=== PATIENT | female | born 1985 | race Hispanic/Latino ===

== ENCOUNTER 2017-06-04 23:17 | Emergency (ER) | payer OTHER ==
[~2017-06-04] VITALS: Ht 180.3 cm; Wt 90.9 kg
[2017-06-04 23:18] VITALS: BP 131/69
[2017-06-04] MEDS ORDERED: ZOLP10TA2 PO (23:30)
== END 2017-06-05 03:08 | disposition left against medical advice (07) ==
LOC: M ED 23:17
DX: R10.9 Unspecified abdominal pain (principal); Z53.21 Procedure and treatment not carried out due to patient leaving prior to being seen by health care provider

== ENCOUNTER → 2017-07-06 | Day surgery (SDC) | payer OTHER ==
[~2017-07-06] MED LIST: LIDOCAINE 1% MDV 20ML VIAL SQ; MIDAZOLAM INJ 2 MG/2 ML VIAL (J2250) As Ordered; fentaNYL 100 MCG/2 ML INJECTION (J3010) As Ordered
[2017-07-06] MEDS: LR 1,000 ML IV (10:00)
[2017-07-06] MEDS: METHYLENE BLUE 0.5% (5MG/ML) 10 ML AMP (PROVAYBLUE)(Q9968 PER 1MG) As Ordered (10:19)
[2017-07-06] MEDS: BUPIVACAINE HCL 0.25% 30 ML VIAL As Ordered (10:19)
== END ==
LOC: M SDC 09:49
DX: N97.9 Female infertility, unspecified (principal); Z53.8 Procedure and treatment not carried out for other reasons

== ENCOUNTER 2017-10-05 06:11 | Emergency (ER) | payer OTHER ==
[2017-10-05 06:58] LABS: BASO # 0.1 10^3/uL (0.0-0.2); BASO % 0.6 % (0.0-1.0); EOS # 0.2 10^3/uL (0.0-0.50); HEMOGLOBIN 13.3 g/dl (12.0-16.0); IMMATURE GRANULOCYTE % 0.6 % (0-3.0); LYMPH # 2.9 10^3/uL (1.5-4.5); LYMPH % 20.2 % (24.0-44.0); MEAN CORPUSCULAR HEMOGLOBIN 25.3 pg (27.0-33.0); MEAN CORPUSCULAR HGB CONC 31.7 g/dl (32.0-36.5); MONO # 0.6 10^3/uL (0.0-0.8); MONO % 4.3 % (0.0-5.0); NEUTROPHILS # 10.6 10^3/uL (1.8-7.7); NEUTROPHILS % 73.3 % (36.0-66.0); PLATELET COUNT, AUTOMATED 196 10^3/uL (150-450); RED BLOOD COUNT 5.25 10^6/uL (4.00-5.40); WHITE BLOOD COUNT 14.4 10^3/uL (4.0-10.0)
[2017-10-05 07:05] LABS: KETONE, URINE AUTO RFX TRACE mg/dL (NEGATIVE); LEUKOCYTE ESTERASE UR AUTO RFX NEGATIVE (NEGATIVE); MUCUS, URINE RFX SMALL (NEGATIVE); NITRITE, URINE AUTO RFX NEGATIVE (NEGATIVE); RBC, URINE AUTO RFX 19 /HPF (0-3); SPECIFIC GRAVITY UR AUTO RFX 1.016 (1.002-1.035); SQUAM EPITHELIAL CELL UR AURFX 1 /HPF (0-6); WBC, URINE AUTO RFX 2 /HPF (0-3)
[2017-10-05 07:11] LABS: ANION GAP 9 MEQ/L (8-16); BLOOD UREA NITROGEN 9 MG/DL (7-18); CALCIUM LEVEL 9.3 MG/DL (8.5-10.1); CARBON DIOXIDE LEVEL 24 MEQ/L (21-32); CHLORIDE LEVEL 104 MEQ/L (98-107); CREATININE FOR GFR 0.84 MG/DL (0.55-1.30); GLOMERULAR FILTRATION RATE > 60.0 (>60); GLUCOSE, FASTING 106 MG/DL (70-100); POTASSIUM SERUM 3.7 MEQ/L (3.5-5.1); SODIUM LEVEL 137 MEQ/L (136-145)
[2017-10-05 07:27] LABS: HCG, SERUM QUANTITATIVE 32760 MIU/ML
== END 2017-10-05 08:36 | disposition home or self-care (01) ==
LOC: M ED 06:11
DX: O20.8 Other hemorrhage in early pregnancy (principal); Z3A.01 Less than 8 weeks gestation of pregnancy; O99.611 Diseases of the digestive system complicating pregnancy, first trimester; K21.9 Gastro-esophageal reflux disease without esophagitis; Z98.890 Other specified postprocedural states; Z88.5 Allergy status to narcotic agent; O34.219 Maternal care for unspecified type scar from previous cesarean delivery
CPT/HCPCS: 76801

== ENCOUNTER → 2017-10-10 | Outpatient (CLI) | payer OTHER | LOC: M RAD 09:31 | DX: O46.8X1 Other antepartum hemorrhage, first trimester (principal); Z3A.01 Less than 8 weeks gestation of pregnancy | CPT/HCPCS: 76801 ==

== ENCOUNTER 2017-11-01 09:31 | Emergency (ER) | payer OTHER ==
[2017-11-01] MEDS: NS 1,000 ML IV (10:06)
[2017-11-01 10:26] LABS: BASO % 0.3 % (0.0-1.0); EOS # 0.1 10^3/uL (0.0-0.50); EOS % 1.5 % (0.0-3.0); HEMOGLOBIN 13.2 g/dl (12.0-15.5); LYMPH # 1.2 10^3/uL (1.5-4.5); LYMPH % 13.1 % (24.0-44.0); MEAN CORPUSCULAR HEMOGLOBIN 26.5 pg (27.0-33.0); MEAN CORPUSCULAR HGB CONC 32.2 g/dl (32.0-36.5); MEAN CORPUSCULAR VOLUME 82.2 fl (80.0-96.0); MONO # 0.3 10^3/uL (0.0-0.8); MONO % 3.3 % (0.0-5.0); NEUTROPHILS # 7.4 10^3/uL (1.8-7.7); NEUTROPHILS % 80.8 % (36.0-66.0); PLATELET COUNT, AUTOMATED 150 10^3/uL (150-450); RED BLOOD COUNT 4.99 10^6/uL (4.00-5.40); RED CELL DISTRIBUTION WIDTH 16.1 % (11.5-14.5); WHITE BLOOD COUNT 9.1 10^3/uL (4.0-10.0)
[2017-11-01 10:30] LABS: KETONE, URINE AUTO RFX TRACE mg/dL (NEGATIVE); LEUKOCYTE ESTERASE UR AUTO RFX NEGATIVE (NEGATIVE); MUCUS, URINE RFX LARGE (NEGATIVE); NITRITE, URINE AUTO RFX NEGATIVE (NEGATIVE); RBC, URINE AUTO RFX 1 /HPF (0-3); SPECIFIC GRAVITY UR AUTO RFX 1.024 (1.002-1.035); SQUAM EPITHELIAL CELL UR AURFX 2 /HPF (0-6); WBC, URINE AUTO RFX 1 /HPF (0-3)
[2017-11-01 11:26] LABS: HCG, SERUM QUANTITATIVE 71928 MIU/ML
== END 2017-11-01 11:59 | disposition home or self-care (01) ==
LOC: M ED 09:31
DX: O20.8 Other hemorrhage in early pregnancy (principal); Z3A.11 11 weeks gestation of pregnancy; K21.9 Gastro-esophageal reflux disease without esophagitis; O99.611 Diseases of the digestive system complicating pregnancy, first trimester; Z88.5 Allergy status to narcotic agent
CPT/HCPCS: 76801

== ENCOUNTER 2018-02-13 17:52 | Inpatient (IN) | payer OTHER ==
[2018-02-13 19:11] LABS: BASO % 0.4 % (0.0-1.0); EOS # 0.1 10^3/uL (0.0-0.50); EOS % 0.6 % (0.0-3.0); HEMATOCRIT 40.2 % (36.0-47.0); HEMOGLOBIN 13.4 g/dl (12.0-15.5); IMMATURE GRANULOCYTE % 1.3 % (0-3.0); LYMPH % 18.8 % (24.0-44.0); MEAN CORPUSCULAR HEMOGLOBIN 27.2 pg (27.0-33.0); MEAN CORPUSCULAR HGB CONC 33.3 g/dl (32.0-36.5); MEAN CORPUSCULAR VOLUME 81.5 fl (80.0-96.0); MONO # 0.5 10^3/uL (0.0-0.8); MONO % 4.8 % (0.0-5.0); NEUTROPHILS # 7.8 10^3/uL (1.8-7.7); NEUTROPHILS % 74.1 % (36.0-66.0); PLATELET COUNT, AUTOMATED 128 10^3/uL (150-450); RED BLOOD COUNT 4.93 10^6/uL (4.00-5.40); RED CELL DISTRIBUTION WIDTH 14.2 % (11.5-14.5); WHITE BLOOD COUNT 10.5 10^3/uL (4.0-10.0)
[2018-02-13 19:19] LABS: APPEARANCE, URINE CLEAR (CLEAR); BACTERIA, URINE AUTO NEGATIVE (NEGATIVE); BILIRUBIN, URINE AUTO NEGATIVE (NEGATIVE); BLOOD, URINE BLOOD NEGATIVE (NEGATIVE); COLOR, URINE STRAW (YELLOW); GLUCOSE, URINE (UA) AUTO 3+ mg/dL (NEGATIVE); KETONE, URINE AUTO 1+ mg/dL (NEGATIVE); LEUKOCYTE ESTERASE, URINE AUTO NEGATIVE (NEGATIVE); NITRITE, URINE AUTO NEGATIVE (NEGATIVE); PROTEIN, URINE AUTO NEGATIVE (NEGATIVE); RBC, URINE AUTO 0 /HPF (0-3); SPECIFIC GRAVITY URINE AUTO 1.033 (1.002-1.035); SQUAMOUS EPITHELIAL CELL UR AU 0 /HPF (0-6); UROBILINOGEN, URINE AUTO 0.2 mg/dL (0.0-2.0); WBC, URINE AUTO 0 /HPF (0-3)
[2018-02-13 19:46] LABS: ALBUMIN 2.8 GM/DL (3.2-5.2); ALBUMIN/GLOBULIN RATIO 0.68 (1.00-1.93); ALKALINE PHOSPHATASE 63 U/L (45-117); ALT/SGPT 29 U/L (12-78); ANION GAP 10 MEQ/L (8-16); AST/SGOT 16 U/L (7-37); BILIRUBIN,TOTAL 0.4 MG/DL (0.2-1.0); BLOOD UREA NITROGEN 10 MG/DL (7-18); CALCIUM LEVEL 9.3 MG/DL (8.5-10.1); CARBON DIOXIDE LEVEL 23 MEQ/L (21-32); CHLORIDE LEVEL 100 MEQ/L (98-107); CREATININE FOR GFR 1.13 MG/DL (0.55-1.30); GLOMERULAR FILTRATION RATE 59.4 (>60); GLUCOSE, FASTING 318 MG/DL (70-100); POTASSIUM SERUM 4.4 MEQ/L (3.5-5.1); SODIUM LEVEL 133 MEQ/L (136-145); TOTAL PROTEIN 6.9 GM/DL (6.4-8.2)
[2018-02-13 20:51] LABS: VITAMIN B12 LEVEL 512 PG/ML (247-911)
[2018-02-13 20:54] LABS: ESTIMATED AVERAGE GLUCOSE 192 MG/DL (60-110); HEMOGLOBIN A1c 8.3 %
[2018-02-13 21:49] LABS: AMPHETAMINES URINE REFLEX NEGATIVE (NEGATIVE); BARBITURATES URINE REFLEX NEGATIVE (NEGATIVE); BENZODIAZEPINES URINE REFLEX NEGATIVE (NEGATIVE); CANNABINOIDS URINE REFLEX NEGATIVE (NEGATIVE); COCAINE METABOLITE URINE REFLE NEGATIVE (NEGATIVE); METHADONE URINE REFLEX NEGATIVE (NEGATIVE); OPIATES URINE REFLEX NEGATIVE (NEGATIVE); PHENCYCLIDINE URINE REFLEX NEGATIVE (NEGATIVE)
[2018-02-13] MEDS ORDERED: GLUCAGON FOR INJ 1 MG VIAL (J1610) SC (22:00)
[2018-02-13] MEDS ORDERED: GLUCOSE 4 GM CHEW TABLET PO (22:00)
[2018-02-13] MEDS ORDERED: DEXTROSE 50% 50 ML SYRINGE IV (22:00)
[2018-02-13] MEDS: HumaLOG INSULIN (NovoLOG) PER UNIT SC (22:55)
[2018-02-13] MEDS: NS 1,000 ML IV (22:56)
[2018-02-13 23:08] LABS: BEDSIDE GLUCOSE 248 MG/DL (70-105)
[2018-02-13] MEDS: LEVEMIR (INSULIN DETEMIR) 1 UNITS/0.01ML SC (23:50)
[2018-02-14 01:30] LABS: ALBUMIN 2.4 GM/DL (3.2-5.2); ALBUMIN/GLOBULIN RATIO 0.63 (1.00-1.93); ALKALINE PHOSPHATASE 55 U/L (45-117); ALT/SGPT 25 U/L (12-78); ANION GAP 10 MEQ/L (8-16); AST/SGOT 18 U/L (7-37); BILIRUBIN,TOTAL 0.3 MG/DL (0.2-1.0); BLOOD UREA NITROGEN 10 MG/DL (7-18); CALCIUM LEVEL 8.5 MG/DL (8.5-10.1); CARBON DIOXIDE LEVEL 24 MEQ/L (21-32); CHLORIDE LEVEL 102 MEQ/L (98-107); CREATININE FOR GFR 0.72 MG/DL (0.55-1.30); GLOMERULAR FILTRATION RATE > 60.0 (>60); GLUCOSE, FASTING 220 MG/DL (70-100); POTASSIUM SERUM 3.7 MEQ/L (3.5-5.1); SODIUM LEVEL 136 MEQ/L (136-145); TOTAL PROTEIN 6.2 GM/DL (6.4-8.2)
[2018-02-14 02:22] LABS: BEDSIDE GLUCOSE 219 MG/DL (70-105)
[2018-02-14] MEDS: NS 1,000 ML IV ×3 (06:00→13:58)
[2018-02-14 07:39] LABS: BEDSIDE GLUCOSE 179 MG/DL (70-105)
[2018-02-14] MEDS: HumaLOG INSULIN (NovoLOG) PER UNIT SC ×5 (07:42→20:46)
[2018-02-14 09:36] LABS: BEDSIDE GLUCOSE 290 MG/DL (70-105)
[2018-02-14 11:28] LABS: CREATININE, URINE 25.1 MG/DL; MALB URINE SIEMENS < 5.0 MG/L; MAU/CREAT RATIO 19.9 MCG/MG (0.0-30.0)
[2018-02-14 11:36] LABS: BEDSIDE GLUCOSE 296 MG/DL (70-105)
[2018-02-14 11:52] LABS: HEMATOCRIT 39.4 % (36.0-47.0); HEMOGLOBIN 12.8 g/dl (12.0-15.5); MEAN CORPUSCULAR HEMOGLOBIN 26.8 pg (27.0-33.0); MEAN CORPUSCULAR HGB CONC 32.5 g/dl (32.0-36.5); MEAN CORPUSCULAR VOLUME 82.6 fl (80.0-96.0); PLATELET COUNT, AUTOMATED 127 10^3/uL (150-450); RED BLOOD COUNT 4.77 10^6/uL (4.00-5.40); RED CELL DISTRIBUTION WIDTH 14.4 % (11.5-14.5); WHITE BLOOD COUNT 9.6 10^3/uL (4.0-10.0)
[2018-02-14 17:22] LABS: BEDSIDE GLUCOSE 221 MG/DL (70-105)
[2018-02-14 19:31] LABS: ANION GAP 9 MEQ/L (8-16); BLOOD UREA NITROGEN 8 MG/DL (7-18); CALCIUM LEVEL 8.7 MG/DL (8.5-10.1); CARBON DIOXIDE LEVEL 23 MEQ/L (21-32); CHLORIDE LEVEL 103 MEQ/L (98-107); CREATININE FOR GFR 0.83 MG/DL (0.55-1.30); GLOMERULAR FILTRATION RATE > 60.0 (>60); GLUCOSE, FASTING 269 MG/DL (70-100); MAGNESIUM LEVEL 1.8 MG/DL (1.8-2.4); POTASSIUM SERUM 4.3 MEQ/L (3.5-5.1); SODIUM LEVEL 135 MEQ/L (136-145)
[2018-02-14 20:31] LABS: BEDSIDE GLUCOSE 284 MG/DL (70-105)
[2018-02-14] MEDS: LEVEMIR (INSULIN DETEMIR) 1 UNITS/0.01ML SC (20:46)
[2018-02-14] MEDS: MAGNESIUM OXIDE 400 MG TAB (MAG-OX) PO (20:52)
[2018-02-15 05:18] LABS: HEMATOCRIT 39.1 % (36.0-47.0); HEMOGLOBIN 12.5 g/dl (12.0-15.5); MEAN CORPUSCULAR HEMOGLOBIN 26.4 pg (27.0-33.0); MEAN CORPUSCULAR VOLUME 82.5 fl (80.0-96.0); PLATELET COUNT, AUTOMATED 113 10^3/uL (150-450); RED BLOOD COUNT 4.74 10^6/uL (4.00-5.40); RED CELL DISTRIBUTION WIDTH 14.1 % (11.5-14.5); WHITE BLOOD COUNT 9.4 10^3/uL (4.0-10.0)
[2018-02-15 05:52] LABS: ANION GAP 8 MEQ/L (8-16); BLOOD UREA NITROGEN 9 MG/DL (7-18); CALCIUM LEVEL 8.4 MG/DL (8.5-10.1); CARBON DIOXIDE LEVEL 23 MEQ/L (21-32); CHLORIDE LEVEL 107 MEQ/L (98-107); CREATININE FOR GFR 0.64 MG/DL (0.55-1.30); FREE THYROXINE INDEX 3.3 % (1.3-4.8); GLOMERULAR FILTRATION RATE > 60.0 (>60); GLUCOSE, FASTING 185 MG/DL (70-100); POTASSIUM SERUM 3.9 MEQ/L (3.5-5.1); SODIUM LEVEL 138 MEQ/L (136-145); T UPTAKE 25 % (30-39); THYROXINE (T4) 13.1 UG/DL (4.5-12.0)
[2018-02-15] MEDS: HumaLOG INSULIN (NovoLOG) PER UNIT SC ×3 (08:05→17:39)
[2018-02-15] MEDS: LEVEMIR (INSULIN DETEMIR) 1 UNITS/0.01ML SC ×3 (08:05→20:26)
[2018-02-15] MEDS ORDERED: HumaLOG INSULIN (NovoLOG) PER UNIT SC ×2 (12:00→17:30)
[2018-02-15 12:07] LABS: BEDSIDE GLUCOSE 246 MG/DL (70-105)
[2018-02-15] MEDS: PRENATAL VITAMINS CHEWABLE TABLET PO ×2 (12:15→15:19)
[2018-02-15 13:08] LABS: BEDSIDE GLUCOSE 241 MG/DL (70-105)
[2018-02-15 14:35] LABS: BEDSIDE GLUCOSE 211 MG/DL (70-105)
[2018-02-15 17:18] LABS: BEDSIDE GLUCOSE 165 MG/DL (70-105)
[2018-02-15 20:03] LABS: BEDSIDE GLUCOSE 199 MG/DL (70-105)
[2018-02-15 21:50] LABS: BEDSIDE GLUCOSE 215 MG/DL (70-105)
[2018-02-16 07:42] LABS: ANION GAP 9 MEQ/L (8-16); BLOOD UREA NITROGEN 8 MG/DL (7-18); CALCIUM LEVEL 8.4 MG/DL (8.5-10.1); CARBON DIOXIDE LEVEL 24 MEQ/L (21-32); CHLORIDE LEVEL 106 MEQ/L (98-107); CREATININE FOR GFR 0.71 MG/DL (0.55-1.30); GLOMERULAR FILTRATION RATE > 60.0 (>60); GLUCOSE, FASTING 160 MG/DL (70-100); POTASSIUM SERUM 3.9 MEQ/L (3.5-5.1); SODIUM LEVEL 139 MEQ/L (136-145)
[2018-02-16 07:47] LABS: BEDSIDE GLUCOSE 153 MG/DL (70-105)
[2018-02-16] MEDS ORDERED: ACETAMINOPHEN TAB 650MG DOSE (2X325MG) PO (08:00)
[2018-02-16] MEDS: HumaLOG INSULIN (NovoLOG) PER UNIT SC ×4 (08:01→17:07)
[2018-02-16] MEDS: LEVEMIR (INSULIN DETEMIR) 1 UNITS/0.01ML SC ×2 (08:01→21:22)
[2018-02-16] MEDS: PRENATAL VITAMINS CHEWABLE TABLET PO (08:01)
[2018-02-16] MEDS: ACETAMINOPHEN 500 MG TAB PO (08:02)
[2018-02-16 10:14] LABS: BEDSIDE GLUCOSE 207 MG/DL (70-105)
[2018-02-16 12:01] LABS: BEDSIDE GLUCOSE 161 MG/DL (70-105)
[2018-02-16 12:43] LABS: ALBUMIN 2.5 GM/DL (3.2-5.2); ALBUMIN/GLOBULIN RATIO 0.66 (1.00-1.93); ALKALINE PHOSPHATASE 56 U/L (45-117); ALT/SGPT 29 U/L (12-78); ANION GAP 11 MEQ/L (8-16); AST/SGOT 21 U/L (7-37); BILIRUBIN,TOTAL 0.4 MG/DL (0.2-1.0); BLOOD UREA NITROGEN 8 MG/DL (7-18); CALCIUM LEVEL 8.9 MG/DL (8.5-10.1); CARBON DIOXIDE LEVEL 22 MEQ/L (21-32); CHLORIDE LEVEL 103 MEQ/L (98-107); CREATININE FOR GFR 0.67 MG/DL (0.55-1.30); GLOMERULAR FILTRATION RATE > 60.0 (>60); GLUCOSE, FASTING 181 MG/DL (70-100); POTASSIUM SERUM 3.7 MEQ/L (3.5-5.1); SODIUM LEVEL 136 MEQ/L (136-145); TOTAL PROTEIN 6.3 GM/DL (6.4-8.2)
[2018-02-16 14:05] LABS: BEDSIDE GLUCOSE 136 MG/DL (70-105)
[2018-02-16 17:10] LABS: BEDSIDE GLUCOSE 108 MG/DL (70-105)
[2018-02-16 19:54] LABS: BEDSIDE GLUCOSE 85 MG/DL (70-105)
[2018-02-16 21:11] LABS: BEDSIDE GLUCOSE 117 MG/DL (70-105)
[2018-02-17 07:24] LABS: ANION GAP 8 MEQ/L (8-16); BLOOD UREA NITROGEN 7 MG/DL (7-18); CALCIUM LEVEL 8.6 MG/DL (8.5-10.1); CARBON DIOXIDE LEVEL 24 MEQ/L (21-32); CHLORIDE LEVEL 107 MEQ/L (98-107); CREATININE FOR GFR 0.59 MG/DL (0.55-1.30); GLOMERULAR FILTRATION RATE > 60.0 (>60); GLUCOSE, FASTING 134 MG/DL (70-100); POTASSIUM SERUM 3.9 MEQ/L (3.5-5.1); SODIUM LEVEL 139 MEQ/L (136-145)
[2018-02-17 07:41] LABS: BEDSIDE GLUCOSE 149 MG/DL (70-105)
[2018-02-17] MEDS: HumaLOG INSULIN (NovoLOG) PER UNIT SC ×3 (07:59→18:02)
[2018-02-17] MEDS: ACETAMINOPHEN 500 MG TAB PO (08:01)
[2018-02-17] MEDS: PRENATAL VITAMINS CHEWABLE TABLET PO (09:09)
[2018-02-17] MEDS: LEVEMIR (INSULIN DETEMIR) 1 UNITS/0.01ML SC ×2 (09:10→20:26)
[2018-02-17 10:26] LABS: BEDSIDE GLUCOSE 128 MG/DL (70-105)
[2018-02-17 12:11] LABS: BEDSIDE GLUCOSE 116 MG/DL (70-105)
[2018-02-17 14:51] LABS: BEDSIDE GLUCOSE 81 MG/DL (70-105)
[2018-02-17 17:55] LABS: BEDSIDE GLUCOSE 105 MG/DL (70-105)
[2018-02-17 20:25] LABS: BEDSIDE GLUCOSE 104 MG/DL (70-105)
[2018-02-18 03:21] LABS: BEDSIDE GLUCOSE 137 MG/DL (70-105)
[2018-02-18 06:45] LABS: BEDSIDE GLUCOSE 122 MG/DL (70-105)
[2018-02-18] MEDS: HumaLOG INSULIN (NovoLOG) PER UNIT SC (07:28)
[2018-02-18] MEDS: PRENATAL VITAMINS CHEWABLE TABLET PO (08:56)
[2018-02-18] MEDS: LEVEMIR (INSULIN DETEMIR) 1 UNITS/0.01ML SC (08:57)
[2018-02-18 09:48] LABS: BEDSIDE GLUCOSE 135 MG/DL (70-105)
== END 2018-02-18 09:45 | disposition home or self-care (01) | DRG 781 ==
LOC: M LDO 17:52 → M ICU 02-14 12:54 → M OBS 02-15 13:58
DX: O24.414 Gestational diabetes mellitus in pregnancy, insulin controlled (principal); N17.9 Acute kidney failure, unspecified; Z3A.25 25 weeks gestation of pregnancy; Z90.49 Acquired absence of other specified parts of digestive tract; Z88.5 Allergy status to narcotic agent

== ENCOUNTER → 2018-04-05 | Outpatient (CLI) | payer OTHER | LOC: M RAD 14:33 | DX: O76 Abnormality in fetal heart rate and rhythm complicating labor and delivery (principal); O24.113 Pre-existing type 2 diabetes mellitus, in pregnancy, third trimester; Z3A.32 32 weeks gestation of pregnancy ==

== ENCOUNTER 2018-04-20 04:27 | Outpatient (CLI) | payer OTHER ==
[2018-04-20] MEDS ORDERED: NS 1,000 ML IV (06:00)
== END 2018-04-20 07:30 | disposition home or self-care (01) ==
LOC: M LDO 04:27
DX: O62.2 Other uterine inertia (principal); O24.414 Gestational diabetes mellitus in pregnancy, insulin controlled; Z3A.34 34 weeks gestation of pregnancy
CPT/HCPCS: 76815

== ENCOUNTER 2018-05-08 01:57 | Inpatient (IN) | payer OTHER ==
[2018-05-08] MEDS: BUPIVACAINE HCL 0.25% 10 ML VIAL XX (02:45)
[2018-05-08] MEDS: ACETAMINOPHEN 650 MG SUPP PR (02:45)
[2018-05-08] MEDS ORDERED: LR 1,000 ML IV (02:45)
[2018-05-08 02:47] LABS: BEDSIDE GLUCOSE 87 MG/DL (70-105)
[2018-05-08 02:55] LABS: HEMATOCRIT 39.8 % (36.0-47.0); HEMOGLOBIN 12.8 g/dl (12.0-15.5); MEAN CORPUSCULAR HEMOGLOBIN 26.8 pg (27.0-33.0); MEAN CORPUSCULAR HGB CONC 32.2 g/dl (32.0-36.5); MEAN CORPUSCULAR VOLUME 83.3 fl (80.0-96.0); RED BLOOD COUNT 4.78 10^6/uL (4.00-5.40); RED CELL DISTRIBUTION WIDTH 14.7 % (11.5-14.5); WHITE BLOOD COUNT 8.8 10^3/uL (4.0-10.0)
[2018-05-08] MEDS: LR 1,000 ML IV ×3 (02:56→15:50)
[2018-05-08] MEDS: BICITRA 30ML SOLN UDC PO (02:56)
[2018-05-08] MEDS: AZITHROMYCIN INJ 500 MG, VIAL MATE ADAPTER 1 EACH in D5W 250 ML IV (02:56)
[2018-05-08] MEDS ORDERED: OXYTOCIN INJ 10 UNITS/ML VIAL (J2590) As Ordered ×4 (03:04→03:06)
[2018-05-08] MEDS ORDERED: ONDANSETRON 4MG/2ML VIAL (J2405) As Ordered (03:06)
[2018-05-08] MEDS ORDERED: dexameTHASONE 4 MG/ML 1ML VIAL (J1100) As Ordered (03:07)
[2018-05-08] MEDS ORDERED: MORPHINE PRES-FREE INJ 10 MG/10 ML VIAL (J2274) As Ordered (03:09)
[2018-05-08 03:12] LABS: PLATELET COUNT, AUTOMATED 95 10^3/uL (150-450)
[2018-05-08] MEDS ORDERED: PROPOFOL 200 MG/20 ML VIAL As Ordered (03:16)
[2018-05-08] MEDS ORDERED: LIDOCAINE 2% INJ 100 MG/5 ML SDV (FOR ANES.) As Ordered (03:16)
[2018-05-08] MEDS ORDERED: fentaNYL 100 MCG/2 ML INJECTION (J3010) As Ordered (03:18)
[2018-05-08] MEDS ORDERED: NALBUPHINE HCL 10 MG/ML AMP (J2300) IV (03:27)
[2018-05-08] MEDS ORDERED: NALOXONE INJ 0.4 MG/1 ML VIAL (J2310) IV ×2 (03:27)
[2018-05-08] MEDS ORDERED: METOCLOPRAMIDE INJ 10MG/2ML VIAL (J2765) IV ×2 (03:27→05:15)
[2018-05-08] MEDS ORDERED: ONDANSETRON 4MG/2ML VIAL (J2405) IV ×2 (03:27→05:15)
[2018-05-08 03:57] LABS: CORD GAS ABE A -2.6; CORD GAS HCO3 A 25.9 MEQ/L; CORD GAS O2 SAT A 17.4 %; CORD GAS PCO2 A 60.7 mmHg; CORD GAS PH A 7.248 UNITS; CORD GAS PO2 A 11.8 mmHg; CORD GAS SBC A 20.4 MEQ/L; CORD GAS TCO2 A 27.8 MEQ/L
[2018-05-08 03:58] LABS: CORD GAS ABE V -2.9; CORD GAS HCO3 V 23.1 MEQ/L; CORD GAS O2 SAT V 58.4 %; CORD GAS PCO2 V 44.9 mmHg; CORD GAS PO2 V 25.2 mmHg; CORD GAS SBC V 21.1 MEQ/L; CORD GAS TCO2 V 24.5 MEQ/L
[2018-05-08] MEDS ORDERED: PHENYLephrine HCL 500 MCG/5 ML (100MCG/ML) SYRINGE (J2370) As Ordered (04:28)
[2018-05-08] MEDS ORDERED: OXYTOCIN INJ 10 UNITS/ML VIAL (J2590) IV (05:00)
[2018-05-08] MEDS ORDERED: MOM 30ML SUSPENSION UDC PO (05:00)
[2018-05-08] MEDS: METHYLERGONOVINE MALEATE 0.2 MG/ML VIAL (J2210) IM (05:00)
[2018-05-08] MEDS ORDERED: ANUSOL HC CREAM 30GM TOP (05:00)
[2018-05-08] MEDS: OXYTOCIN DRIP 30 UNITS in APPROPRIATE DILUENT 1 EA IV ×2 (05:15→08:44)
[2018-05-08] MEDS ORDERED: METHYLERGONOVINE MALEATE 0.2 MG TAB PO (05:15)
[2018-05-08] MEDS ORDERED: fentaNYL 100 MCG/2 ML INJECTION (J3010) IV (05:15)
[2018-05-08] MEDS ORDERED: OXYTOCIN 30 UNITS IN 0.9% NaCl 500ML IV BAG (J2590) As Ordered (05:15)
[2018-05-08] MEDS: D5W/0.45% SODIUM CHLORIDE 1,000 ML IV (05:15)
[2018-05-08] MEDS ORDERED: MEPERIDINE INJ 25 MG/ML VIAL (J2175) IV (05:15)
[2018-05-08] MEDS ORDERED: KETOROLAC 30 MG/ML VIAL (J1885) As Ordered (05:39)
[2018-05-08] MEDS: KETOROLAC 30 MG/ML VIAL (J1885) IV ×3 (05:41→17:53)
[2018-05-08 06:47] LABS: HEMATOCRIT 39.2 % (36.0-47.0); HEMOGLOBIN 12.5 g/dl (12.0-15.5); MEAN CORPUSCULAR HEMOGLOBIN 26.7 pg (27.0-33.0); MEAN CORPUSCULAR HGB CONC 31.9 g/dl (32.0-36.5); MEAN CORPUSCULAR VOLUME 83.6 fl (80.0-96.0); RED BLOOD COUNT 4.69 10^6/uL (4.00-5.40); RED CELL DISTRIBUTION WIDTH 14.8 % (11.5-14.5); WHITE BLOOD COUNT 7.6 10^3/uL (4.0-10.0)
[2018-05-08 06:52] LABS: PLATELET COUNT, AUTOMATED 94 10^3/uL (150-450)
[2018-05-08 07:14] LABS: GLUCOSE, FASTING 121 MG/DL (70-100)
[2018-05-08] MEDS: PERCOCET 5MG/325MG TAB PO ×3 (07:42→21:04)
[2018-05-08] MEDS: RHOGAM 300 MCG (1500 IU) INJ (J2790) IM (08:49)
[2018-05-08] MEDS: MEASLES,MUMPS,RUBELLA VACCINE INJ (MMR-II) (90707) SC (08:49)
[2018-05-08] MEDS: PRENATAL VITAMINS CHEWABLE TABLET PO (09:39)
[2018-05-08 10:36] LABS: BEDSIDE GLUCOSE 137 MG/DL (70-105)
[2018-05-08 15:58] LABS: BEDSIDE GLUCOSE 94 MG/DL (70-105)
[2018-05-08] MEDS ORDERED: SLF 3 ML SYR IV (18:30)
[2018-05-08 19:05] LABS: BEDSIDE GLUCOSE 126 MG/DL (70-105)
[2018-05-08] MEDS: SLF 3 ML SYR IV (22:00)
[2018-05-09] MEDS: LR 1,000 ML IV (00:04)
[2018-05-09] MEDS: IBUPROFEN 800 MG TAB PO ×3 (01:43→18:17)
[2018-05-09] MEDS: PERCOCET 5MG/325MG TAB PO ×6 (01:43→22:03)
[2018-05-09] MEDS: SLF 3 ML SYR IV ×3 (05:30→22:03)
[2018-05-09] MEDS: DOCUSATE SODIUM 100 MG CAP PO ×2 (05:58→22:03)
[2018-05-09 07:22] LABS: HEMATOCRIT 31.9 % (36.0-47.0); MEAN CORPUSCULAR HEMOGLOBIN 26.9 pg (27.0-33.0); MEAN CORPUSCULAR HGB CONC 32.3 g/dl (32.0-36.5); MEAN CORPUSCULAR VOLUME 83.3 fl (80.0-96.0); RED BLOOD COUNT 3.83 10^6/uL (4.00-5.40); RED CELL DISTRIBUTION WIDTH 14.8 % (11.5-14.5); WHITE BLOOD COUNT 12.1 10^3/uL (4.0-10.0)
[2018-05-09 07:24] LABS: HEMOGLOBIN 10.3 g/dl (12.0-15.5); PLATELET COUNT, AUTOMATED 81 10^3/uL (150-450)
[2018-05-09 07:25] LABS: IMMATURE PLATELET FRACTION % 14.1 % (0.0-9.6)
[2018-05-09] MEDS: PRENATAL VITAMINS CHEWABLE TABLET PO (08:16)
[2018-05-09 10:49] LABS: BEDSIDE GLUCOSE 86 MG/DL (70-105)
[2018-05-09 15:23] LABS: BEDSIDE GLUCOSE 99 MG/DL (70-105)
[2018-05-09 20:06] LABS: BEDSIDE GLUCOSE 114 MG/DL (70-105)
[2018-05-10] MEDS: IBUPROFEN 800 MG TAB PO (02:20)
[2018-05-10] MEDS: PERCOCET 5MG/325MG TAB PO ×2 (02:20→08:27)
[2018-05-10] MEDS: SLF 3 ML SYR IV (05:24)
[2018-05-10 08:26] LABS: HEMATOCRIT 34.5 % (36.0-47.0); HEMOGLOBIN 10.8 g/dl (12.0-15.5); MEAN CORPUSCULAR HEMOGLOBIN 26.6 pg (27.0-33.0); MEAN CORPUSCULAR HGB CONC 31.3 g/dl (32.0-36.5); PLATELET COUNT, AUTOMATED 104 10^3/uL (150-450); RED BLOOD COUNT 4.06 10^6/uL (4.00-5.40); RED CELL DISTRIBUTION WIDTH 14.9 % (11.5-14.5); WHITE BLOOD COUNT 9.6 10^3/uL (4.0-10.0)
== END 2018-05-10 10:16 | disposition home or self-care (01) | DRG 771 ==
LOC: M LDO 01:57 → M LDI 02:28 → M OBS 06:07
PROVIDERS: Obstetrics & Gynecology
PROC: 10D00Z1 Extraction of Products of Conception, Low, Open Approach (ICD-10-PCS; principal; 2018-05-08 03:17)
PROC: 0DNW0ZZ Release Peritoneum, Open Approach (ICD-10-PCS; 2018-05-08 03:17)
DX: O45.93 Premature separation of placenta, unspecified, third trimester (principal); O24.12 Pre-existing type 2 diabetes mellitus, in childbirth; O75.82 Onset (spontaneous) of labor after 37 completed weeks of gestation but before 39 completed weeks gestation, with delivery by (planned) cesarean section; O34.211 Maternal care for low transverse scar from previous cesarean delivery; Z37.0 Single live birth; Z79.4 Long term (current) use of insulin; O69.2XX0 Labor and delivery complicated by other cord entanglement, with compression, not applicable or unspecified; N73.6 Female pelvic peritoneal adhesions (postinfective); Z3A.37 37 weeks gestation of pregnancy

== ENCOUNTER → 2019-01-12 | Outpatient (REF) | payer OTHER ==
[~2019-01-12] MED LIST changes: +ANUS2.5C2 TOP; +COLA100C5 PO; +IBUP-1114 PO; +INSUDET SC; +INSUHUMDS SC; +IRON65TA PO; -LIDOCAINE 1% MDV 20ML VIAL SQ; +MAPA500T2 PO; -MIDAZOLAM INJ 2 MG/2 ML VIAL (J2250) As Ordered; +OXYC1TAB23 PO; +PRENTAB29 PO; +PRENTAB40 PO; +TYLE325T5 PO; +VITA500T PO; +ZOLP10TA2 PO; -fentaNYL 100 MCG/2 ML INJECTION (J3010) As Ordered
[2019-01-12 19:25] LABS: CHLAMYDIA DNA AMPLIFICATION NEGATIVE (NEGATIVE); GC DNA AMPLIFICATION NEGATIVE (NEGATIVE)
== END ==
LOC: M SFHCLERA 10:14
PROVIDERS: ATTEND Nurse Practitioner Family
DX: R10.9 Unspecified abdominal pain (principal)

== ENCOUNTER 2019-08-13 10:22 | Outpatient (CLI) | payer OTHER ==
[~2019-08-13] VITALS: Ht 152.4 cm; Wt 109.9 kg
[2019-08-13] MEDS ORDERED: NOVOINJ14 SC (10:46)
[2019-08-13] MEDS ORDERED: LR 1,000 ML IV SCH (11:17)
[2019-08-13] MEDS ORDERED: LACTATED RINGER'S 1000 ML IV STA (11:17)
[2019-08-13] MEDS ORDERED: ONDANSETRON 4MG/2ML VIAL (J2405) IV ONE (11:30)
[2019-08-13] MEDS ORDERED: ACETAMINOPHEN 500 MG TAB PO ONE (11:30)
--- NOTE | 2019-08-13 13:26 | IPNPDOC ---
Text Note Date of Service The patient was seen on 08/13/19. NOTE Triage Note Ze is a 34yo with SIUP at 25wk presents with n/v/d since eating pizza last night. Her children have similar symptoms. No fevers/chills. Was not able to keep food or liquids down since last night at dinner. Feels good movement, no ctx/LOF/vaginal bleeding. She has not taken insulin since yesterday. Has a bit of a headache. Vitals wnl, afebrile General: WDWN, resting comfortably in bed Abdomen: soft, gravid, NTTP, no rebound/guarding Extremities: no edema of BLE Cat I FHRT with +accels, -decels, mod yenifer Peak: no ctx random glucose: 120 Assessment: Ze is a 34yo with SIUP at 25wk presents with n/v/d since eating pizza last night ([employer]). She received 1L LR IVF in triage as well as 8mg IV zofran, and after that was PO tolerant (drank water, ate soup and sandwich). Likely viral gastroenteritis and self-limiting. 1000mg PO Tylenol resolved headache. Vitals wnl, afebrile, benign exam. Reassuring status. Plan: -Safe for discharge home -Encouraged soft diet, still diabetic compliant. Soup, good hydration -Keep next routine OB appt -As normal diet reinitiated, begin taking insulin again -Return precautions discussed MD Conner Parker Katrina D MD Aug 13, 2019 13:26
== END 2019-08-13 14:28 | disposition home or self-care (01) ==
LOC: M LDO 10:22
PROVIDERS: ATTEND Obstetrics & Gynecology
DX: O21.2 Late vomiting of pregnancy (principal); Z3A.25 25 weeks gestation of pregnancy; O99.612 Diseases of the digestive system complicating pregnancy, second trimester; O24.112 Pre-existing type 2 diabetes mellitus, in pregnancy, second trimester; E11.9 Type 2 diabetes mellitus without complications; Z79.4 Long term (current) use of insulin; Z79.899 Other long term (current) drug therapy; Z88.8 Allergy status to other drugs, medicaments and biological substances
CPT/HCPCS: 96361; 96374; G0378; G0463; J2405

== ENCOUNTER 2019-10-11 06:14 | Outpatient (CLI) | payer OTHER ==
[~2019-10-11] VITALS: Ht 180.3 cm; Wt 112.1 kg
[~2019-10-11 06:14] MED LIST changes: +NOVOINJ14 SC
[2019-10-11 06:35] VITALS: BP 110/67
[2019-10-11] MEDS ORDERED: ACETAMINOPHEN 500 MG TAB PO ONE (07:15)
[2019-10-11] MEDS ORDERED: APAP500T10 PO (07:23)
[2019-10-11] MEDS ORDERED: METOCLOPRAMIDE 10 MG TAB PO ONE (08:00)
--- NOTE | 2019-10-11 08:14 | IPNPDOC ---
Text Note Date of Service The patient was seen on 10/11/19. NOTE patient is a 34 yo @ 33+5wks gestation present with concern for severe HUMPHREY since last night, ear ache and sore throat x 2 weeks, SOB x 2 days. She took tylenol yesterday evening which helped and she was able to sleep. she woke up with a HUMPHREY around 0300 and took some more liquid tylenol. She thinks she is drinking adequate fluids at home with clear urine. reports she has intermittent lower abdominal pain through out her and is not new or worsened. denies LOF/VB.+FM. vital: normal NAD, sitting in bed skin warm to touch. HEENT: NC,AT, eyes without exudates, no rednes ears: left drum clear without redness, right ear drum cloudy appearing without bulge, no exudates, tenderness on back of ears nose: no drainage throat: normal appearing, no exudates, no erythema neck: tender to palpation under mandible, with enlarged lymph nodes. chest: no w/r/r, decreased lung sounds on right lower lobe. s1s2 s m/g/c abd: gravid, soft, nt, cephalic by chen LE: no edema/erythema/tenderness fht: 140/mod yenifer/pos accel/no decel toco: no ctx a/p patient is at 33+5wks with s/s of middle ear infection and SOB witch is concerning for a lower respiratory infection. Treat HUMPHREY with tylenol and reglan. get viral panel with covid. strep screen. chest xray. If all negative treat for humphrey and middle ear infection. would recommend isolation until covid comes back negative. patient checked out to on coming team Dr. Prieto and MAJ Mitchell. DO Aydee VS,Fishbone, I+O VS, Fishbone, I+O Vital Signs Date Time Temp Pulse Resp B/P (MAP) Pulse Ox O2 Delivery O2 Flow Rate FiO2 10/11/19 06:35 96.9 91 18 110/67 (81) Room Air CANDELARIO PERES DO Oct 11, 2019 07:44
[2019-10-11 08:19] LABS: APPEARANCE, URINE CLEAR (CLEAR); BACTERIA, URINE AUTO NEGATIVE (NEGATIVE); BILIRUBIN, URINE AUTO NEGATIVE (NEGATIVE); BLOOD, URINE BLOOD NEGATIVE (NEGATIVE); COLOR, URINE STRAW (YELLOW); GLUCOSE, URINE (UA) AUTO NEGATIVE (NEGATIVE); KETONE, URINE AUTO NEGATIVE (NEGATIVE); LEUKOCYTE ESTERASE, URINE AUTO NEGATIVE (NEGATIVE); NITRITE, URINE AUTO NEGATIVE (NEGATIVE); PROTEIN, URINE AUTO NEGATIVE (NEGATIVE); RBC, URINE AUTO 0 /HPF (0-3); SPECIFIC GRAVITY URINE AUTO 1.003 (1.002-1.035); SQUAMOUS EPITHELIAL CELL UR AU 1 /HPF (0-6); UROBILINOGEN, URINE AUTO 0.2 mg/dL (0.0-2.0); WBC, URINE AUTO 0 /HPF (0-3)
[2019-10-11 08:27] LABS: BASO % 0.3 % (0.0-1.0); EOS # 0.2 10^3/uL (0.0-0.5); HEMATOCRIT 32.2 % (36.0-47.0); LYMPH # 1.6 10^3/uL (1.5-5.0); LYMPH % 21.4 % (24.0-44.0); MEAN CORPUSCULAR HEMOGLOBIN 25.1 pg (27.0-33.0); MEAN CORPUSCULAR HGB CONC 31.1 g/dl (32.0-36.5); MEAN CORPUSCULAR VOLUME 80.9 fl (80.0-96.0); MONO # 0.4 10^3/uL (0.0-0.8); MONO % 5.8 % (0.0-5.0); NEUTROPHILS # 5.2 10^3/uL (1.5-8.5); NEUTROPHILS % 69.8 % (36.0-66.0); PLATELET COUNT, AUTOMATED 112 10^3/uL (150-450); RED BLOOD COUNT 3.98 10^6/uL (4.00-5.40); WHITE BLOOD COUNT 7.4 10^3/uL (4.0-10.0)
[2019-10-11 08:54] LABS: ALBUMIN 2.3 GM/DL (3.2-5.2); ALT/SGPT 12 U/L (12-78); BILIRUBIN,TOTAL 0.4 MG/DL (0.2-1.0); BLOOD UREA NITROGEN 4 MG/DL (7-18); CALCIUM LEVEL 8.3 MG/DL (8.5-10.1); CARBON DIOXIDE LEVEL 24 MEQ/L (21-32); CHLORIDE LEVEL 108 MEQ/L (98-107); CREATININE FOR GFR 0.61 MG/DL (0.55-1.30); GLOMERULAR FILTRATION RATE > 60.0 (>60); GLUCOSE, FASTING 123 MG/DL (70-100); POTASSIUM SERUM 3.9 MEQ/L (3.5-5.1); SODIUM LEVEL 139 MEQ/L (136-145); TOTAL PROTEIN 5.9 GM/DL (6.4-8.2)
[2019-10-11] MEDS ORDERED: HumuLIN N INSULIN (NovoLIN N) PER UNIT SC ONE (09:15)
[2019-10-11 09:38] VITALS: BP 118/71
--- NOTE | 2019-10-11 10:03 | REP ---
Portable chest x-ray: Single view. History: 34-year-old patient at 34 weeks with new onset shortness of breath. Person under investigation for parsons virus. No comparison chest x-ray. Findings: The lungs are well inflated and clear. No infiltrate is seen. Pulmonary vasculature is not increased. Heart is not enlarged. Pleural angles are sharp. No bony abnormality is seen. Impression: Negative portable chest x-ray. No infiltrate seen. Electronically Signed by Anjel Yeung MD 10/11/2019 10:01 A
[2019-10-11 10:48] VITALS: BP 115/58
--- NOTE | 2019-10-11 12:42 | IPNPDOC ---
Text Note Date of Service The patient was seen on 10/11/19. NOTE S: Ze is a 34yo at 33+5wks who presented this AM to LND triage with severe HUMPHREY, ear ache, sore throat, SOB and lower abdominal pain. She was isolated in triage, masked, and CEFM placed. She denies any cough or GI symptoms; she denies contact with any persons that humphrey ve been symptomatic or positive for COVID19 She received 1G tylenol and reglan, HUMPHREY now only "slight" and pt overall feels better. She denies any worsening symptoms. She reports +FM, denies LOF/VB/CTX. She states her abdominal pain is left and right lower and she states it feels more like pulling, c/w round ligament pain and normal 3rd trimester discomforts. She also received 10u NPH and ate breakfast. Her PP fingerstick O: VSS, O2 sats 100% on Room Air FHR: 140s, moderate variability, + accels, no decels CTX: few noted, but pt denies feeling anything VE: not indicated CXR: WNL Labs: Respiratory panel negative, Strep negative, CBC (anemia and platelets 112,000) COVID19 test PENDING A: 34yo at 33+5wks, middle ear infection and SOB (better now since arrival to triage). Category I FHT with good reactivity, reassuring status. Good results with tylenol and reglan for HUMPHREY. CXR, respiratory viral panel and strep negative. COVID Pending P: Discharge home with strict isolation precautions for 14 days Return to ER with worsening symptoms Scheduled BPP [id number] - needs to call Tuesday or Tuesday for test results prior to coming in on Tuesday. IF positive, pt will receive notification CHRISSY. /danger precautions reviewed eligibility supervisor Augmentin at [facility] for ear infection (500mg TID x7 days) f/u PRN VS,Fishbone, I+O VS, Fishbone, I+O Vital Signs Date Time Temp Pulse Resp B/P (MAP) Pulse Ox O2 Delivery O2 Flow Rate FiO2 10/11/19 10:48 81 20 115/58 (77) 10/11/19 09:39 85 100 Room Air 10/11/19 09:38 82 118/71 (87) 10/11/19 09:37 97.3 20 Room Air 10/11/19 06:35 96.9 91 18 110/67 (81) Room Air Laboratory Tests 10/11/19 07:39: Urine Color STRAW, Urine Appearance CLEAR, Urine pH 6.0, Urine Specific [place] 1.003, Urine Protein NEGATIVE, Urine Glucose (Auto)(UA) NEGATIVE, Urine Ketones (Auto) NEGATIVE, Urine Blood NEGATIVE, Urine Nitrite NEGATIVE, Urine Bilirubin NEGATIVE, Urine Urobilinogen 0.2, Urine Leukocyte Esterase (Auto) NEGATIVE, Urine WBC (Auto) 0, Urine RBC (Auto) 0, Urine Hyaline Casts (Auto) 0, Urine Bacteria (Auto) NEGATIVE, Urine Squamous Epithelial Cells 1, Urine Sperm (Auto) 10/11/19 08:12: Sodium Level 139, Potassium Level 3.9, Chloride Level 108H, Carbon Dioxide Level 24, Anion Gap 7L, Blood Urea Nitrogen 4L, Creatinine 0.61, Glomerular Filtration Rate > 60.0, Fasting Glucose 123H, Calcium Level 8.3L, Total Bilirubin 0.4, Aspartate Amino Transf (AST/SGOT) 16, Alanine Aminotransferase (ALT/SGPT) 12, Alkaline Phosphatase 93, Total Protein 5.9L, Albumin 2.3L, Albumin/Globulin Ratio 0.64L 10/11/19 08:13: White Blood Count 7.4, Red Blood Count 3.98L, Hemoglobin 10.0L, Hematocrit 32.2L, Mean Corpuscular Volume 80.9, Mean Corpuscular Hemoglobin 25.1L, Mean Corpuscular Hemoglobin Concent 31.1L, Red Cell Distribution Width 15.2H, Platelet Count 112L, Immature Granulocyte % (Auto) 0.7, Neutrophils (%) (Auto) 69.8H, Lymphocytes (%) (Auto) 21.4L, Monocytes (%) (Auto) 5.8H, Eosinophils (%) (Auto) 2.0, Basophils (%) (Auto) 0.3, Neutrophils # (Auto) 5.2, Lymphocytes # (Auto) 1.6, Monocytes # (Auto) 0.4, Eosinophils # (Auto) 0.2, Basophils # (Auto) 0.0, Nucleated Red Blood Cells % (auto) 0.0 10/11/19 11:54: Bedside Glucose (Misc Panel) 137H Microbiology 10/11/19 Respiratory Panel (PCR) - Final, Complete Laboratory Tests 10/11/19 08:12 10/11/19 08:13 THAD GUERIN Oct 11, 2019 12:42
[2019-10-11 12:44] VITALS: BP 123/69
[2019-10-11] MEDS ORDERED: INSUNSD SC (18:42)
== END 2019-10-11 12:50 | disposition home or self-care (01) ==
LOC: M LDO 06:14
PROVIDERS: ATTEND Obstetrics & Gynecology
DX: O99.89 Other specified diseases and conditions complicating pregnancy, childbirth and the puerperium (principal); R51 Headache; O26.893 Other specified pregnancy related conditions, third trimester; H66.90 Otitis media, unspecified, unspecified ear; R06.02 Shortness of breath; O24.113 Pre-existing type 2 diabetes mellitus, in pregnancy, third trimester; Z3A.33 33 weeks gestation of pregnancy
CPT/HCPCS: 36415; 59025; 71045; 80053; 81001; 85025; 87081; 87086; 87430; 87486; 87581; 87633; 87798; 96372; G0378; G0463; U0002

== ENCOUNTER → 2019-10-19 | Outpatient (CLI) | payer OTHER ==
[~2019-10-19] MED LIST changes: +APAP500T10 PO; +INSUNSD SC
--- NOTE | 2019-10-19 15:30 | REP ---
REASON: Gestational diabetes. There are no pertinent priors. Multiple ultrasonographic image of the gravid uterus show a single living intrauterine gestation in the cephalic presentation. Doppler interrogation of the heart shows a heart rate of 147 beats per minute. The placenta is posterior and not low-lying. The subjective amniotic fluid volume is within normal limits. The umbilical cord was seen draped across the neck. A complete nuchal cord cannot be rule out by this exam. Evaluation of the maternal adnexal spaces showed no abnormalities. BPD 9.0 cm = 36 weeks 3 days HC 33.4 cm = 38 weeks 1 day AC 35.1 cm = 39 weeks 0 days FL 7.2 cm = 37 weeks 0 days The estimated weight is 3412 grams, which is at the 97th percentile for a 25-mfxy-8-day gestational age. The calculated amniotic fluid index is 10.9 with expected range 7.9 to 24.9. biophysical profile was ordered and performed showing 2 for breathing, 2 for movement, 2 for tone and 2 for amniotic fluid volume giving a sum total of 8/8. Doppler interrogation of the umbilical artery shows an A/B ratio of 2.17. This is within the normal range. The fetus was too large for an anatomical screen. IMPRESSION: Single living intrauterine gestation as described above with an estimated gestational age of 37 weeks 1 day via composite criteria and estimated date of delivery of 11/08/2019 by today's exam. Electronically Signed by Nestor Hernandez DO 10/19/2019 04:15 P
== END ==
LOC: M RAD 12:54
PROVIDERS: ATTEND Obstetrics & Gynecology
DX: O24.414 Gestational diabetes mellitus in pregnancy, insulin controlled (principal); Z3A.34 34 weeks gestation of pregnancy

== ENCOUNTER 2019-11-05 03:12 | Outpatient (CLI) | payer OTHER ==
[~2019-11-05] VITALS: Ht 180.3 cm; Wt 119.3 kg
[~2019-11-05 03:12] MED LIST changes: +VITA-243 PO; -VITA500T PO
[2019-11-05] MEDS ORDERED: NS 1,000 ML IV STA (03:38)
[2019-11-05] MEDS ORDERED: NOVOINJ13 SC (03:57)
[2019-11-05 04:10] LABS: HEMOGLOBIN 11.3 g/dl (12.0-15.5); MEAN CORPUSCULAR HEMOGLOBIN 24.9 pg (27.0-33.0); MEAN CORPUSCULAR HGB CONC 31.4 g/dl (32.0-36.5); MEAN CORPUSCULAR VOLUME 79.5 fl (80.0-96.0); PLATELET COUNT, AUTOMATED 108 10^3/uL (150-450); RED BLOOD COUNT 4.53 10^6/uL (4.00-5.40)
[2019-11-05 04:25] LABS: GLUCOSE,RANDOM 97 MG/DL (LESS THAN 200)
[2019-11-05 04:36] LABS: HEMOGLOBIN A1c 6.7 %
--- NOTE | 2019-11-05 14:12 | HPE ---
DATE: 11/05/2019 This lady is a 34-year-old, 4, para 3, last menstrual period (LMP) 02/25/2019, estimated date of confinement (EDC) 11/24/2019, at 37 and 2 weeks of gestation. She comes in with history of contractions every 15-10 minutes, moderate intensity and lower pelvic or abdominal pain which she has had for a prolonged period of time because of her significant peau d'orange on the skin in the lower area and the pubic bone. She denies any loss of fluid or vaginal bleeding. She is presently in an AGDM2 on insulin NPH twice daily. Her risk factors is she is AMA. She is an ADGM2, IVF, hypothyroid which she discontinued the medication herself and she has had three sections. PAST HISTORY: In 07/30/2003 had a section for nonreassuring heart tones at 39 weeks of gestation. November of 2004, at 38 weeks, had a repeat section with spontaneous rupture of membranes. April 2018 had spontaneous rupture of membranes, antepartum bleed, repeat section labor. She was AGDM2 on insulin, had an abruption, hemorrhage risk was 5, and a true knot in the cord and massive adhesions at that time. She has had an LSO for ectopic . Labs are A+, HIV negative, hep negative, RPR negative, rubella immune. Varicella immune. Pap normal. Urine negative. Gonorrhea and chlamydia negative. Initial 1-hour glucose was 214. Her 3-hour GTT her fasting was 120, 1 hour was 233, 2 hour was 108, and 3 hour was 154. She is GBS status unknown. Blood pressure on admission was 115/58, respirations 18, pulse 81, temperature 97.8. Hemoglobin 11.3, hematocrit 36, platelets 108. Glucose random was 97, A1c was 6.7 and her mean plasma glucose was 146. She appear distressed but only intermittently. On examination, she has a category 1 strip. The baby did react after hydration with normal saline. Symphysis fundus height is 40 with significant peau d'orange in the lower pelvic and abdominal area. On digital examination, the presenting part is quite high actually out of the pelvis. The cervix was posterior and closed and thick. No vaginal bleeding or discharge was noted. We did observational status for approximately an hour. She was still having similar type episodic contractions. Our plan was to either maintain her for another hour or she could go home and come back if needed. Her was in the car and the four children were at home. She does have a biophysical profile scheduled for 11/06/2019, and she does this on a weekly basis and then phones in her blood glucose levels. The patient appeared to express interest in going home, possibly coming back if contractions become more intense or closer together or she has vaginal bleeding or discharge. We impressed about the kick chart, premature rupture of membranes and bleeding and labor contractions 5-7 minutes apart moderate intensity. The patient expressed understanding of same and was happy to go home undelivered with the option of coming back if needed. We spent 40 minutes in discussion and evaluation with the patient, answered all her questions.
== END 2019-11-05 04:45 | disposition home or self-care (01) ==
LOC: M LDO 03:12
PROVIDERS: ATTEND Obstetrics & Gynecology
DX: O26.893 Other specified pregnancy related conditions, third trimester (principal); R10.30 Lower abdominal pain, unspecified; Z3A.37 37 weeks gestation of pregnancy
CPT/HCPCS: 59025; 82947; 83036; 85027; 86780; 86850; 86900; 86901; 96360; G0378; G0463

== ENCOUNTER 2019-11-08 05:13 | Inpatient (IN) | payer OTHER ==
--- NOTE | 2019-10-30 14:56 | HPE ---
DATE OF ADMISSION: 11/08/2019 HISTORY: This lady is a 34-year-old, 4, para 3, last menstrual period (LMP) 02/25/2019, estimated date of confinement (EDC) 11/24/2019 by early dating ultrasound. 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 She has had three previous repeat sections, in vitro fertilization (IVF) , previous hypothyroid on medications, which has been discontinued, and she is an against medical advice (AMA). PAST HISTORY: In July 2003, at 39 weeks, section for nonreassuring heart tones. January of 2005, at 38 weeks, repeat section. April of 2018, at 37 weeks, had antepartum bleeding and spontaneous rupture of membranes, repeat section. Has had a previous left salpingo-oophorectomy as well. Presently, she is on insulin NPH 10 units every morning and 10 units after supper as well as taking vitamins. She says that she has issues of migraines on tramadol and nausea with hydrocodone. On physical examination, she is in no acute distress. Symphysis fundus height is 40, vertex presenting. Peau d'orange was noted on the lower abdomen and the previous section scar. She is 5 feet 11 and 260 pounds with a body mass index (BMI) of 32.2. Blood pressure is 132/74, respirations are 18, pulse is 78 and regular. The rest of the examination is unremarkable. She is normocephalic, atraumatic. Neck full range of motion. Pupils equal and reactive to light. Distal pulses are symmetric. No evidence of deep venous thrombosis (DVT), pulmonary embolism (PE) or superficial phlebitis. Chest is clear bilaterally to bases. No wheezes or rhonchi. No costovertebral angle (CVA) tenderness. Abdomen is soft. She does have peau d'orange as was noted. Vertex presenting. Four quadrant bowel sounds are noted. She has no rashes, lesions or pruritus. She does have multiple tattoos. She has no arthralgia, myalgia or complaint joint pain. She has no complaint of cough, wheeze, shortness of breath, or dyspnea on exertion. No bleeding. No bruising. Neuro complete. No incontinency, urgency or frequency. No nausea, vomiting, diarrhea or constipation. Diabetic issues well controlled on NPH and monitoring her blood sugars on a daily basis. She has no heat or cold insensitivity, and she discontinued her thyroid medication. She has no history of sexually transmitted diseases (STDs). No abnormal Pap smears. Past medical history is thyroid. PAST SURGICAL HISTORY: Three sections, one left salpingo-oophorectomy for ectopic , and a breast augmentation and a cholecystectomy. Family history is noncontributory. She does not smoke, drink, abuse drugs. 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 No domestic violence. Presently on vitamins and NPH. We discussed the risks and benefits of surgery including hemorrhage, infection, perforation, , reoperation, remote possibility of blood transfusion, remote possibility of , hysterectomy for life-threatening bleeding issues. Also, the likelihood of possibility of the baby in the intensive care unit (NICU) because of low blood sugars and poor chemistry. She expressed understanding of all the same and signed the consent form. All questions were answered. 40-minute discussion.
[~2019-11-08] VITALS: Ht 180.3 cm; Wt 108.9 kg
[2019-11-08] VITALS (8 sets, daily range): BP systolic 126–142; BP diastolic 76–95
[~2019-11-08 05:13] MED LIST changes: +NOVOINJ13 SC
[2019-11-08 05:55] LABS: HEMATOCRIT 35.2 % (36.0-47.0); HEMOGLOBIN 11.1 g/dl (12.0-15.5); MEAN CORPUSCULAR HEMOGLOBIN 24.6 pg (27.0-33.0); MEAN CORPUSCULAR HGB CONC 31.5 g/dl (32.0-36.5); PLATELET COUNT, AUTOMATED 113 10^3/uL (150-450); RED BLOOD COUNT 4.51 10^6/uL (4.00-5.40); WHITE BLOOD COUNT 6.6 10^3/uL (4.0-10.0)
[2019-11-08] MEDS ORDERED: ceFAZolin SOD 2 GM in IV 1 EA IV ONE (06:00)
[2019-11-08] MEDS ORDERED: LR 1,000 ML IV ONE (06:00)
[2019-11-08] MEDS ORDERED: BUPIVACAINE HCL 0.25% 10ML VIAL INFIL ONE (06:00)
[2019-11-08] MEDS ORDERED: AZITHROMYCIN INJ 500 MG, VIAL MATE ADAPTER 1 EACH in D5W 250 ML IV ONE (06:00)
[2019-11-08] MEDS ORDERED: ACETAMINOPHEN 650 MG SUPP PR ONE (06:00)
[2019-11-08] MEDS ORDERED: BICITRA 30ML SOLN UDC PO ONE (06:00)
[2019-11-08 06:14] LABS: HEMOGLOBIN A1c 5.7 %
[2019-11-08 06:23] LABS: ALBUMIN 2.6 GM/DL (3.2-5.2); ALT/SGPT 17 U/L (12-78); BILIRUBIN,TOTAL 0.5 MG/DL (0.2-1.0); BLOOD UREA NITROGEN 9 MG/DL (7-18); CALCIUM LEVEL 9.3 MG/DL (8.5-10.1); CARBON DIOXIDE LEVEL 19 MEQ/L (21-32); CHLORIDE LEVEL 110 MEQ/L (98-107); CREATININE FOR GFR 0.65 MG/DL (0.55-1.30); GLOMERULAR FILTRATION RATE > 60.0 (>60); GLUCOSE, FASTING 85 MG/DL (70-100); GLUCOSE,RANDOM 85 MG/DL (LESS THAN 200); POTASSIUM SERUM 3.9 MEQ/L (3.5-5.1); SODIUM LEVEL 139 MEQ/L (136-145); TOTAL PROTEIN 6.1 GM/DL (6.4-8.2)
[2019-11-08] MEDS ORDERED: LR 1,000 ML IV SCH ×3 (07:00→10:30)
[2019-11-08] MEDS ORDERED: OXYTOCIN INJ 10 UNITS/ML VIAL (J2590) As Ordered ONE ×2 (07:20→08:42)
[2019-11-08] MEDS ORDERED: KETOROLAC 60 MG/2 ML VIAL As Ordered ONE (07:20)
[2019-11-08] MEDS ORDERED: ONDANSETRON 4MG/2ML VIAL As Ordered ONE (07:20)
[2019-11-08] MEDS ORDERED: fentaNYL 100 MCG/2 ML INJECTION (J3010) As Ordered ONE ×2 (07:21→10:42)
[2019-11-08] MEDS ORDERED: MORPHINE PRES-FREE INJ 10 MG/10 ML VIAL (J2274) As Ordered ONE (07:21)
[2019-11-08] MEDS ORDERED: diphenhydrAMINE 50MG/ML VIAL (J1200) IV PRN ×2 (07:47)
[2019-11-08] MEDS ORDERED: ONDANSETRON 4MG/2ML VIAL IV PRN ×4 (07:47→10:30)
[2019-11-08] MEDS ORDERED: NALBUPHINE HCL 10 MG/ML AMP (J2300) IV PRN ×2 (07:47)
[2019-11-08] MEDS ORDERED: METOCLOPRAMIDE INJ 10MG/2ML VIAL (J2765 PER 1) IV PRN ×4 (07:47→10:30)
[2019-11-08] MEDS ORDERED: NALOXONE INJ 0.4MG/1ML VIAL (J2310 PER 1MG) IV PRN ×4 (07:47)
[2019-11-08] MEDS ORDERED: ePHEDrine SULFATE 25 MG/5 ML(5MG/ML) SYRINGE As Ordered ONE (08:05)
[2019-11-08 08:49] LABS: CORD GAS HCO3 A 24.9 MEQ/L; CORD GAS O2 SAT A 25.1 %; CORD GAS PCO2 A 83.6 mmHg; CORD GAS PH A 7.091 UNITS; CORD GAS PO2 A 17.2 mmHg; CORD GAS SBC A 17.3 MEQ/L; CORD GAS TCO2 A 27.4 MEQ/L
[2019-11-08 08:53] LABS: CORD GAS ABE V -4.4; CORD GAS HCO3 V 23.1 MEQ/L; CORD GAS O2 SAT V 70.3 %; CORD GAS PCO2 V 51.6 mmHg; CORD GAS PH V 7.268 UNITS; CORD GAS PO2 V 29.6 mmHg; CORD GAS SBC V 20.2 MEQ/L; CORD GAS TCO2 V 24.6 MEQ/L
[2019-11-08] MEDS: PRENATAL VITAMINS CHEWABLE TABLET PO SCH (09:00)
[2019-11-08] MEDS ORDERED: fentaNYL 100 MCG/2 ML INJECTION (J3010) IV PRN (09:45)
[2019-11-08] MEDS ORDERED: PERCOCET 5MG/325MG TAB PO PRN ×2 (09:45→10:30)
[2019-11-08] MEDS ORDERED: ACETAMINOPHEN TAB 650MG DOSE (2X325MG) PO PRN (10:15)
[2019-11-08] MEDS ORDERED: RHOGAM 300 MCG (1500 IU) INJ (J2790) IM SCH (10:15)
[2019-11-08] MEDS ORDERED: DOCUSATE SODIUM 100 MG CAP PO PRN (10:15)
[2019-11-08] MEDS ORDERED: OXYTOCIN DRIP 30 UNITS in IV 1 EA IV ONE (10:15)
[2019-11-08] MEDS ORDERED: KETOROLAC 30 MG/ML 1ML VIAL IV SCH (10:15)
[2019-11-08] MEDS ORDERED: OXYTOCIN INJ 10 UNITS/ML VIAL (J2590) IV ONE (10:15)
[2019-11-08] MEDS ORDERED: IBUPROFEN 800 MG TAB PO PRN (10:15)
[2019-11-08] MEDS ORDERED: MOM 30ML SUSPENSION UDC PO PRN (10:15)
[2019-11-08] MEDS ORDERED: ACETAMINOPH W/CODEINE #3 TAB UD PO PRN ×2 (10:15)
[2019-11-08] MEDS ORDERED: MEASLES,MUMPS,RUBELLA VACCINE INJ (MMR-II) (90707) SC SCH (10:15)
[2019-11-08] MEDS ORDERED: ANUSOL HC CREAM 30GM TOP PRN (10:15)
[2019-11-08] MEDS ORDERED: PERCOCET 5MG/325MG TAB As Ordered ONE (10:20)
[2019-11-08] MEDS ORDERED: OXYTOCIN 30 UNITS IN 0.9% NaCl 500ML IV BAG (J2590) As Ordered ONE (10:28)
[2019-11-08] MEDS: fentaNYL 100 MCG/2 ML INJECTION (J3010) IV PRN ×3 (10:46→11:15)
[2019-11-08] MEDS: KETOROLAC 30 MG/ML 1ML VIAL IV SCH ×2 (14:24→19:23)
[2019-11-08] MEDS: NS 1,000 ML IV SCH ×2 (14:24→23:55)
[2019-11-09] MEDS: KETOROLAC 30 MG/ML 1ML VIAL IV SCH (01:07)
[2019-11-09 01:21] VITALS: BP 125/71
[2019-11-09] MEDS: NS 1,000 ML IV SCH (02:30)
[2019-11-09 06:00] VITALS: BP 110/73
[2019-11-09 07:08] LABS: MEAN CORPUSCULAR HEMOGLOBIN 25.1 pg (27.0-33.0); MEAN CORPUSCULAR HGB CONC 31.5 g/dl (32.0-36.5); MEAN CORPUSCULAR VOLUME 79.6 fl (80.0-96.0); RED BLOOD COUNT 3.39 10^6/uL (4.00-5.40); WHITE BLOOD COUNT 8.3 10^3/uL (4.0-10.0)
[2019-11-09 07:12] LABS: HEMOGLOBIN 8.5 g/dl (12.0-15.5); PLATELET COUNT, AUTOMATED 94 10^3/uL (150-450)
[2019-11-09] MEDS: ACETAMINOPHEN 500 MG TAB PO PRN ×2 (08:58→19:53)
[2019-11-09] MEDS: PRENATAL VITAMINS CHEWABLE TABLET PO SCH (08:58)
[2019-11-09] MEDS: IBUPROFEN 800 MG TAB PO SCH ×2 (09:49→17:46)
[2019-11-09 10:11] VITALS: BP 126/75
[2019-11-09 14:16] VITALS: BP 132/76
--- NOTE | 2019-11-09 15:27 | IPN ---
DATE: 11/09/2019 This lady is a 34-year-old, 4, now para 4, was admitted for repeat section and tubal ligation. She delivered a live male infant, 9 pounds 0 ounces (4090 grams), of 9 and 9 at one and five respectively. Arterial pH 7.08, base excess -7.0, venous pH 7.26, base excess -4.4. She is an AGDM2, had IVF and had prior hypothyroidism and she discontinued medications against medical advice. She had some difficulty issues regarding her incision that was moderate to severe adhesions intra-abdominally. We had difficulty in closing the skin similar to the time we did her previous section. A piece of Telfa was in place and pressure dressing this morning it was removed. It was clean, dry. No evidence of bleeding at all. She does still have her peau d'orange on the lower end of the abdomen but is starting to resolve. She was unable to void. A Shabazz catheter was placed in the bladder draining 500 mL of concentrated urine and the Shabazz catheter was left in and she presently has a diuresis of 1600 mL. Her admitting hemoglobin was 11.1, hematocrit 35.2, and platelets were 113. Her day hemoglobin is 8.5, hematocrit 27.0, and platelets are 94, and she is asymptomatic. She was on NPH 10 every morning and 10 at bedtime. Her fasting sugar was 85. Our plan of management today is to remove the Shabazz catheter, maintain and see if she voids, mobilize, have a shower, review the incisional site. Our plan of management is to circumcise the baby after Dr. Will gives clearance. They are monitoring the baby's blood sugars at the present time and they are fairly stable. This patient's A1c was 5.7, slightly above normal. Patient is using minimal pain management and is actually progressing well.
[2019-11-09 18:28] VITALS: BP_SYST 119; BP_SYST 139; BP_DIAS 65; BP_DIAS 74
[2019-11-10] MEDS: IBUPROFEN 800 MG TAB PO SCH ×2 (02:31→09:15)
[2019-11-10 03:00] VITALS: BP 145/73
[2019-11-10 06:00] VITALS: BP 135/80
[2019-11-10] MEDS: ACETAMINOPHEN 500 MG TAB PO PRN (06:08)
[2019-11-10] MEDS: PRENATAL VITAMINS CHEWABLE TABLET PO SCH (09:15)
[2019-11-10] MEDS ORDERED: ACET1TAB16 PO (10:19)
[2019-11-10] MEDS ORDERED: DOCU100C16 PO (10:19)
[2019-11-10] MEDS ORDERED: IBUP80TA PO (10:19)
--- NOTE | 2019-11-10 10:24 | IPNPDOC ---
Progress Note Date of Service: November 10, 2019 Day#: 2 Progress Note PPD/POD 2 SUBJECT: Ze is a 34yo s/p uncomplicated RLTCS with right tubal ligation (left was removed prior), doing well /post-op day # 2. She has been ambulating, voiding spontaneously without issue and tolerating regular diet. Pain well controlled with medication. Breast feeding without issue. Reports lochia is like a normal period. No f/c/n/v/CP/SOB. OBJECTIVE: VITAL SIGNS: Within normal limits, afebrile. Alert and oriented times three. Abdomen: Fundus firm at U-2. Soft, appropriately tender to palpation with no rebound/guarding. Pfannensteil incision is intact with no erythema/drainage Extremities: no pain with palpation of calves Labs: pre-op H/H 11.1/35.2 post-op H/H 8.5/27 ASSESSMENT: Ze is a 34yo s/p uncomplicated RLTCS with right tubal ligation (left was removed prior), doing well /post-op day # 2. Vitals within normal limits, afebrile, hemodynamically stable with no evidence of infection. PLAN: 1. Discharge to home today. 2. Tylenol w/codeine and Motrin for pain. 3. Encourage breast feeding and ambulation. 4. Regular diet 5. Incision check in [address] Canseco in clinic 6. Discussed return precautions at length. 7. No heavy lifting, vaginal rest 6 weeks 8. Keep incision clean and dry Dr. Brittany Prieto MD VS, I&O, 24H, Fishbone Vital Signs/I&O Vital Signs Date Time Temp Pulse Resp B/P (MAP) Pulse Ox O2 Delivery O2 Flow Rate FiO2 11/10/19 06:00 98.4 87 18 135/80 (98) 100 Room Air I&O- Last 24 Hours up to 6 AM 11/10/19 06:00 Output Total 450 ml Balance -450 ml Brittany Prieto MD November 10, 2019 10:24
--- NOTE | 2019-11-10 10:27 | DS.PDOC ---
Discharge Summary General Date of Admission Nov 08, 2019 at 05:13 Date of Discharge November 10, 2019 Discharge Summary PROCEDURES PERFORMED DURING STAY: repeat low transverse section with right tubal ligation ADMITTING DIAGNOSES: 1. history of 3 prior sections 2. undesired fertility 3. obesity 4. A2GDM on insulin DISCHARGE DIAGNOSES: 1. history of 3 prior sections 2. undesired fertility 3. obesity 4. A2GDM on insulin COMPLICATIONS/CHIEF COMPLAINT: Previous Section. HISTORY OF PRESENT ILLNESS/HOSPITAL COURSE: Ze is a 34yo s/p uncomplicated RLTCS with right tubal ligation (left was removed prior), doing well /post-op day # 2. She has had a benign post-op course. At time of discharge, vitals were within normal limits, afebrile, hemodynamically stable with no evidence of infection. DISCHARGE MEDICATIONS: Please see below. ALLERGIES: Please see below. PHYSICAL EXAMINATION ON DISCHARGE: VITAL SIGNS: Within normal limits, afebrile. Alert and oriented times three. Abdomen: Fundus firm at U-2. Soft, appropriately tender to palpation with no rebound/guarding. Pfannensteil incision is intact with no erythema/drainage Extremities: no pain with palpation of calves LABORATORY DATA: Please see below. pre-op H/H 11.1/35.2 post-op H/H 8.5/ ACTIVITY: As tolerated, vaginal rest/no heavy lifting 6 weeks DIET: regular DISPOSITION: home DISCHARGE PLAN/INSTRUCTIONS: 1. Discharge to home today. 2. Tylenol w/codeine and Motrin for pain. 3. Encourage breast feeding and ambulation. 4. Regular diet 5. Incision check in [address] Canseco in clinic 6. Discussed return precautions at length. 7. No heavy lifting, vaginal rest 6 weeks 8. Keep incision clean and dry DISCHARGE CONDITION: Stable TIME SPENT ON DISCHARGE: Greater than [address] Brittany Prieto MD Vital Signs/I&Os Vital Signs Date Time Temp Pulse Resp B/P (MAP) Pulse Ox O2 Delivery O2 Flow Rate FiO2 11/10/19 06:00 98.4 87 18 135/80 (98) 100 Room Air I&O- Last 24 Hours up to 6 AM 11/10/19 06:00 Output Total 450 ml Balance -450 ml Discharge Medications Scheduled Ibuprofen (Ibuprofen) 800 Mg Tablet, 800 MG PO Q8H Vit No.130/Iron/Folic ( Tablet) 1 Tab Tab, 1 TAB PO DAILY, (Reported) Scheduled PRN Acetaminophen with Codeine (Acetaminophen-Cod #3 Tablet) 1 Each Tablet, 1 EA PO Q6H PRN for MILD/MODERATE PAIN (PS 1-7) Acetaminophen with Codeine (Acetaminophen-Cod #3 Tablet) 1 Each Tablet, 2 EA PO Q6H PRN for SEVERE PAIN (PS 8-10) Docusate Sodium (Docusate Sodium) 100 Mg Capsule, 100 MG PO QHSP PRN for CONSTIPATION Allergies Coded Allergies: hydrocodone (Verified Adverse Reaction, Mild, VOMITING, 10/26/19) tramadol (Verified Adverse Reaction, Mild, MIGRAINES, 10/26/19) Brittany Prieto MD November 10, 2019 10:27
--- NOTE | 2019-11-14 07:22 | IPN ---
DATE: 11/10/2019 This patient requested circumcision of her male . After discussing risks and benefits of circumcision, the medical and nonmedical indications, the penile block, and aftercare, expressed understanding of penile block, aftercare, and bleeding. Signed the consent form. All questions were answered. 20-minute discussion. We await clearance by the entry level receptionist.
--- NOTE | 2019-11-15 08:08 | RO ---
DATE OF PROCEDURE: 11/08/2019 PREOPERATIVE DIAGNOSIS: Repeat section times four, AGDM 2, polyhydramnios, macrosomic , massive abdominal adhesions. POSTOPERATIVE DIAGNOSIS: Repeat section times four, AGDM 2, polyhydramnios, macrosomic infant, massive abdominal adhesions. OPERATION PROPOSED: Repeat section, voluntary fertility control tubal ligation, right tubal ligation. OPERATION PERFORMED: Repeat section, right tubal ligation. SURGEON: Dr. Dylan Canseco DIRECTOR [facility]: Dr. Brittany Prieto (For extraction, retraction, visualization. The procedure would not be able to be completed without assistance). ANESTHESIA: Spinal plus local anesthetic for intraperitoneal procedures. ESTIMATED BLOOD LOSS: 800 mL DESCRIPTION OF SURGERY: After adequate time-out, prepped and draped in the supine position, Shabazz catheter in the bladder draining clear urine. Appropriate antibiotics preoperatively. Sequentials in place. A low transverse incision was made through the previous incision passing through the skin and the fat layers. We were unable to identify a defined plane between the anterior abdominal wall and the fascia because of her previous several sections and massive abdominal adhesions noted at her previous section. Eventually we were able to find a window of opportunity and we were able to find our way to the lower segment and the only way we defined the lower segment was by palpating the head. We were unable to actually visualize the bladder, any bladder flap or any demarcations. Going well above that, we did a transverse incision into the uterus. We had approximately 800 mL of clear fluid, indicating probably polyhydramnios. We were able to deliver a live male weighing 4090 grams, 9 pounds 0 ounces, Apgars of 9 and 9 at one and five minutes respectively. Arterial and venous pH are pending. The placenta was manually removed. Three vessels. The cord, membranes and tissues intact. The uterus was kurtis well down under Pitocin. The lower segment or what we established was the lower segment was oversewn in two layers. There was no evidence of peritoneum to be able to repair. We then through our little window of opportunity on the right side visualized the right tube to the fimbriated end and with difficulty we were able to put two Filshie clips in the mid section and the proximal and a stay suture above both in order to secure occlusion of the right tube. The patient had a previous excision of the left tube and ovary. With that done and with instrument and pad count correct, we then put in Irish and Surgicel into the area to help reduce the incidence of adhesions. Once that was done, we were able to establish some fascia and we did interrupted closure of the fascia as best we could. Digitally examining the fascia, it appeared to be completely closed from one side to the other. With that done, we did a bit of a subcuticular stitch into the fat area, again putting Irish in that area because of rawness and bleeding that persisted with no defined bleeding points. Once that was done, we did a subcuticular closure with a #3-0 Vicryl on a Ahmet needle. We then applied spray and Telfa and a pressure dressing in that area. We then did a fundal massage and extricated a couple of clots out of the uterus. Overall, the uterus was contracted well down under the Pitocin. The patient was then sent to recovery in good condition.
== END 2019-11-10 12:10 | disposition home or self-care (01) | DRG 785 ==
LOC: M LDI 05:13 → M OBS 11:29 → EDSTATUS 11-09 15:35
PROVIDERS: ADMIT Obstetrics & Gynecology; ATTEND Obstetrics & Gynecology
PROC: 0UL Female Reproductive System, Occlusion (ICD-10-PCS; 2019-11-08)
PROC: 10D00Z1 Extraction of Products of Conception, Low, Open Approach (ICD-10-PCS; principal; 2019-11-08 07:30)
DX: O34.211 Maternal care for low transverse scar from previous cesarean delivery (principal); Z37.0 Single live birth; Z3A.39 39 weeks gestation of pregnancy; E66.9 Obesity, unspecified; Z68.32 Body mass index [BMI] 32.0-32.9, adult; Z79.4 Long term (current) use of insulin; Z88.8 Allergy status to other drugs, medicaments and biological substances; O24.424 Gestational diabetes mellitus in childbirth, insulin controlled; Z30.2 Encounter for sterilization; O99.214 Obesity complicating childbirth

== ENCOUNTER → 2020-04-01 | Outpatient (CLI) | payer OTHER ==
[~2020-04-01] MED LIST changes: +ACET1TAB16 PO; +DOCU100C16 PO; +IBUP80TA PO
== END ==
LOC: M LABSMTC 12:47
PROVIDERS: ATTEND Family Medicine
DX: Z20.828 Contact with and (suspected) exposure to other viral communicable diseases (principal)

== ENCOUNTER → 2020-05-09 | Outpatient (CLI) | payer OTHER ==
[~2020-05-09] MED LIST changes: +ISOVUE-370 76% 100ML VIAL As Ordered ONE
--- NOTE | 2020-05-09 17:11 | REP ---
INDICATION: UMBILICAL HERNIA WITHOUT OBSTRUCTION OR GANGRENE. COMPARISON: None. TECHNIQUE: 100 cc Isovue 370 FINDINGS: The lung bases are clear. The liver, spleen, pancreas, adrenal glands, and kidneys are within normal limits. Surgical clips are seen in the gallbladder fossa from previous cholecystectomy. The abdominal aorta and para aortic regions are within normal limits. There is no evidence of a mass or adenopathy. The bowel loops and the mesenteries are within normal limits. There is no free air. There is a trace amount of free pelvic fluid likely physiologic. The abdominal wall is intact. There is mild thickening of the low anterior abdominal wall likely secondary to cicatrix formation from multiple C-sections. Bone window technique throughout the examination shows the osseous structures to be within normal limits. IMPRESSION: No evidence of acute disease. <Electronically signed by Nestor Hernandez > 05/09/20 [id number]
== END ==
LOC: M RAD 15:27
PROVIDERS: ATTEND Plastic Surgery Surgery of the Hand
DX: K42.9 Umbilical hernia without obstruction or gangrene (principal)
CPT/HCPCS: 74177; Q9967

== ENCOUNTER → 2020-06-23 | Outpatient (CLI) | payer SELFPAY ==
[~2020-06-23] MED LIST changes: -ISOVUE-370 76% 100ML VIAL As Ordered ONE
== END ==
LOC: M LABSMTC 12:43
PROVIDERS: ATTEND Pediatrics
DX: Z20.828 Contact with and (suspected) exposure to other viral communicable diseases (principal)

== ENCOUNTER 2020-08-26 07:26 | Observation (INO) | payer OTHER ==
[~2020-08-26] VITALS: Ht 175.3 cm; Wt 98.5 kg
[2020-08-26] VITALS (7 sets, daily range): BP systolic 141–144; BP diastolic 82–90
[~2020-08-26 07:26] MED LIST changes: +EQL400CA9 PO; +FERR325T81 PO; +FOLI800C PO; +HEPARIN SOD (PORCINE) 5000UNITS/ML 1ML VIAL/SYRINGE SQ ONE; +HM V5000 PO; +LR 1,000 ML IV ONE; +VITA-158 PO; +VITA80003 PO; +VITMTA PO; +ceFAZolin SOD 2 GM in IV 1 EA IV ONE
--- OUTSIDE RECORDS SUMMARY | 2020-08-26 08:21 | CCD | Continuity of Care Document ---
Author Author Ze CAMERON DO Organization Unknown Address [address] [place] [id number] Phone [phone] Care Team Providers Care [employer] Name Role Phone Dylan Canseco M.D. AUTM [phone] Diane Hopson M.D. AUTM Unavailable Don Painting MD AUTM Unavailable AUTM Unavailable Problems Description No Information Available Social History Type Date Description Comments Sex Female ETOH Use Rarely Tobacco Use Start: Unknown Denies Smoking Smoking Status Reviewed: 05/05/20 Denies Smoking Allergies, Adverse Reactions, Alerts Description No Known Drug Allergies Medications Active Medications SIG Qnty Indications Ordering Provide r Date Synthroid 25mcg Unknown Immunizations Description No Information Available Vital Signs Date Vital Result Comment 07/16/2020 10:02am Body Temperature 98.1 F Height 71 inches 5'11" Weight 228.00 lb BMI (Body Mass Index) 31.8 kg/m2 [place] Body Weight 155 lb Weight 103.421 kg BSA (Body Surface Area) 2.23 m2 05/21/2020 9:01am Body Temperature 98.2 F Results Description No Information Available Procedures Description No Information Available Medical Devices Description No Information Available Encounters Type Date Location Provider Dx Diagnosis Office Visit 05/05/2020 9:15a [facility] Belen Cameron DO K42.9 Umbilical hernia without obstruction or gangrene M79.3 Panniculitis, unspecified M62.08 Separation of muscle (nontra umatic), other site Assessments Date Code Description Provider 05/21/2020 M79.3 Panniculitis, unspecified Belen Cameron DO 05/21/2020 M62.08 Separation of muscle (nontraumat ic), other site Belen Cameron DO 05/05/2020 K42.9 Umbilical hernia without obstruc tion or gangrene Belen Cameron, 05/05/2020 M79.3 Panniculitis, unspecified Belen Cameron DO 05/05/2020 M62.08 Separation of muscle (nontraumat ic), other site Belen Cameron DO Plan of Treatment Future Appointment(s):* 07/28/2020 9:30 am - Bennett Logan MD at [facility] 05/21/2020 - Belen Cameron, * M79.3 Panniculitis, unspecified* Comments:* CT abdomen discussed with patient and . Fascia intact, no hernia identifi ed on film. Umbilicus with fatty tissue, no loops of bowel. Rectus diathesis moderate present. Patient is a good candidate for extended panniculectomy with rectus muscle plication. Patient is aware that most of the lower abdominal tattoo will be removed and overall picture will be distorted. She is agreeable with that. She is stable with her weight, keeping healthy lifestyle. She has realistic expectations regarding the procedure.She is looking for help mainly to reduce the weight of the skin excess. Given her body habitus and area of non retracted skin it is reasonable to think reduction of the pannus will greatly improve her lower back pain and reduce the rate of skin infections. Risks, benefits and alternatives of the surgery discussed with patient. Risks include but not limited to bleeding, infection, delayed healing, damage of surrounding structures, DVT, PE, seroma, and asymmetry. Patient has family support for the post op period.Medical clearance will be needed for the procedure.Schedule for surgery. RTO for pre op visit. * M62.08 Separation of muscle (nontraumatic), other site Functional Status Description No Information Available Mental Status Description No Information Available Referrals Refer to Reason for Referral Status Appt Date Bennett Logan M.D. CHRONIC MAXILLARY SINUSITIS OFFICE CONSULT NEW OR ESTAB PT (1)05/20/2020-11/16/2020 OFFICE / OUTPATIENT VISIT ESTAB (3) 05/20/2020- 05/20/2021 Created 06/16/2021 [facility] [address] [address] [phone] Theresa, Belen, D.O. Panniculectomy CONSULT 1 04/09/2020 - 10/06/2020 OFFICE VISITS 3 04/09/3030 - 04/09/2021 Scheduled 05/05/2020 [facility] [address] [facility] [place] [address] [phone]
--- OUTSIDE RECORDS SUMMARY | 2020-08-26 08:22 | CCD ---
Author Author [facility] Organization [facility] Address Unknown Phone Unavailable Care Team Providers Care Polisher And Buffer Name Role Phone NISHA, E CALEB DO Unavailable Unavailable NISHA, E CALEB DO Unavailable Unavailable NISHA, E CALEB DO Unavailable Unavailable NISHA, E CALEB DO Unavailable Unavailable NISHA, E CALEB DO Unavailable Unavailable NISHA, E CALEB DO Unavailable Unavailable NISHA, E CALEB DO Unavailable Unavailable NISHA, E CALEB DO Unavailable Unavailable NISHA, E CALEB DO Unavailable Unavailable NISHA, E CALEB DO Unavailable Unavailable NISHA, E CALEB DO Unavailable Unavailable NISHA, E CALEB DO Unavailable Unavailable NISHA, E CALEB DO Unavailable Unavailable NISHA, E CALEB DO Unavailable Unavailable NISHA, E CALEB DO Unavailable Unavailable NISHA, E CALEB DO Unavailable Unavailable NISHA, E CALEB DO Unavailable Unavailable NISHA, E CALEB DO Unavailable Unavailable NISHA, E CALEB DO Unavailable Unavailable NISHA, E CALEB DO Unavailable Unavailable NISHA, E CALEB DO Unavailable Unavailable UNKNOWN, [facility] Unavailable Unavailable Willam Parada PA-C Unavailable Unavailable Willam Parada PA-C Unavailable Unavailable Willam Parada PA-C Unavailable Unavailable Willam Parada PA-C Unavailable Unavailable Karma, J Gustavo PA-C Unavailable Unavailable Karma, Willam Leonard PA-C Unavailable Unavailable Karma, Willam Leonard PA-C Unavailable Unavailable Karma, Willam Leonard PA-C Unavailable Unavailable Karma, Willam Leonard PA-C Unavailable Unavailable Karma, Willam Leonard PA-C Unavailable Unavailable Karma, J Gustavo PA-C Unavailable Unavailable TURRIN, HANNAH Unavailable Unavailable TURRIN, HANNAH Unavailable Unavailable TURRIN, HANNAH Unavailable Unavailable TURRIN, HANNAH Unavailable Unavailable LON, L LOLI MD Unavailable Unavailable LON, L LOLI MD Unavailable Unavailable LON, L LOLI MD Unavailable Unavailable LON, L LOLI MD Unavailable Unavailable LON, L LOLI MD Unavailable Unavailable LON, L LOLI MD Unavailable Unavailable LON, L LOLI MD Unavailable Unavailable LON, L LOLI MD Unavailable Unavailable LON, L LOLI MD Unavailable Unavailable LON, L LOLI MD Unavailable Unavailable LON, L LOLI MD Unavailable Unavailable LON, L LOLI MD Unavailable Unavailable LON, L LOLI MD Unavailable Unavailable LON, L LOLI MD Unavailable Unavailable LON, L LOLI MD Unavailable Unavailable LON, L LOLI MD Unavailable Unavailable LON, L LOLI MD Unavailable Unavailable LON, L LOLI MD Unavailable Unavailable LON, L LOLI MD Unavailable Unavailable LON, L LOLI MD Unavailable Unavailable LON, L LOLI MD Unavailable Unavailable LON, L LOLI MD Unavailable Unavailable LON, L LOLI MD Unavailable Unavailable NO, PCP Unavailable Unavailable Re-disclosure Warning The records that you are about to access may contain information from federally-assisted alcohol or drug abuse programs. If such information is present, then the following federally mandated warning applies: This information has been disclosed to you from records protected by federal confidentiality rules (42 CFR part 2). The federal rules prohibit you from making any further disclosure of this information unless further disclosure is expressly permitted by the written consent of the person to whom it pertains or as otherwise permitted by 42 CFR part 2. A general authorization for the release of medical or other information is NOT sufficient for this purpose. The Federal rules restrict any use of the information to criminally investigate or prosecute any alcohol or drug abuse patient.The records that you are about to access may contain highly sensitive health information, the redisclosure of which is protected by Article 27-F of the [facility] Public Health law. If you continue you may have access to information: Regarding HIV / AIDS; Provided by facilities licensed or operated by the [facility] Office of Mental Health; or Provided by the [facility] Office for People With Developmental Disabilities. If such information is present, then the following [facility] mandated warning applies: This information has been disclosed to you from confidential records which are protected by state law. State law prohibits you from making any further disclosure of this information without the specific written consent of the person to whom it pertains, or as otherwise permitted by law. Any unauthorized further disclosure in violation of state law may result in a fine or correction sentence or both. A general authorization for the release of medical or other information is NOT sufficient authorization for further disc losure. Allergies and Adverse Reactions Type Description Substance Reaction Status Data Source(s ) No Known Drug Allergies No Known Drug Allergies [facility] Family History Family Member Name Family Member Gender Family Member Status Date o f Status Description Data Source(s) Unknown Male Problem [facility] ([facility] Unknown Male Problem [facility] ([facility]) Encounters Encounter Providers Location Date Indications Data Source(s ) Emergency Attender: LOLI FORREST MDConsultant: HAKAN MAY NOWAllan 08/21/2020 10:33:00 PM EST - 08/22/2020 12:29:00 AM [facility] Patient discharged. Emergency Attender: HANNAH DAVILAConsultant: HAKAN MAY NOWAllan 08/11/2020 09:29:00 PM EST - 08/11/2020 10:40:00 PM [facility] Patient discharged. Emergency Attender: HANNAH DAVILA 2019 09:51:00 AM EST - 05/26/2020 12:00:00 PM [facility] Patient discharged. Emergency Attender: Gustavo Parada PA-C 04/2020 04:06:00 PM EST - 05/20/2020 07:31:00 PM [facility] Patient discharged. Outpatient Attender: CALEB Doherty/Agnes/Theron/Royer gonzalez 05/05/2020 09:15:00 AM EDT [facility] ([facility]) Emergency Attender: Gustavo Gonzalezultant: PCP NO 02/12/2020 10:08:00 AM EDT - 02/12/2020 12:20:00 PM EDT [facility] Patient discharged. Emergency Attender: HANNAH DAVILA 2019 12:09:00 AM EDT - 02/09/2020 02:06:00 AM EDT [facility] Patient discharged. Outpatient 10/29/2019 05:30:00 AM EDT [facility] Outpatient 08/07/2019 01:55:00 PM EST [facility] 08/07/2019 01:53:00 PM EST [facility] Medications Medication Brand Name Start Date Product Form Dose Route Admi nistrative Instructions Pharmacy Instructions Status Indications Reaction Description Data Source(s) 8 HR Acetaminophen 650 MG Extended Release Oral Tablet [Tyle nol] Tylenol 8 Hour 02/27/2020 12:00:00 AM EDT active [facility] ([facility]) Insurance Providers Payer name Policy type / Coverage type Policy ID Covered libertarian ID Covered libertarian's relationship to martinez Policy Martinez Plan Information [facility] [id number] HU2 [id number] EAST HUMANA - O/P [id number] 01 [id number] SELF PAY ONLY [id number] SP [id number] [facility] HUMANA [id number] HU2 [id number] HUMANA [place]AST REG O [id number] S [id number] SELF PAY O [id number] S [id number] U [id number] Self [id number] ANSI-Not a Secondary Insurance [id number] [facility] HUMANA [id number] HU2 [id number] [facility] Commercial [id number] Family Dependent [id number] U [id number] Self [id number] FOR LIFE U [id number] Self [id number] PGBA [facility] [id number] HU2 [id number] HUMANA [place]AST REG O [id number] P [id number] N REGIONAL CLAIMS MITZI -O/P [id number] 19 [id number] PGBA [facility] [id number] [facility] [id number] [facility] [place] [id number] 18 [id number] [facility] Commercial [id number] Self [id number] Problems, Conditions, and Diagnoses Code Display Name Description Problem Type Effective Dates Data Source(s) 14728242 Carpal tunnel syndrome Carpal tunnel syndrome Problem 02/27/2020 12:00:00 AM EDT [facility] [id number] Hand pain Hand pain Problem 02/27/2020 12:00:00 AM ED T [facility] ([facility]) [id number] Numbness of hand Numbness of hand Problem 02/27/2020 12 :00:00 AM EDT [facility] R519 Headache, unspecified Headache, unspecified Diagnosis 08/21/2020 10:33:00 PM [facility] [id number] Pain in left shoulder Pain in left shoulder Diagnosis 08/11/2020 09:29:00 PM [facility] M7989 Other specified soft tissue disorders Ot her specified soft tissue disorders Diagnosis 08/11/2020 09:29:00 PM [facility] [id number] Unspecified ovarian cyst, left side Unspecified ovarian cyst, left side Diagnosis 05/26/2020 09:51:00 AM [facility] N800 Endometriosis of uterus Endometriosis of uterus Diagno sis 05/26/2020 09:51:00 AM [facility] R102 Pelvic and perineal pain Pelvic and perineal pain Diag nosis 05/26/2020 09:51:00 AM [facility] R1032 Left lower quadrant pain Left lower quadrant pain Diag nosis 05/20/2020 04:06:00 PM [facility] G5602 Carpal tunnel syndrome, left upper limb Carpal tunnel syndrome, left upper limb Diagnosis 02/12/2020 10:08:00 AM [facility] S48757 Pain in left upper arm Pain in left upper arm Diagnosi s 02/12/2020 10:08:00 AM [facility] G56481 Pain in left lower leg Pain in left lower leg Diagnosi s 02/09/2020 12:09:00 AM [facility] Surgeries/Procedures Procedure Description Date Indications Data Source(s) Needle electromyography, each extremity, with related paraspinal areas, when performed, done with nerve conduction, amplitude and latency/velocity study; complete, five or more muscles studied, innervated by three or more nerves or four or more spinal levels (list separately in addition to the code for primary procedure). 02/28/2020 12:00:00 AM EDT [facility] ([facility]) Needle electromyography, each extremity, with related paraspinal areas, when performed, done with nerve conduction, amplitude and latency/velocity study; complete, five or more muscles studied, innervated by three or more nerves or four or more spinal levels (list separately in addition to the code for primary procedure). 02/28/2020 12:00:00 AM EDT [facility] ([facility]) Needle Electromyography Non Extremity Done With Nerve Conduc tion 02/28/2020 12:00:00 AM EDT [facility] ([facility]) 10220 Nerve conduction studies 13 or more studies NEW 201202/28/2020 12:00:00 AM EDT [facility] ([facility]) Results ID Date Data Source [id number] 08/21/2020 10:33:00 PM EST [facility] 1 OrderSheet [facility] Emergency Department [address] [place] [address] Phone #: ext- [phone] 08/21/2020 22:26 Patient: ZE NORMAN Sex: F : 1985 Age: 35yWEIGHT:98.8 kg (S) HEIGHT:71 inches (S) BMI:30.4ALLERGIES: No Known Drug AllergyCHIEF COMPLAINT: headacheDIAGNOSIS: HeadacheLAB ORDERSOrder Description Priority Entered Acknowledged InitialedDIAGNOSTIC STUDY ORDERSOrder Description Priority Entered Acknowledged InitialedMEDICATION/IV/DRIP/FLUID ORDERSOrder Description Priority Entered Acknowledged InitialedReglan 10 mg IVP 23:28 08/21/2020 Ack'd: 23:36 23:38 StevenX1 dose: 10 mg Loli Forrest MD; Bailey Rendon RN(NOW x1)Benadryl IVP 25 mg 23:28 08/21/2020 Ack'd: 23:36 23:39 Loli Atkins MD; Bailey Rendon RNToradol IVP 30 mg 23:28 08/21/2020 Ack'd: 23:36 23:39 Sean(NOW x1) Loli Forrest MD; Bailey Rendon RNGENERAL ORDERSOrder Description Priority Entered Acknowledged Initialed[Electronically signed by Bailey Rendon (00:29 08/22/2020)][Electronically signed by Loli Forrest MD (01:08 08/22/2020)][Electronically locked by Bailey Rendon (00:29 08/22/2020)] Name Value Range Interpretation Code Description Data Ni rce(s) Supporting Document(s) ID Date Data Source [id number] 08/21/2020 10:33:00 PM [facility] 1 Medication Reconciliation Report [facility] Emergency Department [address] [place] [address] Phone #: ext- [phone] 08/21/2020 22:26 Patient: ZE NORMAN Sex: F : 1985 Age: 35yWeight: 98.8 kgHeight/Length: 71 in.BMI: 30.4ALLERGIES: No Known Drug AllergyThe patient's Home Medications are listed below:NONE.The source(s) of the original Home Medication information:Not obtained.The following Medications were given to the patient in the Emergency Department:Reglan [IVP] IVP 10 mg, administered: 23:38 08/21/2020enadryl [IVP] IVP 25 mg, administered: 23:39 08/21/2020Toradol [IVP] IVP 30 mg, administered: 23:39 08/21/2020The following Medications were prescribed to the patient:None. Name Value Range Interpretation Code Description Data Ni rce(s) Supporting Document(s) ID Date Data Source [id number] 08/21/2020 10:33:00 PM [facility] 1 Medication Administration Record [facility] Emergency Department [address] [place] [address] Phone #: ext- [phone] 08/21/2020 22:26 Patient: ZE NORMAN Sex: F : 1985 Age: 35yWeight: 98.8 kgHeight/Length: 71 inBMI: 30.4ALLERGIES: No Known Drug Allergy Date/Time Medication Administered Medication OrderedGiven REGLAN [IVP] (METOCLOPRAMIDE Reglan 10 mg IVP X1 dose: 10 mg23:38 08/21/2020 HCL) (NOW x1)Sean Bunch RN Dose: 10 mg IVP Site: #1 right ACGiven BENADRYL [IVP] (DIPHENHYDRAMINE Benadryl IVP 25 mg23:39 08/21/2020 HCL)Sean Bunch RN Dose: 25 mg IVP Site: #1 right ACGiven TORADOL [IVP] (KETOROLAC Toradol IVP 30 mg (NOW x1)23:39 08/21/2020 TROMETHAMINE)Sean Bunch RN Dose: 30 mg IVP Site: #1 right AC Name Value Range Interpretation Code Description Data Ni rce(s) Supporting Document(s) ID Date Data Source [id number] 08/21/2020 10:33:00 PM [facility] 1 General Instructions [facility] Emergency Department [address] [place] [address] Phone #: ext- [phone] 08/21/2020 22:26 Patient: ZE NORMAN Sex: F : 1985 Age: 35yHeadache.INSTRUCTIONSNo strenuous activity. Do not work for four days.(Please follow up with your primary care physician. Take tylenol and motrin for pain. return if worse orany new symptoms.).Warnings: Further evaluation is necessary.GENERAL WARNINGS: Return or contact your physician immediately if your condition worsens orchanges unexpectedly, if not improving as expected, or if other problems arise.Your Current Medications: .No home medication.Follow-up:Follow up with your doctor Tuesday even if well. Call for an appointment. Reason for referral: evaluation.Summary of care provided to patient via paper.Understanding of the discharge instructions verbalized by patient. ADDITIONAL INFORMATIONMigraine HeadacheA migraine headache is an often severe type of headache. It's different from other types ofheadaches in that symptoms other than pain occur with the it. For instance, a classic migraineheadache means visual symptoms (or aura) such as flashes of light, blind spots or other visionchanges, warns you a headache is coming on. Nausea and vomiting, lightheadedness, sensitivity tolight or sound, and other visual disturbances are common migraine symptoms. The pain may lastfrom a few hours to several days. It's not clear why migraines occur, but certain factors called triggerscan raise the risk of having a migraine attack. A migraine may be triggered by emotional stress ordepression, or by hormone changes during the menstrual cycle. Other triggers include certain birthcontrol pills, overuse of migraine medicines, alcohol or caffeine, foods with tyramine such as agedcheese and wine, eyestrain, weather changes, missed meals, or too little or too much sleep. 2 General Instructions [facility] Emergency Department [address] [place] [address] Phone #: ext- [phone] 08/21/2020 22:26 Patient: ZE NORMAN Sex: F : 1985 Age: 35yHome careFollow these tips when taking care of yourself at home: Don't drive yourself home if you were given pain medicine for your headache or are having visual symptoms. Instead, have someone else drive you home. Try to sleep when you get home. You should feel much better when you wake up. Cold can help ease migraine symptoms. Put an ice pack wrapped in a thin towel on your forehead or at the base of your skull. Put heat on the back of your neck to help ease any neck spasm. Drink only clear liquids or eat a light diet until your symptoms get better. This will help you prevent nausea and vomiting.How to prevent migrainesPay attention to what seems to trigger your headache. Try to stay away from the triggers when youcan. If you have headaches often, consider keeping a headache diary. In it, write down what youwere doing, feeling, or eating in the hours before each headache. Show this to your healthcareprovider to help find the cause of your headaches.If stress seems to be a trigger for your headaches, figure out what is causing stress in your life. Learnnew ways to handle your stress. Ideas include regular exercise, biofeedback, self-hypnosis, yoga,and meditation. Talk with your healthcare provider to find out more information about managingstress. Many books and digital media are also available on this subject.Tyramine is a substance found in many foods. It can trigger a migraine in some people. These foodscontain tyramine: Chocolate Yogurt All cheeses, but especially aged cheeses Smoked or pickled fish and meat, including mendez, caviar, bologna, pepperoni, and salami Liver Avocados Bananas Figs Raisins 3 General Instructions [facility] Emergency Department [address] [place] [address] Phone #: ext- [phone] 08/21/2020 22:26 [id number] Sex: [facility] : 1985 Age: 35y Red wineTry staying away from these foods for 1 to 2 months to see if you have f ewer headaches.How to treat future headaches Take time out at the first sign of a headache, if possible. Find a quiet, dark, comfortable place to sit or lie down. Let yourself relax or sleep. Put an ice pack wrapped in a thin towel on your forehead or on the area of greatest pain. A heating pad and massage may help if you are having a muscle spasm and tightness in your neck. If you have been prescribed a medicine to stop a migraine headache, use this at the first warning sign of the headache for best results. First signs may be an aura or pain. If you have been prescribed a medicine to prevent the headaches, it's important to take the medicine as directed. Many of these medicines may take a few weeks to start preventing headaches, so it's important to not give up on them right away. If you continue to have just as many headaches after taking these medicines for a while, talk with your doctor to see if the dose needs to be changed or if a different medicine is advised. If you need to take medicine often for your migraine, talk with your healthcare provider about other ways to prevent your headaches.Follow-up careFollow up with your healthcare provider, or as advised. Talk with your provider if you have frequentheadaches. He or she can figure out a treatment plan. Ask if you can have medicine to take at homethe next time you get a bad headache. This may keep you from having to visit the emergencydepartment in the future. You may need to see a headache specialist (neurologist) if you continue tohave headaches.When to seek medical adviceCall your healthcare provider right away if any of these occur: Your head pain gets worse, or doesn't get better within 24 hours You can't keep liquids down (repeated vomiting) Pain in your sinuses, ears, or throat Fever of 100.4 F (38 C) or higher, or as directed by your healthcare provider Stiff neck 4 General Instructions [facility] Emergency Department [address] [place] [address] Phone #: ext- [phone] 08/21/2020 22:26 Patient: ZE NORMAN Sex: F : 1985 Age: 35y Extreme drowsiness, confusion, or fainting Dizziness, or dizziness with spinning sensation (vertigo) Weakness or trouble feeling in an arm or leg, or on one side of your face Trouble talking or seeing [id number] [employer] [place] [address]. All rights reserved. This information is not intended as asubstitute for professional medical care. Always follow your healthcare professional's instructions. You have been given the following additional information: Headache, Migraine, Classic No strenuous activity. Do not work for four days.(Electronically signed by Loli Forrest MD 08/22/2020 01:08) Name Value Range Interpretation Code Description Data Ni rce(s) Supporting Document(s) ID Date Data Source [id number] 08/21/2020 10:33:00 PM EST [facility] 1 Clinical Report - Nurses [facility] Emergency Department [address] [place] [address] Phone #: ext- [phone] 08/21/2020 22:26 Patient: ZE NORMAN Sex: F : 1985 Age: 35yTRIAGEArrived by private vehicle. Historian: patient. Accompanied by family.Acuity: LEVEL 3.Chief Complaint: NUMBNESS.Alert. No acute distress.Onset. (2 weeks ago). ( PT said 2 weeks ago she began having numbness and tingling to her left arm.She was seen here last week and checked for blood clots and had none found on ultrasound. The pastweek the numbness has spread to her face and pain behind her eye. She also has twitching to both eyes.).She has had a headache.Treatment COVER MACHINE OPERATOR:None. Seen within the last 30 days at this facility in the ED; seen for similar symptoms; sonogram done.SEPSIS SCREEN: SIRS SCREEN NEGATIVE. SEPSIS SCREEN NEGATIVE. No suspected or confirmedsigns of infection present.DONOVAN COMA SCORE: 15- eyes open- spontaneous (4); best verbal response- oriented (5); bestmotor response- obeys commands (6). --22:35 08/21/20 Nancy Cano R.N.22:27 08/21/20. BP: 122/83. MAP: 96. HR: 78. RR: 18. O2 saturation: 100%. Temp: 99 F. Pain level now:02/17. --22:35 08/21/20 Nancy Cano R.N.Weight: 98.8 kg stated. Height/Length: 71 inches Per Patient. BMI: 30.4. --22:34 08/21/20 Nancy Cano R.N.MedicationsNone. --22:33 08/21/20 Nancy Cano R.N.AllergiesNo Known Drug Allergy. --22:33 08/21/20 Nancy Cano R.N.HistoryPAST MEDICAL HX: Last normal menstrual period now. Denies current .SOCIAL HX: Never smoker. No alcohol use or drug use. She was offered HIV testing but declined andhepatitis C testing but declined. She has not traveled outside the [place]Infectious disease exposure: The patient was not exposed to C-diff, MRSA, VRE, CRE or Coronavirus.SELF HARM ASSESSMENT: Self harm assessment was performed. The patient answered "no" to the 2 Clinical Report - Nurses [facility] Emergency Department [address] [place] [address] Phone #: [phone] 08/21/2020 22:26 Patient: ZE NORMAN [facility]#: [id number] Sex: F : 1985 Age: 35y question(s) "Have you recently felt down, depressed, or hopeless?", "Do you have thoughts of harming or killing yourself?", "Do you have a plan for harming or killing yourself?", "Have you recently had thoughts about harming or killing others?", "Do you have any dangerous items in your possession?", "Have you noticed less interest or pleasure in doing things?", "Are you here because you tried to hurt yourself?" and "Have you ever tried to hurt yourself before today?". ABUSE ASSESSMENT: No report of abuse. NUTRITIONAL RISK ASSESSMENT: The nutritional risk assessment revealed no deficiencies. FUNCTIONAL ASSESSMENT: Functional assessment: no impairments noted. LEARNING NEEDS ASSESSMENT: The learning needs assessment revealed no barriers. FALL RISK ASSESSMENT: Fall risk assessment completed. No risk factors identified. SKIN INTEGRITY ASSESSMENT: Skin integrity risk assessment completed. No skin integrity risk identified. --22:35 08/21/20 Nancy Cano R.N. Interventions Identification band on patient. To treatment room. --22:35 08/21/20 Nancy Cano R.N.PHYSICAL ASSESSMENTAmbulatory to room.GENERAL / NEURO / PSYCH: Awake. Oriented X 4. Alert. Appears in no acute distress. Speechnormal. Mood/affect normal. Moves all extremities equally. No motor deficit. No sensory deficit.HEENT: No facial asymmetry noted. Pupils equal, round and reactive to light. EOM intact. Pharynxwithin normal limits. ( twitches in both eyes, primarily left.).RESPIRATORY: Breath sounds within normal limits. Respirations not labored.CVS: Normal sinus rhythm noted. Capillary refill less than 2 seconds .SKIN: Skin is intact, warm and dry. --22:54 08/21/20 Bailey Rendon GENERAL / NEURO / PSYCH: NIH Stroke Scale: score 0. Level of Consciousness: alert (0). LOC Questions: both (0). LOC Commands: both (0). Best gaze: normal (0). Visual field loss: none (0). Facial palsy: normal (0). Motor arm: no drift right arm (0) and no drift left arm (0). Motor leg: no drift right leg (0) and no drift left leg (0). Limb ataxia: none (0). Sensory loss: none (0). Aphasia: none (0). Dysarthria: normal (0). Extinction and inattention: none (0). --22:54 08/21/20 Bailey Rendon.NURSING PROGRESS NOTESlate entry - 22:35 08/21/20. Patient gowned. Reassurance given. Two patient identifiers checked. Calllight placed in reach. Side rails up x 2. Bed placed in lowest position. Brakes of bed on. Patient readyfor evaluation. --22:52 08/21/20 Bailey Rendon 22:35 08/21/2020 Site #1 started via IV in the right antecubital space with an 20g angiocath, with aseptic 3 Clinical Report - Nurses [facility] Emergency Department [address] [place] [address] Phone #: ext- [phone] 08/21/2020 22:26 Patient: ZE NORMAN Sex: F : 1985 Age: 35y technique and good blood return; one attempt. Blood drawn: rainbow set. Saline lock flushed with saline. --22:53 08/21/20 Bailey Rendon Rounding: Pain: assessed pain level. Position: states comfortable. Personal care / toileting: denies toileting needs. Proximity of possessions / care items: call light within easy reach. Plug ins: assured IV pump plugged in; checked status of equipment in use; located all cords, tubes, and lines to prevent fall hazard. --23:22 08/21/20 Bailey Rendon 23:38 08/21/2020 Reglan (Metoclopramide HCl) IVP 10 mg given over 2 minute(s) via site #1. Allergies verified and confirmed 5 rights. IV patency established. IV site checked: no pain, redness, or swelling. IV flushed thoroughly pre- and post-medication administration. IVP given by RN. Information reviewed with patient including reason for taking this medication, signs of allergic reaction and precautions. Verbalizes understanding. --23:38 08/21/20 Sean Bunch RN 23:39 08/21/2020 Benadryl (diphenhydrAMINE HCl) IVP 25 mg given over 30 second(s) via site #1. Allergies verified and confirmed 5 rights. IV patency established. IV site checked: no pain, redness, or swelling. IV flushed thoroughly pre- and post-medication administration. IVP given by RN. Information reviewed with patient including reason for taking this medication, signs of allergic reaction, precautions and sedative warning. Verbalizes understanding. --23:39 08/21/20 Sean Bunch RN 23:39 08/21/2020 Toradol (Ketorolac Tromethamine) IVP 30 mg given over 1 minute(s) via site #1. Allergies verified and confirmed 5 rights. IV patency established. IV site checked: no pain, redness, or swelling. IV flushed thoroughly pre- and post-medication administration. IVP given by RN. Information reviewed with patient including reason for taking this medication, signs of allergic reaction and precautions. Verbalizes understanding. --23:39 08/21/20 Sean Bunch RN 23:00 08/21/20. BP: 126/83. MAP: 97. HR: 73. RR: 16. O2 saturation: 100%. Pain level now: 11/17. --00:28 08/22/20 Bailey Rendon 00:00 08/22/20. BP: 121/70. MAP: 87. HR: 82. RR: 14. O2 saturation: 98%. Pain level now: 09/17. --00:28 08/22/20 Bailey Rendon 00:24 08/22/2020 Site #1 removed upon discharge. Catheter intact. Bandaid applied. --00:29 08/22/20 Bailey Rendon.DISPOSITION / DISCHARGE Condition at departure: improved. No learning barriers present. Discharge instructions provided and reviewed with the patient. Reviewed warnings. Reviewed medication(s). Treatments reviewed. Reviewed referrals. Patient verbalized understanding. Written instructions provided in Japanese. The patient was discharged by the physician. She was discharged home and unaccompanied at time of discharge. She left ambulatory and via private vehicle. Spouse driving. --00:27 08/22/20 Bailey Rendon 00:26 08/22/20. BP: 132/62. HR: 80. RR: 15. O2 saturation: 98%. Temp: 98.1 F. Pain level now 08/20. --00:27 08/22/20 Bailey Rendon 4 Clinical Report - Nurses [facility] Emergency Department [address] [place] [address] Phone #: ext- [phone] 08/21/2020 22:26 [id number] 1985 Age: 35y Departure time: 00:27 08/22/2020. --00:27 08/22/20 Bailey Rendon.Locked/Released at 08/22/2020 00:29 by Bailey Rendon Name Value Range Interpretation Code Description Data Ni rce(s) Supporting Document(s) ID Date Data Source [id number] 08/21/2020 10:33:00 PM EST [facility] 1 Clinical Report - Physicians/Mid Levels [facility] Emergency Department [address] [place] [address] Phone #: ext- [phone] 08/21/2020 22:26 Patient: ZE NORMAN Sex: F : 1985 Age: 35y Arrived- By private vehicle. Historian- patient. Disposition decision: 00:19 08/22/2020.HISTORY OF PRESENT ILLNESS Chief Complaint: HEADACHE. Is still present. It is described as pressure. Located in the region of the left eye, left maxillary region and facial region. No neck pain. No preceding symptoms, blurred vision, photophobia, associated nausea or numbness. No weakness. (As per triage: 2 weeks ago). ( PT said 2 weeks ago she began alvarado ving numbness and tingling to her left arm. She was seen here last week and checked for blood clots and had none found on ultrasound. The past week the numbness has spread to her face and pain behind her eye. She also has twitching to both eyes.). She has had a headache. During my interview: pt states she has a headache on the left side of her face and her entire left side hurts. she denied any weakness or numbness to the left side.). Similar symptoms previously. Recent medical care: Not recently seen/assessed.REVIEW OF SYSTEMSNo fever, muscle aches, sinus pressure or ear pain or pain. No sore throat or throat, chest pain, difficultybreathing or cough. No abdominal pain or pain, diarrhea, pain with urination or chills. No fever, doublevision, nasal congestion, epistaxis or cough. No difficulty breathing, constipation, diarrhea, nausea orvomiting. No back pain, joint pain, neck pain, skin rash or seizure. No easy bruising or difficulty withurination. The patient has had a headache.PAST HISTORYSee nurses notes. Problems: Depression. Carpal Tunnel Syndrome. Abdominal Pain. Anxiety Reaction. Additional Surgeries: Breast Augmentation. Cholecystectomy. . L tube removed. Laparoscopy. 2 Clinical Report - Physicians/Mid Levels [facility] Emergency Department [address] [place] [address] Phone #: ext- [phone] 08/21/2020 22:26 Patient: ZE NORMAN Sex: F : 1985 Age: 35y Salpingectomy. Medications: None. Allergies: No Known Drug Allerg y.SOCIAL HISTORYNo drug use.ADDITIONAL NOTESThe nursing notes have been reviewed.PHYSICAL EXAMVital Signs: 08/21/2020 22:27 BP: 122/83. MAP: 96. HR: 78. RR: 18. O2 saturation: 100%. Temp: 99 F.Pain level now: 02/17. Have been reviewed and appear to be correct. Blood pressure normal. Meanarterial pressure- normal. Heart rate normal. Respiratory rate normal. Temperature normal. Oxygensaturation normal.Appearance: Alert. No acute distress.Eyes: Pupils equal, round and reactive to light. Eyes normal inspection.ENT: Nose normal. Pharynx normal.Neck: Normal inspection. Neck supple.CVS: Normal heart rate and rhythm. Heart sounds normal. Pulses normal.Respiratory: No respiratory distress. Painless inspiration. Breath sounds normal.Abdomen: Soft and nontender.Back: Normal inspection. No CVA tenderness.Skin: Skin warm and dry. Normal skin color. No rash. Normal skin turgor.Extremities: Extremities exhibit normal ROM. No lower extremity edema.Neuro: Oriented X 3. Alert. Mood/affect normal. Speech normal. Cranial nerves normal (as tested).No cerebellar findings. No motor deficit. No sensory deficit.PROGRESS AND PROCEDURESCourse of Care: pt presents to the ED with a headache and pain that radiates to her entire left side of [facility]. initially, pt is closing her left eye. she appears uncomfortable. she complained of a headacheprimarily. I treated her with iv reglan, benadryl and toradol. she felt markedly better. her photophobiaresolved. she wanted to go home. I feel very confident that this was a migraine. I encouraged pt to f/uwith her pcp. pt appreciative of care. Patient/family counseled. Disposition: Discharged. Condition: good and stable.CLINICAL IMPRESSION Headache. 3 Clinical Report - Physicians/Mid Levels [facility] Emergency Department [address] [place] [address] Phone #: ext- [phone] 08/21/2020 22:26 Patient: ZE NORMAN Sex: F : 1985 Age: 35yINSTRUCTIONS No strenuous activity. Do not work for four days. (Please follow up with your primary care physician. Take tylenol and motrin for pain. return if worse or any new symptoms.). Warnings: Further evaluation is necessary. GENERAL WARNINGS: Return or contact your physician immediately if your condition worsens or changes unexpectedly, if not improving as expected, or if other problems arise. Your Current Medications: . No home medication. Follow-up: Follow up with your doctor Tuesday even if well. Call for an appointment. Reason for referral: evaluation. Summary of care provided to patient via paper. Understanding of the discharge instructions verbalized by patient.(Electronically signed by Loli Forrest MD 08/22/2020 01:08) Name Value Range Interpretation Code Description Data Ni rce(s) Supporting Document(s) ID Date Data Source [id number] 08/12/2020 09:42:00 [place] [address] PHONE: [phone] FAX: [phone] Name .................. : МАРИЯ Gonzalez Acct Number.................. : [id number] ROOM. ................. : TR-03 MR Number ................... : [id number] Stay type ............. : E/R Discharge Date......... ... : Admit Date ......... : 08/11/20 Admit Phys .................... : LOLA KURTZ Date of ....... : 1985 Family Phys ................... : UNKNOWN AMANDEEP Phone .................. : [phone] Age ................................ : 35 Film# .................. .:[id number] Sex ................................. : F Unsigned transcriptions are preliminary reports and do not represent a medical or legal document [place] [id number] COMPLETE:08/11/20 22:21 ADB 3449 Reason(s): DVT LEFT UPPER EXTREMITY VENOUS DOPPLER ULTRASOUND: FINDINGS: Duplex color sonography of the major deep venous system of the left upper extremity does not demonstrate a DVT. Flow and compressibility were possible, demonstrating the left internal jugular, subclavian, axillary and brachial veins. No SVT is demonstrated on the visualized portion of the cephalic or basilic vein. IMPRESSION: No evidence of a DVT demonstrated on the current study. Electronically Reviewed and Signed By Aaron Figueroa MD , 08/12/20 09:42, AML Transcribe Initials: LOVE , Transcribe Date: 08/11/20 22:34, Dictation Date: Copy for: ILEANA PAUL via fax Copy for: EMERGENCY DEPT via mode Copy for: 710 MED REC DISCHARGED Page 1 of 1 Name Value Range Interpretation Code Description Data Ni rce(s) Supporting Document(s) ID Date Data Source [id number] 08/11/2020 09:29:00 PM EST [facility] 1 OrderSheet [facility] Emergency Department [address] [place] [address] Phone #: ext- [phone] 08/11/2020 21:29 Patient: ZE NORMAN Sex: F : 1985 Age: 35yWEIGHT:113.3 kg (S) HEIGHT:71 inches (S) BMI:34.9ALLERGIES: No Known Drug AllergyCHIEF COMPLAINT: pain, swelling, altered sensation, Rt, shoulders, in:, Rt, upr arms, pain, swelling, alteredsensationDIAGNOSIS: Pain in limbLAB ORDERSOrder Description Priority Entered Acknowledged InitialedDIAGNOSTIC STUDY ORDERSOrder Description Priority Entered Acknowledged InitialedUS Upper Ext STAT 21:31 08/11/2020 21:59 Mota,Venous Left Roland Levi(Oxygen?(No)) ANA; Reason for Study: DVT, Pain, Limb, Swelling, LimbMEDICATION/IV/DRIP/FLUID ORDERSOrder Description Priority Entered Acknowledged InitialedIbuprofen 800 mg 21:31 08/11/2020 21:41 Mota,PO X1 dose: 800 Roland Lewis (NOW x1) ANA;Toradol IM 60 mg 22:31 08/11/2020 22:33 Roland Rendon PA;GENERAL ORDERSOrder Description Priority Entered Acknowledged Initialed[Electronically signed by Roland Bae (22:33 08/11/2020)][Electronically signed by Bailey Rendon (22:40 08/11/2020)][Electronically locked by Bailey Rendon (22:40 08/11/2020)] Name Value Range Interpretation Code Description Data Ni rce(s) Supporting Document(s) ID Date Data Source [id number] 08/11/2020 09:29:00 PM EST [facility] 1 Medication Reconciliation Report [facility] Emergency Department [address] [place] [address] Phone #: ext- [phone] 08/11/2020 21:29 Patient: ZE NORMAN Sex: F : 1985 Age: 35yWeight: 113.3 kgHeight/Length: 71 in.BMI: 34.9ALLERGIES: No Known Drug AllergyThe patient's Home Medications are listed below:NONE.The source(s) of the original Home Medication information:patientThe following Medications were given to the patient in the Emergency Department:Motrin [PO] PO 800 mg, administered: 21:36 08/11/2020Toradol [IM] IM 60 mg, administered: 22:33 08/11/2020The following Medications were prescribed to the patient:IBU 800 mg tablet Take 1 tablet three times a day for 15 days -- Dispense 45 tablet. Refills: 0.Substitution permitted.Pharmacy - [address] ; [place] [address]. FaxNumber: . -- ANA Horowitz Name Value Range Interpretation Code Description Data Ni rce(s) Supporting Document(s) ID Date Data Source [id number] 08/11/2020 09:29:00 PM [facility] 1 Medication Administration Record [facility] Emergency Department [address] [place] [address] Phone #: [phone] ext- [phone] 08/11/2020 21:29 Patient: ZE NORMAN Sex: F : 1985 Age: 35yWeight: 113.3 kgHeight/Length: 71 inBMI: 34.9ALLERGIES: No Known Drug Allergy Date/Time Medication Administered Medication OrderedGiven MOTRIN [PO] (IBUPROFEN) Ibuprofen 800 mg PO X1 dose: 35806:36 08/11/2020 Dose: 800 mg Tablets PO mg (NOW x1)Amita Mota,Given TORADOL [IM] (KETOROLAC Toradol IM 60 mg22:33 08/11/2020 TROMETHAMINE)Bailey Rendon, Dose: 60 mg IM Name Value Range Interpretation Code Description Data Ni rce(s) Supporting Document(s) ID Date Data Source [id number] 08/11/2020 09:29:00 PM EST [facility] 1 General Instructions [facility] Emergency Department [address] [place] [address] Phone #: ext- [phone] 08/11/2020 21:29 Patient: ZE NORMAN Sex: F : 1985 Age: 35yAcute upper extremity pain involving the left shoulder and left upper arm.INSTRUCTIONSWarnings: Further evaluation is necessary. It is very important to follow up with a healthcare provider.GENERAL WARNINGS: Return or contact your physician immediately if your condition worsens orchanges unexpectedly, if not improving as expected, or if other problems arise. Specifically return if painworsens.Your Current Medications: .No home medication.Prescription Medications:IBU 800 mg tablet Take 1 tablet three times a day for 15 days -- Dispense 45 tablet. Refills: 0.Substitution permitted.Pharmacy - [facility] - [address] ; [place] [address]. .Follow-up:Follow up with your doctor tomorrow. Call for the next available appointment. Reason for referral:evaluation and treatment. Summary of care provided to pat ient.Understanding of the discharge instructions verbalized by patient. ADDITIONAL INFORMATIONShoulder Pain with Uncertain CauseShoulder pain can have many causes. Pain often comes from the structures that surround theshoulder joint. These are the joint capsule, ligaments, tendons, muscles, and bursa. Pain can alsocome from cartilage in the joint. Cartilage can become worn out or injured. It's important to knowwhat's causing your pain so the healthcare provider can use the correct treatment. But sometimes it'sdifficult to find the exact cause of shoulder pain. You may need to see a specialist (orthopedist). Youmay also need special tests such as a CT scan or MRI. The provider may need to use special tools tolook inside the joint (arthroscopy).Shoulder pain can be treated with a sling or a device that keeps your shoulder from moving. You can 2 General Instructions [facility] Emergency Department [address] [place] [address] Phone #: ext- [phone] 08/11/2020 21:29 [id number] Sex[facility] F : 1985 Age: 35yta ke an anti-inflammatory medicine such as ibuprofen to ease pain. You may need to do specialshoulder exercises. Follow up with a specialist if the pain is severe or doesn't go away after a fewweeks.Home careFollow these tips when caring for yourself at home: If a sling was given to you, leave it in place for the time advised by your healthcare provider. If you aren't sure how long to wear it, ask for advice. If the sling becomes loose, adjust it so that your forearm is level with the ground. Your shoulder should feel well supported. Put an ice pack on the injured area for 20 minutes every 1 to 2 hours the first day. You can make your own ice pack by putting ice cubes in a plastic bag. Wrap the bag in a thin towel. Continue with ice packs 3 to 4 times a day for the next 2 days. Then use the pack as needed to ease pain and swelling. You may use acetaminophen or ibuprofen to control pain, unless another pain medicine was prescribed. If you have chronic liver or kidney disease, talk with your healthcare provider before using these medicines. Also talk with your provider if you've ever had a stomach ulcer or digestive bleeding. Shoulder pain may seem worse at night, when there is less to distract you from the pain. If you sleep on your side, try to keep weight off your painful shoulder. Propping pillows behind you may stop you from rolling over onto that shoulder during sleep. Shoulder and elbow joints can become stiff if left in a sling for too long. You should start range of motion exercises about 7 to 10 days after the injury. Talk with your provider to find out what type of exercises to do and how soon to start. You can take the sling off to shower or bathe.Follow-up careFollow up with your healthcare provider if you don't start to get better in the next 5 days.When to seek medical adviceCall your healthcare provider right away if any of these occur: Pain or swelling gets worse or continues for more than a few days Your hand or fingers become cold, blue, numb, or tingly Large amount of bruising on your shoulder or upper arm 3 General Instructions [facility] Emergency Department [address] [place] [address] Phone #: ext- [phone] 08/11/2020 21:29 Patient: ZE NORMAN Sex: F : 1985 Age: 35y Trouble moving your hand or fingers We akness in your hand or fingers Your shoulder becomes stiff It feels like your shoulder is popping out You are less able to do your daily activities [id number] [employer]. [address] [place] [address], [place] [address]. All rights reserved. This information is not intended as asubstitute for professional medical care. Always follow your healthcare professional's instructions. You have been given the following additional information: Shoulder Pain, Uncertain Cause(Electronically signed by ANA Horowitz 08/11/2020 22:33) Name Value Range Interpretation Code Description Data Ni rce(s) Supporting Document(s) ID Date Data Source [id number] 08/11/2020 09:29:00 PM EST [facility] 1 Clinical Report - Nurses [facility] Emergency Department [address] [place] [address] Phone #: ext- [phone] 08/11/2020 21:29 Patient: ZE NORMAN Sex: F : 1985 Age: 35yTRIAGEArrived by private vehicle. Historian: patient.Triage time: 21:30 08/11/2020. Acuity: LEVEL 4.Chief Complaint: LEFT UPPER EXTREMITY PAIN and NUMBNESS.No injury occurred. Onset was gradual. Symptoms are constant and still present (off and on about 1week). 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 SEPSIS SCREEN NEGATIVE. No suspected or confirmedsigns of infection present. --21:36 08/11/20 Sean Bunch RN21:30 08/11/20. BP: 157/106 (regular adult cuff) taken on the right arm, via an automated monitor, whilesitting. MAP: 123. HR: 76 (regular, normal rate and strong). RR: 18 (regular, unlabored and normal). [id number]: 100% on room air. Temp: 98.6 F (oral). Pain level now: 02/17. --21:36 08/11/20 Sean Bunch RN.Weight: 113.3 kg stated. Height/Length: 71 inches Per Patient. BMI: 34.9. --21:29 08/11/20 Sean Bunch RN.MedicationsNone. --21:33 08/11/20 Sean Bunch RN.AllergiesNo Known Drug Allergy. --21:32 08/11/20 Sean Bunch RN.PROBLEMS:Depression.Endometriosis.Carpal Tunnel Syndrome.Anxiety Reaction.Upper Extremity Pain.Ovarian Cyst.Infertility.Insomnia. --21:33 08/11/20 Sean Bunch RN.Medication/allergy information source: the patient. --21:36 08/11/20 Sean Bunch RN. 2 Clinical Report - Nurses [facility] Emergency Department [address] [place] [address] Phone #: ext- [phone] 08/11/2020 21:29 [id number] Sex[facility] F : 1985 Age: 35y History PAST MEDICAL HX: Tetanus status: up-to-date. Immunizations: up-to-date. Last normal menstrual period- Jul 26 2020. SOCIAL HX: Never smoker. No alcohol use or drug use. She was offered HIV testing but declined and hepatitis C testing but declined. She has not traveled outside the [place] Infectious disease exposure: No infectious disease exposure. SELF HARM ASSESSMENT: Self harm assessment was performed. The patient answered "no" to the question(s) "Have you recently felt down, depressed, or hopeless?", "Do you have thoughts of harming or killing yourself?", "Do you have a plan for harming or killing yourself?", "Have you recently had thoughts about harming or killing others?", "Do you have any dangerous items in your possession?", "Have you noticed less interest or pleasure in doing things?", "Are you here because you tried to hurt yourself?" and "Have you ever tried to hurt yourself before today?". ABUSE ASSESSMENT: No report of abuse. FALL RISK ASSESSMENT: Fall risk assessment completed. No risk factors identified. --21:36 08/11/20 Sean Bunch RN. Assessment The patient states feels the same. --21:36 08/11/20 Sean Bunch RN.PHYSICAL [id number]:40 08/11/20.GENERAL / NEURO / PSYCH: Oriented X 4. Alert. Appears in no acute distress. She has localizednumbness of the right hand.EXTREMITIES: No upper extremity edema. Left arm: tenderness. Left hand. L eft palm: tenderness ofthe central aspect of the palm (tingling).SKIN: Skin intact. Skin is warm and dry. --21:45 08/11/20 Amita Mota.NURSING PROGRESS NOTES21:36 08/11/2020 Motrin (Ibuprofen) PO Tablets 800 mg given. Allergies verified and confirmed 5 rights.Information reviewed with patient including reason for taking this medication, signs of allergic reaction andprecautions. Verbalizes understanding. --21:41 08/11/20 Amita Mota Patient transported by wheelchair with mask and interventional radiology rn. (Ultra sound). --21:47 08/11/20 Amita Mota late entry - 21:40 08/11/20. Patient gowned. Reassurance given. Two patient identifiers checked. Call light placed in reach. Side rails up x 2. Bed placed in lowest position. Brakes of bed on. --22:40 08/11/20 Bailey Rendon 22:33 08/11/2020 Toradol (Ketorolac Tromethamine) IM 60 mg given. Given in the right deltoid. Allergies 3 Clinical Report - Nurses [facility] Emergency Department [address] [place] [address] Phone #: ext- [phone] 08/11/2020 21:29 Patient: ZE NORMAN Sex: F : 1985 Age: 35y verified and confirmed 5 rights. Information reviewed with patient including reason for taking this medication, signs of allergic reaction and precautions. Verbalizes understanding. --22:33 08/11/20 Bailey Rendon.DISPOSITION / DISCHARGE Condition at departure: improved. No learning barriers present. Discharge instructions provided and reviewed with the patient. Reviewed warnings. Reviewed medication(s). Treatments reviewed. Reviewed referrals. Patient verbalized understanding. Written instructions provided in Japanese. 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 She was discharged home and unaccompanied at time of discharge. She left ambulatory and via private vehicle. Spouse driving. --22:39 08/11/20 Bailey Rendon 22:39 08/11/20. BP: 118/69. HR: 64. RR: 18. O2 saturation: 100%. Temp: 97.9 F. Pain level now 10/18. --22:39 08/11/20 Bailey Rendon Departure time: late entry - 22:39 08/11/2020. --:39 08/11/20 Bailey Rendon.Locked/Released at 08/11/2020 22:40 by Bailey Rendon Name Value Range Interpretation Code Description Data Ni rce(s) Supporting Document(s) ID Date Data Source [id number] 08/11/2020 09:29:00 PM [facility] 1 Clinical Report - Physicians/Mid Levels [facility] Emergency Department [address] [place] [address] Phone #: ext- [phone] 08/11/2020 21:29 [id number] Sex[facility] : 1985 Age: 35y Time Seen: 21:30 08/11/2020. Arrived- By private vehicle. Historian- patient.HISTORY OF PRESENT ILLNESS Chief Complaint: UPPER EXTREMITY PAIN, SWELLING and ALTERED SENSATION and ; PAIN, SWELLING and ALTERED SENSATION IN THE RIGHT SHOULDER and RIGHT UPPER ARM. This started 5 - 7 days ago and is still present. It was gradual in onset and has been constant. Severity is described as being moderate in degree. It has become recently worse. The quality is noted to be aching and "pain". It is described as radiating to the left upper arm, left elbow, left forearm, left wrist and left hand. Symptoms located in the area of the left shoulder and left arm. No chest pain, difficulty breathing, sensory loss or motor loss. She has had swelling, but not had redness. Patient denies an injury. Similar symptoms previously. None. Recent medical care: Not recently seen/assessed.REVIEW OF SYSTEMSLast normal menstrual period- Jul 26. No fever, chills, eye discomfort, headache or depression. No sorethroat, cough, skin rash, enlarged lymph nodes or neck pain. No abdominal pain, nausea, diarrhea, blackstools or difficulty with urination. No urinary frequency, hematuria, vaginal discharge, irregular periods orbloody stools.PAST HISTORYProblems:Depression.Endometriosis.Carpal Tunnel Syndrome.Anxiety Reaction.Upper Extremity Pain.Ovarian Cyst.Infertility.Insomnia. Medications: None. Allergies: No Known Drug Allergy.SOCIAL HISTORYNever smoker. No alcohol us e or drug use. 2 Clinical Report - Physicians/Mid Levels [facility] Emergency Department [address] [place] [address] Phone #: ext- [phone] 08/11/2020 21:29 Patient: ZE NORMAN Sex: F : 1985 Age: 35yPHYSICAL EXAMVital Signs: 08/11/2020 21:30 BP: sitting 157/106. MAP: 123. HR: 76. RR: 18. O2 saturation: 100% onroom air. Temp: 98.6 F. Pain level now: 8/10. Have been reviewed as abnormal. Hypertensive. Oxygensaturation normal.Appearan ce: Alert. Oriented X3. No acute distress.Eyes: Pupils equal, round and reactive to light. Eyes normal inspection.ENT: Ears normal. Nose normal. Pharynx normal.Neck: Normal inspection.CVS: Normal heart rate and rhythm. Heart sounds normal.Respiratory: No respiratory distress. Painless inspiration.Abdomen: Soft and nontender.Back: Normal inspection.Skin: Skin intact. Skin warm and dry. Normal skin color. Normal skin turgor.Extremities: No signs of infection present in the upper extremities. No upper extremity pulse deficitpresent. Upper extremity capillary refill not prolonged. No upper extremity edema. Left shoulder: mildtenderness. Neurovascular intact distally. (TTP in axilla). No joint effusion or limitation in ROM. Left arm:mild tenderness located in the medial aspect of upper arm. Extremities otherwise negative.Neuro: Oriented X 3. No motor deficit. No sensory deficit. Reflexes normal.LABS, X-RAYS, AND EKGUpper Extremity Sonography: Negative exam on the left side. Neg DVT. The exam was pe rformed bya tax examining technician. The study was interpreted by the radiologist and contemporaneously by me. Interpretationtime: 22:08/11/2020.PROGRESS AND PROCEDURESCourse of Care: :Aug 11 2020. Evaluation after observation. (Discussed exam and x-ray findingsand pt is agreeable with dx and t xplan.). Patient counseled in person regarding the patient's stable condition, test results, diagnosis and need for follow-up. Patient agrees with plan of care. 22:Aug 11 2020. Disposition: Discharged home in good and improved condition (:Aug 11 2020).CLINICAL IMPRESSION Acute upper extremity pain involving the left shoulder and left upper arm.INSTRUCTIONS Warnings: Further evaluation is necessary. It is very important to follow up with a healthcare provider. GENERAL WARNINGS: Return or contact your physician immediately if your condition worsens or 3 Clinical Report - Physicians/Mid Levels [facility] Emergency Department [address] [place] [address] Phone #: ext- [phone] 08/11/2020 21:29 [id number] Sex: F : 1985 Age: 35y changes unexpectedly, if not improving as expected, or if other problems arise. Specifically return if pain worsens. Your Current Medications: . No home medication. Prescription Medications: IBU 800 mg tablet Take 1 tablet three times a day for 15 days -- Dispense 45 tablet. Refills: 0. Substitution permitted. Pharmacy - [facility] [place] - [address] ; [place] [address]. . Follow-up: Follow up with your doctor tomorrow. Call for the next available appointment. Reason for referral: evaluation and treatment. Summary of care provided to patient. Understanding of the discharge instructions verbalized by patient.(Electronically signed by ANA Horowitz 08/11/2020 22:33) Name Value Range Interpretation Code Description Data Ni rce(s) Supporting Document(s) ID Date Data Source [id number] 06/23/2020 12:00:00 AM EST [facility] Name Value Range Interpretation Code Description Data Ni rce(s) Supporting Document(s) SARS-CoV-2 (COVID-19) RNA [Presence] in Respiratory specimen by JOEL with probe detection [facility] This lab was ordered by [facility] and reported by [employer] ID Date Data Source [id number] 05/27/2020 03:35:00 PM [facility] [address] [place] [address] PHONE: [phone] FAX: [phone] Name .................. : МАРИЯ GARVEY Renée Acct Number.................. : [id number] ROOM. ................. : TR-02 MR Number ................... : [id number] Stay type ............. : E/R Discharge Date......... ... : 05/26/20 Admit Date ......... : 05/26/20 Admit Phys .................... : LOLA KURTZ Date of ....... : 1985 Family Phys ................... : UNKNOWN Phone .................. : [phone] Age ................................ : 35 Film# .................. .:[id number] Sex ................................. : F Unsigned transcriptions are preliminary reports and do not represent a medical or legal document PELVIC [id number] COMPLETE:05/26/20 11:18 KNB 64423 Reason(s): Pelvic Pain US TRANSVAGINAL(NON OB) 16242 COMPLETE:05/26/20 11:18 KNB 70550 (REASON FOR OBS: pelvic pain TRANSABDOMINAL AND TRANSVAGINAL PELVIC ULTRASOUND: INDICATION: Pelvic pain. FINDINGS: The uterus measures 11.9 x 6.1 x 7.8 cm. The endometrium is slightly thickened, measuring 1.5 cm. The right ovary measures 3.4 x 2.5 x 1.8 cm. The left ovary measures 5.4 x 3.9 x 3.8 cm. A dominant follicle is identified in the left ovary measuring 1.7 cm. IMPRESSION: The endometrium is slightly thickened, measuring 1.5 cm. Dominant follicle in the left ovary measuring 1.7 cm. No free fluid or torsion. Examination dictated by ANA Reese. Examination was reviewed with Jeremy Iglesias MD, radiologist at the time of this dictation. Electronically Reviewed and Signed By Crispin Iglesias MD , 05/27/20 15:35, TDS Transcribe Initials: LOVE , Transcribe Date: 05/26/20 13:03, Dictation Date: Copy for: ILEANA PAUL via fax Copy for: EMERGENCY DEPT via modem Copy for: 710 MED REC DISCHARGED Page 1 of 1 Name Value Range Interpretation Code Description Data Ni rce(s) Supporting Document(s) ID Date Data Source [id number] 05/27/2020 03:35:00 PM EST [facility] [address] [place] [address] PHONE: [phone] FAX: [phone] Name .................. : МАРИЯ Gonzalez Acct Number.................. : [id number] ROOM. ................. : TR-02 MR Number ................... : [id number] Stay type ............. : E/R Discharge Date......... ... : 05/26/20 Admit Date ......... : 05/26/20 Admit Phys .................... : LOLA KURTZ Date of ....... : 1985 Family Phys ................... : UNKNOWN Phone .................. : [phone] Age ................................ : 35 Film# .................. .:[id number] Sex ................................. : F Unsigned transcriptions are preliminary reports and do not represent a medical or legal document PELVIC 50507 COMPLETE:05/26/20 11:18 KNB 44814 Reason(s): Pelvic Pain US TRANSVAGINAL(NON OB) 86437 COMPLETE:05/26/20 11:18 KNB 13928 (REASON FOR OBS: pelvic pain TRANSABDOMINAL AND TRANSVAGINAL PELVIC ULTRASOUND: INDICATION: Pelvic pain. FINDINGS: The uterus measures 11.9 x 6.1 x 7.8 cm. The endometrium is slightly thickened, measuring 1.5 cm. The right ovary measures 3.4 x 2.5 x 1.8 cm. The left ovary measures 5.4 x 3.9 x 3.8 cm. A dominant follicle is identified in the left ovary measuring 1.7 cm. IMPRESSION: The endometrium is slightly thickened, measuring 1.5 cm. Dominant follicle in the left ovary measuring 1.7 cm. No free fluid or torsion. Examination dictated by ANA Reese. Examination was reviewed with Jeremy Iglesias MD, radiologist at the time of this dictation. Electronically Reviewed and Signed By Crispin Iglesias MD , 05/27/20 15:35, TDS Transcribe Initials: DZ , Transcribe Date: 05/26/20 13:03, Dictation Date: Copy for: ILEANA PAUL via fax Copy for: EMERGENCY DEPT via modem Copy for: 710 MED REC DISCHARGED Page 1 of 1 Name Value Range Interpretation Code Description Data Ni rce(s) Supporting Document(s) ID Date Data Source [id number] 05/26/2020 09:51:00 AM EST [facility] 1 OrderSheet [facility] Emergency Department [address] [place] [address] Phone #: [phone]- [phone] 05/26/2020 09:48 Patient: ZE NORMAN Sex: F : 1985 Age: 35yWEIGHT:95.2 kg (S) HEIGHT:71 inches (S) BMI:29.3ALLERGIES: No Known Drug AllergyCHIEF COMPLAINT: abdominal painDIAGNOSIS: Cyst of ovary, Endometriosis (clinical)LAB ORDERSOrder Description Priority Entered Acknowledged InitialedCBC w Diff STAT 10:08 05/26/2020 10:08 [facility] Tech, Bruno BURNETTE PA; [id number] STAT 10:08 05/26/2020 10:08 [facility] Tech, Bruno ER PA; [id number] STAT 10:08 05/26/2020 10:08 [facility] Tech, Bruno ER PA; [id number] inalysis (Clean STAT 10:08 05/26/2020 10:08 Critical access hospital[facility] Tech, Bruno ER PA; [id number], Quant STAT 10:08 05/26/2020 10:08 [facility], Bruno BURNETTE PA; [id number] STUDY ORDERSOrder Description Priority Entered Acknowledged InitialedUS Pelvis STAT 10:08 05/26/2020 10:19 Denice Montoya(Oxygen?(No)) Roland Bae RN PA; Reason for Study: Pelvic PainMEDICATION/IV/DRIP/FLUID ORDERSOrder Description Priority Entered Acknowledged InitialedNS IV : Bolus 1000 10:08 05/26/2020 10:32 Dejah Montoya, then 150 mL/hr Roland PEREZ;Toradol IVP 30 mg 10:08 05/26/2020 10:32 Denice Montoya RN PA; 2 OrderSheet [facility] Emergency Department [address] [place] [address] Phone #: ext- [phone] 05/26/2020 09:48 Patient: ZE NORMAN Sex: F : 1985 Age: 35yZofran ODT PO 8 10:08 05/26/2020 10:32 Jarocho Montoya RN PA;Morphine IVP 2 mg 11:21 05/26/2020 11:21 Denice Montoya(NOW, HIGH ALERT Denice Montoya RN; RNMEDICATION) Verbal order per; Roland Bae PAGENERAL ORDERSOrder Description Priority Entered Acknowledged InitialedNPO 10:08 05/26/2020 10:09 Daja Bae academic affairs coordinatorBruno Sparks; [id number] Lock 10:08 05/26/2020 10:29 Denice Montoya RN PA;[Electronically signed by Denice Montoya RN (12:02 05/26/2020)][Electronically signed by Roland Bae (21:18 05/26/2020)][Electronically locked by Denice Montoya RN (12:02 05/26/2020)] Name Value Range Interpretation Code Description Data Ni rce(s) Supporting Document(s) ID Date Data Source [id number] 05/26/2020 09:51:00 AM EST [facility] 1 Medication Reconciliation Report [facility] Emergency Department [address] [place] [address] Phone #: ext- [phone] 05/26/2020 09:48 Patient: ZE NORMAN Sex: F : 1985 Age: 35yWeight: 95.2 kgHeight/Length: 71 in.BMI: 29.3ALLERGIES: No Known Drug AllergyThe patient's Home Medications are listed below:CONTINUE TAKING THE FOLLOWING MEDICATIONS: Gabapentin Oral Zofran OralThe source(s) of the original Home Medication information:patientThe following Medications were given to the patient in the Emergency Department:NS [IV] IV Fluids bolus 1000 mL over 40 minute(s), then 150 mL/hr, administered: 05/26/2020 10:32:00 AMToradol [IVP] IVP 30 mg, administered: 05/26/2020 10:32:00 AMZofran ODT [PO] PO 8 mg, administered: 05/26/2020 10:27:00 AMMorphine [IVP] IVP 2 mg, administered: 05/26/2020 11:21:00 AMThe following Medications were prescribed to the patient:IBU 800 mg tablet Take 1 tablet three times a day for 15 days -- Dispense 45 tablet. Refills: 0.Substitution permitted.Pharmacy - [facility] - [id number] [place] [address] ; [place] [address]. .ondansetron 8 mg disintegrating tablet Take 1 tablet three times a day for 5 days -- Dispense 15 tablet.Refills: 0. Substitution permitted.Pharmacy - [facility] - [id number] [place] [address] ; [place] [address]. . 2 Medication Reconciliation Report [facility] Emergency Department [address] [place] [address] Phone #: ext- [phone] 05/26/2020 09:48 Patient: ZE NORMAN Sex: F : 1985 Age: 35ydicyclomine 10 mg capsule Take 1 capsule four times a day for 10 days -- Dispense 40 capsule.Refills: 0. Substitution permitted.[facility] [address] ; [place] [address]. . -- ANA Horowitz Name Value Range Interpretation Code Description Data Ni rce(s) Supporting Document(s) ID Date Data Source [id number] 05/26/2020 09:51:00 AM [facility] 1 Medication Administration Record [facility] Emergency Department [address] [place] [address] Phone #: [phone]- [phone] 05/26/2020 09:48 [id number] Sex: F : 1985 Age: 35yWeight: 95.2 kgHeight/Length: 71 inBMI: 29.3ALLERGIES: No Known Drug Allergy Date/Time Medication Administered Medication OrderedStart NS [IV] NS IV : Bolus 1000 mL, then 77560:32 05/26/2020 Dose: IV Fluids mL/hrDenice Montoya RN Rate: 150 mL/hr over 3 hour(s)---- Bolus: 1000 mL over 40 minute(s)Stop Dispensed: 1000 mL bag11:56 05/26/2020 Site: #1 right ACDenice Montoya RNGiven TORADOL [IVP] (KETOROLAC Toradol IVP 30 mg10:32 05/26/2020 TROMETHAMINE)Denice Montoya RN Dose: 30 mg IVP Site: #1 right ACGiven ZOFRAN ODT [PO] (ONDANSETRON Zofran ODT PO 8 mg10:27 05/26/2020 HCL)Denice Montoya RN Dose: 8 mg POGiven MORPHINE [IVP] Morphine IVP 2 mg (NOW, HIGH11:21 05/26/2020 Dose: 2 mg IVP ALERT MEDICA TION)Denice Montoya RN Site: #1 right AC Name Value Range Interpretation Code Description Data Ni rce(s) Supporting Document(s) ID Date Data Source [id number] 05/26/2020 09:51:00 AM EST [facility] 1 General Instructions [facility] Emergency Department [address] [place] [address] Phone #: ext- [phone] 05/26/2020 09:48 Patient: ZE NORMAN Sex: Gustavo : 1985 Age: 35yEndometriosis involving the uterus.Single follicular left ovarian cyst.INSTRUCTIONSWarnings: Further evaluation is necessary.Your Current Medications: Your current home medications have been reviewed.CONTINUE TAKING THE FOLLOWING MEDICATIONS:Gabapentin Oral.Zofran Oral.Prescription Medications:IBU 800 mg tablet Take 1 tablet three times a day for 15 days -- Dispense 45 tablet. Refills: 0.Substitution permitted.Pharmacy - [facility] [id number] [place] [address] ; [place] [address]. .ondansetron 8 mg disintegrating tablet Take 1 tablet three times a day for 5 days -- Dispense 15 tablet.Refills: 0. Substitution permitted.[facility] - [facility] ; [place] [address]. .dicyclomine 10 mg capsule Take 1 capsule four times a day for 10 days -- Dispense 40 capsule.Refills: 0. Substitution permitted.[facility] ; [place] [address]. .Follow-up:Follow up with your doctor. 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 Summary of care provided to patient.Understanding of the discharge instructions verbalized by patient. ADDITIONAL INFORMATIONOvarian Cysts 2 General Instructions [facility] Emergency Department [address] [place] [address] Phone #: ext- [phone] 05/26/2020 09:48 Patient: ZE NORMAN Sex: F : 1985 Age: 35yThe ovaries are two small organs located on each side of a woman's uterus (womb). They are part ofthe female reproductive system. Ovarian cysts are sacs filled with fluid or tissue that form on or insidethe ovaries.Ovarian cysts are common in women, especially during childbearing years. There are different typesof cysts. Most are harmless (benign) and go away on their own. They often cause no symptoms. Ifsymptoms do occur, they can include mild pain or pressure in the lower belly (abdomen).Cysts that are large or break (rupture) may cause more severe pain and symptoms. In these cases,you may need hospital care or treatment such as surgery. You may need more extensive treatment ifa cyst causes an ovary to twist (called torsion) or if your doctor suspects your cyst is cancerous. Keepin mind that most cysts are not cancerous, however.General care To help relieve pain, your healthcare provider may recommend using lndb-ftr-xrknjtf pain medicine. If needed, your provide may prescribe stronger pain medicine. Depending on the type of cyst you have, your healthcare provider may advise taking control pills. These help shrink cysts in certain cases. They may also help prevent new cysts from forming. Be sure to take these medicines as directed if they are prescribed. Your healthcare provider may advise you to watch your symptoms over time to see if they go away or worsen. Regular ultrasound tests may also be advised. These can help check if a cyst goes away or grows in size.Follow-up care 3 General Instructions [facility] Emergency Department [address] [place] [address] Phone #: ext- [phone] 05/26/2020 09:48 Patient: ZE NORMAN Sex: F : 1985 Age: 35yFollow up with your healthcare provider, or as advised.When to seek medical adviceCall your healthcare provider right away if any of these occur: Pain worsens or fails to get better with home treatment Fever of 100.4F (38C) or higher (or other fever amount directed by your healthcare provider) Nausea and vomiting Weakness, dizziness, or fainting Abnormal vaginal bleeding [id number] [employer]. [address] [place] [address], [place] [address]. All rights reserved. This information is not intended as asubstitute for professional medical care. Always follow your healthcare professional's instructions.EndometriosisEndometriosis is a condition that occurs when the tissue that lines the uterus starts to grow where itshould not. The tissue may grow on the outside surface of the uterus, the ovaries, or fallopian tubes.It may also grow on the bowel, rectum, bladder, or other areas. The tissue responds to the samehormones that control your menstrual cycle. So it may swell and bleed just like the lining of theuterus, which is shed every month during your period. The swelling and blood irritate nearby tissues.This causes pelvic or lower abdominal (belly) pain and cramping. The pain is often worse around thetime of your period. Pain during sex is also common. Some women have pain during bowel 4 General Instructions [facility] Emergency Department [address] [place] [address] Phone #: ext- [phone] 05/26/2020 09:48 Patient: ZE NORMAN Sex: F : 1985 Age: 35ymovements or urination. Over time, scar tissue may form. This scar tissue can bind organstogether. It can also cause problems getting (infertility).The exact cause of endometriosis is unknown. The best way to confirm a diagnosis is with aprocedure called laparoscopy. This allows the provider to look inside the abdomen with a small tubeand light.Treatment depends on your symptoms. If pain is mild, no treatment may be needed. If pain is moresevere, medicines may be advised. Surgery may also be an option. Your provider can tell you moreas needed.Home careMedicinesTo help manage endometriosis, any of the following medicines may be used: Pain relievers, such as non-steroidal anti-inflammatory drugs (NSAIDS) Hormonal medicines o control pills o Progestin-only pills o Gonadotropin-releasing hormone (GnRH) agonists o DanazolIf you're prescribed medicines, be sure to take them as directed. Also, report any side effects youhave to your provider.General care Rest as needed when you have symptoms. To help ease pain or cramping, apply a heating pad to where the pain is. You may also use a hot water bottle.Follow-up careFollow up with your healthcare provider, or as directed.When to seek medical adviceCall your healthcare provider right away if any of these occur: Fever of 100.4F (38C) or higher, or as directed by your provider 5 General Instructions [facility] Emergency Department [address] [place] [address] Phone #: ext- [phone] 05/26/2020 09:48 Patient: ZE NORMAN Sex: F : 1985 Age: 35y Abdominal or pelvic pain or cramping worsens, or doesn't improve with medicines Pain during sex, urination, or bowel movements continues Heavy bleeding (soaking 1 pad or tampon every hour for 3 hours) Missed periods (if they are usually regular) Sudden, severe pain in the abdomen Abdominal swelling with nausea or vomiting Blood in the urine or problems urinating Blood in the stool Dizziness, weakness, fainting Note: If you have been unable to get after trying for 1 year, see your provider. He or she can talk with you about infertility testing. [phone] [employer]. [address] [place] [address], [place] [address]. All rights reserved. This information is not intended as asubstitute for professional medical care. Always follow your healthcare professional's instructions. You have been given the following additional information: Ovarian Cyst Endometriosis(Electronically signed by ANA Horowitz 05/26/2020 21:18) Name Value Range Interpretation Code Description Data Ni rce(s) Supporting Document(s) ID Date Data Source [id number] 05/26/2020 09:51:00 AM EST [facility] 1 Clinical Report - Nurses [facility] Emergency Department [address] [place] [address] Phone #: ext- [phone] 05/26/2020 09:48 Patient: ZE NORMAN Sex: F : 1985 Age: 35yTRIAGEArrived by private vehicle. Historian: patient. Accompanied by family. ( presents with c/o continued Lflank pain but now she is having lower abd. pain, was recently seen here for same c/o on 05/20).Triage time: 09:57 05/26/2020. Acuity: LEVEL 3.Chief Complaint: (L flank pain and lower abd. pain).Alert. No acute distress.Onset. (1 weeks). She has had abdominal pain. The pain is described as located in the lower abdomenand associated with nausea. 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 (gabapentin/zofran).SEPSIS SCREEN: SIRS Screen negative. Sepsis Screen negative. No suspected or confirmed signs ofinfection present. --10:03 05/26/20 Denice Montoya, RN09:59 05/26/20. BP: 142/84. MAP: 103. HR: 80. RR: 18. O2 saturation: 100%. Temp: 98.3 F. Pain levelnow: 02/17. --10:03 05/26/20 Denice Montoya, ELIO.Weight: 95.2 kg stated. Height/Length: 71 inches Per Patient. BMI: 29.3. --09:56 05/26/20 Denice Montoya RN.MedicationsGabapentin Oral. --10:00 05/26/20 Denice Montoya, RN Zofran Oral. --10:05/26/20 Denice Montoya, RN.AllergiesNo Known Drug Allergy. --10:05/26/20 Denice Montoya RN.PROBLEMS:Carpal Tunnel Syndrome.Depression.Anxiety Reaction.Infertility.Insomnia. --10:05/26/20 Denice Montoya RN.Medication/allergy information source: the patient and patient's previous visit record. --10:05/26/20Denice Montoya RN. 2 Clinical Report - Nurses [facility] Emergency Department [address] [place] [address] Phone #: ext- [phone] 05/26/2020 09:48 Patient: ZE NORMAN Sex: F : 1985 Age: 35y ADDITIONAL SURGERIES: Breast Augmentation. . L tube removed. Laparoscopy. --10:05/26/20 Denice Montoya RN. History PAST MEDICAL HX: Last normal menstrual period was 4 weeks ago. SOCIAL HX: Never smoker. No alcohol use or drug use. She was offered HIV testing but declined and hepatitis C testing but declined. She has not traveled outside the [place] Infectious disease exposure: No infectious disease exposure. SELF HARM ASSESSMENT: Self harm assessment was performed. The patient answered "no" to the question(s) "Have you recently felt down, depressed, or hopeless?". ABUSE ASSESSMENT: No report of abuse. NUTRITIONAL RISK ASSESSMENT: The nutritional risk assessment revealed no deficiencies. FUNCTIONAL ASSESSMENT: Functional assessment: no impairments noted. LEARNING NEEDS ASSESSMENT: The learning needs assessment revealed no barriers. FALL RISK ASSESSMENT: Fall risk assessment completed. No risk factors identified. SKIN INTEGRITY ASSESSMENT: Skin integrity risk assessment completed. No skin integrity risk identified. --10:05/26/20 Denice Montoya RN.PHYSICAL ASSESSMENTAmbulatory to room.GENERAL / NEURO / PSYCH: Alert. Oriented X 4. Appears in no acute distress.HEENT: Mucous membranes are pink.RESPIRATORY: Respirations not labored. Breath sounds within normal limits.CVS: Capillary refill less than 2 seconds.GI / : Abdomen soft. Abdominal tenderness in the lower abdomen. Bowel sounds within normallimits. CVA tenderness on the left. No vaginal bleeding or discharge.SKIN: Skin is warm and dry. --10:06 05/26/20 Denice Montoya, ELIO.NURSING PROGRESS NOTESPatient gowned. Reassurance given. Two patient identifiers checked. Call light placed in reach. Bedplaced in lowest position. Brakes of bed on. Patient ready for evaluation. --10:03 05/26/20 Denice Montoya,ELIO 10:27 05/26/2020 Zofran ODT (Ondansetron HCl) PO 8 mg given. Allergies verified and confirmed 5 rights. 3 Clinical Report - Nurses [facility] Emergency Department [address] [place] [address] Phone #: ext- [phone] 05/26/2020 09:48 Patient: ZE NORMAN Sex: F : 1985 Age: 35y Information reviewed with patient including reason for taking this medication. Verbalizes understanding. --10:32 05/26/20 Denice Montoya RN 10:31 05/26/2020 Site #1 started via IV in the right antecubital space with an 20g angiocath; one attempt. Saline lock flushed with 5 mL saline. --10:31 05/26/20 Denice Montoya RN 10:32 05/26/2020 Started bag #1 1000 mL IV Fluids NS; bolus of 1000 mL over 40 minute(s) then at 150 mL/hr over 3 hour(s) via site #1 via IV pump. Allergies verified and confirmed 5 rights. IV patency established. IV site checked: no pain, redness, or swelling. IV flushed thoroughly pre- and post-medication administration. Information reviewed with patient including reason for taking this medication. Verbalizes understanding. --10:32 05/26/20 Denice Montoya RN 10:32 05/26/2020 Toradol (Ketorolac Tromethamine) IVP 30 mg given via site #1. Allergies verified and confirmed 5 rights. IV patency established. IV site checked: no pain, redness, or swelling. IV flushed thoroughly pre- and post- medication administration. IVP given by RN. Information reviewed with patient i ncluding reason for taking this medication. Verbalizes understanding. --10:32 05/26/20 Denice Montoya RN 10:51 05/26/20. Patient transported to sonogram by wheelchair with interventional radiology rn. --10:56 05/26/20 Denice Montoya RN Patient returned from sonogram by wheelchair with interventional radiology rn. --11:13 05/26/20 Denice Montoya RN 11:13 05/26/20. BP: 125/83. MAP: 97. HR: 76. RR: 15. O2 saturation: 100%. Pain level now: 03/20. --11:14 05/26/20 Denice Montoya RN ( no relief with toradol would like something else for pain). --11:14 05/26/20 Denice Montoya RN 11:07 05/26/2020 Toradol IVP Response: no adverse reaction symptoms are the same. --11:22 05/26/20 Denice Montoya RN 11:21 05/26/2020 Morphine IVP 2 mg given via site #1. Allergies verified and confirmed 5 rights. IV patency established. IV site checked: no pain, redness, or swelling. IV flushed thoroughly pre- and post-medication administration. IVP given by RN. Information reviewed with patient including reason for taking this medication and sedative warning. Verbalizes understanding. --11:21 05/26/20 Denice Montoya RN 11:46 05/26/2020 Morphine IVP Response: no adverse reaction pain is improving. Symptoms have improved. --12:05/26/20 Denice Montoya RN 11:56 05/26/2020 IV Fluids NS via IV site #1 Discontinued: completed. Total amount infused: 1000 mL. --12:05/26/20 Denice Montoya RN.DISPOSITION / DISCHARGE 11:55 05/26/20. BP: 119/68. HR: 73. RR: 17. O2 saturation: 100%. Temp: 98.3 F. Pain level now 10. --11:56 05/26/20 [facility] Bruno Sparks ER Tech1 4 Clinical Report - Nurses [facility] Emergency Department [address] [place] [address] Phone #: ext- [phone] 05/26/2020 09:48 Patient: ZE NORMAN Sex: F : 1985 Age: 35y Condition at departure: stable. No learning barriers present. Discharge instructions provided and reviewed with the patient. Reviewed medication(s) side effects, precautions, dosing and course information. Prescription(s) sent electronically to pharmacy. Reviewed referral to a campus manager. Patient verbalized understanding. Written instructions provided in Japanese. 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 She was discharged home and accompanied by spouse. She left ambulatory and via private vehicle. Spouse driving. --12:00 05/26/20 Denice Montoya, ELIO 11:55 05/26/2020 Site #1 removed upon discharge. Pressure dressing applied. --12:00 05/26/20 Denice Montoya RN.Locked/Released at 05/26/2020 12:02 by Denice Montoya, ELIO Name Value Range Interpretation Code Description Data Ni rce(s) Supporting Document(s) ID Date Data Source [id number] 05/26/2020 09:51:00 AM EST [facility] 1 Clinical Report - Physicians/Mid Levels [facility] Emergency Department [address] [place] [address] Phone #: ext- [phone] 05/26/2020 09:48 [id number] Sex[facility] F : 1985 Age: 35y Time Seen: 10:05 05/26/2020. Arrived- By private vehicle. Historian- patient.HISTORY OF PRESENT ILLNESS Chief Complaint: ABDOMINAL PAIN. It is described as "pain" and it is described as located in the pelvic area and in the left lower quadrant and left pelvis and the left flank. This started 05/20; presents with c/o continued L flank pain but now she is having lower abd. pain, was recently seen here for same c/o on 05/20 and is still present. At its maximum, severity described as moderate. When seen in the E.D., severity described as moderate. The patient has had nausea. Similar symptoms previously. Patient has had similar symptoms several times. Recent medical care: The patient was seen recently at this facility in the emergency department.REVIEW OF SYSTEMSLast normal menstrual period- 4 months weeks ago, salpingectomy. No constipation, black stools,hematemesis, difficulty with urination or pain with urination. No urinary frequency, bloody stools, fever,headache or sore throat. No blurred vision, chest pain, difficulty breathing, cough or joint pain. No skinrash, chills or back pain. The patient has not had weight loss.SOCIAL HISTORYNever smoker. No alcohol use or drug use.PHYSICAL EXAMVital Signs: 05/26/2020 09:59 BP: 142/84. MAP: 103. HR: 80. RR: 18. O2 saturation: 100%. Temp: 98.3F. Pain level now: 02/17. Have been reviewed as abnormal. Hypertensive. Oxygen saturation normal.Appearance: Alert. Oriented X3. No acute distress .Eyes: Pupils equal, round and reactive to light. Eyes normal inspection.ENT: Ears normal. Nose normal. Pharynx normal.Neck: Normal inspection. Neck supple.CVS: Normal heart rate. Heart sounds normal.Respiratory: No respiratory distress. Breath sounds normal.Abdomen: Soft. Mild tenderness in the left lower quadrant and lower abdomen. Bowel sounds normal.No organomegaly. No mass.Back: Mild CVA tenderness on the left.Skin: Skin warm and dry. Normal skin color. No rash. Normal skin turgor.Extremities: Extremities exhibit normal ROM. No lower extremity edema.Neuro: Oriented X 3.LABS, X-RAYS, AND EKGPelvic Sonogram: endometrium slightly thickened 1.5 cm, dominant follicle left ovary 1.7 cm, no torsion of 2 Clinical Report - Physicians/Mid Levels [facility] Emergency Department [address] [place] [address] Phone #: ext- [phone] 05/26/2020 09:48 -- Patient: ZE NORMAN Sex: F : 1985 Age: 35yff, nad. Study type: abdominal evaluation. The study was interpreted by the radiologist andcontemporaneously by me. Interpretation time: 11:33 05/26/2020.Laboratory Tests: Laboratory tests have been ordered, with results reviewed and considered in themedical decision making process.US TRANSVAGINAL (NON OB): (CORBIN: 05/26/2020 10:58) ( MsgRcvd 05/26/2020 11:18) In ProgressUS TRANSVAGINAL (Non OB)REASON FOR OBS: pelvic painTRANSPORTATION: W IV? N O2? NPREGNANCY STATUS: SIGNED WAIVER ISOLATION NCBC w Diff: (CORBIN: 05/26/2020 10:17) ( MsgRcvd 05/26/2020 10:47) Final results Test Result Flag Units (Reference) CBC W/AUTOMATED DIFF COMPLETE BLOOD COUNT WBC 4.4 10/uL (4.2 - 11.0) RBC 4.72 10/uL (4.20 - 5.40) HEMOGLOBIN 10.7 L g/dL (12.0 - 16.0) HEMATOCRIT 34.7 L % (37.0 - 47.0) MCV 73.5 L fL (81.0 - 101) MCH 22.7 L pg (27.0 - 34.0) MCHC 30.8 L g/dL (31.0 - 36.0) RDW 17.0 H % (11.5 - 14.5) PLATELETS 187 10/uL (150 - 450) MPV 0.0 L fL (7.4 - 10.4) NEUT 59.3 % (37.0 - 80.0) LYMPH 30.3 % (25.0 - 40.0) MONO 5.2 % (3.0 - 8.0) EOS 3.4 % (0.0 - 7.0) BASO 1.1 % (0.0 - 2.5) %IG 0.7 H % (0.0 - 0.0) %NRBC 0.0 % (0.0 - 0.0) #NEUT 2.60 10/uL (2.00 - 6.90) #LYMPH 1.33 10/uL (0.60 - 3.40) #MONO 0.23 10/uL (0.00 - 0.90) #EOS 0.15 10/uL (0.00 - 0.70) #BASO 0.05 10/uL (0.00 - 0.20) #IG 0.03 10/uL (0.00 - 0.10) #NRBC 0.00 10/uL (0.00 - 0.00) MANUAL DIFF NOT INDICATED RBC MORPH SEE BELOW { SICKLE CELL (NORMAL: NONE SEEN ) PLT EST NORMAL (NORMAL: LOLI COMMENT: _FEW_LARGE_PLATELETS 05/26/20.1046.CLD.. . CMP: (CORBIN: 05/26/2020 10:17) ( MsgRcvd 05/26/2020 11:04) Final results Test Result Flag Units (Reference) COMPREHENSIVE METABOLIC PANEL COMPREHENSIVE METABOLIC PANEL SODIUM 139 mEq/L (134 - 153) POTASSIUM 3.8 mEq/L (3.6 - 5.0) 3 Clinical Report - Physicians/Mid Levels [facility] Emergency Department [address] [place] [address] Phone #: ext- [phone] 05/26/2020 09:48 Patient: ZE NORMAN Sex: F : 1985 Age: 35y CHLORIDE 105 mEq/L (98 - 107) CO2 26 MEQ/L (22 - 30) GLUCOSE 120 H MG/DL (65 - 110) BUN 11 MG/DL (7 - 21) CREATININE 0.7 MG/DL (0.7 - 1.5) BUN/CREAT 16 (8 - 27) TOTAL PROTEIN 6.4 G/DL (6.3 - 8.2) ALBUMIN 3.8 L G/DL (3.9 - 5.0) GLOBULIN 2.6 GM/DL (2.4 - 3.2) A/G RATIO 1.5 (0.8 - 2.0) CALCIUM 9.0 MG/DL (8.4 - 10.2) TOTAL BILI <0.7 MG/DL (0.2 - 1.3) ALKALINE PHOS 88 U/L (38 - 126) SGOT/AST 15 U/L (5 - 40) SGPT/ALT 15 U/L (7 - 56) ANION GAP 8.0 mmol/L (8.0 - 16.0) AGE 35 yrs NON-AA GFR >60 mL/min AFR AMER GFR >60 mL/min Male GFR Interprentation 20-49 yrs >60 mL/min Uchzqc51-28 yrs >56 mL/min Normal 60-69 yrs >49 mL/min Normal 70-79yrs>42 mL/min Normal 80 and above >35 mL/min Normal Female GFRInterpretation 20-39 yrs >60 mL/min Normal 40-49 yrs >58 mL/minNormal 50-59 yrs >51 mL/min Normal 60-69 yrs >45 mL/min Umncon70- 79 yrs >39 mL/min Normal 80 and above >32 mL/min NormalLipase: (CORBIN: 05/26/2020 10:17) ( [facility] 05/26/2020 11:04) Final results Test Result Flag Units (Reference) LIPASE 68 H U/L (13 - 60)Urinalysis: (CORBIN: 05/26/2020 10:00) ( [facility] 05/26/2020 10:39) Final results Test Result Flag Units (Reference) URINALYSIS URINALYSIS SOURCE R COLOR yellow (NORMAL: Yello CLARITY clear (NORMAL: Clear SPEC GRAVITY 1.020 (1.001 - 1.030 pH 6 (5 - 9) GLUCOSE NORM (NORMAL: Negat BILIRUBIN NEG (NORMAL: Negat KETONE NEG (NORMAL: Negat PROTEIN NEG (NORMAL: Negat NITRITE NEG (NORMAL: Negat BLOOD NEG (NORMAL: Negat LEUK EST NEG (NORMAL: Negat UROBILINOGEN NOR (less than 1.0 MICROSCOPIC Not IndicateBeta-HCG, Quant Serum: (CORBIN: 05/26/2020 10:17) ( [facility] 05/26/2020 11:04) Final results Test Result Flag Units (Reference) HCG QUANT <0.5 mIU/mL Interpretation: Less than 5 mU/mL: Negative6-10 mU/mL: Borderline (suggest repeat in 48 hours) >10: PositiveApprox HCG range (mU/mL) Weeks post LMP 5.4-708 mU/mL 3-4 Tzfzl184-13390 mU/mL 5-6 Weeks 4059-872350 mU/mL 7-8 Cmvet86287- 965326 mU/mL 9-10 Weeks 41706-26249 mU/mL 12-14 Weeks 4 Clinical Report - Physicians/Mid Levels [facility] Emergency Department [address] [place] [address] Phone #: ext- [phone] 05/26/2020 09:48 -- Patient: ZE NORMAN Sex: F : 1985 Age: 35y [address]-79[address] mU/mL 15-16 Weeks 8240-83681 mU/mL 17-18 Weeks US Pelvis: (CORBIN: 05/26/2020 10:08) ( MsgRcvd 05/26/2020 11:18) In Progress US PELVIC Reason(s): Pelvic Pain TRANSPORTATION: IV? O2? Oxygen?(No) Room: ED.PROGRESS AND PROCEDURESCourse of Care: 11:May 26 2020. Evaluation after observation. (Discussed US results and pt needs tofollow up with TRUCK BODY BUILDER APPRENTICE. She is agreeable with dx and tx plan.). Patient counseled in person regarding the patient's stable condition, test results, diagnosis and need for follow-up. Patient agrees with plan of care. 11:47 May 26 2020. Disposition: Discharged home in good and improved condition (:47 May 26 2020).CLINICAL IMPRESSION End ometriosis involving the uterus. Single follicular left ovarian cyst.INSTRUCTIONS Warnings: Further evaluation is necessary. Your Current Medications: Your current home medications have been reviewed. CONTINUE TAKING THE FOLLOWING MEDICATIONS: Gabapentin Oral. Zofran Oral. Prescription Medications: IBU 800 mg tablet Take 1 tablet three times a day for 15 days -- Dispense 45 tablet. Refills: 0. Substitution permitted. Pharmacy - [facility] [address] ; [place] [address]. . ondansetron 8 mg disintegrating tablet Take 1 tablet three times a day for 5 days -- Dispense 15 tablet. Refills: 0. Substitution permitted. Pharmacy - [facility] - [id number] ; [place] [address]. . 5 Clinical Report - Physicians/Mid Levels [facility] Emergency Department [address] [place] [address] Phone #: ext- [phone] 05/26/2020 09:48 Patient: ZE NORMAN Sex: F : 1985 Age: 35y dicyclomine 10 mg capsule Take 1 capsule four times a day for 10 days -- Dispense 40 capsule. Refills: 0. Substitution permitted. Pharmacy - [facility] - [id number] ; [place] [address]. . Follow-up: Follow up with your doctor. Reason for referral: evaluation, treatment and refer tpo TRUCK BODY BUILDER APPRENTICE for further evaluation. Summary of care provided to patient. Understanding of the discharge instructions verbalized by patient.(Electronically signed by ANA Horowitz 05/26/2020 21:18) Name Value Range Interpretation Code Description Data Ni rce(s) Supporting Document(s) ID Date Data Source [id number] 05/26/2020 11:03:00 AM EST [facility] Name Value Range Interpretation Code Description Data Ni rce(s) Supporting Document(s) Choriogonadotropin.intact [Units/volume] in Serum or Plasma <0.5 mIU/ mL [facility] Interpr etation: Less than 5 mU/mL: Negative 6-10 mU/mL: Borderline (suggest repeat in 48 hours) >10: Positive Approx HCG range (mU/mL) Weeks post LMP 5.4-708 mU/mL 3-4 Weeks 217-02169 mU/mL 5-6 Weeks 4059-527314 mU/mL 7-8 Weeks 71420-360888 mU/mL 9-10 Weeks 32809-27208 mU/mL 12-14 Weeks 25315-15150 mU/mL 15-16 Weeks 1572- 47550 mU/mL 17-18 Weeks ID Date Data Source [id number] 05/26/2020 11:03:00 AM [facility] Name Value Range Interpretation Code Description Data Ni rce(s) Supporting Document(s) Lipase [Enzymatic activity/volume] in Serum or Plasma 68 U/L 13 - 60 H [facility] ID Date Data Source [id number] 05/26/2020 11:03:00 AM EST [facility] Name Value Range Interpretation Code Description Data Ni rce(s) Supporting Document(s) COMPREHENSIVE METABOLIC PANEL [facility] COMPREHENSIVE METABOLIC PANEL Sodium [Moles/volume] in Serum or Plasma 139 mEq/L 134 - 153 [facility] Potassium [Moles/volume] in Serum or Plasma 3.8 mEq/L 3.6 - 5.0 [facility] Chloride [Moles/volume] in Serum or Plasma 105 mEq/L 98 - 107 [facility] Carbon dioxide, total [Moles/volume] in Serum or Plasma 26 MEQ/L 22 - 30 [facility] Glucose [Mass/volume] in Serum or Plasma 120 MG/DL 65 - 110 H [facility] BUN 11 MG/DL 7 - 21 [facility] al Creatinine [Mass/volume] in Serum or Plasma 0.7 MG/DL 0.7 - 1.5 [facility] BUN/CREAT 16 8 - 27 [facility] al Protein [Mass/volume] in Serum or Plasma 6.4 G/DL 6.3 - 8.2 [facility] Albumin [Mass/volume] in Serum or Plasma 3.8 G/DL 3.9 - 5.0 L [facility] Globulin [Mass/volume] in Serum by calculation 2.6 GM/DL 2.4 - 3.2 [facility] A/G RATIO 1.5 0.8 - 2.0 [facility] Calcium [Mass/volume] in Serum or Plasma 9.0 MG/DL 8.4 - 10.2 [facility] Bilirubin.total [Mass/volume] in Serum or Plasma <0.7 MG/DL 0.2 - 1.3 [facility] Alkaline phosphatase [Enzymatic activity/volume] in Serum or Plasma 88 U/L 38 - 126 [facility] Aspartate aminotransferase [Enzymatic activity/volume] in Serum or Plasma 15 U/L 5 - 40 [facility] Alanine aminotransferase [Enzymatic activity/volume] in Seru m or Plasma 15 U/L 7 - 56 [facility] Anion gap 3 in Serum or Plasma 8.0 mmol/L 8.0 - 16.0 [facility] AGE 35 yrs [facility] NON-AA GFR >60 mL/min [facility] ital AFR AMER GFR >60 mL/min [facility] Male GFR In terprentation 20-49 yrs >60 mL/min Normal 50-59 yrs >56 mL/min Normal 60-69 yrs >49 mL/min Normal 70-79yrs >42 mL/min Normal 80 and above >35 mL/min Normal Female GFR Interpretation 20-39 yrs >60 mL/min Normal 40-49 yrs >58 mL/min Normal 50-59 yrs >51 mL/min Normal 60-69 yrs >45 mL/min Normal 70-79 yrs >39 mL/min Normal 80 and above >32 mL/min Normal ID Date Data Source [id number] 05/26/2020 10:46:00 AM EST [facility] Name Value Range Interpretation Code Description Data Ni rce(s) Supporting Document(s) CBC W/AUTOMATED DIFF [facility] COMPLETE BLOOD COUNT Leukocytes [#/volume] in Blood by Automated count 4.4 10^3/uL 4.2 - 1 1.0 [facility] Erythrocytes [#/volume] in Blood by Automated count 4.72 10^6/uL 4. 20 - 5.40 [facility] Hemoglobin [Mass/volume] in Blood 10.7 g/dL 12.0 - 16.0 L [facility] Hematocrit [Volume Fraction] of Blood by Automated count 34.7 % 3 7.0 - 47.0 L [facility] Erythrocyte mean corpuscular volume [Entitic volume] by Auto mated count 73.5 fL 81.0 - 101 L [facility] Erythrocyte mean corpuscular hemoglobin [Entitic mass] by Automated count 22.7 pg 27.0 - 34.0 L [facility] Erythrocyte mean corpuscular hemoglobin concentration [Mass/volume] by Automated count 30.8 g/dL 31.0 - 36.0 L [facility] Erythrocyte distribution width [Ratio] by Automated count 17.0 % 11.5 - 14.5 H [facility] Platelets [#/volume] in Blood by Automated count 187 10^3/uL 150 - 45 0 [facility] Platelet mean volume [Entitic volume] in Blood by Automated count 0.0 fL 7.4 - 10.4 L [facility] Neutrophils/100 leukocytes in Blood by Automated count 59.3 % 37. 0 - 80.0 [facility] Lymphocytes/100 leukocytes in Blood by Manual count 30.3 % 25.0 - 40.0 [facility] Monocytes/100 leukocytes in Blood by Automated count 5.2 % 3.0 - 8.0 [facility] Eosinophils/100 leukocytes in Blood by Automated count 3.4 % 0.0 - 7.0 [facility] Basophils/100 leukocytes in Blood by Automated count 1.1 % 0.0 - 2.5 [facility] %IG 0.7 % 0.0 - 0.0 H [facility] %NRBC 0.0 % 0.0 - 0.0 [facility] Neutrophils [#/volume] in Blood by Automated count 2.60 10^3/uL 2.00 - 6.90 [facility] Lymphocytes [#/volume] in Blood by Automated count 1.33 10^3/uL 0.60 - 3.40 [facility] Monocytes [#/volume] in Blood by Automated count 0.23 10^3/uL 0.00 - 0.90 [facility] Eosinophils [#/volume] in Blood by Automated count 0.15 10^3/uL 0.00 - 0.70 [facility] Basophils [#/volume] in Blood by Automated count 0.05 10^3/uL 0.00 - 0.20 [facility] #IG 0.03 10^3/uL 0.00 - 0.10 [facility] #NRBC 0.00 10^3/uL 0.00 - 0.00 [facility] ospital MANUAL DIFF NOT INDICATED [facility] RBC MORPH SEE BELOW [facility] { SICKLE CELL (NORMAL: NONE SEEN ) Platelet adequacy [Presence] in Blood by Light microscopy NORMAL NORMAL: NORMAL [facility] COMMENT: _FEW_LARGE_PLATELETS 05/26/20.1046.CLD. . . ___ ID Date Data Source [id number] 05/26/2020 10:38:00 AM EST [facility] Name Value Range Interpretation Code Description Data Ni rce(s) Supporting Document(s) [facility]IS [facility] mono UR[facility]ALYSIS SOURCE R [facility] COLOR yellow NORMAL: Yellow [facility] CLARITY clear NORMAL: Clear [facility] Specific gravity of Urine by Test strip 1.020 1.001 - 1.030 [facility] pH 6 5 - 9 [facility] al Glucose [Mass/volume] in Urine by Test strip NORM [facility]AL: [facility] Bilirubin.total [Presence] in Urine by Test strip NEG NORMAL: Negative [facility] Ketones [Presence] in Urine by Test strip NEG NORMAL: Negative [facility] Protein [Mass/volume] in Urine by Test strip NEG NORMAL: Negat [facility] Nitrite [Presence] in Urine by Test strip NEG NORMAL: Negative [facility] BLOOD NEG NORMAL: Negative [facility] Leukocyte esterase [Presence] in Urine by Test strip NEG LOLI L: Negative [facility] Urobilinogen [Mass/volume] in Urine by Test strip NOR less emi n 1.0 mg/dL [facility] MICROSCOPIC Not Indicate [facility] ID Date Data Source [id number] 05/23/2020 10:42:00 AM EST [facility] [address] [place] [address] PHONE: [phone] FAX: [phone] Name .................. : МАРИЯ Gonzalez Acct Number.................. : [id number] ROOM. ................. : TR-03 Number ................... : [id number] Stay type ............. : E/R Discharge Date......... ... : 05/20/20 Admit Date ......... : 05/20/20 Admit Phys .................... : KARMA RAMSES Date of ....... : 1985 Family Phys ................... : UNKNOWN Phone .................. : [phone] Age ................................ : 35 Film# .................. .:[id number] Sex ................................. : F Unsigned transcriptions are preliminary reports and do not represent a medical or legal document CT ABD & PELV W/[place] OR[place] W/[place] [id number] COMPLETE:05/20/20 19:24 GRECIA [id number] Reason(s): NO CONTRAST: L flank pain. ? renal stone CT OF THE ABDOMEN AND PELVIS WITHOUT CONTRAST: INDICATION: Left flank pain. Evaluate for kidney stone. FINDINGS: The chest base is clear. There is normal noncontrast CT appearance of the liver, spleen, pancreas, adrenal glands and kidneys. The patient is status post cholecystectomy. There is no evidence of biliary duct dilatation. The visualized bowel is normal in caliber. The appendix is normal. No bowel wall thickening. The bladder is normal. The patient appears to be status post right tubal ligation. I do not see tubal ligation clips on the left fallopian tube. There is no acute osseous abnormality. No lymphadenopathy. IMPRESSION: 1. No evidence of left-sided renal stones or hydronephrosis. 2. No acute intra-abdominal process. 3. Right- sided tubal ligation clips noted. There are no left-sided tubal ligation clips visualized. While performing the above CT examination, radiation dose reduction was accomplished utilizing automated exposure control, adjusting of the mA and kV based on the patient's body size and/or the use of imperative reconstructive techniques. CT dose: 1140.7 mGycm Page 1 of 2 [facility] [address] [place] [address] PHONE: [phone] FAX: [phone] Name .................. : МАРИЯ Gonzalez Acct Number.................. : [id number] ROOM. ................. : TR-03 MR Number ................... : [id number] Stay type ............. : E/R Discharge Date......... ... : 05/20/20 Admit Date ......... : 05/20/20 Admit Phys .................... : KARMA RAMSES Date of ....... : 1985 Family Phys ................... : UNKNOWN Phone .................. : [phone] Age ................................ : 35 Film# .................. .:[id number] Sex ................................. : F Unsigned transcriptions are preliminary reports and do not represent a medical or legal document CT ABD & PELV W/O ORAL W/[place] [id number] COMPLETE:05/20/20 19:24 GRECIA [id number] Reason(s): NO CONTRAST: L flank pain. ? renal stone Electronically Reviewed and Signed By Titus Rocha M.D. , 05/23/20 10:42, [facility] Transcribe Initials: DZ , Transcribe Date: 05/20/20 22:45, Dictation Date: Copy for: ELIZABETH REARDON via fax Copy for: KARMA Quarles via fax Copy for: EMERGENCY DEPT via alexanderm Copy for: 710 MED REC DISCHARGED Page 2 of 2 Name Value Range Interpretation Code Description Data Ni rce(s) Supporting Document(s) ID Date Data Source [id number] 05/20/2020 04:06:00 PM EST [facility] 1 OrderSheet [facility] Emergency Department [address] [place] [address] Phone #: ext- [phone] 05/20/2020 15:54 Patient: ZE NORMAN Sex: F : 1985 Age: 35yWEIGHT:99.7 kg (S) HEIGHT:71 inches (S) BMI:30.7ALLERGIES: No Known Drug AllergyCHIEF COMPLAINT: flank painDIAGNOSIS: Abdominal painLAB ORDERSOrder Description Priority Entered Acknowledged InitialedCBC w Diff STAT 16:36 05/20/2020 16:51 Rajat Cano R.N. P.A.- C;CMP STAT 16:36 05/20/2020 16:51 Rajat CanoN. P.A.-C;Lipase STAT 16:36 05/20/2020 16:51 Rajat Cano.N. P.A.-C;Urinalysis (Clean STAT 16:36 05/20/2020 16:51 Jerome,Catch) Rajat Cruz R.N. P.A.-C;Beta-HCG, Qual STAT 16:36 05/20/2020 16:51 Jerome,Serum Rajat Cruz R.N. P.A.-C;Culture, Urine STAT 16:36 05/20/2020 16:51 Jerome,(Urine, Clean Rajat Cruz R.N.Catch) P.A.-C;HCG Serum Quant STAT 17:44 05/20/2020 17:48 Rajat CanoN. P.A.-C;HCG Urine Qual STAT 17:52 05/20/2020 18:03 Rajat CanoN. P.A.-C;DIAGNOSTIC STUDY ORDERSOrder Description Priority Entered Acknowledged InitialedCT ABD PEL W/O STAT 16:36 05/20/2020 Initialed: 17:22 Nancy Cano R.N.Oral W/O IV Rajat Johnson Cancelled: Other 17:45 Leonela P.A.-C; Elizabeth P.A.-C(Oxygen?(No)) 2 OrderSheet [facility] Emergency Department [address] [place] [address] Phone #: ext- [phone] 05/20/2020 15:54 Patient: ZE NORMAN Sex: F : 1985 Age: 35y(IV?(Yes)) Reason for Study: NO CONTRAST. L flank pain; ? renal stoneUS OB 1ST TRI UP STAT 17:46 05/20/2020 Initialed: 17:48 Nancy Cano R.N.TO 14 WEEKS Rajat Johnson Cancelled: Other 18:11 Rajat(Oxygen?(No)) P.A.-C; Elizabeth P.A.-C(IV?(Yes)) Reason for Study: L flank/abd painUS Renal STAT 17:46 05/20/2020 Initialed: 17:48 Nancy Cano R.N.(Oxygen?(No)) Rajat Johnson Cancelled: Other 18:11 Rajat P.A.-C; Elizabeth P.A.-C Reason for Study: L flank painCT ABD PEL W/O STAT 18:11 05/20/2020 18:12 Jerome,Oral W/O IV Rajat Cruz R.N.Contrast (Oxygen? P.A.-C;(Yes)) (IV?(Yes)) Reason for Study: NO CONTRAST: L flank pain. ? renal stoneMEDICATION/IV/DRIP/FLUID ORDERSOrder Description Priority Entered Acknowledged InitialedNS IV : Bolus 500 16:36 05/20/2020 17:19 Bonnie,mL, then 75 mL/hr Rajat FayeN. P.A.-C;Zofran IVP 4 mg 16:36 05/20/2020 17:19 Bonnie, Rajat FaeyN. P.A.-C;Morphine IVP 4 mg 16:36 05/20/2020 17:18 Bonnie,(HIGH ALERT Rajat Mary R.N.MEDICATION) P.A.-C;Tylenol 1 g PO X1 16:36 05/20/2020 17:20 Cano,dose: 1000 mg Rajat Cruz R.N.(NOW x1) P.A.-C;GENERAL ORDERSOrder Description Priority Entered Acknowledged InitialedNPO 16:36 05/20/2020 16:51 Rajat Cano R.N., P.A.-C;Saline Lock 16:36 05/20/2020 16:51 Rajat Cano R.N., P.A.-C;[Electronically signed by Rowena uJng R.N. (19:31 05/20/2020)][Electronically signed by Rajat Johnson P.A.-C (21:49 05/20/2020)] 3 OrderSheet [facility] Emergency Department [address] [place] [address] Phone #: ext- [phone] 05/20/2020 15:54 Patient: ZE NORMAN Sex: F : 1985 Age: 35y[Electronically locked by Rowena Jung R.N. (19:31 05/20/2020)] Name Value Range Interpretation Code Description Data Ni rce(s) Supporting Document(s) ID Date Data Source [id number] 05/20/2020 04:06:00 PM [facility] 1 Medication Reconciliation Report [facility] Emergency Department [address] [place] [address] Phone #: ext- [phone] 05/20/2020 15:54 Patient: ZE NORMAN Sex: F : 1985 Age: 35yWeight: 99.7 kgHeight/Length: 71 in.BMI: 30.7ALLERGIES: No Known Drug AllergyThe patient's Home Medications are listed below:NONE.The source(s) of the original Home Medication information:patientThe following Medications were given to the patient in the Emergency Department:Morphine [IVP] IVP 4 mg, administered: 05/20/2020 5:18:00 PMNS [IV] IV Fluids bolus 500 mL over 30 minute(s), administered: 05/20/2020 5:19:00 PMZofran [IVP] IVP 4 mg, administered: 05/20/2020 5:19:00 PMAcetaminophen [PO] PO 1000 mg, administered: 05/20/2020 5:20:00 PMThe following Medications were prescribed to the patient:Zofran 4 mg tablet Take 1 tablet three times a day for 4 days -- Dispense 12 tablet. Refills: 0.Substitution permitted.Pharmacy - [facility] [id number] ; [place] [address]. .gabapentin 100 mg capsule Take 1 capsule three times a day for 4 days -- Dispense 12 capsule.Refills: 0. Substitution permitted.Pharmacy - [facility] [id number] ; [place] [address]. . -- Rajat Johnson P.A.-C Name Value Range Interpretation Code Description Data Ni rce(s) Supporting Document(s) ID Date Data Source [id number] 05/20/2020 04:06:00 PM EST [facility] 1 Medication Administration Record [facility] Emergency Department [address] [place] [address] Phone #: ext- [phone] 05/20/2020 15:54 Patient: ZE NORMAN Sex: F : 1985 Age: 35yWeight: 99.7 kgHeight/Length: 71 inBMI: 30.7ALLERGIES: No Known Drug Allergy Date/Time Medication Administered Medication OrderedStart NS [IV] NS IV : Bolus 500 mL, then 7517:19 05/20/2020 Dose: IV Fluids mL/hrTyra Nicole R.N. Bolus: 500 mL over 30 minute(s)---- Dispensed: 500 mL bagStop Site: #1 right AC19:30 05/20/2020Rowena Jung R.N.Given ZOFRAN [IVP] (ONDANSETRON HCL) Zofran IVP 4 mg17:19 05/20/2020 Dose: 4 mg IVPTyra Nicole R.N. Site: #1 right ACGiven MORPHINE [IVP] Morphine IVP 4 mg (HIGH ALERT17:18 05/20/2020 Dose: 4 mg IVP MEDICATION)Tyra Nicole R.N. Site: #1 right ACGiven ACETAMINOPHEN [PO] Tylenol 1 g PO X1 dose: 1000 mg17:20 05/20/2020 Dose: 1000 mg Tablets PO (NOW x1)Nancy Cano R.N. Name Value Range Interpretation Code Description Data Ni rce(s) Supporting Document(s) ID Date Data Source [id number] 05/20/2020 04:06:00 PM EST [facility] 1 General Instructions [facility] Emergency Department [address] [place] [address] Phone #: [phone] twz- [phone] 05/20/2020 15:54 Patient: ZE NORMAN Sex: F : 1985 Age: 35yAcute left lower quadrant abdominal pain of unknown cause.INSTRUCTIONSTake Tylenol (Acetaminophen) or Motrin (Ibuprofen) as needed for fever control. Take medicationaccording to label instructions. Do not work for two days.Drink plenty of fluids.(Recommend to utilize OTC Motrin and Tylenol to control inflammation and pain management.Recommend to follow the instructions on the bottle and not to exceed.).Warnings: SEDATIVE MEDICATION: You were given sedative medication during your visit. Do not driveor operate dangerous machinery.GENERAL WARNINGS: Return or contact your physician immediately if your condition worsens orchanges unexpectedly, if not improving as expected, or if other problems arise.Prescription Medications:Zofran 4 mg tablet Take 1 tablet three times a day for 4 days -- Dispense 12 tablet. Refills: 0.Substitution permitted.Pharmacy - [facility] [id number] ; [place] [address]. FaxNumber: .gabapentin 100 mg capsule Take 1 capsule three times a day for 4 days -- Dispense 12 capsule.Refills: 0. Substitution permitted.Pharmacy - [facility] [id number] ; [place] [address]. .Follow-up:Return to the emergency department as needed. Follow up with your healthcare provider in about twodays if not better. Call for an appointment.Understanding of the discharge instructions verbalized by patient. ADDITIONAL INFORMATIONUnknown Causes of Abdominal Pain (Female) 2 General Instructions [facility] Emergency Department [address] [place] [address] Phone #: ext- [phone] 05/20/2020 15:54 Patient: ZE NORMAN Sex: F : 1985 Age: 35yThe exact cause of your belly (abdominal) pain is not clear. This does not mean that this is somethingto worry about. Everyone likes to know the exact cause of the problem. But sometimes with bellypain, there is no clear-cut cause, and this could be a good thing. The good news is that yoursymptoms can be treated, and you will feel better.Your condition does not seem serious now. But sometimes the signs of a serious problem may takemore time to appear. For this reason, it is important for you to watch for any new symptoms,problems, or worsening of your condition.Over the next few days, the abdominal pain may come and go. Or it may be constant. Other commonsymptoms can include nausea and vomiting. Sometimes it can be difficult to tell if you feel nauseous.You may just feel bad and not connect that feeling to nausea. Constipation, diarrhea, and a fever maygo along with the pain.The pain may continue even if treated correctly over the following days. Depending on how things go,sometimes the cause can become clear and may need more or different treatment. Additionalevaluations, medicines, or tests may also be needed.Home careYour healthcare provider may prescribe medicine for pain, symptoms, or an infection. Follow thehealthcare provider's instructions for taking these medicines. 3 General Instructions [facility] Emergency Department [address] [place] [address] Phone #: ext- [phone] 05/20/2020 15:54 Patient: ZE NORMAN Sex: F : 1985 Age: 35yGeneral care Rest as much as you can until your next exam. No strenuous activities. Try to find positions that ease discomfort. A small pillow placed on the abdomen may help relieve pain. Something warm on your abdomen (such as a heating pad) may help, but be careful not to burn yourself.Diet Don't force yourself to eat, especially if having cramps, vomiting, or diarrhea. Water is important so you don't get dehydrated. Soup may also be good. Sports drinks may also help, especially if they are not too acidic. Don't drink sugary drinks as this can make things worse. Take liquids in small amounts. Don't guzzle them. Caffeine sometimes makes the pain and cramping worse. Don't take dairy products if you have vomiting or diarrhea. Don't eat large amounts at a time. Wait a few minutes between bites. Eat a diet low in fiber (called a low-residue diet). Foods allowed include refined breads, white rice, fruit and vegetable juices without pulp, tender meats. These foods will pass more easily through the intestine. Don't have whole-grain foods, whole fruits and vegetables, meats, seeds and nuts, fried or fatty foods, dairy, alcohol and spicy foods until your symptoms go away.Follow-up careFollow up with your healthcare provider, or as advised, if your pain does not begin to improve in thenext 24 hours.Call [phone] if any of these occur: Trouble breathing Confusion Fainting or loss of consciousness Rapid heart rate 4 General Instructions [facility] Emergency Department [address] [place] [address] Phone #: ext- [phone] 05/20/2020 15:54 Patient: ZE NORMAN Sex: F : 1985 Age: 35y SeizureWhen to seek medical adviceCall your healthcare provider right away if any of these occur: Pain gets worse or moves to the right lower abdomen New or worsening vomiting or diarrhea Swelling of the abdomen Unable to pass stool for more than 3 days Fever of 100.4F (38C) or higher, or as directed by your healthcare provider. Blood in vomit or bowel movements (dark red or black color) Yellow color of eyes and skin (jaundice) Weakness, dizziness Chest, arm, back, neck, or jaw pain Unexpected vaginal bleeding or missed period Can't keep down liquids or water and you are getting dehydrated [id number] [employer]. [address] [place] [address], [place] [address]. All rights reserved. This information is not intended as asubstitute for professional medical care. Always follow your healthcare professional's instructions. You have been given the following additional information: Abdominal Pain, Unknown Cause, (Female) Do not work for two days.(Electronically signed by Rajat Johnson P.A.-C 05/20/2020 21:49) Name Value Range Interpretation Code Description Data Ni cecilioe(s) Supporting Document(s) ID Date Data Source [id number] 05/20/2020 04:06:00 PM EST [facility] 1 Clinical Report - Nurses [facility] Emergency Department [address] [place] [address] Phone #: ext- [phone] 05/20/2020 15:54 Patient: ZE NORMAN Sex: F : 1985 Age: 35yTRIAGEArrived by private vehicle. Historian: patient. ( presents with c/o L side pain that radiates around, suddenonset this am, comes and goes, took motrin but didn't help).Triage time: 15:57 05/20/2020. Acuity: LEVEL 3.Chief Complaint: ABDOMINAL PAIN and NAUSEA.Alert. No acute distress.This started today. Onset. (10am). The patient has had sharp abdominal pain. The pain is described aslocated in the left side of the abdomen and associated with nausea. 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 (2 hrs ago).SEPSIS SCREEN: SIRS Screen negative. Sepsis Screen negative. No suspected or confirmed signs ofinfection present. --16:03 05/20/20 Denice Montoya RN15:57 05/20/20. BP: 131/85. MAP: 100. HR: 74. RR: 16. O2 saturation: 100%. Temp: 98.9 F. Pain levelnow: 02/17. --16:03 05/20/20 Denice Montoya RN.Weight: 99.7 kg stated. Height/Length: 71 inches Per Patient. BMI: 30.7. --15:58 05/20/20 Denice Montoya,ELIO.MedicationsNone. --17:21 05/20/20 Nancy Cano R.N.AllergiesNo Known Drug Allergy. --17:21 05/20/20 Nancy Cano R.N.PROBLEMS:Depression.Upper Extremity Pain. --18:07 05/20/20 Denice Montoya RN.Medication/allergy information source: the patient and patient's previous visit record. --16:03 05/20/20Denice Montoya RN.ADDITIONAL SURGERIES:Breast Augmentation.Cholecystectomy.. 2 Clinical Report - Nurses [facility] Emergency Department [address] [place] [address] Phone #: ext- [phone] 05/20/2020 15:54 Patient: ZE NORMAN Sex: F : 1985 Age: 35y L tube removed. --18:07 05/20/20 Denice Montoya RN Laparoscopy. Salpingectomy. --18:08 05/20/20 Denice Montoya RN. History PAST MEDICAL HX: Last normal menstrual period was 3 weeks ago. Has had a tubal ligation. SOCIAL HX: Never smoker. No alcohol use or drug use. No recent travel. No known contact with a sick individual. The patient was offered HIV testing but declined and hepatitis C testing but declined. The patient has not traveled outside the [place] Infectious disease exposure: No infectious disease exposure. SELF HARM ASSESSMENT: Self harm assessment was performed. The patient answered "no" to the question(s) "Have you recently felt down, depressed, or hopeless?". ABUSE ASSESSMENT: No report of abuse. NUTRITIONAL RISK ASSESSMENT: The nutritional risk assessment revealed no deficiencies. FUNCTIONAL ASSESSMENT: Functional assessment: no impairments noted. LEARNING NEEDS ASSESSMENT: The learning needs assessment revealed no barriers. FALL RISK ASSESSMENT: Fall risk assessment completed. No risk factors identified. SKIN INTEGRITY ASSESSMENT: Skin integrity risk assessment completed. No skin integrity risk identified. --16:03 05/20/20 Denice Montoya RN.PHYSICAL ASSESSMENTAmbulatory to room.GENERAL / NEURO / PSYCH: Alert. Oriented X 4. Appears in no acute distress.HEENT: Mucous membranes are pink.RESPIRATORY: Respirations not labored. Breath sounds within normal limits.CVS: Capillary refill less than 2 seconds.GI / : The patient has had nausea. Abdominal tenderness in the left lower quadrant (L flank). Bowelsounds within normal limits. Normal genitalia. Stool color normal.SKIN: Skin is warm and dry. --16:26 05/20/20 Nancy Cano R.N.NURSING PROGRESS NOTESPatient gowned. Head of bed elevated. Reassurance given. Call light placed in reach. Side rails up.Bed placed in lowest position. Patient ready for evaluation- PA notified. --16:27 05/20/20 Nancy Cano R.N. 17:00 05/20/20. BP: 122/80. MAP: 94. HR: 66. RR: 16. O2 saturation: 100%. --17:05/20/20 [place] academic affairs coordinator, [facility] Tech1 3 Clinical Report - Nurses [facility] Emergency Department [address] [place] [address] Phone #: ext- [phone] 05/20/2020 15:54 Patient: ZE NORMAN Sex: F : 1985 Age: 35y 16:48 05/20/2020 Site #1 started via IV in the right antecubital space with an 20g angiocath, with good blood return; one attempt. Blood drawn: rainbow set. Saline lock flushed with 10 mL saline. --17:18 05/20/20 Tyra Nicole R.N. 17:18 05/20/2020 Morphine IVP 4 mg given over 2 minute(s) via site #1. Allergies verified and confirmed 5 rights. IV patency established. IV site checked: no pain, redness, or swelling. IV flushed thoroughly pre- and post-medication administration. IVP given by RN. Information reviewed with patient. Verbalizes understanding. --17:18 05/20/20 Tyra Nicole R.N. 17:19 05/20/2020 Started bag #1 500 mL IV Fluids NS; bolus of 500 mL over 30 minute(s) via site #1 via IV pump. Allergies verified and confirmed 5 rights. IV patency established. IV site checked: no pain, redness, or swelling. IV flushed thoroughly pre- and post-medication administration. Information reviewed with patient. Verbalizes understanding. --17:19 05/20/20 Tyra Nicole R.N. 17:19 05/20/2020 Zofran (Ondansetron HCl) IVP 4 mg given over 2 minute(s) via site #1. Allergies verified and confirmed 5 rights. IV patency established. IV site checked: no pain, redness, or swelling. IV flushed thoroughly pre- and post-medication administration. IVP given by RN. Information reviewed with patient. Verbalizes understanding. --17:19 05/20/20 Tyra Nicole R.N. 17:20 05/20/2020 Acetaminophen PO Tablets 1000 mg given. Allergies verified and confirmed 5 rights. Information reviewed with patient including reason for taking this medication. Verbalizes understanding. --17:20 05/20/20 Nancy Cano R.N. 18:08 05/20/20. BP: 138/83. MAP: 101. HR: 75. RR: 16. O2 saturation: 100%. --18:08 05/20/[address] [facility] Tech, Tamra, Tech1 late entry - 18:17 05/20/20. Patient transported to [place] by wheelchair with tech. --18:32 05/20/20 Nancy Cano R.N. 18:27 05/20/20. Patient returned from [place] by wheelchair with mask and tech. --18:32 05/20/20 Nancy Cano R.N. 19:30 05/20/2020 IV Fluids NS via IV site #1 Discontinued: bag #1 discontinued upon discharge. Total amount infused: 800 mL. IV patency established. IV site checked: no pain, redness, or swelling. IV flushed thoroughly. --19:30 05/20/20 Rowena Jung R.N.DISPOSITION / DISCHARGE 19:30 05/20/2020 Site #1 removed upon discharge. Bandaid applied. --19:30 05/20/20 Rowena Jung R.N. No learning barriers present. Discharge instructions provided and reviewed with the patient. Reviewed warnings. Reviewed medication(s). Treatments reviewed. Reviewed referrals. Work note given. Patient verbalized understanding. Written instructions provided in Japanese. The patient was discharged 4 Clinical Report - Nurses [facility] Emergency Department [address] [place] [address] Phone #: ext- [phone] 05/20/2020 15:54 Patient: ZE NORMAN Sex: F : 1985 Age: 35y home. She left ambulatory and via private vehicle. Patient driving. --19:31 05/20/20 Rowena Jung R.N. 19:30 05/20/20. BP: 126/80. MAP: 95. HR: 67. RR: 17. O2 saturation: 100% on room air. Temp: 98.1 F. Pain level now: 0/10. --19:31 05/20/20 Rowena Jung R.N.Locked/Released at 05/20/2020 19:31 by Rowena Jung R.N. Name Value Range Interpretation Code Description Data Ni e(s) Supporting Document(s) ID Date Data Source [id number] 05/20/2020 04:06:00 PM EST [facility] 1 Clinical Report - Physicians/Mid Levels [facility] Emergency Department [address] [place] [address] Phone #: ext- [phone] 05/20/2020 15:54 Patient: ZE NORMAN Sex: F : 1985 Age: 35y Time Seen: 16:35 05/20/2020; initial patient contact, initial documentation. Arrived- By private vehicle. Disposition decision: 19:20 05/20/2020.HISTORY OF PRESENT ILLNESS Chief Complaint: FLANK PAIN. This started today and is still present. It is described as "pain", sharp and stabbing and it is described as located in the left abdomen and the left flank. No nausea, loss of appetite, vomiting or diarrhea. Similar symptoms previously. None. Recent medical care: Not recently seen/assessed.REVIEW OF SYSTEMSLast normal menstrual period was 3 weeks ago- falopian tubes removed b/l. No constipation, black stools,hematemesis, difficulty with urination or pain with urination. No urinary frequency, bloody stools, fever,headache or sore throat. No blurred vision, chest pain, difficulty breathing, cough or joint pain. No skinrash or chills. Denies current . The patient has not had weight loss. All other systemsreviewed and are negative.PAST HISTORYSee nurses notes. Problems: Carpal Tunnel Syndrome. Abdominal Pain. Pedal Edema. Depression. Anxiety Reaction. Upper Extremity Pain. Infertility. Insomnia. Additional Surgeries: Breast Augmentation. Cholecystectomy. . L tube removed. Laparoscopy. Salpingectomy. Medications: 2 Clinical Report - Physicians/Mid Levels [facility] Emergency Department [address] [place] [address] Phone #: ext- [phone] 05/20/2020 15:54 Patient: ZE NORMAN Sex: F : 1985 Age: 35y None. Allergies: No Known Drug Allergy.SOCIAL HISTORYNever smoker. No alcohol use or drug use.ADDITIONAL NOTESThe nursing notes have been reviewed.PHYSICAL EXAMVital Signs: 05/20/2020 15:57 BP: 131/85. MAP: 100. HR: 74. RR: 16. O2 saturation: 100%. Temp: 98.9F. Pain level now: 02/17. Have been reviewed.Appearance: Alert. Oriented X3. No acute distress. She appears uncomfortable.ENT: Voice normal.Neck: Normal inspection. Neck supple.CVS: Normal heart rate and rhythm. No JVD present. Pulses normal. Capillary refill normal. Strongperipheral pulses. Heart sounds normal. Pulses: right radial 2+; left radial 2+; right dorsalis pedis 2+; leftdorsalis pedis 2+; right posterior tibial 2+.Respiratory: Chest normal on inspection. No respiratory distress. Unlabored respirations. Lungs clear.Good chest movement. Breath sounds normal and equal. Chest nontender.Abdomen: Soft. Mild tenderness in the left side of the abdomen and left lower quadrant. Bowel soundsnormal. No distention.Back: Moderate CVA tenderness on the left.Skin: Skin warm and dry.Extremities: Extremities exhibit normal ROM. No lower extremity edema. No calf tenderness. No lowerextremity edema.Neuro: Awake. Alert. Mood/affect normal. Speech normal. No motor deficit. No sensory deficit.Psych: Cognition normal. Thought process and content normal. Insight and judgement normal.LABS, X-RAYS, AND EKGCT Abdomen - Pelvis: Aj whaley Neal - 05/20/2020 6:55:41 PMno stones or hydro. NAD. The study was interpreted by the radiologist. Laboratory Tests: Beta-HCG, Qual Urine: (CORBIN: 05/20/2020 16:40) ( MsgRcvd 05/20/2020 18:03) Final results Test Result Flag Units (Reference) HCG URINE QUAL NEGATIVE (NORMAL: NEGAT HCG URINE QL REENTER NEGATIVE (NORMAL: NEGAT { KIT LOT # [id number] ){ KIT EXP DATE 04.15.21 ){ PROCEDURAL CONTROL VALID ) US OB 1ST TRI UP TO 14 WEEKS: (CORBIN: 05/20/2020 17:46) ( MsgRcvd 05/20/2020 18:11) Canceled 3 Clinical Report - Physicians/Mid Levels [facility] Emergency Department [address] [place] [address] Phone #: ext- [phone] 05/20/2020 15:54 Patient: ZE NORMAN Sex: F : 1985 Age: 35yReason(s): L flank/abd painReason(s): L flank/abd painTRANSPORTATION: WC IV? IV?(Yes) O2? Oxygen?(No) Jony Renal: (CORBIN: 05/20/2020 17:46) ( MsgRcvd 05/20/2020 18:11) CanceledReason(s): L flank painReason(s): L flank painTRANSPORTATION: WC IV? O2? Oxygen?(No) Room: [facility]-HCG, Quant Serum: (CORBIN: 05/20/2020 16:40) ( NvgRcvd 05/20/2020 18:01) Final results Test Result Flag Units (Reference) HCG QUANT <0.5 mIU/mL Interpretation: Less than 5 mU/mL: Negative6-10 mU/mL: Borderline (suggest repeat in 48 hours) >10: PositiveApprox HCG range (mU/mL) Weeks post LMP 5.4-708 mU/mL 3-4 Onoca281-16785 mU/mL 5-6 Weeks 4059-690157 mU/mL 7-8 Tvdmw55483-686143 mU/mL 9-10 Weeks 72360-29147 mU/mL 12-14 Zjyfw72233-00419 mU/mL 15-16 Weeks 8240-87681 mU/mL 17-18 WeeksCBC w Diff: (CORBIN: 05/20/2020 16:40) ( MsgRcvd 05/20/2020 18:08) Final results Test Result Flag Units (Reference) CBC W/AUTOMATED DIFF COMPLETE BLOOD COUNT WBC 5.9 10/uL (4.2 - 11.0) RBC 4.52 10/uL (4.20 - 5.40) HEMOGLOBIN 10.4 L g/dL (12.0 - 16.0) HEMATOCRIT 33.5 L % (37.0 - 47.0) MCV 74.1 L fL (81.0 - 101) MCH 23.0 L pg (27.0 - 34.0) MCHC 31.0 g/dL (31.0 - 36.0) RDW 16.9 H % (11.5 - 14.5) PLATELETS 205 10/uL (150 - 450) NEUT 49.3 % (37.0 - 80.0) LYMPH 38.9 % (25.0 - 40.0) MONO 7.0 % (3.0 - 8.0) EOS 3.4 % (0.0 - 7.0) BASO 1.2 % (0.0 - 2.5) %IG 0.2 H % (0.0 - 0.0) %NRBC 0.0 % (0.0 - 0.0) #NEUT 2.91 10/uL (2.00 - 6.90) #LYMPH 2.29 10/uL (0.60 - 3.40) #MONO 0.41 10/uL (0.00 - 0.90) #EOS 0.20 10/uL (0.00 - 0.70) #BASO 0.07 10/uL (0.00 - 0.20) #IG 0.01 10/uL (0.00 - 0.10) #NRBC 0.00 10/uL (0.00 - 0.00) MANUAL DIFF NOT INDICATED RBC MORPH SEE BELOW { SICKLE CELL (NORMAL: NONE SEEN ) PLT EST NORMAL (NORMAL: LOLI COMMENT: _RARE_LARGE_PLATELET 05/20/20.1807.DW . 4 Clinical Report - Physicians/Mid Levels [facility] Emergency Department [address] [place] [address] Phone #: ext- [phone] 05/20/2020 15:54 Patient: ZE NORMAN Sex: F : 1985 Age: 35yCMP: (CORBIN: 05/20/2020 16:40) ( MsgRcvd 05/20/2020 17:36) Final results Test Result Flag Units (Reference) COMPREHENSIVE METABOLIC PANEL COMPREHENSIVE METABOLIC PANEL SODIUM 138 mEq/L (134 - 153) POTASSIUM 3.8 mEq/L (3.6 - 5.0) CHLORIDE 105 mEq/L (98 - 107) CO2 27 MEQ/L (22 - 30) GLUCOSE 83 MG/DL (65 - 110) BUN 16 MG/DL (7 - 21) CREATININE 0.8 MG/DL (0.7 - 1.5) BUN/CREAT 20 (8 - 27) TOTAL PROTEIN 6.6 G/DL (6.3 - 8.2) ALBUMIN 3.9 G/DL (3.9 - 5.0) GLOBULIN 2.7 GM/DL (2.4 - 3.2) A/G RATIO 1.4 (0.8 - 2.0) CALCIUM 9.1 MG/DL (8.4 - 10.2) TOTAL BILI <0.7 MG/DL (0.2 - 1.3) ALKALINE PHOS 96 U/L (38 - 126) SGOT/AST 19 U/L (5 - 40) SGPT/ALT 16 U/L (7 - 56) ANION GAP 6.0 L mmol/L (8.0 - 16.0) AGE 35 yrs NON-AA GFR >60 mL/min AFR AMER GFR >60 mL/min Male GFR Interprentation 20-49 yrs >60 mL/min Dqxbki30-10 yrs >56 mL/min Normal 60-69 yrs >49 mL/min Normal 70-79yrs>42 mL/min Normal 80 and above >35 mL/min Normal Female GFRInterpretation 20-39 yrs >60 mL/min Normal 40-49 yrs >58 mL/minNormal 50-59 yrs >51 mL/min Normal 60-69 yrs >45 mL/min Dqeeys97-51 yrs >39 mL/min Normal 80 and above >32 mL/min NormalLipase: (CORBIN: 05/20/2020 16:40) ( [facility] 05/20/[facility] 17:36) Final results Test Result Flag Units (Reference) LIPASE 42 U/L (13 - 60)Urinalysis: (CORBIN: 05/20/2020 16:40) ( NvgRcvd 05/20/2020 17:21) Final results Test Result Flag Units (Reference) URINALYSIS URINALYSIS SOURCE Clean Catch COLOR yellow (NORMAL: Yello CLARITY clear (NORMAL: Clear SPEC GRAVITY 1.010 (1.001 - 1.030 pH 6.5 (5 - 9) GLUCOSE NORM (NORMAL: Negat BILIRUBIN NEG (NORMAL: Negat KETONE NEG (NORMAL: Negat PROTEIN NEG (NORMAL: Negat NITRITE NEG (NORMAL: Negat BLO OD NEG (NORMAL: Negat LEUK EST NEG (NORMAL: Negat UROBILINOGEN NOR (less than 1.0 MICROSCOPIC Not Indicate 5 Clinical Report - Physicians/Mid Levels [facility] Emergency Department [address] [place] [address] Phone #: ext- [phone] 05/20/2020 15:54 Patient: ZE NORMAN Sex: F : 1985 Age: 35y Beta-HCG, Qual Serum: (CORBIN: 05/20/2020 16:40) ( MsgRcvd 05/20/2020 17:39) Final results Test Result Flag Units (Reference) HCG SERUM QUAL POSITIVE (NORMAL: NEGAT HCG SERUM QL REENTER POSITIVE (NORMAL: NEGAT { KIT LOT # [id number] ){ KIT EXP DATE 04.15.21 ){ PROCEDURAL CONTROL VALID ) CT ABD PEL W/O Oral W/O IV Contrast: (CORBIN: 05/20/2020 16:36) ( MsgRcvd 05/20/2020 17:46) Canceled Reason(s): NO CONTRAST. L flank pain; ? renal stone Reason(s): NO CONTRAST. L flank pain; ? renal stone TRANSPORTATION: WC IV? IV?(Yes) O2? Oxygen?(No) Ro.PROGRESS AND PROCEDURESCourse of Care: VSS, NAD, AOx3, interacting well and appropriately, no use of accessory muscle, able tospeak full sentences, stable, non-toxic looking. Enter room and pt lying peacefully in bed in NAD. Patient stable. Denies any new issues, concerns, or complaints. Pt c/o L flank pain that started earlier today. Pt sts she was tx'ed for a UTI last week. PE dmeos NV itnact b/l UE and LE. Noted L flank pain wiht CVA tenderness. ? renal stone. WIll obtian labs adn imaigng for furhter eval. Pending result.s Reviewed resutls and noted (+) . Enter room and infomr pt. she sts this can not be true as she had both falopian tubes removed. Still has uterus and overies. Will order labs for further eval. Canarm[place] led CT and requested US for furhter eval. Pending results. Reviewd labs and noted neg HCG. contacted OBGYN to consult and indicates due to neg HCG quant, pt is neg. Will continue with CT. Enter room and patient lying peacefully in bed in NAD. Patient stable. Denies any new issues, concerns, or complaints. Pt agrees. pending resutls. Reviewed EXTERMINATOR. No open rx. This report was requested by: Rajat Johnson Reference #: [id number] Others' Prescriptions Patient Name: Ze NormanBirth Date: 1985 6 Clinical Report - Physicians/Mid Levels [facility] Emergency Department [address] [place] [address] Phone #: ext- [phone] 05/20/2020 15:54 Patient: ZE NORMAN Sex: F : 1985 Age: 35y Address: [address] [place], [place] [address]Sex: Female Rx Written Rx Dispensed Drug Quantity Days Supply Prescriber Name Payment Method Dispenser 02/19/2020 03/05/2020 alprazolam 0.5 mg tablet 60 30 Kunwar, [facility] [id number] #[id number] 01/24/2020 01/24/2020 alprazolam 0.5 mg tablet 60 30 Kunwar, [facility] [id number] #[id number] 12/27/2019 12/27/2019 alprazolam 0.5 mg tablet 60 30 Kunwar, [facility] [id number] #[id number] Reviewed results. Enter room and patient lying peacefully in bed in [facility]. Patient stable. Denies any new issues, concerns, or complaints. Discussed results with pt. Discussed tx plan with pt. Discussed and counseled on stable condition. Discussed importance of a f/u with PCP. Discussed return to ER criteria. Answered their questions. Indicates and verbalizes that they understand, agree, and will comply with above. Denies any new questions or concerns. Patient has capacity to understand. Discharge decision based on the following: patient's condition is stable; patient's exam is stable; social support is adequate; transportation is available; follow-up is available. Discussed of OTC Motrin and Tylenol to control inflammation and pain management. Informed to follow directions on bottle that are appropriate for age and/or weight. Disposition: Discharged home in good and improved condition. Condition: good and stable.CLINICAL IMPRESSION Acute left lower quadrant abdominal pain of unknown cause.INSTRUCTIONS Take Tylenol (Acetaminophen) or Motrin (Ibuprofen) as needed for fever control. Take medication according to label instructions. Do not work for two days. Drink plenty of fluids. (Recommend to utilize OTC Motrin and Tylenol to control inflammation and pain management. Recommend to follow the instructions on the bottle and not to exceed.). Warnings: SEDATIVE MEDICATION: You were given sedative medication during your visit. Do not drive or operate dangerous machinery. GENERAL WARNINGS: Return or contact your physician immediately if your condition worsens or 7 Clinical Report - Physicians/Mid Levels [facility] Emergency Department [address] [place] [address] Phone #: ext- [phone] 05/20/2020 15:54 --- Patient: ZE NORMAN Sex: F : 1985 Age: 35y changes unexpectedly, if not improving as expected, or if other problems arise. Prescription Medications: Zofran 4 mg tablet Take 1 tablet three times a day for 4 days -- Dispense 12 tablet. Refills: 0. Substitution permitted. Pharmacy - [facility] [phone] ; [place] [address]. . gabapentin 100 mg capsule Take 1 capsule three times a day for 4 days -- Dispense 12 capsule. Refills: 0. Substitution permitted. [facility] [address] ; [place] [address]. . Follow-up: Return to the emergency department as needed. Follow up with your healthcare provider in about two days if not better. Call for an appointment. Understanding of the discharge instructions verbalized by patient.(Electronically signed by Rajat Johnson P.A.-C 05/20/2020 21:49) Name Value Range Interpretation Code Description Data Ni rce(s) Supporting Document(s) ID Date Data Source [id number] 05/23/2020 01:03:00 PM [facility] Name Value Range Interpretation Code Description Data Ni rce(s) Supporting Document(s) CULTURE URINE [facility] _CULTURE URINE_$$[id number]$$[id number]$$259726$$244320$$132270$$921511$$385020$$968877$$655476$$ 534107$$555832$$229703$$957568$$423644$$525458$$500023$$808399$$838588$$748309$$ 572927$$665579$$487524$$727202$$927204$$463960$$443824$$642441 -- Continued on next page --Patient: МАРИЯ Gonzalez Order: [id number] Page 2Culture: CULTURE URINE Status: Final ====$$[id number]$$[id number] DATE/TIME: 05/23/2020 06:06Culture: CULTURE URINE Status: FinalUrine Culture,Comprehensive: V5Lidro urogenital flora25,000-50,000 colony forming units per mLP1 Test performed by: [facility] #: [id number] [address] [place] [id number] [facility] [place] [address]Evsrumt Director : Benoit Cash MD NPI #:Stock Plan Administrator : 05/23/20.1303.XMT.SENT REF ID Date Data Source [id number] 05/20/2020 06:07:00 PM [facility] Name Value Range Interpretation Code Description Data Ni rce(s) Supporting Document(s) CBC W/AUTOMATED DIFF [facility] COMPLETE BLOOD COUNT Leukocytes [#/volume] in Blood by Automated count 5.9 10^3/uL 4.2 - 1 1.0 [facility] Erythrocytes [#/volume] in Blood by Automated count 4.52 10^6/uL 4. 20 - 5.40 [facility] Hemoglobin [Mass/volume] in Blood 10.4 g/dL 12.0 - 16.0 L [facility] Hematocrit [Volume Fraction] of Blood by Automated count 33.5 % 3 7.0 - 47.0 L [facility] Erythrocyte mean corpuscular volume [Entitic volume] by Auto mated count 74.1 fL 81.0 - 101 L [facility] Erythrocyte mean corpuscular hemoglobin [Entitic mass] by Automated count 23.0 pg 27.0 - 34.0 L [facility] Erythrocyte mean corpuscular hemoglobin concentration [Mass/volume] by Automated count 31.0 g/dL 31.0 - 36.0 [facility] Erythrocyte distribution width [Ratio] by Automated count 16.9 % 11.5 - 14.5 H [facility] Platelets [#/volume] in Blood by Automated count 205 10^3/uL 150 - 45 0 [facility] Neutrophils/100 leukocytes in Blood by Automated count 49.3 % 37. 0 - 80.0 [facility] Lymphocytes/100 leukocytes in Blood by Manual count 38.9 % 25.0 - 40.0 [facility] Monocytes/100 leukocytes in Blood by Automated count 7.0 % 3.0 - 8.0 [facility] Eosinophils/100 leukocytes in Blood by Automated count 3.4 % 0.0 - 7.0 [facility] Basophils/100 leukocytes in Blood by Automated count 1.2 % 0.0 - 2.5 [facility] %IG 0.2 % 0.0 - 0.0 [facility] %NRBC 0.0 % 0.0 - 0.0 [facility] al Neutrophils [#/volume] in Blood by Automated count 2.91 10^3/uL 2.00 - 6.90 [facility] Lymphocytes [#/volume] in Blood by Automated count 2.29 10^3/uL 0.60 - 3.40 [facility] Monocytes [#/volume] in Blood by Automated count 0.41 10^3/uL 0.00 - 0.90 [facility] Eosinophils [#/volume] in Blood by Automated count 0.20 10^3/uL 0.00 - 0.70 [facility] Basophils [#/volume] in Blood by Automated count 0.07 10^3/uL 0.00 - 0.20 [facility] #IG 0.01 10^3/uL 0.00 - 0.10 [facility] #NRBC 0.00 10^3/uL 0.00 - 0.00 [facility] MANUAL DIFF NOT INDICATED [facility] RBC MORPH SEE BELOW [facility] { SICKLE CELL (NORMAL: NONE SEEN ) Platelet adequacy [Presence] in Blood by Light microscopy NORMAL NORMAL: NORMAL [facility] COMMENT: _RARE_LARGE_PLATELET 05/20/20.180.DW . ID Date Data Source [id number] 05/20/2020 06:02:00 PM EST [facility] Name Value Range Interpretation Code Description Data Ni rce(s) Supporting Document(s) HCG URINE QUAL NEGATIVE NORMAL: NEGATIVE [facility] HCG URINE QL REENTER NEGATIVE NORMAL: NEGATIVE [facility] { KIT LOT # [id number] ){ KIT EXP DATE 04.15.21 ){ PROCEDURAL CONTROL VALID ) ID Date Data Source [id number] 05/20/2020 06:00:00 PM [facility] Name Value Range Interpretation Code Description Data Ni rce(s) Supporting Document(s) Choriogonadotropin.intact [Units/volume] in Serum or Plasma <0.5 mIU/ mL [facility] Interpr etation: Less than 5 mU/mL: Negative 6-10 mU/mL: Borderline (suggest repeat in 48 hours) >10: Positive Approx HCG range (mU/mL) Weeks post LMP 5.4-708 mU/mL 3-4 Weeks 217-78556 mU/mL 5-6 Weeks 4059-565209 mU/mL 7-8 Weeks 99313-668215 mU/mL 9-10 Weeks 39408-99927 mU/mL 12-14 Weeks 58536-18850 mU/mL 15-16 Weeks 8240- 41069 mU/mL 17-18 Weeks ID Date Data Source [id number] 05/20/2020 05:38:00 PM [facility] Name Value Range Interpretation Code Description Data Ni rce(s) Supporting Document(s) HCG SERUM QUAL POSITIVE NORMAL: NEGATIVE [facility] HCG SERUM QL REENTER POSITIVE NORMAL: NEGATIVE [facility] { KIT LOT # [id number] ){ KIT EXP DATE 04.15.21 ){ PROCEDURAL CONTROL VALID ) ID Date Data Source [id number] 05/20/2020 05:36:00 PM [facility] Name Value Range Interpretation Code Description Data Ni rce(s) Supporting Document(s) Lipase [Enzymatic activity/volume] in Serum or Plasma 42 U/L 13 - 60 [facility] ID Date Data Source [id number] 05/20/2020 05:36:00 PM [facility] Name Value Range Interpretation Code Description Data Ni rce(s) Supporting Document(s) COMPREHENSIVE METABOLIC PANEL [facility] COMPREHENSIVE METABOLIC PANEL Sodium [Moles/volume] in Serum or Plasma 138 mEq/L 134 - 153 [facility] Potassium [Moles/volume] in Serum or Plasma 3.8 mEq/L 3.6 - 5.0 [facility] Chloride [Moles/volume] in Serum or Plasma 105 mEq/L 98 - 107 [facility] Carbon dioxide, total [Moles/volume] in Serum or Plasma 27 MEQ/L 22 - 30 [facility] Glucose [Mass/volume] in Serum or Plasma 83 MG/DL 65 - 110 [facility] BUN 16 MG/DL 7 - 21 [facility] Creatinine [Mass/volume] in Serum or Plasma 0.8 MG/DL 0.7 - 1.5 [facility] BUN/CREAT 20 8 - 27 [facility] Protein [Mass/volume] in Serum or Plasma 6.6 G/DL 6.3 - 8.2 [facility] Albumin [Mass/volume] in Serum or Plasma 3.9 G/DL 3.9 - 5.0 [facility] Globulin [Mass/volume] in Serum by calculation 2.7 GM/DL 2.4 - 3.2 [facility] A/G RATIO 1.4 0.8 - 2.0 [facility] Calcium [Mass/volume] in Serum or Plasma 9.1 MG/DL 8.4 - 10.2 [facility] Bilirubin.total [Mass/volume] in Serum or Plasma <0.7 MG/DL 0.2 - 1.3 [facility] Alkaline phosphatase [Enzymatic activity/volume] in Serum or Plasma 96 U/L 38 - 126 [facility] Aspartate aminotransferase [Enzymatic activity/volume] in Serum or Plasma 19 U/L 5 - 40 [facility] Alanine aminotransferase [Enzymatic activity/volume] in Seru m or Plasma 16 U/L 7 - 56 [facility] Anion gap 3 in Serum or Plasma 6.0 mmol/L 8.0 - 16.0 L [facility] AGE 35 yrs [facility] NON-AA GFR >60 mL/min [facility] ital AFR AMER GFR >60 mL/min [facility] Male GFR In terprentation 20-49 yrs >60 mL/min Normal 50-59 yrs >56 mL/min Normal 60-69 yrs >49 mL/min Normal 70-79yrs >42 mL/min Normal 80 and above >35 mL/min Normal Female GFR Interpretation 20-39 yrs >60 mL/min Normal 40-49 yrs >58 mL/min Normal 50-59 yrs >51 mL/min Normal 60-69 yrs >45 mL/min Normal 70-79 yrs >39 mL/min Normal 80 and above >32 mL/min Normal ID Date Data Source [id number] 05/20/2020 05:21:00 PM EST [facility] Name Value Range Interpretation Code Description Data Ni rce(s) Supporting Document(s) URINALYSIS [facility] mono URINALYSIS SOURCE Clean Catch [facility] COLOR yellow NORMAL: Yellow [facility] CLARITY clear NORMAL: Clear [facility] Specific gravity of Urine by Test strip 1.010 1.001 - 1.030 [facility] pH 6.5 5 - 9 [facility] Glucose [Mass/volume] in Urine by Test strip NORM NORMAL: Negat [facility] Bilirubin.total [Presence] in Urine by Test strip NEG NORMAL: Negative [facility] Ketones [Presence] in Urine by Test strip NEG NORMAL: Negative [facility] Protein [Mass/volume] in Urine by Test strip NEG NORMAL: Negat [facility] Nitrite [Presence] in Urine by Test strip NEG NORMAL: Negative [facility] BLOOD NEG NORMAL: Negative [facility] Leukocyte esterase [Presence] in Urine by Test strip NEG LOLI L: Negative [facility] Urobilinogen [Mass/volume] in Urine by Test strip NOR less emi n 1.0 mg/dL [facility] MICROSCOPIC Not Indicate [facility] ID Date Data Source [id number] 04/01/2020 12:00:00 PM EDT [facility] Name Value Range Interpretation Code Description Data [facility] Supporting Document(s) SARS coronavirus 2 RNA [facility] This lab was ordered by [facility] and reported by [facility]. ID Date Data Source [id number] 02/13/2020 10:17:00 AM EDT [facility] [address] [place] [address] PHONE: [phone] FAX: [phone] Name .................. : МАРИЯ Gonzalez Acct Number.................. : [id number] ROOM. ................. : TR-1A MR Number ................... : [id number] Stay type ............. : E/R Discharge Date......... ... : 02/12/20 Admit Date ......... : 02/12/20 Admit Phys .................... : KARMA RAMSES Date of ....... : 1985 Family Phys ................... : NO PCP Phone .................. : [phone] Age ................................ : 34 Film# .................. .:[id number] Sex ................................. : F Unsigned transcriptions are preliminary reports and do not represent a medical or legal document US EXT-NON VASCULAR LT COMPL [id number] COMPLETE:02/12/20 11:38 [facility] [id number] Reason(s): L wrsit pain; ? ganglion SONOGRAM OF THE SOFT TISSUES OF THE LEFT WRIST, 02/12/20: INDICATION: Left wrist pain, question ganglion. FINDINGS: Examination of the left wrist shows no distinct cystic or solid mass. No distinct abnormality is identified. Soft tissues appear unremarkable. IMPRESSION: No distinct abnormality. Examination dictated by ANA Reese. Examination was reviewed with Mitch berrios MD, radiologist at the time of this dictation. Electronically Reviewed and Signed By MITCH LAWRENCE MD , 02/13/20 10:17, [facility] Transcribe Initials: SSR, Transcribe Date: 02/12/20 14:35, Dictation Date: Copy for: ELIZABETH REARDON via fax Copy for: KARMA GUSTAVO Willam via fax Copy for: EMERGENCY DEPT via modem Copy for: 710 MED REC DISCHARGED Page 1 of 1 Name Value Range Interpretation Code Description Data Ni rce(s) Supporting Document(s) ID Date Data Source [id number] 02/13/2020 10:17:00 AM EDT [facility] [address] [place] [address] PHONE: [phone] FAX: [phone] Name .................. : МАРИЯ Gonzalez Acct Number.................. : [id number] ROOM. ................. : -1A MR Number ................... : [id number] Stay type ............. : E/R Discharge Date......... ... : 02/12/20 Admit Date ......... : 02/12/20 Admit Phys .................... : KARMA RAMSES Date of ....... : 1985 Family Phys ................... : NO PCP Phone .................. : [phone] Age ................................ : 34 Film# .................. .:[id number] Sex ................................. : F Unsigned transcriptions are preliminary reports and do not represent a medical or legal document SPINE CERV COMP-5 OR MORE JEIMY [id number] COMPLETE:02/12/20 11:43 KBO [id number] Reason(s): Upper Ext Pain/Numbness CERVICAL SPINE, 02/12/20: INDICATION: Upper extremity pain, numbness. FINDINGS: There is straightening of the normal cervical lordosis without evidence of instability through the range of motion. This could indicate underlying spasm. Diffuse facet joint hypertrophy is identified. Disc spaces are preserved. Pre-vertebral soft tissues appear unremarkable. The visualized portions of the upper lung chowdhury are grossly clear. The neural foramen are widely patent bilaterally. The atlantoaxial joint appears unremarkable. Odontoid process appears intact. IMPRESSION: Straightening of the normal lordosis suggests underlying spasm. Mild degenerative changes. No acute findings. Examination dictated by ANA Reese. Examination was reviewed with Mitch Lawrence MD, radiologist at the time of this dictation. Electronically Reviewed and Signed By MITCH LAWRENCE MD , 02/13/20 10:17, [facility] Transcribe Initials: [facility], Transcribe Date: 02/12/20 14:34, Dictation Date: Copy for: ELIZABETH REARDON via fax Copy for: KARMA Quarles via fax Copy for: EMERGENCY DEPT via [facility] [place] Copy for: 710 MED REC DISCHARGED Page 1 of 1 Name Value Range Interpretation Code Description Data Ni rce(s) Supporting Document(s) ID Date Data Source [id number] 02/12/2020 10:08:00 AM EDT [facility] 1 OrderSheet [facility] Emergency Department [address] [place] [address] Phone #: ext- [phone] 02/12/2020 09:58 Patient: ZE NORMAN Sex: F : 1985 Age: 34yWEIGHT:95.2 kg (S) HEIGHT:71 inches (S) BMI:29.3ALLERGIES: No Known Drug AllergyCHIEF COMPLAINT: painDIAGNOSIS: Pain in limb, Carpal tunnel syndromeLAB ORDERSOrder Description Priority Entered Acknowledged InitialedDIAGNOSTIC STUDY ORDERSOrder Description Priority Entered Acknowledged InitialedSpine Cervical STAT 11:02/12/2020 11:07 Ade Montoyalete Rajat Johnson RN(Oxygen?(No)) P.A.-C; Reason for Study: Upper Ext Pain/NumbnessUS Ext STAT 11:02/12/2020 11:07 Cecille Montoyavascular Left Rajat Johnson RN(Oxygen?(No)) P.A.-C; Reason for Study: L wrsit pain; ? ganglionMEDICATION/IV/DRIP/FLUID ORDERSOrder Description Priority Entered Acknowledged InitialedTylenol 1 g PO X1 11:05 02/12/2020 11:30 Brent Montoya: 1000 mg Rajat Johnson RN(NOW x1) P.A.-C;Ativan PO 1 mg 11:05 10/2019 11:30 Denice Montoya RN P.A.-C;GENERAL ORDERSOrder Description Priority Entered Acknowledged Initialed[Electronically signed by Denice Montoya RN (18:48 02/12/2020)][Electronically signed by Rajat Johnson P.A.-C (20:56 02/12/2020)][Electronically locked by Denice Montoya RN (18:48 02/12/2020)] Name Value Range Interpretation Code Description Data Ni rce(s) Supporting Document(s) ID Date Data Source [id number] 02/12/2020 10:08:00 AM EDT [facility] 1 Medication Reconciliation Report [facility] Emergency Department [address] [place] [address] Phone #: ext- [phone] 02/12/2020 09:58 Patient: ZE NORMAN Sex: F : 1985 Age: 34yWeight: 95.2 kgHeight/Length: 71 in.BMI: 29.3ALLERGIES: No Known Drug AllergyThe patient's Home Medications are listed below:NONE.The source(s) of the original Home Medication information:patientThe following Medications were given to the patient in the Emergency Department:Tylenol [PO] PO 1000 mg, administered: 02/12/2020 11:30:00 AMAtivan [PO] PO 1 mg, administered: 02/12/2020 11:30:00 AMThe following Medications were prescribed to the patient:cyclobenzaprine 10 mg tablet Take 1 tablet three times a day for 3 days -- Dispense 9 tablet. Refills: 0.Substitution permitted.Pharmacy - [address] ; [place] [address]. FaxNu mber: .gabapentin 100 mg capsule Take 1 capsule three times a day for 4 days -- Dispense 12 capsule.Refills: 0. Substitution permitted.Pharmacy - [facility] Time [facility] [employer] [facility] ; [place] [address]. .prednisone 50 mg tablet Take 1 tablet once a day with meals for 5 days -- Dispense 5 tablet. Refills: 0.Substitution permitted.Pharmacy - [facility] Time [facility] - [address] [facility] ; [place] [address]. . -- Rajat Johnson P.A.-C Name Value Range Interpretation Code Description Data Ni rce(s) Supporting Document(s) ID Date Data Source [id number] 02/12/2020 10:08:00 AM EDT [facility] 1 Medication Administration Record [facility] Emergency Department [address] [place] [address] Phone #: ext- [phone] 02/12/2020 09:58 Patient: ZE NORMAN Sex: F : 1985 Age: 34yWeight: 95.2 kgHeight/Length: 71 inBMI: 29.3ALLERGIES: No Known Drug Allergy Date/Time Medication Administered Medication OrderedGiven TYLENOL [PO] (APAP) Tylenol 1 g PO X1 dose: 1000 mg11:30 02/12/2020 Dose: 1000 mg PO (NOW x1)Denice Montoya RNGiven ATIVAN [PO] (LORAZEPAM) Ativan PO 1 mg11:30 02/12/2020 Dose: 1 mg PODenice Montoya RN Name Value Range Interpretation Code Description Data Ni rce(s) Supporting Document(s) ID Date Data Source [id number] 02/12/2020 10:08:00 AM EDT [facility] 1 General Instructions [facility] Emergency Department [address] [place] [address] Phone #: ext- [phone] 02/12/2020 09:58 Patient: ZE NORMAN Sex: F : 1985 Age: 34yAcute upper extremity pain involving the left wrist.Carpal tunnel syndrome left wrist.INSTRUCTIONSNo dietary restrictions.(Recommend to utilize OTC Motrin and Tylenol to control inflammation and pain management.Recommend to follow the instructions on the bottle and not to exceed.).Warnings: Further evaluation is necessary.SEDATIVE MEDICATION: You were given sedative medication during your visit. Do not drive or operatedangerous machinery.GENERAL WARNINGS: Return or contact your physician immediately if your condition worsens orchanges unexpectedly, if not improving as expected, or if other problems arise.Your Current Medications: .No home medication.No home medication.Prescription Medications:cyclobenzaprine 10 mg tablet Take 1 tablet three times a day for 3 days -- Dispense 9 tablet. Refills: 0.Substitution permitted.[facility] - [address] ; [place] [address]. .gabapentin 100 mg capsule Take 1 capsule three times a day for 4 days -- Dispense 12 capsule.Refills: 0. Substitution permitted.[facility] - [facility] [id number] [place] [address] ; [place] [address]. .prednisone 50 mg tablet Take 1 tablet once a day with meals for 5 days -- Dispense 5 tablet. Refills: 0.Substitution permitted.[facility] - [address] ; [place] [address]. .Follow-up:Return to the emergency department as needed. Follow up with your healthcare provider in about twodays if not better. Call for an appointment. 2 General Instructions [facility] Emergency Department [address] [place] [address] Phone #: ext- [phone] 02/12/2020 09:58 Patient: ZE NORMAN Sex: F : 1985 Age: 34yUnderstanding of the discharge instructions verbalized by patient. ADDITIONAL INFORMATIONCarpal Tunnel SyndromeCarpal tunnel syndrome is a painful condition of the wrist and arm. It is caused by pressure on themedian nerve. The median nerve is one of the nerves that give feeling and movement to the hand. Itpasses through a tunnel in the wrist called the carpal tunnel. This tunnel is made up of bones andligaments. Narrowing of this tunnel or swelling of the tissues inside the tunnel puts pressure on themedian nerve. This causes numbness, pins and needles, or electric shooting pains in your hand andforearm. Often the pain is worse at night and may wake you when you are asleep. 3 General Instructions [facility] Emergency Department [address] [place] [address] Phone #: ext- [phone] 02/12/2020 09: 58 Patient: ZE NORMAN Sex: F : 1985 Age: 34yCarpal tunnel syndrome may occur during and with use of control pills. It is morecommon in workers who must often bend their wrists. It is also common in people who work withpower tools that cause strong vibrations.Home care Rest the painful wrist. Avoid repeated bending of the wrist back and forth. This puts pressure on the median nerve. Avoid using power tools with strong vibrations. If you were given a splint, wear it at night while you sleep. You may also wear it during the day for comfort. Move your fingers and wrists often to prevent stiffness. Elevate your arms on pillows when you lie down. Try using the unaffected hand more. Try not to hold your wrists in a bent, downward position. Sometimes changes in the work place may ease symptoms. If you type most of the day, it may help to change the position of your keyboard or add a wrist support. Your wrist should be in a neutral position and not bent back when typing. You may use [id number] pain medicine to treat pain and inflammation, unless another medicine was prescribed. Anti-inflammatory pain medicines, such as ibuprofen or naproxen may be more effective than acetaminophen, which treats pain, but not inflammation. If you have chronic liver or kidney disease or ever had a stomach ulcer or gastrointestinal bleeding, talk with your healthcare provider before using these medicines. Opioid pain medicine will only give temporary relief and does not treat the problem. If pain continues, you may need a shot of a steroid drug into your wrist. If the above methods fail, you may need surgery. This will open the carpal tunnel and release the pressure on the trapped nerve.Follow-up careFollow up with your healthcare provider, or as advised. If X-rays were taken, you will be notified ofany new findings that may affect your care.When to seek medical adviceCall your healthcare provider right away if any of these occur: Pain not improving with the above treatment 4 General Instructions [facility] Emergency Department [address] [place] [address] Phone #: ext- [phone] 10/2019 09:58 Patient: ZE NORMAN Sex: F : 1985 Age: 34y Fingers or hand become cold, blue, numb, or tingly Your whole arm becomes swollen or weak [id number] [employer] [place] [address]. All rights reserved. This information is not intended as asubstitute for professional medical care. Always follow your healthcare professional's instructions. You have been given the following additional information: Carpal Tunnel Syndrome(Electronically signed by Rajat Johnson P.A.-C 02/12/2020 20:56) Name Value Range Interpretation Code Description Data Ni rce(s) Supporting Document(s) ID Date Data Source [id number] 02/12/2020 10:08:00 AM EDT [facility] 1 Clinical Report - Nurses [facility] Emergency Department [address] [place] [address] Phone #: ext- [phone] 02/12/2020 09:58 Patient: ZE NORMAN Sex: F : 1985 Age: 34yTRIAGEArrived by private vehicle. Historian: patient.Acuity: LEVEL 3.Chief Complaint: LEFT UPPER EXTREMITY PAIN, NUMBNESS and TINGLING.Alert. No acute distress.No injury occurred. It is described as radiating to the left upper extremity, shoulder and upper arm. ( ptseen here last week and diagnosed with (L) sided carpal tunnel. has not been able to get into orthopedics.pain is increasing daily.). The patient has had neck pain. Has had no swelling or redness. 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 --10:04 02/12/20 Tyra Nicole R.N.10:06 02/12/20. BP: 132/70. MAP: 90. HR: 78. RR: 16. O2 saturation: 100%. Temp: 98.2 F. Pain levelnow: 02/17. --10:07 02/12/20 Larry Nicole R.N.Weight: 95.2 kg stated. Height/Length: 71 inches Per Patient. BMI: 29.3. --10:02 02/12/20 Tyra Nicole R.N.MedicationsNone. None. --10:08 02/12/20 Tyra Nciole R.N.AllergiesNo Known Drug Allergy. --10:08 02/12/20 Tyra Nicole R.N.PROBLEMS:Carpal Tunnel Syndrome.Abdominal Pain.Insomnia.Infertility. --18:47 02/12/20 Denice Montoya RN.Medication/allergy information source: the patient. --10:04 02/12/20 Tyra Nicole R.N.Medication/allergy information source: the patient. --10:09 02/12/20 Tyra Nicole R.N.ADDITIONAL SURGERIES:Breast Augmentation.Cholecystectomy.. 2 Clinical Report - Nurses [facility] Emergency Department [address] [place] [address] Phone #: ext- [phone] 02/12/2020 09:58 [id number] Sex[facility] F : 1985 Age: 34y Laparoscopy. --18:47 02/12/20 Denice Montoya RN. History SOCIAL HX: Never smoker. No alcohol use or drug use. The patient was offered HIV testing but declined and hepatitis C testing but declined. The patient has not traveled outside the [place] Infectious disease exposure: No infectious disease exposure. The patient was not exposed to C-diff, MRSA, VRE or CRE. SELF HARM ASSESSMENT: Self harm assessment was performed. The patient answered "no" to the question(s) "Have you recently felt down, depressed, or hopeless?", "Do you have thoughts of harming or killing yourself?", "Do you have a plan for harming or killing yourself?", "Have you recently had thoughts about harming or killing others?", "Do you have any dangerous items in your possession?", "Have you noticed less interest or pleasure in doing things?", "Are you here because you tried to hurt yourself?" and "Have you ever tried to hurt yourself before today?". ABUSE ASSESSMENT: No report of abuse. NUTRITIONAL RISK ASSESSMENT: The nutritional risk assessment revealed no deficiencies. FUNCTIONAL ASSESSMENT: Functional assessment: no impairments noted. LEARNING NEEDS ASSESSMENT: The learning needs assessment revealed no barriers. FALL RISK ASSESSMENT: Fall risk assessment completed. No risk factors identified. SKIN INTEGRITY ASSESSMENT: Skin integrity risk assessment completed. No skin integrity risk identified. --10:04 02/12/20 Tyra Nicole R.N.PHYSICAL ASSESSMENTAmbulatory to room.GENERAL / NEURO / PSYCH: Oriented X 4. Alert. Appears in no acute distress.EXTREMITIES: Neuro-vascular status intact to the extremity. Left wrist: tenderness. Limited ROMsecondary to pain (is wearing brace).SKIN: Skin intact. Skin is warm and dry. --10:41 02/12/20 Denice Montoya RN.NURSING PROGRESS NOTESReassurance given. Call light placed in reach. Bed placed in lowest position. Brakes of bed on.Patient ready for evaluation. --10:09 02/12/20 Tyra Nicole R.N. 11:15 02/12/20. Patient transported to radiology by wheelchair with interventional radiology rn. --11:20 02/12/20 Denice Montoya RN 11:30 02/12/2020 Tylenol (APAP) PO 1000 mg given. Allergies verified and confirmed 5 rights. Information reviewed with patient including reason for taking this medication. Verbalizes understanding. --:30 3 Clinical Report - Nurses [facility] Emergency Department [address] [place] [address] Phone #: ext- [phone] 02/12/2020 09:58 Patient: ZE NORMAN Sex: F : 1985 Age: 34y 02/12/20 Denice Montoya RN 11:30 02/12/2020 Ativan (LORazepam) PO 1 mg given. Allergies verified and confirmed 5 rights. Information reviewed with patient including reason for taking this medication and sedative warning. Verbalizes understanding. --11:30 02/12/20 Denice Montoya, ELIO Patient walked back from sonogram with interventional radiology rn. --11:31 02/12/20 Denice Montoya, ELIO 12:00 02/12/2020 Ativan PO Response: no adverse reaction pain is improving. --18:48 02/12/20 Denice Montoya RN.DISPOSITION / DISCHARGE Departure time: 12:18 02/12/2020. --12:18 02/12/20 Denice Montoya RN Condition at departure: improved. No learning barriers present. Discharge instructions provided and reviewed with the patient. Reviewed medication(s) side effects, precautions, dosing and course information. Prescription(s) sent electronically to pharmacy. Reviewed referral to an orthopedic surgeon. Patient verbalized understanding. Written instructions provided in Japanese. 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 She was discharged home and accompanied by family. She left ambulatory and via private vehicle. Family member driving. --12:19 02/12/20 Denice Montoya RN 12:19 02/12/20. Pain level now: 12/18. --12:19 02/12/20 Denice Montoya RN.Locked/Released at 02/12/2020 18:48 by Denice Montoya RN Name Value Range Interpretation Code Description Data Ni rce(s) Supporting Document(s) ID Date Data Source [id number] 02/12/2020 10:08:00 AM EDT [facility] 1 Clinical Report - Physicians/Mid Levels [facility] Emergency Department [address] [place] [address] Phone #: ext- [phone] 02/12/2020 09:58 Patient: ZE NORMAN Sex: F : 1985 Age: 34y Time Seen: 10:30 02/12/2020. Arrived- By private vehicle. Historian- patient.HISTORY OF PRESENT ILLNESS Chief Complaint: UPPER EXTREMITY PAIN. This started 4 days ago. It was abrupt in onset. Severity is described as being moderate in degree. The quality is noted to be similar to prior episodes. It is described as radiating to the left neck. Modifying factors. Not worsened by anything. Symptoms located in the area of the left arm, left elbow, left forearm, left wrist and left hand. No chest pain, difficulty breathing, swelling, sensory loss or motor loss. No repetitive hand use at work. She has not had redness. (34 year old female here on 02/08 for L hand/arm tingling and numbness that started on 02/07. At that time, she was given Dilaudid IM, a brace and educated to use NSAIDs at home. Pt sts that the brace and NSAIDs provide no relief. She is currently awaiting her referral to orthopedics.). Patient denies an injury. Similar symptoms previously. Patient has had similar symptoms frequently. Recent medical care: The patient was seen recently at this facility.REVIEW OF SYSTEMSNo fever, chills, eye discomfort, headache or depression. No sore throat, cough, skin rash, enlargedlymph nodes or neck pain. No abdominal pain, nausea, vomiting, diarrhea or black stools. No difficultywith urination, urinary frequency or bloody stools. All other systems reviewed and are negative.PAST HISTORYSee nurses notes. Problems: Carpal Tunnel Syndrome. Anx iety Reaction. Pedal Edema. Depression. Abdominal Pain. Insomnia. Infertility. Additional Surgeries: Breast Augmentation. Cholecystectomy. . 2 Clinical Report - Physicians/Mid [facility] Emergency Department [address] [place] [address] Phone #: ext- [phone] 02/12/2020 09:58 Patient: ZE NORMAN Sex: F : 1985 Age: 34y L tube removed. Laparoscopy. Salpingectomy. Medications: None. None. Allergies: No Known Drug Allergy.SOCIAL HISTORYNever smoker. No alcohol use or drug use.ADDITIONAL NOTESThe nursing notes have been reviewed.PHYSICAL EXAMVital Signs: 02/12/2020 10:06 BP: 132/70. MAP: 90. HR: 78. RR: 16. O2 saturation: 100%. Temp: 98.2 F.Pain level now: 8/10. Have been reviewed as normal and appear to be correct. Oxygen saturationnormal.Appearance: Alert. Oriented X3. No acute distress.Rt Eye: Right eye exam normal.Lt Eye: Left eye exam normal.Neck: Neck supple. Soft tissue tenderness in the left mid neck area. (painful to palpation on the leftposterior side.).CVS: Normal heart rate and rhythm. No JVD present. P ulses normal. Capillary refill normal. Strongperipheral pulses. Heart sounds normal. Pulses: right radial 2+; left radial 2+; right dorsalis pedis 2+; leftdorsalis pedis 2+; right posterior tibial 2+; left posterior tibial 2+.Respiratory: Chest normal on inspection. No respiratory distress. Unlabored respirations. Lungs clear.Good chest movement. Breath sounds normal and equal. Chest nontender.Abdomen: Normal inspection. Soft and nontender. Bowel sounds normal. No distention.Back: Normal inspection. No tenderness. Painless ROM.Skin: Skin warm and dry.Extremities: Upper extremities normal to inspection. Upper extremities exhibit normal ROM. No signs ofinfection present in the upper extremities. No upper extremity pulse deficit present. Upper extremitycapillary refill not prolonged. No upper extremity edema. Left shoulder: tenderness. Neurovascular intactdistally. No erythema, swelling, laceration, abrasion or ecchymosis. No puncture wound, foreign body,deformity or open wound communicating with joint space. Left arm: mild tenderness. Neurovascular intactdistally. No erythema, swelling, laceration, ecchymosis or puncture wound. No foreign body or deformity.Left elbow: tenderness. Neurovascular intact distally. No erythema, swelling, laceration, abrasion orecchymosis. No puncture wound, foreign body or deformity. Left forearm: mild tenderness. Neurovascularintact distally. No erythema, swelling, laceration, abrasion or ecchymosis. No puncture wound, foreign bodyor deformity. Left wrist: moderate swelling. Neurovascular intact distally. No erythema, tenderness,laceration or abrasion. Left hand: mild tenderness. Neurovascular intact distally. No erythema, swelling, 3 Clinical Report - Physicians/Mid Levels [facility] Emergency Department [address] [place] [address] Phone #: ext- [phone] 02/12/2020 09:58 -------- Patient: ZE NORMAN Sex: F : 1985 Age: 34y laceration, abrasion or ecchymosis. No puncture wound, foreign body or deformity. No localization. Left middle finger: tenderness. Neurovascular intact distally. No erythema, swelling, laceration, abrasion or ecchymosis. No puncture wound, foreign body or deformity. Left ring finger: tenderness. Neurovascular intact distally. No erythema, swelling, laceration, abrasion or ecchymosis. No puncture wound, foreign body or deformity. No localization. Left little finger: mild tenderness. Neurovascular intact distally. No erythema, swelling, laceration, abrasion or ecchymosis. No puncture wound, foreign body or deformity. No right shoulder complaint, right scapula area abnormality, right clavicle complaint, left clavicle complaint or left scapula area abnormality. No right arm complaint, right elbow complaints, right forearm complaints, right wrist complaint or right hand complaints. Extremities atraumatic. Extremities nontender. Gait: Normal gait. Neuro: Awake. Alert. Oriented X 3. Mood/affect normal. Speech normal. No motor deficit. No sensory deficit. Reflex exam: right triceps 2+, left triceps 2+, right biceps 2+, left biceps 2+, right brachioradialis 2+ and left brachioradialis 2+. Reflexes normal. Reflex exam: right triceps 2+, left triceps 2+, right biceps 2+, left biceps 2+, right brachioradialis 2+ and left brachioradialis 2+. Psych: Cognition normal. Thought process and content normal. Insight and judgement normal.LABS, X-RAYS, AND EKGC-Spine X-rays: (Howard spannOg - 02/12/2020 11:30:06 AMdjd, no fx.). The X-rays were interpreted by the radiologist.Upper Extremity Sonography: Howard spann Michael - 02/12/2020 11:39:12 AM Negative. The study was interpreted by the radiologist. Laboratory Tests: Spine Cervical Complete: (CORBIN: 02/12/2020 11:05) ( MsgRcvd 02/12/2020 11:43) In Progress SPINE CERV COMP-5 OR MORE VIEW Reason(s): Upper Ext Pain/Numbness TRANSPORTATION: IV? O2? Oxygen?(No) Room: ED US Ext Nonvascular Left: (CORBIN: 02/12/2020 11:05) ( MsgRcvd 02/12/2020 11:38) In Progress US EXT-NON VASCULAR LT COMPLETE Reason(s): L wrsit pain; ? ganglion TRANSPORTATION: IV? O2? Oxygen?(No) Room: ED.PROGRESS AND PROCEDURESCourse of Care: VSS, NAD, AOx3, interacting well and appropriately, no use of accessory muscle, able tospeak full sentences, stable, non-toxic looking. Enter room and pt lying peacefully in bed in NAD. Patient stable. Denies any new issues, concerns, or complaints. Pt seen in the ER a few days ago; sts that pain persists and has progressed up arm. Denies any recent trauma and pain of atraumatic and insidious onset. Reviewed previous imaigng and documentation. 4 Clinical Report - Physicians/Mid Levels [facility] Emergency Department [address] [place] [address] Phone #: ext- [phone] 02/12/2020 09:58 Patient: ZE NORMAN Sex: F : 1985 Age: 34y Pt sts taht she is currenlty pending referral to orhot for further eval. Has been using splint, tylenol, and motrin. NOthing better. PE demos NV intact b/l UE. Noted TTP of hte L wrist; (+) tineal signs. Noted trapezius tightness. ? neck patho vs wrist patho vs CTS. Will obtian imaigngn for further eval. ? ganglion. Pending restuls. Witness pt ambulate to radiolgoy in NAD. Pending resutls . Reviewed result.s Enter room and patient lying peacefully in bed in NAD. Patient stable. Denies any new issues, concerns, or complaints. Discussed results with pt. Discussed tx plan with pt. Discussed and counseled on stable condition. Discussed importance of a f/u with PCP. Discussed return to ER criteria. Answered their questions. Indicates and verbalizes that they understand, agree, and will comply with above. Denies any new questions or concerns. Patient has capacity to understand. Discharge decision based on the following: patient's condition is stable; patient's exam is stable; social support is adequate; transportation is available; follow-up is available. Discussed of OTC Motrin and Tylenol to control inflammation and pain management. Informed to follow directions on bottle that are appropriate for age and/or weight. Disposition: Discharged home in good and improved condition. Condition: good and stable.CLINICAL IMPRESSION Acute upper extremity pain involving the left wrist. Carpal tunnel syndrome left wrist.INSTRUCTIONS No dietary restrictions. (Recommend to utilize OTC Motrin and Tylenol to control inflammation and pain management. Recommend to follow the instructions on the bottle and not to exceed.). Warnings: Further evaluation is necessary. SEDATIVE MEDICATION: You were given sedative medication during your visit. Do not drive or operate dangerous machinery. GENERAL WARNINGS: Return or contact your physician immediately if your condition worsens or 5 Clinical Report - Physicians/Mid Levels [facility] Emergency Department [address] [place] [address] Phone #: ext- [phone] 02/12/2020 09:58 [id number] Sex[facility] : 1985 Age: 34y changes unexpectedly, if not improving as expected, or if other problems arise. Your Current Medications: . No home medication. No home medication. Prescription Medications: cyclobenzaprine 10 mg tablet Take 1 tablet three times a day for 3 days -- Dispense 9 tablet. Refills: 0. Substitution permitted. Pharmacy - [facility] [address] [facility] ; [place] [address]. . gabapentin 100 mg capsule Take 1 capsule three times a day for 4 days -- Dispense 12 capsule. Refills: 0. Substitution permitted. [facility] - [facility] [address] [facility] ; [place] [address]. . prednisone 50 mg tablet Take 1 tablet once a day with meals for 5 days -- Dispense 5 tablet. Refills: 0. Substitution permitted. Pharmacy - [facility] [address] [facility] ; [place] [address]. . Follow-up: Return to the emergency department as needed. Follow up with your healthcare provider in about two days if not better. Call for an appoi ntment. Understanding of the discharge instructions verbalized by patient.(Electronically signed by Rajat Johnson P.A.-C 02/12/2020 20:56) Name Value Range Interpretation Code Description Data Ni rce(s) Supporting Document(s) ID Date Data Source [id number] 02/11/2020 08:53:00 AM EDT [facility] [address] [place] [address] PHONE: [phone] FAX: [phone] Name .................. : МАРИЯ GARVEY Renée Acct Number.................. : [id number] ROOM. ................. : -1B MR Number ................... : [id number] Stay type ............. : E/R Discharge Date......... ... : 02/09/20 Admit Date ......... : 02/09/20 Admit Phys .................... : LOLA KURTZ Date of ....... : 1985 Family Phys ................... : UNKNOWN Phone .................. : [phone] Age ................................ : 34 Film# .................. .:[id number] Sex ................................. : F Unsigned transcriptions are preliminary reports and do not represent a medical or legal document [place] [id number] COMPLETE:02/09/20 02:57 RLB [id number] [place] son(s): Wrist Pain LEFT WRIST X-RAY: 4-VIEWS INDICATION: Wrist pain. FINDINGS: No evidence for fractures, subluxation or adjacent soft tissue swelling is noted. IMPRESSION: Unremarkable left wrist. Electronically Reviewed and Signed By Philippe Cartagena MD , 02/11/20 08:53, RANDA Transcribe Initials: LOVE , Transcribe Date: 02/09/20 08:45, Dictation Date: Copy for: 710 MED REC DISCHARGED Page 1 of 1 Name Value Range Interpretation Code Description Data Ni rce(s) Supporting Document(s) ID Date Data Source [id number] 02/09/2020 12:09:00 AM EDT [facility] 1 OrderSheet [facility] Emergency Department [address] [place] [address] Phone #: ext- [phone] 02/09/2020 00:03 Patient: ZE NORMAN Sex: F : 1985 Age: 34yWEIGHT:95.2 kg (S) HEIGHT:71 inches (S) BMI:29.3ALLERGIES: No Known Drug AllergyCHIEF COMPLAINT: painDIAGNOSIS: Carpal tunnel syndromeLAB ORDERSOrder Description Priority Entered Acknowledged InitialedDIAGNOSTIC STUDY ORDERSOrder Description Priority Entered Acknowledged InitialedWrist Complete Left STAT 01:25 02/09/2020 01:29 , October(Oxygen?(No)) Hannah aDvila R.N., M.D.; Reason for Study: Wrist PainMEDICATION/IV/DRIP/FLUID ORDERSOrder Description Priority Ent ered Acknowledged InitialedDilaudid IM 1 mg 01:02/09/2020 01:37 Zoss, October(HIGH ALERT Hannah Davila R.N.MEDICATION) Arvind;GENERAL ORDERSOrder Description Priority Entered Acknowledged InitialedSplint (UE) (Left) 01:25 02/09/2020 01:39 ZossOctober(Cock-up) Hannah Davila R.N.(Cock-up) Arvind;[Electronically signed by Selvin Santos R.N. (02:02/09/2020)][Electronically signed by Hannah Davila M.D. (02:34 02/09/2020)][Electronically locked by Selvin Santos R.N. (:02/09/2020)] Name Value Range Interpretation Code Description Data Ni rce(s) Supporting Document(s) ID Date Data Source [id number] 02/09/2020 12:09:00 AM EDT [facility] 1 Medication Reconciliation Report [facility] Emergency Department [address] [place] [address] Phone #: ext- [phone] 02/09/2020 00:03 Patient: ZE NORMAN Sex: F : 1985 Age: 34yWeight: 95.2 kgHeight/Length: 71 in.BMI: 29.3ALLERGIES: No Known Drug AllergyThe patient's Home Medications are listed below:NONE.The source(s) of the original Home Medication information:Not obtained.The following Medications were given to the patient in the Emergency Department:Dilaudid [IM] IM 1 mg, administered: 02/09/2020 1:37:00 AMThe following Medications were prescribed to the patient:None. Name Value Range Interpretation Code Description Data Ni rce(s) Supporting Document(s) ID Date Data Source [id number] 02/09/2020 12:09:00 AM EDT [facility] 1 Medication Administration Record [facility] Emergency Department [address] [place] [address] Phone #: zya- [phone] 02/09/2020 00:03 Patient: ZE NORMAN Sex: F : 1985 Age: 34yWeight: 95.2 kgHeight/Length: 71 inBMI: 29.3ALLERGIES: No Known Drug Allergy Date/Time Medication Administered Medication OrderedGiven DILAUDID [IM] (HYDROMORPHONE Dilaudid IM 1 mg (HIGH ALERT01:37 02/09/2020 HCL) MEDICATION)India Kathie, R.N. Dose: 1 mg IM Name Value Range Interpretation Code Description Data Ni rce(s) Supporting Document(s) ID Date Data Source [id number] 02/09/2020 12:09:00 AM EDT [facility] 1 General Instructions [facility] Emergency Department [address] [place] [address] Phone #: ext- [phone] 02/09/2020 00:03 Patient: ZE NORMAN Sex: F : 1985 Age: 34yCarpal tunnel syndrome left wrist.INSTRUCTIONSApply ice for 30 minutes four times a day for two days followed by moist heat 30 minutes four times a dayfor two days. Don't apply ice directly to skin, don't use while asleep and don't use high setting on heatingpad. Wear cock-up splint until better.(PLEASE TAKE TYLENOL AND/OR MOTRIN 4 TIMES PER DAY NEEDED FOR PAIN;PLEASE FOLLOW UP WITH ORTHOPEDICS IN 2-3 DAYS).Warnings: Further evaluation is necessary. It is very important to follow up with a healthcare provider.GENERAL WARNINGS: Return or contact your physician immediately if your condition worsens orchanges unexpectedly, if not improving as expected, or if other problems arise. Specifically return if pain,vomiting, bleeding, breathing difficulty or fever greater than 102 degrees F and not controlled byacetaminophen or ibuprofen worsens.Your Current Medications: .No home medication.Follow-up:Return to the emergency department as needed. Follow up with an orthopedic surgeon in two days evenif well. Call for an appointment. Reason for referral: evaluation and treatment. Summary of care provided topatient via paper.Understanding of the discharge instructions verbalized by patient. Expected course of injury, dischargeinstructions, activity level, diet, follow-up appointment and risks and benefits of treatment reviewed withpatient and understanding verbalized. Agrees to plan of care.Follow-up with: [facility], , , [address] [place] [address], [facility] Follow up in two days even if well. Call for an appointment. Reason for referral: evaluation and treatment.Summary of care provided to patient via paper. ADDITIONAL INFORMATIONCarpal Tunnel Syndrome 2 General Instructions [facility] Emergency Department [address] [place] [address] Phone #: ext- [phone] 02/09/2020 00:03 Patient: ZE NORMAN [facility]#: [id number] Sex: F : 1985 Age: 34yCarpal tunnel syndrome is a painful condition of the wrist and arm. It is caused by pressure on themedian nerve. The median nerve is one of the nerves that give feeling and movement to the hand. Itpasses through a tunnel in the wrist called the carpal tunnel. This tunnel is made up of bones andligaments. Narrowing of this tunnel or swelling of the tissues inside the tunnel puts pressure on themedian nerve. This causes numbness, pins and needles, or electric shooting pains in your hand andforearm. Often the pain is worse at night and may wake you when you are asleep.Carpal tunnel syndrome may occur during and with use of control pills. It is morecommon in workers who must often bend their wrists. It is also common in people who work withpower tools that cause strong vibrations.Home care Rest the painful wrist. Avoid repeated bending of the wrist back and forth. This puts pressure on the median nerve. Avoid using power tools with strong vibrations. 3 General Instructions [facility] Emergency Department [address] [place] [address] Phone #: ext- [phone] 02/09/2020 00:03 Patient: ZE NORMAN Sex: F : 1985 Age: 34y If you were given a splint, wear it at night while you sleep. You may also wear it during the day for comfort. Move your fingers and wrists often to prevent stiffness. Elevate your arms on pillows when you lie down. Try using the unaffected hand more. Try not to hold your wrists in a bent, downward position. Sometimes changes in the work place may ease symptoms. If you type most of the day, it may help to change the position of your keyboard or add a wrist support. Your wrist should be in a neutral position and not bent back when typing. You may use [id number] pain medicine to treat pain and inflammation, unless another medicine was prescribed. Anti-inflammatory pain medicines, such as ibuprofen or naproxen may be more effective than acetaminophen, which treats pain, but not inflammation. If you have chronic liver or kidney disease or ever had a stomach ulcer or gastrointestinal bleeding, talk with your healthcare provider before using these medicines. Opioid pain medicine will only give temporary relief and does not treat the problem. If pain continues, you may need a shot of a steroid drug into you r wrist. If the above methods fail, you may need surgery. This will open the carpal tunnel and release the pressure on the trapped nerve.Follow-up careFollow up with your healthcare provider, or as advised. If X-rays were taken, you will be notified ofany new findings that may affect your care.When to seek medical adviceCall your healthcare provider right away if any of these occur: Pain not improving with the above treatment Fingers or hand become cold, blue, numb, or tingly Your whole arm becomes swollen or weak [id number] [employer]. [address] [place] [address], [place] [address]. All rights reserved. This information is not intended as asubstitute for professional medical care. Always follow your healthcare professional's instructions. You have been given the following additional information: 4 General Instructions [facility] Emergency Department [address] [place] [address] Phone #: ext- [phone] 02/09/2020 00:03 Patient: ZE NORMAN Sex: F : 1985 Age: 34yCarpal Tunnel Syndrome(Electronically signed by Hannah Davila M.D. 02/09/2020 02:34) Name Value Range Interpretation Code Description Data Ni rce(s) Supporting Document(s) ID Date Data Source [id number] 02/09/2020 12:09:00 AM EDT [facility] 1 Clinical Report - Nurses [facility] Emergency Department [address] [place] [address] Phone #: ext- [phone] 02/09/2020 00:03 Patient: ZE NORMAN Sex: F : 1985 Age: 34yTRIAGEHistorian: patient.Triage time: 00:03 02/09/2020. Acuity: LEVEL 3.Chief Complaint: (wrist pain/numbness).Alert. No acute distress.( pt states her left wrist has pain and its shooting throughout her whole body making her left arm feel numb.pt walks with steady gait. states this started approx 1 hr ago. no known injury.).SEPSIS SCREEN: Sepsis Screen negative. No suspected or confirmed signs of infection present. --00: [place] October RJocelinN.00:03 02/09/20. BP: 128/77. MAP: 94. HR: 73. RR: 18. O2 saturation: 100%. Temp: 98.7 F. Pain levelnow: 12/18. --00:02/09/20 [place] October RJocelinN.Weight: 95.2 kg stated. Height/Length: 71 inches Per Patient. BMI: 29.3. --00:02 02/09/20 [place] October RJocelinN.MedicationsNone. --00:02/09/20 [facility] October RJocelinN.AllergiesNo Known Drug Allergy. --00:02/09/20 Brunilda October RJocelinN.PROBLEMS:no known problems.ADDITIONAL SURGERIES:Breast Augmentation.Cholecystectomy.C- Section.Salpingectomy. --00:02/09/20 Brunilda October RJocelinN.HistoryPAST MEDICAL HX: Last normal menstrual period- today.SOCIAL HX: Never smoker. No alcohol use or drug use. She was offered HIV testing but declined. Zabrinahas not traveled outside the [place]Infectious disease exposure: No infectious disease exposure. (covid screen neg). Patient is not a knowncarrier of tuberculosis, hepatitis, HIV, MRSA or VRE. Patient is not a known carrier of CRE.SELF HARM ASSESSMENT: Self harm assessment was performed. The patient answered "no" to the 2 Clinical Report - Nurses [facility] Emergency Department [address] [place] [address] Phone #: ext- [phone] 02/09/2020 00:03 [id number] Sex: [facility] : 1985 Age: 34y question(s) "Have you recently felt down, depressed, or hopeless?", "Do you have thoughts of harming or killing yourself?", "Do you have a plan for harming or killing yourself?", "Have you recently had thoughts about harming or killing others?", "Do you have any dangerous items in your possession?", "Have you noticed less interest or pleasure in doing things?", "Are you here because you tried to hurt yourself?" and "Have you ever tried to hurt yourself before today?". ABUSE ASSESSMENT: Abuse assessment. yes. The patient had positive responses to the question(s) "Do you feel safe in your home?". No report of abuse. NUTRITIONAL RISK ASSESSMENT: The nutritional risk assessment revealed no deficiencies. FUNCTIONAL ASSESSMENT: Functional assessment: no impairments noted. LEARNING NEEDS ASSESSMENT: The learning needs assessment revealed no barriers. FALL RISK ASSESSMENT: Fall risk assessment completed. No risk factors identified. SKIN INTEGRITY ASSESSMENT: Skin integrity risk assessment completed. No skin integrity risk identified. --00:02/09/20 Kathie Osborne RJocelinN. Interventions To treatment room. --00:02/09/20 Kathie Osborne R.N.PHYSICAL ASSESSMENTGENERAL / NEURO / PSYCH: Alert. Oriented X 4. Appears in no acute distress.HEENT: Pupils equal, round and reactive to light. Mucous membranes are pink.RESPIRATORY: Respirations not labored.CVS: Capillary refill less than 2 seconds.EXTREMITIES: Capillary refill is less than 2 seconds in the extremities. Extremity pulses are withinnormal limits. ( left wrist pain with palpation. no obvious injury).SKIN: Skin intact. Skin is warm and dry. Normal skin turgor. --00:25 02/09/20 Kathie Osborne RJocelinN.NURSING PROGRESS NOTESPatient gowned. Head of bed elevated. Reassurance given. Two patient identifiers checked. Side railsup x 1. Bed placed in lowest position. Brakes of bed on. P atient ready for evaluation- ED physiciannotified. --00:02/09/20 Kathie Osborne REvelina ( no acute neuro deficits noted. pt c/o left wrist pain with palpation.). --00:09 02/09/20 [place], KathiePat. Patient walked to radiology with interventional radiology rn. --01:29 02/09/20 Brunilda OctoberPat. Patient walked back from radiology with interventional radiology rn. --01:34 02/09/20 Brunlida OctoberAdolph 01:37 02/09/2020 Dilaudid (HYDROmorphone HCl) IM 1 mg given. Given in the right deltoid. Allergies 3 Clinical Report - Nurses [facility] Emergency Department [address] [place] [address] Phone #: ext- [phone] 02/09/2020 00:03 Patient: ZE NORMAN Sex: F : 1985 Age: 34y verified and confirmed 5 rights. Information reviewed with patient including reason for taking this medication and sedative warning. Verbalizes understanding. --01:37 02/09/20 Brunilda OctoberPat. Medium velcro splint applied to left wrist. Distal pulses intact, sensation intact and motor within normal limits. Patient tolerated the procedure well. Splinting applied by me. --01:40 02/09/20 Brunilda October RChristine.DISPOSITION / DISCHARGE Condition at departure: improved. No learning barriers present. Discharge instructions provided and reviewed with the patient. Reviewed warnings. Reviewed medication(s). Treatments reviewed. Reviewed referrals. Patient verbalized understanding. Written instructions provided in Japanese. The patient was discharged by the physician. She was discharged home and accompanied by spouse. She left ambulatory and via private vehicle. Spouse driving. Patient has no belongings. --02:06 02/09/20 Selvin Santos R.N. 02:04 02/09/20. BP: 121/88. MAP: 99. HR: 70. RR: 16. O2 saturation: 100%. Temp: 97.7 F. Pain level now: 09/17. --02:06 02/09/20 Selvin Santos R.N. Departure time: 02:06 02/09/2020. --02:06 02/09/20 Selvin Santos R.N.Locked/Released at 02/09/2020 02:06 by Selvin Santos R.N. Name Value Range Interpretation Code Description Data Ni rce(s) Supporting Document(s) ID Date Data Source [id number] 02/09/2020 12:09:00 AM EDT [facility] 1 Clinical Report - Physicians/Mid Levels [facility] Emergency Department [address] [place] [address] Phone #: ext- [phone] 02/09/2020 00:03 Patient: ZE NORMAN Sex: F : 1985 Age: 34y Time Seen: 01:15 02/09/2020; initial patient contact. Arrived- By private vehicle. Historian- patient. Disposition decision: 01:44 02/09/2020.HISTORY OF PRESENT ILLNESS Chief Complaint: UPPER EXTREMITY PAIN. Severity is described as being severe. The quality is noted to be dull, aching and "pain". It is described as radiating to the left shoulder and left hand (shoots up down). This started just prior to arrival and is still present. It was gradual in onset and has been constant. Modifying factors- worsened by movement of wrist. Made better by rest. Symptoms located in the area of the left wrist. No chest pain, difficulty breathing, swelling, sensory loss or motor loss. No repetitive hand use at work. She has not had redness. Patient denies an injury. Similar symptoms previously. None. Recent medical care: Not recently seen/assessed.REVIEW OF SYSTEMSNo fever, chills, eye discomfort, headache or depression. No sore throat, cough, skin rash, enlargedlymph nodes or neck pain. No abdominal pain, nausea, vomiting, diarrhea or black stools. No difficultywith urination, urinary frequency or bloody stools. All other systems reviewed and are negative.PAST HISTORYSee nurses notes. Problems: Anxiety Reaction. Depression. Additional Surgeries: Breast Augmentation. Cholecystectomy. C- Section. Salpingectomy. Medications: None. Allergies: No Known Drug Allergy.SOCIAL HISTORYNever smoker. No alcohol use or drug use. 2 Clinical Report - Physicians/Mid Levels [facility] Emergency Department [address] [place] [address] Phone #: ext- [phone] 02/09/2020 00:03 Patient: ZE NORMAN Sex: F : 1985 Age: 34yADDITIONAL NOTESThe nursing notes have been reviewed with agreement regarding the chief complaint, HPI, ROS, PMH andpatient medications and allergies.PHYSICAL EXAMVital Signs: 02/09/2020 00:03 BP: 128/77. MAP: 94. HR: 73. RR: 18. O2 saturation: 100%. Temp: 98.7 F.Pain level now: 6/10. Have been reviewed. Oxygen saturation normal.Appearance: Alert. Oriented X3. Anxious. Appears to be in pain. Patient in moderate distress.Distress appears due to pain.Eyes: Pupils equal, round and reactive to light. Eyes normal inspection.ENT: Pharynx normal.Neck: Normal inspection. Neck supple. No pain with movement of head/neck.CVS: Normal heart rate and rhythm. Heart sounds normal.Respiratory: No respiratory distress. Painless inspiration. Breath sounds normal.Abdomen: Soft and nontender. No organomegaly.Back: Normal inspection. No tenderness. ROM normal.Skin: Skin intact. Skin warm and dry. Normal skin color. Normal skin turgor.Extremities: Left wrist: severe tenderness located in the area of the anatomic snuffbox and volar aspect ofthe wrist. Limited ROM secondary to pain (diminished flexion and extension). Neurovascular intact distally.(Phalen and Tinel signs positive for carpal tunnel). No joint effusion. Extremities otherwise negative.Neuro: Oriented X 3. No motor deficit. No s ensory deficit. Reflexes normal.LABS, X-RAYS, AND EKGLt Wrist X-ray: No fracture. Normal alignment. No bony lesion. Views: AP, lateral and oblique.Technique: good. The X-rays were interpreted contemporaneously by me. Interpretation time: 01:.PROGRESS AND PROCEDURESCourse of Care: 01:18 02/09/20. Data Detail Level: Printer-Friendly View Extended ViewConfidential Drug Utilization ReportSearch Terms: ze norman, 1985Search Date: 02/09/2020 01:18:24 AMThe Drug Utilization Report below displays all of the controlled substance prescriptions, if any, that yourpatient has filled in the last twelve months. The information displayed on this report is compiled frompharmacy submissions to the Department, and accurately reflects the information as submitted by thepharmacies. This report was requested by: Hannah Davila Reference #: [id number] Others' Prescriptions Patient Name: Ze NormanBirth Date: 1985 Address: [address] [place], [place] [address]Sex: Female Rx Written Rx Dispensed Drug Quantity Days Supply Prescriber Name Payment Method Dispenser 01/24/2020 01/24/2020 alprazolam 0.5 mg tablet 60 [facility] 3 Clinical Report - Physicians/Mid Levels [facility] Emergency Department [address] [place] [address] Phone #: ext- [phone] 02/09/2020 00:03 [id number] Sex: F : 1985 Age: 34y 3 #[id number] 12/27/2019 12/27/2019 alprazolam 0.5 mg tablet 60 [facility] [employer] [facility] #[id number] * - Drugs marked with an asterisk are compound drugs. If the compound drug is made up of more than one controlled substance, then each controlled substance will be a separate row in the table. 01:35 02/09/20. pt has exam c/w carpal tunnel; will do x-ray, apply cockup splint, give analgesic and refer to orthopedics. Patient counseled in person regarding the patient's stable condition, test results, diagnosis and need for follow-up. Patient agrees with plan of care. Disposition: Condition: good and stable. Discharge decision based on the following: pat myrant's condition is stable; patient's condition is improved; patient is ambulatory; patient is active; patient's pain is controlled; patient's exam is improved; no abnormal test results; improving condition on multiple repeat evaluations; social support is good; transportation is available; follow-up is available; clinical impression is consistent with outpatient treatment.CLINICAL IMPRESSION Carpal tunnel syndrome left wrist.INSTRUCTIONS Apply ice for 30 minutes four times a day for two days followed by moist heat 30 minutes four times a day for two days. Don't apply ice directly to skin, don't use while asleep and don't use high setting on heating pad. Wear cock-up splint until better. (PLEASE TAKE TYLENOL AND/OR MOTRIN 4 TIMES PER DAY NEEDED FOR PAIN; PLEASE FOLLOW UP WITH ORTHOPEDICS IN 2-3 DAYS). Warnings: Further evaluation is necessary. It is very important to follow up with a healthcare provider. GENERAL WARNINGS: Return or contact your physician immediately if your condition worsen s or changes unexpectedly, if not improving as expected, or if other problems arise. Specifically return if pain, vomiting, bleeding, breathing difficulty or fever greater than 102 degrees F and not controlled by acetaminophen or ibuprofen worsens. Your Current Medications: . No home medication. Follow-up: 4 Clinical Report - Physicians/Mid Levels [facility] Emergency Department [address] [place] [address] Phone #: [phone] 02/09/2020 00:03 Patient: ZE NORMAN Sex: F : 1985 Age: 34y Return to the emergency department as needed. Follow up with an orthopedic surgeon in two days even if well. Call for an appointment. Reason for referral: evaluation and treatment. Summary of care provided to patient via paper. Understanding of the discharge instructions verbalized by patient. Expected course of injury, discharge instructions, activity level, diet, follow-up appointment and risks and benefits of treatment reviewed with patient and understanding verbalized. Agrees to plan of care. Follow-up with: [facility], , , [address] [address], , [place], [address] Follow up in two days even if well. Call for an appointment. Reason for referral: evaluation and treatment. Summary of care pro vided to patient via paper.(Electronically signed by Hannah Davila M.D. 02/09/2020 02:34) Name Value Range Interpretation Code Description Data Ni rce(s) Supporting Document(s) ID Date Data Source [id number] 10/11/2019 07:45:00 AM EDT [facility] Name Value Range Interpretation Code Description Data Ni rce(s) Supporting Document(s) SARS CORONAVIRUS 2 RNA [facility] This lab was ordered by [facility] and reported by [facility]. Procedure Vital Signs ID Date Data Source UNK Name Value Range Interpretation Code Description Data Source(s) Body surface area Derived from formula 2.23 m2 2.23 m2 [facility] ([facility]) Body weight 103.421 kg 103.421 kg [facility] ([facility]) [place] body weight 155 [lb_av] 155 [lb_av] [facility] Body mass index (BMI) [Ratio] 31.8 kg/m2 31.8 k g/m2 [facility] ([facility]) Body weight 228.00 [lb_av] 228.00 [lb_av] [facility] Body height 71 [in_i] 71 [in_i] [facility] ([facility]) 5'11" Body temperature 98.1 [degF] 98.1 [degF] [facility] ([facility]) Body temperature 98.2 [degF] 98.2 [degF] [facility] ([facility]) Body weight 102.967 kg 102.967 kg [facility] ([facility]) [place] body weight 155 [lb_av] 155 [lb_av] [facility] ([facility]) Body mass index (BMI) [Ratio] 31.7 kg/m2 31.7 k g/m2 [facility] ([facility]) Body weight 227.00 [lb_av] 227.00 [lb_av] [facility] ([facility]) Body height 71 [in_i] 71 [in_i] [facility] 5'11" Body temperature 98.1 [degF] 98.1 [degF] [facility] ([facility]) Respiratory rate 16 /min 16 /min [facility] ( [facility]) Heart rate 80 /min 80 /min [facility] ([facility]) Diastolic blood pressure 84 mm[Hg] 84 mm[Hg] [facility] ([facility]) Systolic blood pressure 138 mm[Hg] 138 mm[Hg] [facility] ([facility]) Heart rate 72 /min 72 /min [facility] ([facility]) Diastolic blood pressure 80 mm[Hg] 80 mm[Hg] [facility] ([facility]) Systolic blood pressure 120 mm[Hg] 120 mm[Hg] [facility] Body mass index (BMI) [Ratio] 30.7 kg/m2 30.7 k g/m2 [facility] ([facility]) Body weight 220.00 [lb_av] 220.00 [lb_av] [facility] ([facility]) Body height 71 [in_i] 71 [in_i] [facility] ([facility]) 5'11"
[2020-08-26] MEDS ORDERED: BACITRACIN PWD 50,000 UNITS VIAL As Ordered ONE (08:31)
[2020-08-26] MEDS ORDERED: BUPIVACAINE LIPOSOME/PF 1.3% 20ML VIAL (13.3MG/ML)(EXPAREL)(C9290 PER1MG) As Ordered ONE (08:31)
[2020-08-26] MEDS ORDERED: dexameTHASONE 4 MG/ML 1ML VIAL (J1100 PER 1MG) As Ordered ONE (08:42)
[2020-08-26] MEDS ORDERED: MIDAZOLAM INJ 2MG/2ML VIAL (J2250 PER 1MG) As Ordered ONE (08:42)
[2020-08-26] MEDS ORDERED: propofoL 200 MG/20 ML VIAL As Ordered ONE (08:42)
[2020-08-26] MEDS ORDERED: LIDOCAINE 2% 100MG/5ML SDV (FOR ANES.) As Ordered ONE (08:42)
[2020-08-26] MEDS ORDERED: ROCURONIUM BROMIDE 50 MG/5 ML VIAL As Ordered ONE ×3 (08:42→11:34)
[2020-08-26] MEDS ORDERED: ONDANSETRON 4MG/2ML VIAL As Ordered ONE (08:42)
[2020-08-26] MEDS ORDERED: fentaNYL 250 MCG/5 ML INJECTION (J3010) As Ordered ONE (08:42)
[2020-08-26] MEDS ORDERED: THROMBIN SOLN 5,000 UNITS VIAL As Ordered ONE (10:04)
[2020-08-26] MEDS ORDERED: THROMBIN SOLN 20,000 UNITS KIT As Ordered ONE (10:06)
[2020-08-26] MEDS ORDERED: ACETAMINOPHEN 1000MG 100ML IV BTL (OFIRMEV) (J0131 PER 10MG) As Ordered ONE (10:10)
[2020-08-26] MEDS ORDERED: HYDROmorphone HCL 2 MG/ML 1ML VIAL (J1170) As Ordered ONE (10:10)
[2020-08-26] MEDS ORDERED: SUGAMMADEX SODIUM 500 MG/5 ML VIAL (BRIDION) As Ordered ONE (10:10)
[2020-08-26] MEDS ORDERED: SEVOFLURANE INHAL SOLN 250 ML BTL As Ordered ONE (10:44)
[2020-08-26] MEDS ORDERED: LABETALOL 100MG/20ML VIAL As Ordered ONE (10:58)
[2020-08-26] MEDS ORDERED: METOCLOPRAMIDE INJ 10MG/2ML VIAL (J2765 PER 1) As Ordered ONE (11:21)
[2020-08-26] MEDS: LR 1,000 ML IV SCH (13:02)
--- NOTE | 2020-08-26 13:02 | POST-OPPD ---
Postoperative Procedure Note Date Of Procedure: Aug 26, 2020 PREOPERATIVE DIAGNOSIS: Panniculitis POSTOPERATIVE DIAGNOSIS: same FINDINGS: Pannus. Rectus muscle diathesis. Umbilical scar. PROCEDURE: Extended panniculectomy with rectus muscle plication. SURGEON: Dr Cameron ANESTHESIA: General SPECIMENS: Pannus 1602gm ESTIMATED BLOOD LOSS: 100 cc REPLACED: none DRAINS: 10 mm MADHAV x 2 COMPLICATIONS: none POSTOPERATIVE CONDITION: stable CALEB CAMERON DO Aug 26, 2020 13:02
[2020-08-26] MEDS ORDERED: ONDANSETRON 4MG/2ML VIAL IV PRN ×2 (13:15→13:45)
[2020-08-26] MEDS ORDERED: KETOROLAC TROMETHAMINE 10 MG TAB PO PRN (13:15)
--- OUTSIDE RECORDS SUMMARY | 2020-08-26 13:34 | CCD ---
Author Author [facility] Organization [facility] Address Unknown Phone Unavailable Care Team Providers Care Can Worker Name Role Phone NISHA, E CALEB DO [...] is protected by Article 27-F of the [facility] Public Health law. If you continue you may have access to information: Regarding HIV / AIDS; Provided by facilities licensed or operated by the [facility] Office of Mental Health; or Provided by the [facility] Office for People With Developmental Disabilities. If such information is present, then the following [facility] mandated warning applies: This information has [...] law may result in a fine or mcc sentence or both. A general authorization for the release of medical or other information is NOT sufficient authorization for further disc losure. Allergies and Adverse Reactions Type Description Substance Reaction Status Data Source(s ) No Known Drug Allergies No Known Drug Allergies [facility] Family History Family Member Name Family Member Gender Family Member Status Date o f Status Description Data Source(s) Unknown Male Problem [facility] ([facility] Unknown Male Problem [facility] ([facility]) Encounters Encounter Providers Location Date Indications Data Source(s ) Emergency Attender: LOLI FORREST MDConsultant: HAKAN MAY NOWAllan 08/21/2020 10:33:00 PM EST - 08/22/2020 12:29:00 AM [facility] Patient discharged. Emergency Attender: HANNAH DAVILAConsultant: HAKAN MAY NOWAllan 08/11/2020 09:29:00 PM EST - 08/11/2020 10:40:00 PM [facility] Patient discharged. Emergency Attender: HANNAH DAVILA 2019 09:51:00 AM EST - 05/26/2020 12:00:00 PM [facility] Patient discharged. Emergency Attender: Gustavo Parada PA-C 04/2020 04:06:00 PM EST - 05/20/2020 07:31:00 PM [facility] Patient discharged. Outpatient Attender: CALEB Doherty/Agnes/Theron/Royer gonzalez 05/05/2020 09:15:00 AM EDT [facility] ([facility]) Emergency Attender: Gustavo Gonzalezultant: PCP NO 02/12/2020 10:08:00 AM EDT - 02/12/2020 12:20:00 PM EDT [facility] Patient discharged. Emergency Attender: HANNAH DAVILA 2019 12:09:00 AM EDT - 02/09/2020 02:06:00 AM EDT [facility] Patient discharged. Outpatient 10/29/2019 05:30:00 AM EDT [...] Hour 02/27/2020 12:00:00 AM EDT active [facility] ([facility]) Insurance Providers Payer name Policy type / Coverage type Policy ID Covered alliance party ID Covered alliance party's relationship to martinez Policy Martinez Plan Information [facility] [id number] HU2 [id number] EAST HUMANA - O/P [id number] 01 [id number] SELF PAY ONLY [id number] SP [id number] [facility] HUMANA [id number] HU2 [id number] HUMANA [place]AST REG O [id number] S [id number] SELF PAY O [id number] S [id number] U [id number] Self [id number] ANSI-Not a Secondary Insurance [id number] [facility] HUMANA [id number] HU2 [id number] [facility] Commercial [id number] Family Dependent [id number] U [id number] Self [id number] FOR LIFE U [id number] Self [id number] PGBA [facility] [id number] HU2 [id number] HUMANA EAST REG O [id number] P [id number] N REGIONAL CLAIMS MITZI -O/P [id number] 19 [id number] PGBA [facility] [id number] [facility] [id number] [facility] [id number] 18 [id number] [facility] Commercial [id number] Self [id number] Problems, Conditions, and Diagnoses Code Display Name Description Problem Type Effective Dates Data Source(s) 00225396 Carpal tunnel syndrome Carpal tunnel syndrome Problem 02/27/2020 12:00:00 AM EDT [facility] [id number] Hand pain Hand pain Problem 02/27/2020 12:00:00 AM ED T [facility] ([facility]) [id number] Numbness of hand Numbness of hand Problem 02/27/2020 12 :00:00 AM EDT [facility] R519 Headache, unspecified Headache, unspecified Diagnosis 08/21/2020 10:33:00 PM [facility] Z43087 Pain in left shoulder Pain in left shoulder Diagnosis 08/11/2020 09:29:00 PM [facility] M7989 Other specified soft tissue disorders Ot her specified soft tissue disorders Diagnosis 08/11/2020 09:29:00 PM [facility] U00468 Unspecified ovarian cyst, left side Unspecified ovarian cyst, left side Diagnosis 05/26/2020 09:51:00 AM [facility] N800 Endometriosis of uterus Endometriosis of uterus Diagno sis 05/26/2020 09:51:00 AM [facility] R102 Pelvic and perineal pain Pelvic and perineal pain Diag nosis 05/26/2020 09:51:00 AM [facility] R1032 Left lower quadrant pain Left lower quadrant pain Diag nosis 05/20/2020 04:06:00 PM [facility] G5602 Carpal tunnel syndrome, left upper limb Carpal tunnel syndrome, left upper limb Diagnosis 02/12/2020 10:08:00 AM [facility] E08935 Pain in left upper arm Pain in left upper arm Diagnosi s 02/12/2020 10:08:00 AM [facility] F02830 Pain in left lower leg Pain in left lower leg Diagnosi s 02/09/2020 12:09:00 AM [facility] Surgeries/Procedures Procedure Description Date Indications Data Source(s) Needle electromyography, each extremity, with related paraspinal areas, when performed, done with nerve conduction, amplitude and latency/velocity study; complete, five or more muscles studied, innervated by three or more nerves or four or more spinal levels (list separately in addition to the code for primary procedure). 02/28/2020 12:00:00 AM EDT MEDEN T ([facility]) Needle electromyography, each extremity, with related paraspinal areas, when performed, done with nerve conduction, amplitude and latency/velocity study; complete, five or more muscles studied, innervated by three or more nerves or four or more spinal levels (list separately in addition to the code for primary procedure). 02/28/2020 12:00:00 AM EDT [facility] T ([facility]) Needle Electromyography Non Extremity Done With Nerve Conduc tion 02/28/2020 12:00:00 AM EDT [facility] ([facility]) 40963 Nerve conduction studies 13 or more studies NEW 201202/28/2020 12:00:00 AM EDT [facility] ([facility]) Results ID Date Data Source [id number] 08/21/2020 10:33:00 PM EST [facility] 1 OrderSheet [facility] Emergency Department [address] [place] [address] Phone #: ext- [phone] 08/21/2020 22:26 Patient: [...] rce(s) Supporting Document(s) ID Date Data Source [id number] 08/21/2020 10:33:00 PM [facility] 1 Medication Reconciliation Report [facility] Emergency Department [address] [place] [address] Phone #: ext- [phone] 08/21/2020 22:26 Patient: [...] rce(s) Supporting Document(s) ID Date Data Source [id number] 08/21/2020 10:33:00 PM [facility] 1 Medication Administration Record [facility] Emergency Department [address] [place] [address] Phone #: ext- [phone] 08/21/2020 22:26 Patient: [...] rce(s) Supporting Document(s) ID Date Data Source [id number] 08/21/2020 10:33:00 PM [facility] 1 General Instructions [facility] Emergency Department [address] [place] [address] Phone #: ext- [phone] 08/21/2020 22:26 Patient: [...] or too much sleep. 2 General Instructions [facility] Emergency Department [address] [place] [address] Phone #: ext- [phone] 08/21/2020 22:26 Patient: [...] Avocados Bananas Figs Raisins 3 General Instructions [facility] Emergency Department [address] [place] [address] Phone #: ext- [phone] 08/21/2020 22:26 [id number] Sex: F : 1985 Age: 35y Red [...] healthcare provider Stiff neck 4 General Instructions [facility] Emergency Department [address] [place] [address] Phone #: ext- [phone] 08/21/2020 22:26 Patient: ZE NORMAN Sex: F : 1985 Age: 35y Extreme drowsiness, confusion, or fainting Dizziness, or dizziness with spinning sensation (vertigo) Weakness or trouble feeling in an arm or leg, or on one side of your face Trouble talking or seeing [phone] [place]. [address] [place] [address]. All rights reserved. This information is not intended as asubstitute for professional medical care. Always follow your healthcare professional's instructions. You have been given the following additional information: Headache, Migraine, Classic No strenuous activity. Do not work for four days.(Electronically signed by Loli Forrest MD 08/22/2020 01:08) Name Value Range Interpretation Code Description Data Ni rce(s) Supporting Document(s) ID Date Data Source [id number] 08/21/2020 10:33:00 PM EST [facility] 1 Clinical Report - Nurses [facility] Emergency Department [address] [place] [address] Phone #: ext- [phone] 08/21/2020 22:26 Patient: [...] to both eyes.).She has had a headache.Treatment THREAD WINDER AUTOMATIC:None. Seen within the last 30 days at [...] to the 2 Clinical Report - Nurses [facility] Emergency Department [address] [place] [address] Phone #: czb- [phone] 08/21/2020 22:26 Patient: ZE NORMAN [facility]#: [id number] Sex: F : 1985 Age: 35y question(s) [...] skin integrity risk identified. --22:35 08/21/20 Nancy aCno R.N. Interventions Identification band on patient. To [...] with aseptic 3 Clinical Report - Nurses [facility] Emergency Department [address] [place] [address] Phone #: ext- [phone] 08/21/2020 22:26 Patient: [...] reaction and precautions. Verbalizes understanding. --23:38 08/21/20 Saen Bunch RN 23:39 08/21/2020 Benadryl (diphenhydrAMINE HCl) [...] Patient verbalized understanding. Written instructions provided in Taiwanese. The patient was discharged by the physician. She was discharged home and unaccompanied at time of discharge. She left ambulatory and via private vehicle. Spouse driving. --00:27 08/22/20 Bailey Rendon 00:26 08/22/20. BP: 132/62. HR: 80. RR: 15. O2 saturation: 98%. Temp: 98.1 F. Pain level now 08/20. --00:27 08/22/20 Bailey Rendon 4 Clinical Report - Nurses [facility] Emergency Department [address] [place] [address] Phone #: ext- [phone] 08/21/2020 22:26 [id number] Sex: F : 1985 Age: 35y Departure time: 00:27 08/22/2020. --00:27 08/22/20 Bailey Rendon.Locked/Released at 08/22/2020 00:29 by Bailey Rendon Name Value Range Interpretation Code Description Data Ni rce(s) Supporting Document(s) ID Date Data Source [id number] 08/21/2020 10:33:00 PM EST [facility] 1 Clinical Report - Physicians/Mid Levels [facility] Emergency Department [address] [place] [address] Phone #: ext- [phone] 08/21/2020 22:26 Patient: [...] Laparoscopy. 2 Clinical Report - Physicians/Mid Levels [facility] Emergency Department [address] [place] [address] Phone #: ext- [phone] 08/21/2020 22:26 Patient: ZE NORMAN Sex: F [...] radiates to her entire left side [facility]. initially, pt is closing her left [...] Headache. 3 Clinical Report - Physicians/Mid Levels [facility] Emergency Department [address] [place] [address] Phone #: ext- [phone] 08/21/2020 22:26 Patient: ZE NORMAN Sex: F [...] rce(s) Supporting Document(s) ID Date Data Source [id number] 08/12/2020 09:42:00 [place] [address] PHONE: [phone] FAX: [phone] Name .................. : МАРИЯ Gonzalez Acct Number.................. : [id number] ROOM. ................. : TR-03 MR Number ................... : [id number] Stay type ............. : E/R Discharge Date......... ... : Admit Date ......... : 08/11/20 Admit Phys .................... : LOLA KURTZ Date of ....... : 1985 Family Phys ................... : UNKNOWN AMANDEEP Phone .................. : [phone] Age ................................ : 35 Film# .................. .:[id number] Sex ................................. : F Unsigned transcriptions are preliminary reports and do not represent a medical or legal document [place] [id number] COMPLETE:08/11/20 22:21 ADB 3449 Reason(s): DVT LEFT [...] rce(s) Supporting Document(s) ID Date Data Source [id number] 08/11/2020 09:29:00 PM EST [facility] 1 OrderSheet [facility] Emergency Department [address] [place] [address] Phone #: ext- [phone] 08/11/2020 21:29 Patient: ZE NORMAN Sex: F [...] rce(s) Supporting Document(s) ID Date Data Source [id number] 08/11/2020 09:29:00 PM EST [facility] 1 Medication Reconciliation Report [facility] Emergency Department [address] [place] [address] Phone #: ext- [phone] 08/11/2020 21:29 Patient: ZE NORMAN Sex: F [...] Dispense 45 tablet. Refills: 0.Substitution permitted.Pharmacy - [address] ; [place] [address]. FaxNumber: . -- ANA Horowitz Name Value Range Interpretation Code Description Data Ni rce(s) Supporting Document(s) ID Date Data Source [id number] 08/11/2020 09:29:00 PM [facility] 1 Medication Administration Record [facility] Emergency Department [address] [place] [address] Phone #: ext- [phone] 08/11/2020 21:29 Patient: ZE NORMAN Sex: F : 1985 Age: 35yWeight: 113.3 kgHeight/Length: 71 inBMI: 34.9ALLERGIES: No Known Drug Allergy Date/Time Medication Administered Medication OrderedGiven MOTRIN [PO] (IBUPROFEN) Ibuprofen 800 mg PO X1 dose: 71746:36 08/11/2020 Dose: 800 mg Tablets PO mg (NOW x1)Amita Mota,Given TORADOL [IM] (KETOROLAC Toradol IM 60 mg22:33 08/11/2020 TROMETHAMINE)Bailey Rendon, Dose: 60 mg IM Name Value Range Interpretation Code Description Data Ni rce(s) Supporting Document(s) ID Date Data Source [id number] 08/11/2020 09:29:00 PM EST [facility] 1 General Instructions [facility] Emergency Department [address] [place] [address] Phone #: ext- [phone] 08/11/2020 21:29 Patient: ZE NORMAN Sex: F [...] Dispense 45 tablet. Refills: 0.Substitution permitted.Pharmacy - [facility] - [address] ; [place] [address]. .Follow-up:Follow up with your doctor tomorrow. Call [...] from moving. You can 2 General Instructions [facility] Emergency Department [address] [place] [address] Phone #: ext- [phone] 08/11/2020 21:29 Patient: [id number] Sex: F : 1985 Age: 35yta ke [...] shoulder or upper arm 3 General Instructions [facility] Emergency Department [address] [place] [address] Phone #: ext- [phone] 08/11/2020 21:29 Patient: ZE NORMAN Sex: F : 1985 Age: 35y Trouble moving your hand or fingers We akness in your hand or fingers Your shoulder becomes stiff It feels like your shoulder is popping out You are less able to do your daily activities [id number] [employer]. [address] [place] [address], [place] [address]. All rights reserved. This information is not intended as asubstitute for professional medical care. Always follow your healthcare professional's instructions. You have been given the following additional information: Shoulder Pain, Uncertain Cause(Electronically signed by ANA Horowitz 08/11/2020 22:33) Name Value Range Interpretation Code Description Data Ni rce(s) Supporting Document(s) ID Date Data Source [id number] 08/11/2020 09:29:00 PM EST [facility] 1 Clinical Report - Nurses [facility] Emergency Department [address] [place] [address] Phone #: ext- [phone] 08/11/2020 21:29 Patient: ZE NORMAN Sex: F : 1985 Age: 35yTRIAGEArrived by private vehicle. Historian: patient.Triage time: 21:30 08/11/2020. Acuity: LEVEL 4.Chief Complaint: LEFT UPPER EXTREMITY PAIN and NUMBNESS.No injury occurred. Onset was gradual. Symptoms are constant and still present (off and on about 1week). She has had constant numbness of the left arm.Treatment THREAD WINDER AUTOMATIC:Took Tylenol and ibuprofen.SEPSIS SCREEN: SIRS SCREEN NEGATIVE. SEPSIS SCREEN NEGATIVE. No suspected or confirmedsigns of infection present. --21:36 08/11/20 Sean Bunch RN21:30 08/11/20. BP: 157/106 (regular adult cuff) taken on the right arm, via an automated monitor, whilesitting. MAP: 123. HR: 76 (regular, normal rate and strong). RR: 18 (regular, unlabored and normal). K2lswtadoaaz: 100% on room air. Temp: 98.6 F [...] Bunch RN. 2 Clinical Report - Nurses [facility] Emergency Department [address] [place] [address] Phone #: ext- [phone] 08/11/2020 21:29 [id number] Sex: F : 1985 Age: 35y History [...] the same. --21:36 08/11/20 Sean Bunch RN.PHYSICAL VOOFITYXZC68:40 08/11/20.GENERAL / NEURO / PSYCH: Oriented X [...] Patient transported by wheelchair with mask and video game repair technician. (Ultra sound). --21:47 08/11/20 Amita Mota late entry - 21:40 08/11/20. Patient gowned. Reassurance given. Two patient identifiers checked. Call light placed in reach. Side rails up x 2. Bed placed in lowest position. Brakes of bed on. --22:40 08/11/20 Bailey Rendon 22:33 08/11/2020 Toradol (Ketorolac Tromethamine) IM 60 mg given. Given in the right deltoid. Allergies 3 Clinical Report - Nurses [facility] Emergency Department [address] [place] [address] Phone #: ext- [phone] 08/11/2020 21:29 Patient: [...] Patient verbalized understanding. Written instructions provided in Taiwanese. The patient was discharged by the physician housekeeper and laundry assistant. She was discharged home and unaccompanied at [...] rce(s) Supporting Document(s) ID Date Data Source [id number] 08/11/2020 09:29:00 PM [facility] 1 Clinical Report - Physicians/Mid Levels [facility] Emergency Department [address] [place] [address] Phone #: ext- [phone] 08/11/2020 21:29 Patient: [id number] Sex: F : 1985 Age: 35y Time [...] use. 2 Clinical Report - Physicians/Mid Levels [facility] Emergency Department [address] [place] [address] Phone #: ext- [phone] 08/11/2020 21:29 Patient: ZE NORMAN Sex: F [...] DVT. The exam was pe rformed bya automotive glass technician. The study was interpreted by the [...] or 3 Clinical Report - Physicians/Mid Levels [facility] Emergency Department [address] [place] [address] Phone #: ext- [phone] 08/11/2020 21:29 Patient: [facility] NOR[facility] [id number] Sex: F : 1985 Age: 35y changes unexpectedly, if not improving as expected, or if other problems arise. Specifically return if pain worsens. Your Current Medications: . No home medication. Prescription Medications: IBU 800 mg tablet Take 1 tablet three times a day for 15 days -- Dispense 45 tablet. Refills: 0. Substitution permitted. Pharmacy - [facility] - [address] [facility] ; [place] [address]. . Follow-up: Follow up with your doctor tomorrow. Call for the next available appointment. Reason for referral: evaluation and treatment. Summary of care provided to patient. Understanding of the discharge instructions verbalized by patient.(Electronically signed by ANA Horowitz 08/11/2020 22:33) Name Value Range Interpretation Code Description Data Ni rce(s) Supporting Document(s) ID Date Data Source [id number] 06/23/2020 12:00:00 AM [facility] Name Value Range Interpretation Code Description Data Ni rce(s) Supporting Document(s) SARS-CoV-2 (COVID-19) RNA [Presence] in Respiratory specimen by JOEL with probe detection [facility] This lab was ordered by [facility] and reported by [employer] ID Date Data Source [id number] 05/27/2020 03:35:00 PM [facility] [address] [place] [address] PHONE: [phone] FAX: [phone] Name .................. : МАРИЯ GARVEY Renée Acct Number.................. : [id number] ROOM. ................. : TR-02 MR Number ................... : [id number] Stay type ............. : E/R Discharge Date......... ... : 05/26/20 Admit Date ......... : 05/26/20 Admit Phys .................... : LOLA KURTZ Date of ....... : 1985 Family Phys ................... : UNKNOWN Phone .................. : [phone] Age ................................ : 35 Film# .................. .:[id number] Sex ................................. : F Unsigned transcriptions are preliminary reports and do not represent a medical or legal document PELVIC [id number] COMPLETE:05/26/20 11:18 KNB 86213 Reason(s): Pelvic Pain US TRANSVAGINAL(NON OB) 02101 COMPLETE:05/26/20 11:18 KNB 04811 (REASON FOR OBS: pelvic pain TRANSABDOMINAL AND [...] rce(s) Supporting Document(s) ID Date Data Source [id number] 05/27/2020 03:35:00 PM EST [facility] [address] [place] [address] PHONE: [phone] FAX: [phone] Name .................. : МАРИЯ Gonzalez Acct Number.................. : [id number] ROOM. ................. : TR-02 MR Number ................... : [id number] Stay type ............. : E/R Discharge Date......... ... : 05/26/20 Admit Date ......... : 05/26/20 Admit Phys .................... : LOLA KURTZ Date of ....... : 1985 Family Phys ................... : UNKNOWN Phone .................. : [phone] Age ................................ : 35 Film# .................. .:[id number] Sex ................................. : F Unsigned transcriptions are preliminary reports and do not represent a medical or legal document PELVIC 23313 COMPLETE:05/26/20 11:18 KNB 15218 Reason(s): Pelvic Pain US TRANSVAGINAL(NON OB) 60445 COMPLETE:05/26/20 11:18 KNB 65564 (REASON FOR OBS: pelvic pain TRANSABDOMINAL AND [...] rce(s) Supporting Document(s) ID Date Data Source [id number] 05/26/2020 09:51:00 AM EST [facility] 1 OrderSheet [facility] Emergency Department [address] [place] [address] Phone #: [phone] trz- [phone] 05/26/2020 09:48 Patient: ZE NORMAN Sex: F : 1985 Age: 35yWEIGHT:95.2 kg (S) HEIGHT:71 inches (S) BMI:29.3ALLERGIES: No Known Drug AllergyCHIEF COMPLAINT: abdominal painDIAGNOSIS: Cyst of ovary, Endometriosis (clinical)LAB ORDERSOrder Description Priority Entered Acknowledged InitialedCBC w Diff STAT 10:08 05/26/2020 10:08 [facility] Tech, Bruno BURNETTE PA; [id number] STAT 10:08 05/26/2020 10:08 [facility] Tech, Bruno ER PA; Tvht3Ghkgag STAT 10:08 05/26/2020 10:08 [facility] Tech, Bruno ER PA; Nlqf8Yl inalysis (Clean STAT 10:08 05/26/2020 10:08 [facility] Tech, Bruno ER PA; [id number]-ZBC, Quant STAT 10:08 05/26/2020 10:[address] [facility], Bruno BURNETTE PA; [id number] STUDY ORDERSOrder Description Priority Entered Acknowledged InitialedUS Pelvis STAT 10:08 05/26/2020 10:19 Denice Montoya(Oxygen?(No)) Roland Bae RN PA; Reason for Study: Pelvic PainMEDICATION/IV/DRIP/FLUID ORDERSOrder Description Priority Entered Acknowledged InitialedNS IV : Bolus 1000 10:08 05/26/2020 10:32 Dejah Montoya, then 150 mL/hr Roland PEREZ;Toradol IVP 30 mg 10:08 05/26/2020 10:32 Denice Montoya RN PA; 2 OrderSheet [facility] Emergency Department [address] [place] [address] Phone #: ext- [phone] 05/26/2020 09:48 Patient: ZE NORMAN Sex: F : 1985 Age: 35yZofran ODT PO 8 10:08 05/26/2020 10:32 Jarocho Montoya RN PA;Morphine IVP 2 mg 11:21 05/26/2020 11:21 Denice Montoya(NOW, HIGH ALERT Denice Montoya RN; RNMEDICATION) Verbal order per; Roland Bae PAGENERAL ORDERSOrder Description Priority Entered Acknowledged InitialedNPO 10:08 05/26/2020 10:09 Daja Bae weaver tire cordBruno Sparks; [id number] Lock 10:08 05/26/2020 10:29 Denice Montoya RN PA;[Electronically signed by Denice Montoya RN (12:02 05/26/2020)][Electronically signed by Roland Bae (21:18 05/26/2020)][Electronically locked by Denice Montoya RN (12:02 05/26/2020)] Name Value Range Interpretation Code Description Data Ni rce(s) Supporting Document(s) ID Date Data Source [id number] 05/26/2020 09:51:00 AM EST [facility] 1 Medication Reconciliation Report [facility] Emergency Department [address] [place] [address] Phone #: ext- [phone] 05/26/2020 09:48 Patient: [...] Dispense 45 tablet. Refills: 0.Substitution permitted.Pharmacy - [facility] - [id number] [place] [address] ; [place] [address]. .ondansetron 8 mg disintegrating tablet Take 1 tablet three times a day for 5 days -- Dispense 15 tablet.Refills: 0. Substitution permitted.Pharmacy - [facility] - [id number] [place] [address] ; [place] [address]. . 2 Medication Reconciliation Report [facility] Emergency Department [address] [place] [address] Phone #: ext- [phone] 05/26/2020 09:48 Patient: ZE NORMAN Sex: F : 1985 Age: 35ydicyclomine 10 mg capsule Take 1 capsule four times a day for 10 days -- Dispense 40 capsule.Refills: 0. Substitution permitted.[facility] [address] [facility] ; [place] [address]. . -- ANA Horowitz Name Value Range Interpretation Code Description Data Ni rce(s) Supporting Document(s) ID Date Data Source [id number] 05/26/2020 09:51:00 AM [facility] 1 Medication Administration Record [facility] Emergency Department [address] [place] [address] Phone #: [phone]- [phone] 05/26/2020 09:48 [id number] Sex: F : 1985 Age: 35yWeight: 95.2 kgHeight/Length: 71 inBMI: 29.3ALLERGIES: No Known Drug Allergy Date/Time Medication Administered Medication OrderedStart NS [IV] NS IV : Bolus 1000 mL, then 66751:32 05/26/2020 Dose: IV Fluids mL/hrDenice Montoya RN [...] rce(s) Supporting Document(s) ID Date Data Source [id number] 05/26/2020 09:51:00 AM EST [facility] 1 General Instructions [facility] Emergency Department [address] [place] [address] Phone #: ext- [phone] 05/26/2020 09:48 Patient: ZE NORMAN Sex: Gustavo : 1985 Age: 35yEndometriosis involving the uterus.Single follicular left ovarian cyst.INSTRUCTIONSWarnings: Further evaluation is necessary.Your Current Medications: Your current home medications have been reviewed.CONTINUE TAKING THE FOLLOWING MEDICATIONS:Gabapentin Oral.Zofran Oral.Prescription Medications:IBU 800 mg tablet Take 1 tablet three times a day for 15 days -- Dispense 45 tablet. Refills: 0.Substitution permitted.Pharmacy - [facility] [id number] [place] [address] ; [place] [address]. .ondansetron 8 mg disintegrating tablet Take 1 tablet three times a day for 5 days -- Dispense 15 tablet.Refills: 0. Substitution permitted.[facility] - [facility] [employer] [facility] ; [place] [address]. .dicyclomine 10 mg capsule Take 1 capsule four times a day for 10 days -- Dispense 40 capsule.Refills: 0. Substitution permitted.[facility] - [facility] [employer] [facility] ; [place] [address]. .Follow-up:Follow up with your doctor. Reason for referral: evaluation, treatment and refer tpo LOGISTICS TECH for furtherevaluation. Summary of care provided to patient.Understanding of the discharge instructions verbalized by patient. ADDITIONAL INFORMATIONOvarian Cysts 2 General Instructions [facility] Emergency Department [address] [place] [address] Phone #: ext- [phone] 05/26/2020 09:48 Patient: ZE NORMAN Sex: F [...] pain, your healthcare provider may recommend using uxkw-cju-nmorfzs pain medicine. If needed, your provide may [...] grows in size.Follow-up care 3 General Instructions [facility] Emergency Department [address] [place] [address] Phone #: ext- [phone] 05/26/2020 09:48 Patient: [...] Weakness, dizziness, or fainting Abnormal vaginal bleeding [phone] [employer]. [address] [place] [address], [place] [address]. All rights reserved. This information is not [...] have pain during bowel 4 General Instructions [facility] Emergency Department [address] [place] [address] Phone #: ext- [phone] 05/26/2020 09:48 Patient: [...] directed by your provider 5 General Instructions [facility] Emergency Department [address] [place] [address] Phone #: ext- [phone] 05/26/2020 09:48 Patient: [...] can talk with you about infertility testing. 7490-4661 [employer]. [address] [place] [address], [place] [address]. All rights reserved. This information is not intended as asubstitute for professional medical care. Always follow your healthcare professional's instructions. You have been given the following additional information: Ovarian Cyst Endometriosis(Electronically signed by ANA Horowitz 05/26/2020 21:18) Name Value Range Interpretation Code Description Data Ni rce(s) Supporting Document(s) ID Date Data Source [id number] 05/26/2020 09:51:00 AM EST [facility] 1 Clinical Report - Nurses [facility] Emergency Department [address] [place] [address] Phone #: ext- [phone] 05/26/2020 09:48 Patient: [...] She has had moderate left-sided flank pain.Treatment THREAD WINDER AUTOMATIC:Seen within the last 30 days at this [...] Montoya RN. 2 Clinical Report - Nurses [facility] Emergency Department [address] [place] [address] Phone #: ext- [phone] 05/26/2020 09:48 Patient: [...] warm and dry. --10:06 05/26/20 Denice Montoya, EILO.NURSING PROGRESS NOTESPatient gowned. Reassurance given. Two patient identifiers checked. Call light placed in reach. Bedplaced in lowest position. Brakes of bed on. Patient ready for evaluation. --10:03 05/26/20 Denice Montoya,ELIO 10:27 05/26/2020 Zofran ODT (Ondansetron HCl) PO 8 mg given. Allergies verified and confirmed 5 rights. 3 Clinical Report - Nurses [facility] Emergency Department [address] [place] [address] Phone #: ext- [phone] 05/26/2020 09:48 Patient: [...] Patient transported to sonogram by wheelchair with video game repair technician. --10:56 05/26/20 Denice Montoya RN Patient returned from sonogram by wheelchair with video game repair technician. --11:13 05/26/20 Denice Montoya RN 11:13 05/26/20. [...] F. Pain level now 10. --11:56 05/26/20 [facility] Tech1 4 Clinical Report - Nurses [facility] Emergency Department [address] [place] [address] Phone #: ext- [phone] 05/26/2020 09:48 Patient: ZE NORMAN Sex: F : 1985 Age: 35y Condition at departure: stable. No learning barriers present. Discharge instructions provided and reviewed with the patient. Reviewed medication(s) side effects, precautions, dosing and course information. Prescription(s) sent electronically to pharmacy. Reviewed referral to a drawbench operator helper. Patient verbalized understanding. Written instructions provided in Taiwanese. The patient was discharged by the physician housekeeper and laundry assistant. She was discharged home and accompanied by spouse. She left ambulatory and via private vehicle. Spouse driving. --12:00 05/26/20 Denice Montoya, ELIO 11:55 05/26/2020 Site #1 removed upon discharge. Pressure dressing applied. --12:00 05/26/20 Denice Montoya RN.Locked/Released at 05/26/2020 12:02 by Denice Montoya, ELIO Name Value Range Interpretation Code Description Data Ni rce(s) Supporting Document(s) ID Date Data Source [id number] 05/26/2020 09:51:00 AM EST [facility] 1 Clinical Report - Physicians/Mid Levels [facility] Emergency Department [address] [place] [address] Phone #: ext- [phone] 05/26/2020 09:48 Patient: [facility] NOR[id number] Sex: F : 1985 Age: 35y Time [...] of 2 Clinical Report - Physicians/Mid Levels [facility] Emergency Department [address] [place] [address] Phone #: ext- [phone] 05/26/2020 09:48 -- [...] 5.0) 3 Clinical Report - Physicians/Mid Levels [facility] Emergency Department [address] [place] [address] Phone #: ext- [phone] 05/26/2020 09:48 Patient: [...] Male GFR Interprentation 20-49 yrs >60 mL/min Tqpsaf61-00 yrs >56 mL/min Normal 60-69 yrs >49 mL/min Normal 70-79yrs>42 mL/min Normal 80 and above >35 mL/min Normal Female GFRInterpretation 20-39 yrs >60 mL/min Normal 40-49 yrs >58 mL/minNormal 50-59 yrs >51 mL/min Normal 60-69 yrs >45 mL/min Qbqqjl17- 79 yrs >39 mL/min Normal 80 and above >32 mL/min NormalLipase: (CORBIN: 05/26/2020 10:17) ( [facility] 05/26/2020 11:04) Final results Test Result Flag Units (Reference) LIPASE 68 H U/L (13 - 60)Urinalysis: (CORBIN: 05/26/2020 10:00) ( [facility] 05/26/2020 10:39) Final results Test Result Flag [...] IndicateBeta-HCG, Quant Serum: (CORBIN: 05/26/2020 10:17) ( [facility] 05/26/2020 11:04) Final results Test Result Flag Units (Reference) HCG QUANT <0.5 mIU/mL Interpretation: Less than 5 mU/mL: Negative6-10 mU/mL: Borderline (suggest repeat in 48 hours) >10: PositiveApprox HCG range (mU/mL) Weeks post LMP 5.4-708 mU/mL 3-4 Fzlur683-03020 mU/mL 5-6 Weeks 4059-858027 mU/mL 7-8 Ykjxk61951- 221977 mU/mL 9-10 Weeks 85548-83926 mU/mL 12-14 Weeks 4 Clinical Report - Physicians/Mid Levels [facility] Emergency Department [address] [place] [address] Phone #: ext- [phone] 05/26/2020 09:48 -- Patient: ZE NORMAN Sex: F : 1985 Age: 35y 79164-87115 mU/mL 15-16 Weeks 8240-34440 mU/mL 17-18 Weeks US Pelvis: (CORBIN: 05/26/2020 10:08) ( MsgRcvd 05/26/2020 11:18) In Progress US PELVIC Reason(s): Pelvic Pain TRANSPORTATION: IV? O2? Oxygen?(No) Room: ED.PROGRESS AND PROCEDURESCourse of Care: 11:May 26 2020. Evaluation after observation. (Discussed US results and pt needs tofollow up with LOGISTICS TECH. She is agreeable with dx and tx [...] tablet. Refills: 0. Substitution permitted. Pharmacy - [facility] [employer] [id number] [facility] ; [place] [address]. . ondansetron 8 mg disintegrating tablet Take 1 tablet three times a day for 5 days -- Dispense 15 tablet. Refills: 0. Substitution permitted. Pharmacy - [facility] - [address] [facility] ; [place] [address]. . 5 Clinical Report - Physicians/Mid Levels [facility] Emergency Department [address] [place] [address] Phone #: ext- [phone] 05/26/2020 09:48 Patient: ZE NORMAN Sex: F : 1985 Age: 35y dicyclomine 10 mg capsule Take 1 capsule four times a day for 10 days -- Dispense 40 capsule. Refills: 0. Substitution permitted. Pharmacy - [facility] - [address] [facility] ; [place] [address]. . Follow-up: Follow up with your doctor. Reason for referral: evaluation, treatment and refer tpo LOGISTICS TECH for further evaluation. Summary of care provided to patient. Understanding of the discharge instructions verbalized by patient.(Electronically signed by ANA Horowitz 05/26/2020 21:18) Name Value Range Interpretation Code Description Data Ni rce(s) Supporting Document(s) ID Date Data Source [id number] 05/26/2020 11:03:00 AM EST [facility] Name Value Range Interpretation Code Description Data Ni rce(s) Supporting Document(s) Choriogonadotropin.intact [Units/volume] in Serum or Plasma <0.5 mIU/ mL [facility] Interpr etation: Less than 5 mU/mL: Negative 6-10 mU/mL: Borderline (suggest repeat in 48 hours) >10: Positive Approx HCG range (mU/mL) Weeks post LMP 5.4-708 mU/mL 3-4 Weeks 217-58730 mU/mL 5-6 Weeks 4059-627116 mU/mL 7-8 Weeks 95274-508553 mU/mL 9-10 Weeks 99556-91357 mU/mL 12-14 Weeks 49880-20293 mU/mL 15-16 Weeks 6062- 47209 mU/mL 17-18 Weeks ID Date Data Source [id number] 05/26/2020 11:03:00 AM [facility] Name Value Range Interpretation Code Description Data Ni rce(s) Supporting Document(s) Lipase [Enzymatic activity/volume] in Serum or Plasma 68 U/L 13 - 60 H [facility] ID Date Data Source [id number] 05/26/2020 11:03:00 AM EST [facility] Name Value Range Interpretation Code Description Data Ni rce(s) Supporting Document(s) COMPREHENSIVE METABOLIC PANEL [facility] COMPREHENSIVE METABOLIC PANEL Sodium [Moles/volume] in Serum or Plasma 139 mEq/L 134 - 153 [facility] Potassium [Moles/volume] in Serum or Plasma 3.8 mEq/L 3.6 - 5.0 [facility] Chloride [Moles/volume] in Serum or Plasma 105 mEq/L 98 - 107 [facility] Carbon dioxide, total [Moles/volume] in Serum or Plasma 26 MEQ/L 22 - 30 [facility] Glucose [Mass/volume] in Serum or Plasma 120 MG/DL 65 - 110 H [facility] BUN 11 MG/DL 7 - 21 [facility] Creatinine [Mass/volume] in Serum or Plasma 0.7 MG/DL 0.7 - 1.5 [facility] BUN/CREAT 16 8 - 27 [facility] Protein [Mass/volume] in Serum or Plasma 6.4 G/DL 6.3 - 8.2 [facility] Albumin [Mass/volume] in Serum or Plasma 3.8 G/DL 3.9 - 5.0 L [facility] Globulin [Mass/volume] in Serum by calculation 2.6 GM/DL 2.4 - 3.2 [facility] A/G RATIO 1.5 0.8 - 2.0 [facility] Calcium [Mass/volume] in Serum or Plasma 9.0 MG/DL 8.4 - 10.2 [facility] Bilirubin.total [Mass/volume] in Serum or Plasma <0.7 MG/DL 0.2 - 1.3 [facility] Alkaline phosphatase [Enzymatic activity/volume] in Serum or Plasma 88 U/L 38 - 126 [facility] Aspartate aminotransferase [Enzymatic activity/volume] in Serum or Plasma 15 U/L 5 - 40 [facility] Alanine aminotransferase [Enzymatic activity/volume] in Seru m or Plasma 15 U/L 7 - 56 [facility] Anion gap 3 in Serum or Plasma 8.0 mmol/L 8.0 - 16.0 [facility] AGE 35 yrs [facility] NON-AA GFR >60 mL/min [facility] ital AFR AMER GFR >60 mL/min [facility] Male GFR In terprentation 20-49 [...] >32 mL/min Normal ID Date Data Source [id number] 05/26/2020 10:46:00 AM EST [facility] Name Value Range Interpretation Code Description Data Ni rce(s) Supporting Document(s) CBC W/AUTOMATED DIFF [facility] COMPLETE BLOOD COUNT Leukocytes [#/volume] in Blood by Automated count 4.4 10^3/uL 4.2 - 1 1.0 [facility] Erythrocytes [#/volume] in Blood by Automated count 4.72 10^6/uL 4. 20 - 5.40 [facility] Hemoglobin [Mass/volume] in Blood 10.7 g/dL 12.0 - 16.0 L [facility] Hematocrit [Volume Fraction] of Blood by Automated count 34.7 % 3 7.0 - 47.0 L [facility] Erythrocyte mean corpuscular volume [Entitic volume] by Auto mated count 73.5 fL 81.0 - 101 L [facility] Erythrocyte mean corpuscular hemoglobin [Entitic mass] by Automated count 22.7 pg 27.0 - 34.0 L [facility] Erythrocyte mean corpuscular hemoglobin concentration [Mass/volume] by Automated count 30.8 g/dL 31.0 - 36.0 L [facility] Erythrocyte distribution width [Ratio] by Automated count 17.0 % 11.5 - 14.5 H [facility] Platelets [#/volume] in Blood by Automated count 187 10^3/uL 150 - 45 0 [facility] Platelet mean volume [Entitic volume] in Blood by Automated count 0.0 fL 7.4 - 10.4 L [facility] Neutrophils/100 leukocytes in Blood by Automated count 59.3 % 37. 0 - 80.0 [facility] Lymphocytes/100 leukocytes in Blood by Manual count 30.3 % 25.0 - 40.0 [facility] Monocytes/100 leukocytes in Blood by Automated count 5.2 % 3.0 - 8.0 [facility] Eosinophils/100 leukocytes in Blood by Automated count 3.4 % 0.0 - 7.0 [facility] Basophils/100 leukocytes in Blood by Automated count 1.1 % 0.0 - 2.5 [facility] %IG 0.7 % 0.0 - 0.0 H [facility] %NRBC 0.0 % 0.0 - 0.0 [facility] Neutrophils [#/volume] in Blood by Automated count 2.60 10^3/uL 2.00 - 6.90 [facility] Lymphocytes [#/volume] in Blood by Automated count 1.33 10^3/uL 0.60 - 3.40 [facility] Monocytes [#/volume] in Blood by Automated count 0.23 10^3/uL 0.00 - 0.90 [facility] Eosinophils [#/volume] in Blood by Automated count 0.15 10^3/uL 0.00 - 0.70 [facility] Basophils [#/volume] in Blood by Automated count 0.05 10^3/uL 0.00 - 0.20 [facility] #IG 0.03 10^3/uL 0.00 - 0.10 [facility] #NRBC 0.00 10^3/uL 0.00 - 0.00 [facility] ospital MANUAL DIFF NOT INDICATED [facility] RBC MORPH SEE BELOW [facility] { SICKLE CELL (NORMAL: NONE SEEN ) Platelet adequacy [Presence] in Blood by Light microscopy NORMAL NORMAL: NORMAL [facility] COMMENT: _[id number]_PLATELETS 05/26/20.1046.CLD. . . ___ ID Date Data Source [id number] 05/26/2020 10:38:00 AM EST [facility] Name Value Range Interpretation Code Description Data Ni rce(s) Supporting Document(s) [facility] COLOR yellow NORMAL: Yellow [facility] CLARITY clear NORMAL: Clear [facility] Specific gravity of Urine by Test strip 1.020 1.001 - 1.030 [facility] pH 6 5 - 9 [facility] Glucose [Mass/volume] in Urine by Test strip NORM NORMAL: [facility] Bilirubin.total [Presence] in Urine by Test strip NEG NORMAL: Negative [facility] Ketones [Presence] in Urine by Test strip NEG NORMAL: Negative [facility] Protein [Mass/volume] in Urine by Test strip NEG NORMAL: Negat [facility] Nitrite [Presence] in Urine by Test strip NEG NORMAL: Negative [facility] BLOOD NEG NORMAL: Negative [facility] Leukocyte esterase [Presence] in Urine by Test strip NEG LOLI L: Negative [facility] Urobilinogen [Mass/volume] in Urine by Test strip NOR less emi n 1.0 mg/dL [facility] MICROSCOPIC Not Indicate [facility] ID Date Data Source [id number] 05/23/2020 10:42:00 AM EST [facility] [address] [place] [address] PHONE: [phone] FAX: [phone] Name .................. : МАРИЯ Gonzalez Acct Number.................. : [id number] ROOM. ................. : TR-03 Number ................... : [id number] Stay type ............. : E/R Discharge Date......... ... : 05/20/20 Admit Date ......... : 05/20/20 Admit Phys .................... : KARMA RAMSES Date of ....... : 1985 Family Phys ................... : UNKNOWN Phone .................. : [phone] Age ................................ : 35 Film# .................. .:[id number] Sex ................................. : F Unsigned transcriptions are preliminary reports and do not represent a medical or legal document CT ABD & PELV W/[place] OR[place] W/[place] [address] COMPLETE:05/20/20 19:24 GRECIA 02374 Reason(s): NO CONTRAST: L flank pain. ? [...] dose: 1140.7 mGycm Page 1 of 2 [facility] [address] [place] [address] PHONE: [phone] FAX: [phone] Name .................. : МАРИЯ Gonzalez Acct Number.................. : [id number] ROOM. ................. : TR-03 MR Number ................... : [id number] Stay type ............. : E/R Discharge Date......... ... : 05/20/20 Admit Date ......... : 05/20/20 Admit Phys .................... : KARMA RAMSES Date of ....... : 1985 Family Phys ................... : UNKNOWN Phone .................. : [phone] Age ................................ : 35 Film# .................. .:[id number] Sex ................................. : F Unsigned transcriptions are preliminary reports and do not represent a medical or legal document CT ABD & PELV W/[place] ORAL W/[place] [address] COMPLETE:05/20/20 19:24 GRECIA [id number] Reason(s): NO CONTRAST: L flank pain. ? renal stone Electronically Reviewed and Signed By Titus Rocha M.D. , 05/23/20 10:42, [facility] Transcribe Initials: DZ , Transcribe Date: 05/20/20 22:45, Dictation Date: Copy for: ELIZABETH REARDON via fax Copy for: KARMA Quarles via fax Copy for: EMERGENCY DEPT via [employer] Copy for: 710 MED REC DISCHARGED Page 2 of 2 Name Value Range Interpretation Code Description Data Ni rce(s) Supporting Document(s) ID Date Data Source [id number] 05/20/2020 04:06:00 PM EST [facility] 1 OrderSheet [facility] Emergency Department [address] [place] [address] Phone #: ext- [phone] 05/20/2020 15:54 Patient: [...] 17:45 Leonela P.A.-C; Elizabeth P.A.-C(Oxygen?(No)) 2 OrderSheet [facility] Emergency Department [address] [place] [address] Phone #: ext- [phone] 05/20/2020 15:54 Patient: [...] 4 mg 16:36 05/20/2020 17:19 Bonnie, Rajat FayeN. P.A.-C;Morphine IVP 4 mg 16:36 05/20/2020 17:18 Bonnie,(HIGH ALERT Rajat Mary R.N.MEDICATION) P.A.-C;Tylenol 1 g PO X1 16:36 05/20/2020 17:20 Cano,dose: 1000 mg Rajat Cruz R.N.(NOW x1) P.A.-C;GENERAL ORDERSOrder Description Priority Entered Acknowledged InitialedNPO 16:36 05/20/2020 16:51 Rajat Cano R.N., P.A.-C;Saline Lock 16:36 05/20/2020 16:51 Rajat Cano R.N., P.A.-C;[Electronically signed by Rowena Jung R.N. (19:31 05/20/2020)][Electronically signed by Rajat Johnson P.A.-C (21:49 05/20/2020)] 3 OrderSheet [facility] Emergency Department [address] [place] [address] Phone #: ext- [phone] 05/20/2020 15:54 Patient: ZE NORMAN Sex: F : 1985 Age: 35y[Electronically locked by Rowena Jung R.N. (19:31 05/20/2020)] Name Value Range Interpretation Code Description Data Ni rce(s) Supporting Document(s) ID Date Data Source [id number] 05/20/2020 04:06:00 PM [facility] 1 Medication Reconciliation Report [facility] Emergency Department [address] [place] [address] Phone #: ext- [phone] 05/20/2020 15:54 Patient: ZE NORMAN Sex: F [...] Dispense 12 tablet. Refills: 0.Substitution permitted.Pharmacy - [facility] [id number] ; [place] [address]. .gabapentin 100 mg capsule Take 1 capsule three times a day for 4 days -- Dispense 12 capsule.Refills: 0. Substitution permitted.Pharmacy - [facility] [phone] ; [place] [address]. . -- Rajat Johnson P.A.-C Name Value Range Interpretation Code Description Data Ni rce(s) Supporting Document(s) ID Date Data Source [id number] 05/20/2020 04:06:00 PM EST [facility] 1 Medication Administration Record [facility] Emergency Department [address] [place] [address] Phone #: ext- [phone] 05/20/2020 15:54 Patient: ZE NORMAN Sex: F [...] rce(s) Supporting Document(s) ID Date Data Source [id number] 05/20/2020 04:06:00 PM EST [facility] 1 General Instructions [facility] Emergency Department [address] [place] [address] Phone #: yyw- [phone] 05/20/2020 15:54 Patient: ZE NORMAN Sex: F [...] Dispense 12 tablet. Refills: 0.Substitution permitted.Pharmacy - [facility] [phone] ; [place] [address]. FaxNumber: [phone].gabapentin 100 mg capsule Take 1 capsule three times a day for 4 days -- Dispense 12 capsule.Refills: 0. Substitution permitted.Pharmacy - [facility] [phone] ; [place] [address]. .Follow-up:Return to the emergency department as needed. Follow up with your healthcare provider in about twodays if not better. Call for an appointment.Understanding of the discharge instructions verbalized by patient. ADDITIONAL INFORMATIONUnknown Causes of Abdominal Pain (Female) 2 General Instructions [facility] Emergency Department [address] [place] [address] Phone #: ext- [phone] 05/20/2020 15:54 Patient: [...] for taking these medicines. 3 General Instructions [facility] Emergency Department [address] [place] [address] Phone #: ext- [phone] 05/20/2020 15:54 Patient: [...] begin to improve in thenext 24 hours.Call [phone] if any of these occur: Trouble breathing Confusion Fainting or loss of consciousness Rapid heart rate 4 General Instructions [facility] Emergency Department [address] [place] [address] Phone #: ext- [phone] 05/20/2020 15:54 Patient: [...] or water and you are getting dehydrated [id number] [employer]. [address] [place] [address], [place] [address]. All rights reserved. This information is not intended as asubstitute for professional medical care. Always follow your healthcare professional's instructions. You have been given the following additional information: Abdominal Pain, Unknown Cause, (Female) Do not work for two days.(Electronically signed by Rajat Johnson P.A.-C 05/20/2020 21:49) Name Value Range Interpretation Code Description Data Ni cecilioe(s) Supporting Document(s) ID Date Data Source [id number] 05/20/2020 04:06:00 PM EST [facility] 1 Clinical Report - Nurses [facility] Emergency Department [address] [place] [address] Phone #: ext- [phone] 05/20/2020 15:54 Patient: [...] nausea. Last oral intake by patient was(1230).Treatment THREAD WINDER AUTOMATIC:Took ibuprofen. (2 hrs ago).SEPSIS SCREEN: SIRS Screen [...] SURGERIES:Breast Augmentation.Cholecystectomy.. 2 Clinical Report - Nurses [facility] Emergency Department [address] [place] [address] Phone #: ext- [phone] 05/20/2020 15:54 Patient: [...] 66. RR: 16. O2 saturation: 100%. 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 Tech1 3 Clinical Report - Nurses [facility] Emergency Department [address] [place] [address] Phone #: ext- [phone] 05/20/2020 15:54 Patient: [...] RR: 16. O2 saturation: 100%. --18:08 05/20/20 [facility] Tech, Tamra, Tech1 late entry - 18:17 05/20/20. Patient transported to [place] by wheelchair with tech. --18:32 05/20/20 Nancy Cano R.N. 18:27 05/20/20. Patient returned from [place] by wheelchair with mask and tech. --18:32 [...] Patient verbalized understanding. Written instructions provided in Taiwanese. The patient was discharged 4 Clinical Report - Nurses [facility] Emergency Department [address] [place] [address] Phone #: ext- [phone] 05/20/2020 15:54 Patient: [...] e(s) Supporting Document(s) ID Date Data Source [id number] 05/20/2020 04:06:00 PM EST [facility] 1 Clinical Report - Physicians/Mid Levels [facility] Emergency Department [address] [place] [address] Phone #: ext- [phone] 05/20/2020 15:54 Patient: [...] Medications: 2 Clinical Report - Physicians/Mid Levels [facility] Emergency Department [address] [place] [address] Phone #: ext- [phone] 05/20/2020 15:54 Patient: [...] NEGATIVE (NORMAL: NEGAT { KIT LOT # [id number] ){ KIT EXP DATE 04.15.21 ){ PROCEDURAL CONTROL VALID ) US OB 1ST TRI UP TO 14 WEEKS: (CORBIN: 05/20/2020 17:46) ( MsgRcvd 05/20/2020 18:11) Canceled 3 Clinical Report - Physicians/Mid Levels [facility] Emergency Department [address] [place] [address] Phone #: ext- [phone] 05/20/2020 15:54 Patient: ZE NORMAN Sex: F : 1985 Age: 35yReason(s): L flank/abd painReason(s): L flank/abd painTRANSPORTATION: WC IV? IV?(Yes) O2? Oxygen?(No) Jony Renal: (CORBIN: 05/20/2020 17:46) ( MsgRcvd 05/20/2020 18:11) CanceledReason(s): L flank painReason(s): L flank painTRANSPORTATION: WC IV? O2? Oxygen?(No) Room: [facility]-HCG, Quant Serum: (CORBIN: 05/20/2020 16:40) ( MigRcvd 05/20/2020 18:01) Final results Test Result Flag Units (Reference) HCG QUANT <0.5 mIU/mL Interpretation: Less than 5 mU/mL: Negative6-10 mU/mL: Borderline (suggest repeat in 48 hours) >10: PositiveApprox HCG range (mU/mL) Weeks post LMP 5.4-708 mU/mL 3-4 Jlwjx913-11007 mU/mL 5-6 Weeks 4059-420747 mU/mL 7-8 Jdvcl87532-279293 mU/mL 9-10 Weeks 31708-00253 mU/mL 12-14 Pqciz76136-10624 mU/mL 15-16 Weeks 8240-93851 mU/mL 17-18 WeeksCBC w Diff: (CORBIN: 05/20/2020 [...] . 4 Clinical Report - Physicians/Mid Levels [facility] Emergency Department [address] [place] [address] Phone #: ext- [phone] 05/20/2020 15:54 Patient: ZE NORMAN Sex: F : 1985 Age: 35yCMP: (OCRBIN: 05/20/2020 16:40) ( MsgRcvd 05/20/2020 17:36) Final [...] Male GFR Interprentation 20-49 yrs >60 mL/min Sappmt83-57 yrs >56 mL/min Normal 60-69 yrs >49 mL/min Normal 70-79yrs>42 mL/min Normal 80 and above >35 mL/min Normal Female GFRInterpretation 20-39 yrs >60 mL/min Normal 40-49 yrs >58 mL/minNormal 50-59 yrs >51 mL/min Normal 60-69 yrs >45 mL/min Uhajsy24-94 yrs >39 mL/min Normal 80 and above >32 mL/min NormalLipase: (CORBIN: 05/20/2020 16:40) ( [facility] 05/20/2020 17:36) Final results Test Result Flag Units (Reference) LIPASE 42 U/L (13 - 60)Urinalysis: (CORBIN: 05/20/2020 16:40) ( MigRcvd 05/20/2020 17:21) Final results Test Result Flag [...] Indicate 5 Clinical Report - Physicians/Mid Levels [facility] Emergency Department [address] [place] [address] Phone #: ext- [phone] 05/20/2020 15:54 Patient: ZE NORMAN Sex: F : 1985 Age: 35y Beta-HCG, Qual Serum: (CORBIN: 05/20/2020 16:40) ( MsgRcvd 05/20/2020 17:39) Final results Test Result Flag Units (Reference) HCG SERUM QUAL POSITIVE (NORMAL: NEGAT HCG SERUM QL REENTER POSITIVE (NORMAL: NEGAT { KIT LOT # [id number] ){ KIT EXP DATE 04.15.21 ){ PROCEDURAL [...] or complaints. Pt agrees. pending resutls. 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 No open rx. This report was requested by: Rajat Johnson Reference #: [id number] Others' Prescriptions Patient Name: Ze NormanBirth Date: 1985 6 Clinical Report - Physicians/Mid Levels [facility] Emergency Department [address] [place] [address] Phone #: ext- [phone] 05/20/2020 15:54 Patient: ZE NORMAN Sex: F : 1985 Age: 35y Address: [address] [place], [place] [address]Sex: Female Rx Written Rx Dispensed Drug Quantity Days Supply Prescriber Name Payment Method Dispenser 02/19/2020 03/05/2020 alprazolam 0.5 mg tablet 60 30 [place], [facility] [id number] #[id number] 01/24/2020 01/24/2020 alprazolam 0.5 mg tablet 60 30 Kunwar, [facility] [id number] #[id number] 12/27/2019 12/27/2019 alprazolam 0.5 mg tablet 60 30 Kunwar, [facility] [id number] #[id number] Reviewed results. Enter room and patient lying peacefully in bed in [facility]. Patient stable. Denies any new issues, concerns, [...] or 7 Clinical Report - Physicians/Mid Levels [facility] Emergency Department [address] [place] [address] Phone #: ext- [phone] 05/20/2020 15:54 --- Patient: ZE NORMAN Sex: F : 1985 Age: 35y changes unexpectedly, if not improving as expected, or if other problems arise. Prescription Medications: Zofran 4 mg tablet Take 1 tablet three times a day for 4 days -- Dispense 12 tablet. Refills: 0. Substitution permitted. Pharmacy - [facility] [address] ; [place] [address]. . gabapentin 100 mg capsule Take 1 capsule three times a day for 4 days -- Dispense 12 capsule. Refills: 0. Substitution permitted. [facility] [address] ; [place] [address]. . Follow-up: Return to the emergency department as needed. Follow up with your healthcare provider in about two days if not better. Call for an appointment. Understanding of the discharge instructions verbalized by patient.(Electronically signed by Rajat Johnson P.A.-C 05/20/2020 21:49) Name Value Range Interpretation Code Description Data Ni rce(s) Supporting Document(s) ID Date Data Source [id number] 05/23/2020 01:03:00 PM [facility] Name Value Range Interpretation Code Description Data Ni rce(s) Supporting Document(s) CULTURE URINE [facility] _CULTURE URINE_$$[id number]$$896522$$581468$$580634$$215731$$565270$$746405$$967042$$430465$$ 003096$$512496$$174378$$834003$$979043$$485254$$227788$$450915$$513689$$309938$$ 177995$$917414$$247407$$661058$$253681$$562176$$626746$$431477 -- Continued on next page --Patient: МАРИЯ Gonzalez Order: [id number] Page 2Culture: CULTURE URINE Status: Final ====$$[id number]$$[id number] DATE/TIME: 05/23/2020 06:06Culture: CULTURE URINE Status: FinalUrine Culture,Comprehensive: B3Dcrtx urogenital flora25,000-50,000 colony forming units per mLP1 Test performed by: [facility] #: [id number] [address] [place] [address] [id number] [facility] [address]Owjwubf Director : Benoit Cash MD NPI #:Marketing Education Teacher : 05/23/20.1303.XMT.SENT REF ID Date Data Source [id number] 05/20/2020 06:07:00 PM [facility] Name Value Range Interpretation Code Description Data Ni rce(s) Supporting Document(s) CBC W/AUTOMATED DIFF [facility] COMPLETE BLOOD COUNT Leukocytes [#/volume] in Blood by Automated count 5.9 10^3/uL 4.2 - 1 1.0 [facility] Erythrocytes [#/volume] in Blood by Automated count 4.52 10^6/uL 4. 20 - 5.40 [facility] Hemoglobin [Mass/volume] in Blood 10.4 g/dL 12.0 - 16.0 L [facility] Hematocrit [Volume Fraction] of Blood by Automated count 33.5 % 3 7.0 - 47.0 L [facility] Erythrocyte mean corpuscular volume [Entitic volume] by Auto mated count 74.1 fL 81.0 - 101 L [facility] Erythrocyte mean corpuscular hemoglobin [Entitic mass] by Automated count 23.0 pg 27.0 - 34.0 L [facility] Erythrocyte mean corpuscular hemoglobin concentration [Mass/volume] by Automated count 31.0 g/dL 31.0 - 36.0 [facility] Erythrocyte distribution width [Ratio] by Automated count 16.9 % 11.5 - 14.5 H [facility] Platelets [#/volume] in Blood by Automated count 205 10^3/uL 150 - 45 0 [facility] Neutrophils/100 leukocytes in Blood by Automated count 49.3 % 37. 0 - 80.0 [facility] Lymphocytes/100 leukocytes in Blood by Manual count 38.9 % 25.0 - 40.0 [facility] Monocytes/100 leukocytes in Blood by Automated count 7.0 % 3.0 - 8.0 [facility] Eosinophils/100 leukocytes in Blood by Automated count 3.4 % 0.0 - 7.0 [facility] Basophils/100 leukocytes in Blood by Automated count 1.2 % 0.0 - 2.5 [facility] %IG 0.2 % 0.0 - 0.0 [facility] %NR[facility] 0.0 % 0.0 - 0.0 [facility] Neutrophils [#/volume] in Blood by Automated count 2.91 10^3/uL 2.00 - 6.90 [facility] Lymphocytes [#/volume] in Blood by Automated count 2.29 10^3/uL 0.60 - 3.40 [facility] Monocytes [#/volume] in Blood by Automated count 0.41 10^3/uL 0.00 - 0.90 [facility] Eosinophils [#/volume] in Blood by Automated count 0.20 10^3/uL 0.00 - 0.70 [facility] Basophils [#/volume] in Blood by Automated count 0.07 10^3/uL 0.00 - 0.20 [facility] #IG 0.01 10^3/uL 0.00 - 0.10 [facility] #NRBC 0.00 10^3/uL 0.00 - 0.00 [facility] MANUAL DIFF NOT INDICATED [facility] RBC MORPH SEE BELOW [facility] { SICKLE CELL (NORMAL: NONE SEEN ) Platelet adequacy [Presence] in Blood by Light microscopy NORMAL NORMAL: NORMAL [facility] COMMENT: _RARE_LARGE_PLATELET 05/20/20.180.DW . ID Date Data Source [id number] 05/20/2020 06:02:00 PM EST [facility] Name Value Range Interpretation Code Description Data Ni rce(s) Supporting Document(s) HCG URINE QUAL NEGATIVE NORMAL: NEGATIVE [facility] HCG URINE QL REENTER NEGATIVE NORMAL: NEGATIVE [facility] { KIT LOT # [id number] ){ KIT EXP DATE 04.15.21 ){ PROCEDURAL CONTROL VALID ) ID Date Data Source [id number] 05/20/2020 06:00:00 PM [facility] Name Value Range Interpretation Code Description Data Ni rce(s) Supporting Document(s) Choriogonadotropin.intact [Units/volume] in Serum or Plasma <0.5 mIU/ mL [facility] Interpr etation: Less than 5 mU/mL: Negative 6-10 mU/mL: Borderline (suggest repeat in 48 hours) >10: Positive Approx HCG range (mU/mL) Weeks post LMP 5.4-708 mU/mL 3-4 Weeks 217-17187 mU/mL 5-6 Weeks 4059-680385 mU/mL 7-8 Weeks 01937-224549 mU/mL 9-10 Weeks 53924-69543 mU/mL 12-14 Weeks 08718-66034 mU/mL 15-16 Weeks 8240- 01420 mU/mL 17-18 Weeks ID Date Data Source [id number] 05/20/2020 05:38:00 PM [facility] Name Value Range Interpretation Code Description Data Ni rce(s) Supporting Document(s) HCG SERUM QUAL POSITIVE NORMAL: NEGATIVE [facility] HCG SERUM QL REENTER POSITIVE NORMAL: NEGATIVE [facility] { KIT LOT # [id number] ){ KIT EXP DATE 04.15.21 ){ PROCEDURAL CONTROL VALID ) ID Date Data Source [id number] 05/20/2020 05:36:00 PM [facility] Name Value Range Interpretation Code Description Data Ni rce(s) Supporting Document(s) Lipase [Enzymatic activity/volume] in Serum or Plasma 42 U/L 13 - 60 [facility] ID Date Data Source [id number] 05/20/2020 05:36:00 PM [facility] Name Value Range Interpretation Code Description Data Ni rce(s) Supporting Document(s) COMPREHENSIVE METABOLIC PANEL [facility] COMPREHENSIVE METABOLIC PANEL Sodium [Moles/volume] in Serum or Plasma 138 mEq/L 134 - 153 [facility] Potassium [Moles/volume] in Serum or Plasma 3.8 mEq/L 3.6 - 5.0 [facility] Chloride [Moles/volume] in Serum or Plasma 105 mEq/L 98 - 107 [facility] Carbon dioxide, total [Moles/volume] in Serum or Plasma 27 MEQ/L 22 - 30 [facility] Glucose [Mass/volume] in Serum or Plasma 83 MG/DL 65 - 110 [facility] BUN 16 MG/DL 7 - 21 [facility] Creatinine [Mass/volume] in Serum or Plasma 0.8 MG/DL 0.7 - 1.5 [facility] BUN/CREAT 20 8 - 27 [facility] Protein [Mass/volume] in Serum or Plasma 6.6 G/DL 6.3 - 8.2 [facility] Albumin [Mass/volume] in Serum or Plasma 3.9 G/DL 3.9 - 5.0 [facility] Globulin [Mass/volume] in Serum by calculation 2.7 GM/DL 2.4 - 3.2 [facility] A/G RATIO 1.4 0.8 - 2.0 [facility] Calcium [Mass/volume] in Serum or Plasma 9.1 MG/DL 8.4 - 10.2 [facility] Bilirubin.total [Mass/volume] in Serum or Plasma <0.7 MG/DL 0.2 - 1.3 [facility] Alkaline phosphatase [Enzymatic activity/volume] in Serum or Plasma 96 U/L 38 - 126 [facility] Aspartate aminotransferase [Enzymatic activity/volume] in Serum or Plasma 19 U/L 5 - 40 [facility] Alanine aminotransferase [Enzymatic activity/volume] in Seru m or Plasma 16 U/L 7 - 56 [facility] Anion gap 3 in Serum or Plasma 6.0 mmol/L 8.0 - 16.0 L [facility] AGE 35 yrs [facility] NON-AA GFR >60 mL/min [facility] ital AFR AMER GFR >60 mL/min [facility] Male GFR In terprentation 20-49 [...] >32 mL/min Normal ID Date Data Source [id number] 05/20/2020 05:21:00 PM EST [facility] Name Value Range Interpretation Code Description Data Ni rce(s) Supporting Document(s) URINALYSIS [facility] mono URINALYSIS SOURCE Clean Catch [facility] COLOR yellow NORMAL: Yellow [facility] CLARITY clear NORMAL: Clear [facility] Specific gravity of Urine by Test strip 1.010 1.001 - 1.030 [facility] pH 6.5 5 - 9 [facility] Glucose [Mass/volume] in Urine by Test strip NORM NORMAL: Negat [facility] Bilirubin.total [Presence] in Urine by Test strip NEG NORMAL: Negative [facility] Ketones [Presence] in Urine by Test strip NEG NORMAL: Negative [facility] Protein [Mass/volume] in Urine by Test strip NEG NORMAL: Negat [facility] Nitrite [Presence] in Urine by Test strip NEG NORMAL: Negative [facility] BLOOD NEG NORMAL: Negative [facility] Leukocyte esterase [Presence] in Urine by Test strip NEG LOLI L: Negative [facility] Urobilinogen [Mass/volume] in Urine by Test strip NOR less emi n 1.0 mg/dL [facility] MICROSCOPIC Not Indicate [facility] ID Date Data Source [id number] 04/01/2020 12:00:00 PM EDT [facility] Name Value Range Interpretation Code Description Data [facility] Supporting Document(s) SARS coronavirus 2 RNA [facility] This lab was ordered by [facility] and reported by [facility]. ID Date Data Source [id number] 02/13/2020 10:17:00 AM EDT [facility] [address] [place] [address] PHONE: [phone] FAX: [phone] Name .................. : МАРИЯ Gonzalez Acct Number.................. : [id number] ROOM. ................. : TR-1A MR Number ................... : [id number] Stay type ............. : E/R Discharge Date......... ... : 02/12/20 Admit Date ......... : 02/12/20 Admit Phys .................... : KARMA RAMSES Date of ....... : 1985 Family Phys ................... : NO PCP Phone .................. : [phone] Age ................................ : 34 Film# .................. .:[id number] Sex ................................. : F Unsigned transcriptions are preliminary reports and do not represent a medical or legal document US EXT-NON VASCULAR LT COMPL [id number] COMPLETE:02/12/20 11:38 [facility] [id number] Reason(s): L wrsit pain; ? ganglion SONOGRAM [...] By MITCH LAWRENCE MD , 02/13/20 10:17, [facility] Transcribe Initials: SSR, Transcribe Date: 02/12/20 14:35, Dictation Date: Copy for: ELIZABETH REARDON via fax Copy for: KARMA GUSTAVO Willam via fax Copy for: EMERGENCY DEPT via modem Copy for: 710 MED REC DISCHARGED Page 1 of 1 Name Value Range Interpretation Code Description Data Ni rce(s) Supporting Document(s) ID Date Data Source [id number] 02/13/2020 10:17:00 AM EDT [facility] [address] [place] [address] PHONE: [phone] FAX: [phone] Name .................. : МАРИЯ Gonzalez Acct Number.................. : [id number] ROOM. ................. : -1A MR Number ................... : [id number] Stay type ............. : E/R Discharge Date......... ... : 02/12/20 Admit Date ......... : 02/12/20 Admit Phys .................... : KARMA RAMSES Date of ....... : 1985 Family Phys ................... : NO PCP Phone .................. : [phone] Age ................................ : 34 Film# .................. .:[id number] Sex ................................. : F Unsigned transcriptions are preliminary reports and do not represent a medical or legal document SPINE CERV COMP-5 OR MORE JEIMY 51464 COMPLETE:02/12/20 11:43 [facility] 60170 Reason(s): Upper Ext Pain/Numbness CERVICAL SPINE, 02/12/20: [...] By MITCH LAWRENCE MD , 02/13/20 10:17, [facility] Transcribe Initials: [facility], Transcribe Date: 02/12/20 14:34, Dictation Date: Copy for: ELIZABETH REARDON via fax Copy for: KARMA Quarles via fax Copy for: EMERGENCY DEPT via [facility] Copy for: 710 MED REC DISCHARGED Page 1 of 1 Name Value Range Interpretation Code Description Data Ni rce(s) Supporting Document(s) ID Date Data Source [id number] 02/12/2020 10:08:00 AM EDT [facility] 1 OrderSheet [facility] Emergency Department [address] [place] [address] Phone #: ext- [phone] 02/12/2020 09:58 Patient: ZE NORMAN Sex: F [...] Priority Entered Acknowledged Initialed[Electronically signed by Denice oMntoya RN (18:48 02/12/2020)][Electronically signed by Rajat Johnson P.A.-C (20:56 02/12/2020)][Electronically locked by Denice Montoya RN (18:48 02/12/2020)] Name Value Range Interpretation Code Description Data Ni rce(s) Supporting Document(s) ID Date Data Source [id number] 02/12/2020 10:08:00 AM EDT [facility] 1 Medication Reconciliation Report [facility] Emergency Department [address] [place] [address] Phone #: ext- [phone] 02/12/2020 09:58 Patient: ZE NORMAN Sex: F [...] Dispense 9 tablet. Refills: 0.Substitution permitted.Pharmacy - [address] ; [place] [address]. FaxNu mber: .gabapentin 100 mg capsule Take 1 capsule three times a day for 4 days -- Dispense 12 capsule.Refills: 0. Substitution permitted.Pharmacy - [facility] ; [place] [address]. .prednisone 50 mg tablet Take 1 tablet once a day with meals for 5 days -- Dispense 5 tablet. Refills: 0.Substitution permitted.Pharmacy - [facility] - [address] [facility] ; [place] [address]. . -- Rajat Johnson P.A.-C Name Value Range Interpretation Code Description Data Ni rce(s) Supporting Document(s) ID Date Data Source [id number] 02/12/2020 10:08:00 AM EDT [facility] 1 Medication Administration Record [facility] Emergency Department [address] [place] [address] Phone #: ext- [phone] 02/12/2020 09:58 Patient: ZE NORMAN Sex: F [...] rce(s) Supporting Document(s) ID Date Data Source [id number] 02/12/2020 10:08:00 AM EDT [facility] 1 General Instructions [facility] Emergency Department [address] [place] [address] Phone #: ext- [phone] 02/12/2020 09:58 Patient: [...] days -- Dispense 9 tablet. Refills: 0.Substitution permitted.[facility] - [address] ; [place] [address]. .gabapentin 100 mg capsule Take 1 capsule three times a day for 4 days -- Dispense 12 capsule.Refills: 0. Substitution permitted.[facility] - [facility] [id number] [place] [address] ; [place] [address]. .prednisone 50 mg tablet Take 1 tablet once a day with meals for 5 days -- Dispense 5 tablet. Refills: 0.Substitution permitted.[facility] - [address] ; [place] [address]. .Follow-up:Return to the emergency department as needed. Follow up with your healthcare provider in about twodays if not better. Call for an appointment. 2 General Instructions [facility] Emergency Department [address] [place] [address] Phone #: ext- [phone] 02/12/2020 09:58 Patient: ZE NORMAN Sex: F [...] when you are asleep. 3 General Instructions [facility] Emergency Department [address] [place] [address] Phone #: ext- [phone] 02/12/2020 09: 58 [...] bent back when typing. You may use zwwg-bql-wgebshc pain medicine to treat pain and inflammation, [...] with the above treatment 4 General Instructions [facility] Emergency Department [address] [place] [address] Phone #: ext- [phone] 10/2019 09:58 Patient: ZE NORMAN Sex: F : 1985 Age: 34y Fingers or hand become cold, blue, numb, or tingly Your whole arm becomes swollen or weak [id number] [place]. [address] [place] [address]. All rights reserved. This information is not intended as asubstitute for professional medical care. Always follow your healthcare professional's instructions. You have been given the following additional information: Carpal Tunnel Syndrome(Electronically signed by Rajat Johnson P.A.-C 02/12/2020 20:56) Name Value Range Interpretation Code Description Data Ni rce(s) Supporting Document(s) ID Date Data Source [id number] 02/12/2020 10:08:00 AM EDT [facility] 1 Clinical Report - Nurses [facility] Emergency Department [address] [place] [address] Phone #: ext- [phone] 02/12/2020 09:58 Patient: [...] had no swelling or redness. No fever.Treatment [employer]:Took ibuprofen. --10:04 02/12/20 Tyra Nicole R.N.10:06 02/12/20. BP: 132/70. MAP: 90. HR: 78. RR: 16. O2 saturation: 100%. Temp: 98.2 F. Pain levelnow: 02/17. --10:07 02/12/20 Larry Nicole R.N.Weight: 95.2 kg stated. Height/Length: 71 inches Per Patient. BMI: 29.3. --10:02 02/12/20 Tyra Nicole R.N.MedicationsNone. None. --10:08 02/12/20 Tyra Nicole R.N.AllergiesNo Known Drug Allergy. --10:08 02/12/20 Tyra Nicole R.N.PROBLEMS:Carpal Tunnel Syndrome.Abdominal Pain.Insomnia.Infertility. --18:47 02/12/20 Denice Montoya RN.Medication/allergy information source: the patient. --10:04 02/12/20 Tyra Nicole R.N.Medication/allergy information source: the patient. --10:09 02/12/20 Tyra Nicole R.N.ADDITIONAL SURGERIES:Breast Augmentation.Cholecystectomy.. 2 Clinical Report - Nurses [facility] Emergency Department [address] [place] [address] Phone #: ext- [phone] 02/12/2020 09:58 [id number] Sex: F : 1985 Age: 34y Laparoscopy. [...] Patient transported to radiology by wheelchair with video game repair technician. --11:20 02/12/20 Denice Montoya RN 11:30 02/12/2020 Tylenol (APAP) PO 1000 mg given. Allergies verified and confirmed 5 rights. Information reviewed with patient including reason for taking this medication. Verbalizes understanding. --:30 3 Clinical Report - Nurses [facility] Emergency Department [address] [place] [address] Phone #: ext- [phone] 02/12/2020 09:58 Patient: ZE NORMAN Sex: F : 1985 Age: 34y 02/12/20 Denice Montoya RN 11:30 02/12/2020 Ativan (LORazepam) PO 1 mg given. Allergies verified and confirmed 5 rights. Information reviewed with patient including reason for taking this medication and sedative warning. Verbalizes understanding. --11:30 02/12/20 Denice Montoya, ELIO Patient walked back from sonogram with video game repair technician. --11:31 02/12/20 Denice Montoya, ELIO 12:00 02/12/2020 [...] Patient verbalized understanding. Written instructions provided in Taiwanese. The patient was discharged by the physician housekeeper and laundry assistant. She was discharged home and accompanied by family. She left ambulatory and via private vehicle. Family member driving. --12:19 02/12/20 Denice Montoya RN 12:19 02/12/20. Pain level now: 12/18. --12:19 02/12/20 Denice Montoya RN.Locked/Released at 02/12/2020 18:48 by Denice Montoya RN Name Value Range Interpretation Code Description Data Ni rce(s) Supporting Document(s) ID Date Data Source [id number] 02/12/2020 10:08:00 AM EDT [facility] 1 Clinical Report - Physicians/Mid Levels [facility] Emergency Department [address] [place] [address] Phone #: ext- [phone] 02/12/2020 09:58 Patient: [...] Cholecystectomy. . 2 Clinical Report - Physicians/Mid [facility] Emergency Department [address] [place] [address] Phone #: ext- [phone] 02/12/2020 09:58 Patient: ZE NORMAN Sex: F [...] swelling, 3 Clinical Report - Physicians/Mid Levels [facility] Emergency Department [address] [place] [address] Phone #: ext- [phone] 02/12/2020 09:58 -------- Patient: ZE NORMAN Sex: [...] documentation. 4 Clinical Report - Physicians/Mid Levels [facility] Emergency Department [address] [place] [address] Phone #: ext- [phone] 02/12/2020 09:58 Patient: ZE NORMAN Sex: F [...] or 5 Clinical Report - Physicians/Mid Levels [facility] Emergency Department [address] [place] [address] Phone #: ext- [phone] 02/12/2020 09:58 [facility]: [id number] Sex: F : 1985 Age: 34y changes unexpectedly, if not improving as expected, or if other problems arise. Your Current Medications: . No home medication. No home medication. Prescription Medications: cyclobenzaprine 10 mg tablet Take 1 tablet three times a day for 3 days -- Dispense 9 tablet. Refills: 0. Substitution permitted. Pharmacy - [facility] [employer] [facility] ; [place] [address]. . gabapentin 100 mg capsule Take 1 capsule three times a day for 4 days -- Dispense 12 capsule. Refills: 0. Substitution permitted. [facility] - [facility] [employer] [address] [facility] ; [place] [address]. . prednisone 50 mg tablet Take 1 tablet once a day with meals for 5 days -- Dispense 5 tablet. Refills: 0. Substitution permitted. Pharmacy - [facility] [employer] [facility] ; [place] [address]. . Follow-up: Return to the emergency department as needed. Follow up with your healthcare provider in about two days if not better. Call for an appoi ntment. Understanding of the discharge instructions verbalized by patient.(Electronically signed by Rajat Johnson P.A.-C 02/12/2020 20:56) Name Value Range Interpretation Code Description Data Ni rce(s) Supporting Document(s) ID Date Data Source [id number] 02/11/2020 08:53:00 AM EDT [facility] [address] [place] [address] PHONE: [phone] FAX: [phone] Name .................. : МАРИЯ GARVEY Renée Acct Number.................. : [id number] ROOM. ................. : -1B MR Number ................... : [id number] Stay type ............. : E/R Discharge Date......... ... : 02/09/20 Admit Date ......... : 02/09/20 Admit Phys .................... : LOLA KURTZ Date of ....... : 1985 Family Phys ................... : UNKNOWN Phone .................. : [phone] Age ................................ : 34 Film# .................. .:[id number] Sex ................................. : F Unsigned transcriptions are preliminary reports and do not represent a medical or legal document [place] [id number] COMPLETE:02/09/20 02:57 RLB [id number] [place] son(s): Wrist Pain LEFT WRIST X-RAY: 4-VIEWS [...] rce(s) Supporting Document(s) ID Date Data Source [id number] 02/09/2020 12:09:00 AM EDT [facility] 1 OrderSheet [facility] Emergency Department [address] [place] [address] Phone #: ext- [phone] 02/09/2020 00:03 Patient: ZE NORMAN Sex: F : 1985 Age: 34yWEIGHT:95.2 kg (S) HEIGHT:71 inches (S) BMI:29.3ALLERGIES: No Known Drug AllergyCHIEF COMPLAINT: painDIAGNOSIS: Carpal tunnel syndromeLAB ORDERSOrder Description Priority Entered Acknowledged InitialedDIAGNOSTIC STUDY ORDERSOrder Description Priority Entered Acknowledged InitialedWrist Complete Left STAT 01:25 02/09/2020 01:29 , October(Oxygen?(No)) Hannah Davila R.N., M.D.; Reason for Study: Wrist PainMEDICATION/IV/DRIP/FLUID [...] rce(s) Supporting Document(s) ID Date Data Source [id number] 02/09/2020 12:09:00 AM EDT [facility] 1 Medication Reconciliation Report [facility] Emergency Department [address] [place] [address] Phone #: ext- [phone] 02/09/2020 00:03 Patient: [...] rce(s) Supporting Document(s) ID Date Data Source [id number] 02/09/2020 12:09:00 AM EDT [facility] 1 Medication Administration Record [facility] Emergency Department [address] [place] [address] Phone #: tqc- [phone] 02/09/2020 00:03 Patient: ZE NORMAN Sex: F : 1985 Age: 34yWeight: 95.2 kgHeight/Length: 71 inBMI: 29.3ALLERGIES: No Known Drug Allergy Date/Time Medication Administered Medication OrderedGiven DILAUDID [IM] (HYDROMORPHONE Dilaudid IM 1 mg (HIGH ALERT01:37 02/09/2020 HCL) MEDICATION)India Kathie, R.N. Dose: 1 mg IM Name Value Range Interpretation Code Description Data Ni rce(s) Supporting Document(s) ID Date Data Source [id number] 02/09/2020 12:09:00 AM EDT [facility] 1 General Instructions [facility] Emergency Department [address] [place] [address] Phone #: ext- [phone] 02/09/2020 00:03 Patient: [...] to plan of care.Follow-up with: [facility], , , [address] [place] [address], [facility] Follow up in two days even if well. Call for an appointment. Reason for referral: evaluation and treatment.Summary of care provided to patient via paper. ADDITIONAL INFORMATIONCarpal Tunnel Syndrome 2 General Instructions [facility] Emergency Department [address] [place] [address] Phone #: ext- [phone] 02/09/2020 00:03 Patient: ZE NORMAN [facility]#: [id number] Sex: F : 1985 Age: 34yCarpal tunnel [...] tools with strong vibrations. 3 General Instructions [facility] Emergency Department [address] [place] [address] Phone #: ext- [phone] 02/09/2020 00:03 Patient: [...] bent back when typing. You may use [id number] pain medicine to treat pain and inflammation, [...] Your whole arm becomes swollen or weak [id number] [employer]. [address] [place] [address], [place] [address]. All rights reserved. This information is not intended as asubstitute for professional medical care. Always follow your healthcare professional's instructions. You have been given the following additional information: 4 General Instructions [facility] Emergency Department [address] [place] [address] Phone #: ext- [phone] 02/09/2020 00:03 Patient: ZE NORMAN Sex: F : 1985 Age: 34yCarpal Tunnel Syndrome(Electronically signed by Hannah Davila M.D. 02/09/2020 02:34) Name Value Range Interpretation Code Description Data Ni rce(s) Supporting Document(s) ID Date Data Source [id number] 02/09/2020 12:09:00 AM EDT [facility] 1 Clinical Report - Nurses [facility] Emergency Department [address] [place] [address] Phone #: ext- [phone] 02/09/2020 00:03 Patient: [...] 29.3. --00:02 02/09/20 [place] October RJocelinN.MedicationsNone. --00:02/09/20 [facility] October RJocelinN.AllergiesNo Known Drug Allergy. --00:02/09/20 Brunilda [...] to the 2 Clinical Report - Nurses [facility] Emergency Department [address] [place] [address] Phone #: ext- [phone] 02/09/2020 00:03 [id number] Sex: F : 1985 Age: 34y question(s) [...] dry. Normal skin turgor. --00:25 02/09/20 Kathie Obsorne RJocelinN.NURSING PROGRESS NOTESPatient gowned. Head of bed elevated. Reassurance given. Two patient identifiers checked. Side railsup x 1. Bed placed in lowest position. Brakes of bed on. P atient ready for evaluation- ED physiciannotified. --00:02/09/20 Kathie Osborne REvelina ( no acute neuro deficits noted. pt c/o left wrist pain with palpation.). --00:09 02/09/20 [place], KathiePat. Patient walked to radiology with video game repair technician. --01:29 02/09/20 Brunilda OctoberPat. Patient walked back from radiology with video game repair technician. --01:34 02/09/20 Brunilda OctoberAdolph 01:37 02/09/2020 Dilaudid (HYDROmorphone HCl) IM 1 mg given. Given in the right deltoid. Allergies 3 Clinical Report - Nurses [facility] Emergency Department [address] [place] [address] Phone #: ext- [phone] 02/09/2020 00:03 Patient: [...] Patient verbalized understanding. Written instructions provided in Taiwanese. The patient was discharged by the physician. [...] rce(s) Supporting Document(s) ID Date Data Source [id number] 02/09/2020 12:09:00 AM EDT [facility] 1 Clinical Report - Physicians/Mid Levels [facility] Emergency Department [address] [place] [address] Phone #: ext- [phone] 02/09/2020 00:03 Patient: [...] use. 2 Clinical Report - Physicians/Mid Levels [facility] Emergency Department [address] [place] [address] Phone #: ext- [phone] 02/09/2020 00:03 Patient: ZE NORMAN Sex: F [...] was requested by: Hannah Davila Reference #: [id number] Others' Prescriptions Patient Name: Ze NormanBirth Date: 1985 Address: [address] [place], [place] [address]Sex: Female Rx Written Rx Dispensed Drug Quantity Days Supply Prescriber Name Payment Method Dispenser 01/24/2020 01/24/2020 alprazolam 0.5 mg tablet 60 [facility] [employer] [facility] 3 Clinical Report - Physicians/Mid Levels [facility] Emergency Department [address] [place] [address] Phone #: ext- [phone] 02/09/2020 00:03 Patient: [id number] Sex: F : 1985 Age: 34y 9 #[id number] 12/27/2019 12/27/2019 alprazolam 0.5 mg tablet 60 30 [facility] [place] [employer] [facility] 2 #[id number] * - Drugs marked with an asterisk [...] Follow-up: 4 Clinical Report - Physicians/Mid Levels [facility] Emergency Department [address] [place] [address] Phone #: ext- [phone] 02/09/2020 00:03 Patient: ZE NORMAN Sex: F [...] plan of care. Follow-up with: [facility], , , [address] [address], , [place], [address] Follow up in two days even if well. Call for an appointment. Reason for referral: evaluation and treatment. Summary of care pro vided to patient via paper.(Electronically signed by Hannah Davila M.D. 02/09/2020 02:34) Name Value Range Interpretation Code Description Data Ni rce(s) Supporting Document(s) ID Date Data Source [id number] 10/11/2019 07:45:00 AM EDT [facility] Name Value Range Interpretation Code Description Data Ni rce(s) Supporting Document(s) SARS CORONAVIRUS 2 RNA [facility] This lab was ordered by [facility] and reported by [facility]. Procedure Vital Signs ID Date Data Source UNK Name Value Range Interpretation Code Description Data Source(s) Body surface area Derived from formula 2.23 m2 2.23 m2 [facility] ([facility]) Body weight 103.421 kg 103.421 kg [facility] ([facility]) [place] body weight 155 [lb_av] 155 [lb_av] [facility] Body mass index (BMI) [Ratio] 31.8 kg/m2 31.8 k g/m2 [facility] ([facility]) Body weight 228.00 [lb_av] 228.00 [lb_av] [facility] Body height 71 [in_i] 71 [in_i] [facility] ([facility]) 5'11" Body temperature 98.1 [degF] 98.1 [degF] [facility] ([facility]) Body temperature 98.2 [degF] 98.2 [degF] [facility] ([facility]) Body weight 102.967 kg 102.967 kg [facility] ([facility]) [place] body weight 155 [lb_av] 155 [lb_av] [facility] ([facility]) Body mass index (BMI) [Ratio] 31.7 kg/m2 31.7 k g/m2 [facility] ([facility]) Body weight 227.00 [lb_av] 227.00 [lb_av] [facility] ([facility]) Body height 71 [in_i] 71 [in_i] [facility] 5'11" Body temperature 98.1 [degF] 98.1 [degF] [facility] ([facility]) Respiratory rate 16 /min 16 /min [facility] ( [facility]) Heart rate 80 /min 80 /min [facility] ([facility]) Diastolic blood pressure 84 mm[Hg] 84 mm[Hg] [facility] ([facility]) Systolic blood pressure 138 mm[Hg] 138 mm[Hg] [facility] ([facility]) Heart rate 72 /min 72 /min [facility] ([facility]) Diastolic blood pressure 80 mm[Hg] 80 mm[Hg] [facility] ([facility]) Systolic blood pressure 120 mm[Hg] 120 mm[Hg] [facility] Body mass index (BMI) [Ratio] 30.7 kg/m2 30.7 k g/m2 [facility] ([facility]) Body weight 220.00 [lb_av] 220.00 [lb_av] [facility] T ([facility]) Body height 71 [in_i] 71 [in_i] [facility] ([facility]) 5'11"
[2020-08-26] MEDS ORDERED: oxyCODONE 5MG TAB PO PRN (13:45)
[2020-08-26] MEDS ORDERED: HYDROMORPHONE HCL 0.5 MG/ 0.5 ML SYRINGE (J1170 PER 1) IV PRN (13:45)
[2020-08-26] MEDS ORDERED: LR 1,000 ML IV SCH (13:45)
[2020-08-26] MEDS ORDERED: fentaNYL 100 MCG/2 ML INJECTION (J3010) IV PRN (13:45)
[2020-08-26] MEDS ORDERED: oxyCODONE 5MG TAB As Ordered ONE (13:59)
[2020-08-26] MEDS: PERCOCET 5MG/325MG TAB PO PRN (16:07)
[2020-08-26] MEDS: ceFAZolin SOD 1 GM in D5W MINI-BAG PLUS 50 ML IV SCH (17:30)
[2020-08-27] MEDS: ACETAMINOPHEN TAB 650MG DOSE (2X325MG) PO PRN ×2 (01:34→10:00)
[2020-08-27] MEDS: ceFAZolin SOD 1 GM in D5W MINI-BAG PLUS 50 ML IV SCH ×2 (01:34→09:59)
[2020-08-27 02:00] VITALS: BP 143/88
[2020-08-27] MEDS: LR 1,000 ML IV SCH (05:00)
[2020-08-27 06:00] VITALS: BP 130/71
[2020-08-27] MEDS: PERCOCET 5MG/325MG TAB PO PRN ×2 (06:11→11:04)
--- NOTE | 2020-08-27 10:11 | IPNPDOC ---
Subjective General Date Seen: Aug 27, 2020 Subject Chief Complaint/History The patient is a 35-year-old female admitted with a reason for visit of Panniculitis, Separation Of Muscle. Patient is status post extended panniculectomy with rectus muscle plication postop day 1. She is feeling well today, ambulating to the bathroom, tolerating regular diet, urinating without a problem. Pain controlled with Percocet. Current Medications Current Medications Current Medications Medications (Trade) Dose Ordered Sig/Nicholas Route PRN Reason Start Time Stop Time Status Last Admin Dose Admin Acetaminophen (Tylenol Tab) 650 mg Q6H PRN PO MILD PAIN (PS 1-4) 08/26/20 13:15 08/27/20 10:00 Cefazolin Sodium 1 gm/Dextrose 50 ml @ 100 mls/hr Q8H IV 08/26/20 18:00 08/27/20 09:59 Fentanyl Citrate (Sublimaze) 25 mcg Q5MP PRN IV PAIN LEVEL 5-10 08/26/20 13:45 08/26/20 14:45 DC Hydromorphone HCl (Dilaudid) 0.2 mg Q5MP PRN IV PAIN LEVEL 4-7 08/26/20 13:45 08/26/20 14:45 DC Ketorolac Tromethamine (ToRADol) 10 mg Q6HP PRN PO MODERATE PAIN (PS 5-7) 08/26/20 13:15 08/26/20 13:21 DC Lactated Ringer's 1,000 ml @ 75 mls/hr [id number] IV 08/26/20 13:02 08/27/20 05:00 Lactated Ringer's 1,000 ml @ 100 mls/hr Q10H IV 08/26/20 13:45 08/26/20 14:45 DC Ondansetron HCl (ZOFRAN INJection) 4 mg Q4H PRN IV NAUSEA OR VOMITING 08/26/20 13:15 08/26/20 18:17 Ondansetron HCl (ZOFRAN INJection) 4 mg Q4HP PRN IV NAUSEA OR VOMITING 08/26/20 13:45 08/26/20 14:45 DC Oxycodone HCl (Roxicodone, Oxyir) 5 mg ASDIRECTED PRN PO PAIN LEVEL 1-4 08/26/20 13:45 08/26/20 14:45 DC 08/26/20 14:01 Oxycodone/ Acetaminophen (Percocet 5mg/ 325mg Tablet) 2 tab Q4HP PRN PO SEVERE PAIN (PS 8-10) 08/26/20 13:15 08/27/20 06:11 Allergies Coded Allergies: hydrocodone (Verified Adverse Reaction, Mild, VOMITING, 08/19/20) tramadol (Verified Adverse Reaction, Mild, MIGRAINES, 08/19/20) Objective Physical Examination Examination GENERAL APPEARANCE:Patient seen, laying in bed, awake, alert, and oriented. Comfortable, in no acute distress. SKIN: Warm and moist. LUNGS: Clear to auscultation bilaterally. No wheezing appreciated. HEART: No chest wall abnormalities. Regular rate and rhythm with no murmurs appreciated. ABDOMEN: Abdomen is soft, non-tender, non-distended. Incision intact. Umbilicus viable. MADHAV drains with serosanguinous drainage. 45/30cc/24hr each drain. EXTREMITIES: No edema identified. No calf tenderness. Vital Signs Vital Signs Date Time Temp Pulse Resp B/P (MAP) Pulse Ox O2 Delivery O2 Flow Rate FiO2 08/27/20 06:41 18 08/27/20 06:00 98.2 77 130/71 (90) 99 Room Air 08/26/20 13:25 3 I&Os I&O- Last 24 Hours up to 6 AM 08/27/20 05:59 Intake Total 3660 ml Output Total 1805 ml Balance 1855 ml Impression S/p extended panniculectomy with rectus muscle plication. Doing well Stable for discharge Keep drains, monitor daily output. Continue with abdominal binder for edema control Pain control, prescription for Percocet sent to pharmacy F/up plastic surgery. Plan / VTE VTE Prophylaxis Ordered?: Yes CALEB CAMERON DO Aug 27, 2020 10:11
--- NOTE | 2020-08-27 10:15 | ROOPDOC ---
[facility] Report Of Operation Report of Operation DATE OF PROCEDURE: 08/27/20 PREOPERATIVE DIAGNOSIS: Panniculitis POSTOPERATIVE DIAGNOSIS: same FINDINGS: Pannus. Rectus muscle diathesis. Umbilical scar. PROCEDURE: Extended panniculectomy with rectus muscle plication. SURGEON: Dr Cameron ANESTHESIA: General SPECIMENS: Pannus 1602gm ESTIMATED BLOOD LOSS: 100 cc REPLACED: none DRAINS: 10 mm MADHAV x 2 COMPLICATIONS: none POSTOPERATIVE CONDITION: stable Procedure: This is a 35-year-old female status post significant weight loss. Patient has excessive pannus above and mostly below the umbilicus with mons pubis ptosis and rectus muscle diathesis. Patient is scheduled for extended panniculectomy with possible rectus muscle plication. Risks benefits and alternatives discussed with the patient in details. Informed consent confirmed and preoperative holding area. Patient was marked in upright position. As of note, patient has multiple tattoos throughout her abdomen which will be distorted after the operation and patient is given consent for that as well. She was brought into the operating room, placed in supine position, preoperative antibiotics given, sequential stockings placed in the lower calves, and then general anesthesia is induced. Shabazz catheter introduced in the bladder without any difficulties with yellow clear urine present. She was prepped and draped in the usual sterile fashion. Lower abdominal incision made 7 cm above the labial crease along patient's elizabeth ural suprapubic crease. Incision carried out with 10 blade. Careful sharp dissection with electrocautery and PEEK cautery was done until the fascia of rectus muscle is identified. Following the musculoaponeurotic fascial plane superiorly, the abdominal skin and subcutaneous tissue are undermined. Vessels were identified throughout and either cauterized or suture ligated for hemosta sis control. Significant scarring was encountered at the lower mid abdominal area. Infraumbilical flap was divided in the middle to aid the dissection. We continued our dissection until umbilicus was encountered. Rhomboid incision made around the umbilicus and dissection continued until xiphoid process superiorly and costal margins laterally. Rectus muscle evaluated and diathesis was identified 8 cm width at midline. Rectus muscle was plicated with 0 Vicryl sutures in interrupted fashion, followed by #1 PDS running locked suture. Wound is irrigated with bacitracin and normal saline irrigation. Exparel block given into rectus muscle total 16 mL. Patient placed on placed in the reflex position and excess tissue which consists off abdominal skin and subcutaneous tissue was measured and resected using electrocautery. Total weight of the pannus 1602 g. Careful hemostasis was assured. The flap was realigned and tacked with clamps. Was started closure with deep sutures of 0 Vicryl along the midline to creating the midline groove in minimizing to space. The mons pubis was realigned. We continued closing the lower abdominal incision with 0 Vicryl sutures and 3-0 Monocryl sutures, than 3 mL Monocryl V lock suture used for subcutaneous closure. Two10 mm Frank-Estrada drains were placed through lower abdominal incision. New opening was created for the umbilical stump using electrocautery. Umbilicus has excessive scar on superior part which was debulked. No hernia identified. The umbilicus was brought into view and sutured in place with interrupted 3-Monocryl sutures and 5-0 plain gut sutures in the interrupted fashion. Remaining Exparel was given into the lower abdominal incision and the drain area. Prinio dressing applied to lower abdominal incision, Xeroform to u mbilicus, and bulky dressing throughout. Abdominal binder applied. Patient extubated in the operating room without any difficulties and transferred to recovery room in stable condition. CALEB CAMERON DO Aug 27, 2020 10:15
[2020-08-27] MEDS ORDERED: PERCOCET PO (10:30)
== END 2020-08-27 11:45 | disposition home or self-care (01) ==
LOC: M SDC 07:26 → M ED INP 07:27 → M MS5PR 14:30
PROVIDERS: ADMIT Plastic Surgery Surgery of the Hand; ATTEND Plastic Surgery Surgery of the Hand
DX: M79.3 Panniculitis, unspecified (principal); M62.08 Separation of muscle (nontraumatic), other site; D64.9 Anemia, unspecified; Z79.899 Other long term (current) drug therapy
CPT/HCPCS: 15830; 15847; 81025; 88300; 96365; 96366; 96375; C9290; J0131; J0690; J1100; J1170; J1644; J2250; J2405; J2765; J3010

== ENCOUNTER 2020-08-29 22:46 | Emergency (ER) | payer OTHER ==
[~2020-08-29] VITALS: Ht 180.3 cm; Wt 98.6 kg
[~2020-08-29 22:46] MED LIST changes: -HEPARIN SOD (PORCINE) 5000UNITS/ML 1ML VIAL/SYRINGE SQ ONE; -LR 1,000 ML IV ONE; +PERCOCET PO; -ceFAZolin SOD 2 GM in IV 1 EA IV ONE
--- OUTSIDE RECORDS SUMMARY | 2020-08-29 22:53 | CCD ---
Author Author [facility] Organization [facility] Address Unknown Phone Unavailable Care Team Providers Care Skiver Blockers Name Role Phone NISHA, E CALEB DO [...] is protected by Article 27-F of the [facility] Public Health law. If you continue you may have access to information: Regarding HIV / AIDS; Provided by facilities licensed or operated by the [facility] Office of Mental Health; or Provided by the [facility] Office for People With Developmental Disabilities. If such information is present, then the following [facility] mandated warning applies: This information has [...] law may result in a fine or prison sentence or both. A general authorization for the release of medical or other information is NOT sufficient authorization for further disc losure. Allergies and Adverse Reactions Type Description Substance Reaction Status Data Source(s ) No Known Drug Allergies No Known Drug Allergies [facility] Family History Family Member Name Family Member Gender Family Member Status Date o f Status Description Data Source(s) Unknown Male Problem [facility] ([facility] Unknown Male Problem [facility] ([facility]) Encounters Encounter Providers Location Date Indications Data Source(s ) Emergency Attender: LOLI FORREST MDConsultant: HAKAN MAY NOWAllan 08/21/2020 10:33:00 PM EST - 08/22/2020 12:29:00 AM [facility] Patient discharged. Emergency Attender: HANNAH DAVILAConsultant: HAKAN MAY NOWAllan 08/11/2020 09:29:00 PM EST - 08/11/2020 10:40:00 PM [facility] Patient discharged. Emergency Attender: HANNAH DAVILA 2019 09:51:00 AM EST - 05/26/2020 12:00:00 PM [facility] Patient discharged. Emergency Attender: Gustavo Parada PA-C 04/2020 04:06:00 PM EST - 05/20/2020 07:31:00 PM [facility] Patient discharged. Outpatient Attender: CALEB Doherty/Agnes/Theron/Royer gonzalez 05/05/2020 09:15:00 AM EDT [facility] ([facility]) Emergency Attender: Gustavo Dolanant: PCP NO 02/12/2020 10:08:00 AM EDT - 02/12/2020 12:20:00 PM EDT [facility] ital Patient discharged. Emergency Attender: HANNAH DAVILA 2019 12:09:00 AM EDT - 02/09/2020 02:06:00 AM EDT [facility] Patient discharged. Outpatient 10/29/2019 05:30:00 AM EDT [facility] Outpatient 08/07/2019 01:55:00 PM EST [facility] Outpatient 08/07/2019 01:53:00 PM EST [facility] Medications Medication Brand Name Start Date Product Form Dose Route Admi nistrative Instructions Pharmacy Instructions Status Indications Reaction Description Data Source(s) 8 HR Acetaminophen 650 MG Extended Release Oral Tablet [Tyle nol] Tylenol 8 Hour 02/27/2020 12:00:00 AM EDT active [facility] ([facility]) Insurance Providers Payer name Policy type / Coverage type Policy ID Covered constitution party ID Covered constitution party's relationship to martinez Policy Martinez Plan Information [place]AST HUMANA [id number] [id number] [facility] HUMANA [id number] HU2 [id number] EAST HUMANA - O/P [id number] 01 [id number] SELF PAY ONLY [id number] SP [id number] HUMANA EAST REG O [id number] S [id number] SELF PAY O [id number] S [id number] U [id number] Self [id number] ANSI-Not a Secondary Insurance [id number] EAST HUMANA [id number] HU2 [id number] [facility] Commercial [id number] Family Dependent [id number] U [id number] Self [id number] FOR LIFE U [id number] Self [id number] [facility] [id number] HU2 [id number] HUMANA EAST REG O [id number] P [id number] N REGIONAL CLAIMS MITZI -O/P [id number] 19 [id number] PGBA [facility] [id number] [facility] [id number] [facility] [place] [id number] 18 [id number] [facility] Commercial [id number] Self [id number] Problems, Conditions, and Diagnoses Code Display Name Description Problem Type Effective Dates Data Source(s) 28048921 Carpal tunnel syndrome Carpal tunnel syndrome Problem 02/27/2020 12:00:00 AM EDT [facility] ) [id number] Hand pain Hand pain Problem 02/27/2020 12:00:00 AM ED T [facility] ([facility]) [id number] Numbness of hand Numbness of hand Problem 02/27/2020 12 :00:00 AM EDT [facility] ([facility] R519 Headache, unspecified Headache, unspecified Diagnosis 08/21/2020 10:33:00 PM [facility] Z85481 Pain in left shoulder Pain in left shoulder Diagnosis 08/11/2020 09:29:00 PM [facility] M7989 Other specified soft tissue disorders Ot her specified soft tissue disorders Diagnosis 08/11/2020 09:29:00 PM [facility] M08341 Unspecified ovarian cyst, left side Unspecified ovarian cyst, left side Diagnosis 05/26/2020 09:51:00 AM [facility] N800 Endometriosis of uterus Endometriosis of uterus Diagno sis 05/26/2020 09:51:00 AM [facility] R102 Pelvic and perineal pain Pelvic and perineal pain Diag nosis 05/26/2020 09:51:00 AM [facility] R1032 Left lower quadrant pain Left lower quadrant pain Diag nosis 05/20/2020 04:06:00 PM [facility] G5602 Carpal tunnel syndrome, left upper limb Carpal tunnel syndrome, left upper limb Diagnosis 02/12/2020 10:08:00 AM [facility] P29293 Pain in left upper arm Pain in left upper arm Diagnosi s 02/12/2020 10:08:00 AM [facility] F55150 Pain in left lower leg Pain in left lower leg Diagnosi s 02/09/2020 12:09:00 AM [facility] Surgeries/Procedures Procedure Description Date Indications Data Source(s) Needle electromyography, each extremity, with related paraspinal areas, when performed, done with nerve conduction, amplitude and latency/velocity study; complete, five or more muscles studied, innervated by three or more nerves or four or more spinal levels (list separately in addition to the code for primary procedure). 02/28/2020 12:00:00 AM EDT [facility] T ([facility]) Needle electromyography, each extremity, with related paraspinal areas, when performed, done with nerve conduction, amplitude and latency/velocity study; complete, five or more muscles studied, innervated by three or more nerves or four or more spinal levels (list separately in addition to the code for primary procedure). 02/28/2020 12:00:00 AM EDT [facility] ([facility]) Needle Electromyography Non Extremity Done With Nerve Conduc tion 02/28/2020 12:00:00 AM EDT [facility] ([facility]) 54396 Nerve conduction studies 13 or more studies NEW 201202/28/2020 12:00:00 AM EDT [facility] ([facility]) Results ID Date Data Source [id number] 08/21/2020 10:33:00 PM EST [facility] 1 OrderSheet [facility] Emergency Department [address] [place] [address] Phone #: ext- [phone] 08/21/2020 22:26 Patient: [...] rce(s) Supporting Document(s) ID Date Data Source [id number] 08/21/2020 10:33:00 PM [facility] 1 Medication Reconciliation Report [facility] Emergency Department [address] [place] [address] Phone #: ext- [phone] 08/21/2020 22:26 Patient: [...] rce(s) Supporting Document(s) ID Date Data Source [id number] 08/21/2020 10:33:00 PM [facility] 1 Medication Administration Record [facility] Emergency Department [address] [place] [address] Phone #: ext- [phone] 08/21/2020 22:26 Patient: [...] rce(s) Supporting Document(s) ID Date Data Source [id number] 08/21/2020 10:33:00 PM [facility] 1 General Instructions [facility] Emergency Department [address] [place] [address] Phone #: ext- [phone] 08/21/2020 22:26 Patient: EZ NORMAN Sex: F : 1985 Age: 35yHeadache.INSTRUCTIONSNo [...] or too much sleep. 2 General Instructions [facility] Emergency Department [address] [place] [address] Phone #: ext- [phone] 08/21/2020 22:26 Patient: [...] Avocados Bananas Figs Raisins 3 General Instructions [facility] Emergency Department [address] [place] [address] Phone #: ext- [phone] 08/21/2020 22:26 Patient: ZE NORMAN Sex: F : 1985 Age: 35y Red [...] healthcare provider Stiff neck 4 General Instructions [facility] Emergency Department [address] [place] [address] Phone #: ext- [phone] 08/21/2020 22:26 Patient: ZE NORMAN Sex: F : 1985 Age: 35y Extreme drowsiness, confusion, or fainting Dizziness, or dizziness with spinning sensation (vertigo) Weakness or trouble feeling in an arm or leg, or on one side of your face Trouble talking or seeing [phone] [employer]. [address] [place] [address]. All rights reserved. This information is not intended as asubstitute for professional medical care. Always follow your healthcare professional's instructions. You have been given the following additional information: Headache, Migraine, Classic No strenuous activity. 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 Seen within the last 30 days at [...] to the 2 Clinical Report - Nurses [facility] Emergency Department [address] [place] [address] Phone #: ext- [phone] 08/21/2020 22:26 [id number] Sex: F : 1985 Age: 35y question(s) [...] with aseptic 3 Clinical Report - Nurses [facility] Emergency Department [address] [place] [address] Phone #: ext- [phone] 08/21/2020 22:26 Patient: [...] Patient verbalized understanding. Written instructions provided in Ivorian. The patient was discharged by the physician. She was discharged home and unaccompanied at time of discharge. She left ambulatory and via private vehicle. Spouse driving. --00:27 08/22/20 Bailey Rendon 00:26 08/22/20. BP: 132/62. HR: 80. RR: 15. O2 saturation: 98%. Temp: 98.1 F. Pain level now 08/20. --00:27 08/22/20 Bailey Rendon 4 Clinical Report - Nurses [facility] Emergency Department [address] [place] [address] Phone #: ext- [phone] 08/21/2020 22:26 [id number] Sex: F : 1985 Age: 35y Departure time: 00:27 08/22/2020. --00:27 08/22/20 Bailey Rendon.Locked/Released at 08/22/2020 00:29 by Bailey Rendon Name Value Range Interpretation Code Description Data Ni rce(s) Supporting Document(s) ID Date Data Source [id number] 08/21/2020 10:33:00 PM EST [facility] 1 Clinical Report - Physicians/Mid Levels [facility] Emergency Department [address] [place] [address] Phone #: ext- [phone] 08/21/2020 22:26 Patient: [...] Laparoscopy. 2 Clinical Report - Physicians/Mid Levels [facility] Emergency Department [address] [place] [address] Phone #: ext- [phone] 08/21/2020 22:26 Patient: ZE NORMAN Sex: F [...] radiates to her entire left side of [facility]. initially, pt is closing her left [...] Headache. 3 Clinical Report - Physicians/Mid Levels [facility] Emergency Department [address] [place] [address] Phone #: ext- [phone] 08/21/2020 22:26 Patient: ZE NORMAN Sex: F [...] rce(s) Supporting Document(s) ID Date Data Source [id number] 08/12/2020 09:42:00 [place] [address] PHONE: [phone] FAX: [phone] Name .................. : МАРИЯ Gonzalez Acct Number.................. : [id number] ROOM. ................. : TR-03 MR Number ................... : [id number] Stay type ............. : E/R Discharge Date......... ... : Admit Date ......... : 08/11/20 Admit Phys .................... : LOLA KURTZ Date of ....... : 1985 Family Phys ................... : UNKNOWN AMANDEEP Phone .................. : [phone] Age ................................ : 35 Film# .................. .:[id number] Sex ................................. : F Unsigned transcriptions are preliminary reports and do not represent a medical or legal document [place] [address] COMPLETE:08/11/20 22:21 ADB 7358 Reason(s): DVT LEFT UPPER EXTREMITY VENOUS DOPPLER [...] rce(s) Supporting Document(s) ID Date Data Source [id number] 08/11/2020 09:29:00 PM EST [facility] 1 OrderSheet [facility] Emergency Department [address] [place] [address] Phone #: ext- [phone] 08/11/2020 21:29 Patient: ZE NORMAN Sex: F : 1985 Age: 35yWEIGHT:113.3 kg (S) HEIGHT:71 inches (S) BMI:34.9ALLERGIES: No Known Drug AllergyCHIEF COMPLAINT: pain, swelling, altered sensation, Rt, shoulders, in:, Rt, upr arms, pain, swelling, alteredsensationDIAGNOSIS: Pain in limbLAB ORDERSOrder Description Priority Entered Acknowledged InitialedDIAGNOSTIC STUDY ORDERSOrder Description Priority Entered Acknowledged InitialedUS Upper Ext STAT 21:31 08/11/2020 21:59 Mota,Venous Left Roland Levi(Oxygen?(No)) PA; Reason for Study: DVT, Pain, Limb, Swelling, LimbMEDICATION/IV/DRIP/FLUID ORDERSOrder Description Priority Entered Acknowledged InitialedIbuprofen 800 mg 21:31 08/11/2020 21:41 Mota,PO X1 dose: 800 Roalnd Lewis (NOW x1) ANA;Toradol IM 60 mg 22:31 08/11/2020 22:33 Roland Rendon PA;GENERAL ORDERSOrder Description Priority Entered Acknowledged Initialed[Electronically signed by Roland Bae (22:33 08/11/2020)][Electronically signed by Bailey Rendon (22:40 08/11/2020)][Electronically locked by Bailey Rendon (22:40 08/11/2020)] Name Value Range Interpretation Code Description Data Ni rce(s) Supporting Document(s) ID Date Data Source [id number] 08/11/2020 09:29:00 PM EST [facility] 1 Medication Reconciliation Report [facility] Emergency Department [address] [place] [address] Phone #: ext- [phone] 08/11/2020 21:29 Patient: ZE NORMAN Sex: F [...] Dispense 45 tablet. Refills: 0.Substitution permitted.Pharmacy - [address] ; [place] [address]. FaxNumber: . -- ANA Horowitz Name Value Range Interpretation Code Description Data Ni rce(s) Supporting Document(s) ID Date Data Source [id number] 08/11/2020 09:29:00 PM [facility] 1 Medication Administration Record [facility] Emergency Department [address] [place] [address] Phone #: ext- [phone] 08/11/2020 21:29 Patient: ZE NORMAN Sex: F : 1985 Age: 35yWeight: 113.3 kgHeight/Length: 71 inBMI: 34.9ALLERGIES: No Known Drug Allergy Date/Time Medication Administered Medication OrderedGiven MOTRIN [PO] (IBUPROFEN) Ibuprofen 800 mg PO X1 dose: 90392:36 08/11/2020 Dose: 800 mg Tablets PO mg (NOW x1)Amita Mota,Given TORADOL [IM] (KETOROLAC Toradol IM 60 mg22:33 08/11/2020 TROMETHAMINE)Bailey Rendon, Dose: 60 mg IM Name Value Range Interpretation Code Description Data Ni rce(s) Supporting Document(s) ID Date Data Source [id number] 08/11/2020 09:29:00 PM EST [facility] 1 General Instructions [facility] Emergency Department [address] [place] [address] Phone #: ext- [phone] 08/11/2020 21:29 Patient: ZE NORMAN Sex: F [...] Dispense 45 tablet. Refills: 0.Substitution permitted.Pharmacy - [facility] - [id number] [facility] ; [place] [address]. .Follow-up:Follow up with your doctor tomorrow. Call [...] from moving. You can 2 General Instructions [facility] Emergency Department [address] [place] [address] Phone #: ext- [phone] 08/11/2020 21:29 Patient: ZE NORMAN Sex: F : 1985 Age: 35yta ke [...] shoulder or upper arm 3 General Instructions [facility] Emergency Department [address] [place] [address] Phone #: ext- [phone] 08/11/2020 21:29 Patient: ZE NORMAN Sex: F : 1985 Age: 35y Trouble moving your hand or fingers We akness in your hand or fingers Your shoulder becomes stiff It feels like your shoulder is popping out You are less able to do your daily activities [id number] [employer]. [address] [place] [address], [place] [address]. All rights reserved. This information is not intended as asubstitute for professional medical care. Always follow your healthcare professional's instructions. You have been given the following additional information: Shoulder Pain, Uncertain Cause(Electronically signed by ANA Horowitz 08/11/2020 22:33) Name Value Range Interpretation Code Description Data Ni rce(s) Supporting Document(s) ID Date Data Source [id number] 08/11/2020 09:29:00 PM EST [facility] 1 Clinical Report - Nurses [facility] Emergency Department [address] [place] [address] Phone #: ext- [phone] 08/11/2020 21:29 Patient: ZE NORMAN Sex: F : 1985 Age: 35yTRIAGEArrived by private vehicle. Historian: patient.Triage time: 21:30 08/11/2020. Acuity: LEVEL 4.Chief Complaint: LEFT UPPER EXTREMITY PAIN and NUMBNESS.No injury occurred. Onset was gradual. Symptoms are constant and still present (off and on about 1week). 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 SEPSIS SCREEN NEGATIVE. No suspected or confirmedsigns of infection present. --21:36 08/11/20 Sean Bunch RN21:30 08/11/20. BP: 157/106 (regular adult cuff) taken on the right arm, via an automated monitor, whilesitting. MAP: 123. HR: 76 (regular, normal rate and strong). RR: 18 (regular, unlabored and normal). [id number]: 100% on room air. Temp: 98.6 F (oral). Pain level now: 02/17. --21:36 08/11/20 Sean Bunch RN.Weight: 113.3 kg stated. Height/Length: 71 inches Per Patient. BMI: 34.9. --21:29 08/11/20 Sean Bunch RN.MedicationsNone. --21:33 08/11/20 Sean Bucnh RN.AllergiesNo Known Drug Allergy. --21:32 08/11/20 Sean Bunch RN.PROBLEMS:Depression.Endometriosis.Carpal Tunnel Syndrome.Anxiety Reaction.Upper Extremity Pain.Ovarian Cyst.Infertility.Insomnia. --21:33 08/11/20 Sean Bunch RN.Medication/allergy information source: the patient. --21:36 08/11/20 Sean Bunch RN. 2 Clinical Report - Nurses [facility] Emergency Department [address] [place] [address] Phone #: ext- [phone] 08/11/2020 21:29 [id number] Sex: F : 1985 Age: 35y History [...] Assessment The patient states feels the same. --:36 08/11/20 Sean Windom, RN.PHYSICAL EDAIJLFKCL39:40 08/11/20.GENERAL / NEURO / PSYCH: Oriented X [...] Patient transported by wheelchair with mask and ip technology transactions attorney. (Ultra sound). --21:47 08/11/20 Amita Mota late entry - 21:40 08/11/20. Patient gowned. Reassurance given. Two patient identifiers checked. Call light placed in reach. Side rails up x 2. Bed placed in lowest position. Brakes of bed on. --22:40 08/11/20 Bailey Rendon 22:33 08/11/2020 Toradol (Ketorolac Tromethamine) IM 60 mg given. Given in the right deltoid. Allergies 3 Clinical Report - Nurses [facility] Emergency Department [address] [place] [address] Phone #: ext- [phone] 08/11/2020 21:29 Patient: ZE NORAMN Sex: F : 1985 Age: 35y verified [...] Patient verbalized understanding. Written instructions provided in Ivorian. The patient was discharged by the physician congressional assistant. She was discharged home and unaccompanied at time of discharge. She left ambulatory and via private vehicle. Spouse driving. --22:39 08/11/20 Bailey Rendon 22:39 08/11/20. BP: 118/69. HR: 64. RR: 18. O2 saturation: 100%. Temp: 97.9 F. Pain level now 10. --22:39 08/11/20 Bailey Rendon Departure time: late entry - 22:39 08/11/2020. --:39 08/11/20 Bailey Rendon.Locked/Released at 08/11/2020 22:40 by Bailey Rendon Name Value Range Interpretation Code Description Data Ni rce(s) Supporting Document(s) ID Date Data Source [id number] 08/11/2020 09:29:00 PM EST [facility] 1 Clinical Report - Physicians/Mid Levels [facility] Emergency Department [address] [place] [address] Phone #: ext- [phone] 08/11/2020 21:29 Patient: [...] use. 2 Clinical Report - Physicians/Mid Levels [facility] Emergency Department [address] [place] [address] Phone #: ext- [phone] 08/11/2020 21:29 Patient: ZE NORMAN Sex: F [...] DVT. The exam was pe rformed bya mineral surveying technician. The study was interpreted by the [...] or 3 Clinical Report - Physicians/Mid Levels [facility] Emergency Department [address] [place] [address] Phone #: ext- [phone] 08/11/2020 21:29 [id number] Sex: F : 1985 Age: 35y changes unexpectedly, if not improving as expected, or if other problems arise. Specifically return if pain worsens. Your Current Medications: . No home medication. Prescription Medications: IBU 800 mg tablet Take 1 tablet three times a day for 15 days -- Dispense 45 tablet. Refills: 0. Substitution permitted. [facility]acy - [facility] - [address] [facility] ; [place] [address]. . Follow-up: Follow up with your doctor tomorrow. Call for the next available appointment. Reason for referral: evaluation and treatment. Summary of care provided to patient. Understanding of the discharge instructions verbalized by patient.(Electronically signed by ANA Horowitz 08/11/2020 22:33) Name Value Range Interpretation Code Description Data Ni rce(s) Supporting Document(s) ID Date Data Source [id number] 06/23/2020 12:00:00 AM [facility] Name Value Range Interpretation Code Description Data Ni rce(s) Supporting Document(s) SARS-CoV-2 (COVID-19) RNA [Presence] in Respiratory specimen by JOEL with probe detection [facility] This lab was ordered by [facility] and reported by [facility]. ID Date Data Source [id number] 05/27/2020 03:35:00 PM [facility] [address] [place] [address] PHONE: [phone] FAX: [phone] Name .................. : МАРИЯ RENTERIASHENA Gonzalez Acct Number.................. : [id number] ROOM. ................. : TR-02 MR Number ................... : [id number] Stay type ............. : E/R Discharge Date......... ... : 05/26/20 Admit Date ......... : 05/26/20 Admit Phys .................... : LOLA KURTZ Date of ....... : 1985 Family Phys ................... : UNKNOWN Phone .................. : [phone] Age ................................ : 35 Film# .................. .:[id number] Sex ................................. : F Unsigned transcriptions are preliminary reports and do not represent a medical or legal document PELVIC 31122 COMPLETE:05/26/20 11:18 KNB 89452 Reason(s): Pelvic Pain US TRANSVAGINAL(NON OB) 82758 COMPLETE:05/26/20 11:18 KNB 06822 (REASON FOR OBS: pelvic pain TRANSABDOMINAL AND [...] rce(s) Supporting Document(s) ID Date Data Source [id number] 05/27/2020 03:35:00 PM EST [facility] [address] [place] [address] PHONE: [phone] FAX: [phone] Name .................. : МАРИЯ Gonzalez Acct Number.................. : [id number] ROOM. ................. : TR-02 MR Number ................... : [id number] Stay type ............. : E/R Discharge Date......... ... : 05/26/20 Admit Date ......... : 05/26/20 Admit Phys .................... : LOLA KURTZ Date of ....... : 1985 Family Phys ................... : UNKNOWN Phone .................. : [phone] Age ................................ : 35 Film# .................. .:[id number] Sex ................................. : F Unsigned transcriptions are preliminary reports and do not represent a medical or legal document PELVIC 36091 COMPLETE:05/26/20 11:18 KNB [id number] Reason(s): Pelvic Pain US TRANSVAGINAL(NON OB) 09293 COMPLETE:05/26/20 11:18 KNB 08971 (REASON FOR OBS: pelvic pain TRANSABDOMINAL AND [...] rce(s) Supporting Document(s) ID Date Data Source [id number] 05/26/2020 09:51:00 AM EST [facility] 1 OrderSheet [facility] Emergency Department [address] [place] [address] Phone #: [phone]- [phone] 05/26/2020 09:48 Patient: ZE NORMAN Sex: F : 1985 Age: 35yWEIGHT:95.2 kg (S) HEIGHT:71 inches (S) BMI:29.3ALLERGIES: No Known Drug AllergyCHIEF COMPLAINT: abdominal painDIAGNOSIS: Cyst of ovary, Endometriosis (clinical)LAB ORDERSOrder Description Priority Entered Acknowledged InitialedCBC w Diff STAT 10:08 05/26/2020 10:08 [facility] Tech, Bruno BURNETTE PA; [id number] STAT 10:08 05/26/2020 10:08 [facility] Tech, Bruno ER PA; Fmbh4Ucyoot STAT 10:08 05/26/2020 10:08 [facility] Tech, Bruno ER PA; Wqts2Tv inalysis (Clean STAT 10:08 05/26/2020 10:08 [facility]) [facility] Tech, Bruno ER PA; Vvok5Asum-FII, Quant STAT 10:08 05/26/2020 10:[address] Tech, Bruno ER PA; [id number] STUDY ORDERSOrder Description Priority Entered Acknowledged InitialedUS Pelvis STAT 10:08 05/26/2020 10:19 Denice Montoya(Oxygen?(No)) Roland Bae RN PA; Reason for Study: Pelvic PainMEDICATION/IV/DRIP/FLUID ORDERSOrder Description Priority Entered Acknowledged InitialedNS IV : Bolus 1000 10:08 05/26/2020 10:32 Dejah Montoya, then 150 mL/hr Roland Bae RN PA;Toradol IVP 30 mg 10:08 05/26/2020 10:32 Denice Montoya RN PA; 2 OrderSheet [facility] Emergency Department [address] [place] [address] Phone #: ext- [phone] 05/26/2020 09:48 Patient: ZE NORMAN Sex: F : 1985 Age: 35yZofran ODT PO 8 10:08 05/26/2020 10:32 Jarocho Montoya RN PA;Morphine IVP 2 mg 11:21 05/26/2020 11:21 Denice Montoya(NOW, HIGH ALERT Denice Montoya RN; RNMEDICATION) Verbal order per; Roland Bae PAGENERAL ORDERSOrder Description Priority Entered Acknowledged InitialedNPO 10:08 05/26/2020 10:09 Daja Bae bull float finisherBruno Sparks; [id number] Lock 10:08 05/26/2020 10:29 Denice Montoya RN PA;[Electronically signed by Denice Montoya RN (12:02 05/26/2020)][Electronically signed by Roland Bae (21:18 05/26/2020)][Electronically locked by Denice Montoya RN (12:02 05/26/2020)] Name Value Range Interpretation Code Description Data Ni rce(s) Supporting Document(s) ID Date Data Source [id number] 05/26/2020 09:51:00 AM EST [facility] 1 Medication Reconciliation Report [facility] Emergency Department [address] [place] [address] Phone #: ext- [phone] 05/26/2020 09:48 Patient: [...] Dispense 45 tablet. Refills: 0.Substitution permitted.Pharmacy - [facility] - [id number] [place] [address] ; [place] [address]. .ondansetron 8 mg disintegrating tablet Take 1 tablet three times a day for 5 days -- Dispense 15 tablet.Refills: 0. Substitution permitted.Pharmacy - [facility] - [id number] [place] [address] ; [place] [address]. . 2 Medication Reconciliation Report [facility] Emergency Department [address] [place] [address] Phone #: ext- [phone] 05/26/2020 09:48 Patient: ZE NORMAN Sex: F : 1985 Age: 35ydicyclomine 10 mg capsule Take 1 capsule four times a day for 10 days -- Dispense 40 capsule.Refills: 0. Substitution permitted.Pharmacy - [facility] [id number] [facility] ; [place] [address]. . -- ANA Horowitz Name Value Range Interpretation Code Description Data Ni rce(s) Supporting Document(s) ID Date Data Source [id number] 05/26/2020 09:51:00 AM [facility] 1 Medication Administration Record [facility] Emergency Department [address] [place] [address] Phone #: [phone]- [phone] 05/26/2020 09:48 [id number] Sex: F : 1985 Age: 35yWeight: 95.2 kgHeight/Length: 71 inBMI: 29.3ALLERGIES: No Known Drug Allergy Date/Time Medication Administered Medication OrderedStart NS [IV] NS IV : Bolus 1000 mL, then 28290:32 05/26/2020 Dose: IV Fluids mL/hrDenice Montoya RN [...] rce(s) Supporting Document(s) ID Date Data Source [id number] 05/26/2020 09:51:00 AM EST [facility] 1 General Instructions [facility] Emergency Department [address] [place] [address] Phone #: ext- [phone] 05/26/2020 09:48 Patient: ZE NORMAN Sex: Gustavo : 1985 Age: 35yEndometriosis involving the uterus.Single follicular left ovarian cyst.INSTRUCTIONSWarnings: Further evaluation is necessary.Your Current Medications: Your current home medications have been reviewed.CONTINUE TAKING THE FOLLOWING MEDICATIONS:Gabapentin Oral.Zofran Oral.Prescription Medications:IBU 800 mg tablet Take 1 tablet three times a day for 15 days -- Dispense 45 tablet. Refills: 0.Substitution permitted.Pharmacy - [facility] [id number] [place] [address] ; [place] [address]. .ondansetron 8 mg disintegrating tablet Take 1 tablet three times a day for 5 days -- Dispense 15 tablet.Refills: 0. Substitution permitted.[facility] - [facility] [email or web address] [facility] ; [place] [address]. .dicyclomine 10 mg capsule Take 1 capsule four times a day for 10 days -- Dispense 40 capsule.Refills: 0. Substitution permitted.[facility] - [facility] [email or web address] [facility] ; [place] [address]. .Follow-up:Follow up with your doctor. Reason for referral: evaluation, treatment and refer tpo ELECTRONIC PLOTTING SYSTEM OPERATOR for furtherevaluation. Summary of care provided to patient.Understanding of the discharge instructions verbalized by patient. ADDITIONAL INFORMATIONOvarian Cysts 2 General Instructions [facility] Emergency Department [address] [place] [address] Phone #: ext- [phone] 05/26/2020 09:48 Patient: ZE NORMAN Sex: F [...] pain, your healthcare provider may recommend using vpxz-asa-ewwjhlf pain medicine. If needed, your provide may [...] grows in size.Follow-up care 3 General Instructions [facility] Emergency Department [address] [place] [address] Phone #: ext- [phone] 05/26/2020 09:48 Patient: [...] Weakness, dizziness, or fainting Abnormal vaginal bleeding [phone] [employer]. [address] [place] [address], [place] [address]. All rights reserved. This information is not [...] have pain during bowel 4 General Instructions [facility] Emergency Department [address] [place] [address] Phone #: ext- [phone] 05/26/2020 09:48 Patient: [...] directed by your provider 5 General Instructions [facility] Emergency Department [address] [place] [address] Phone #: ext- [phone] 05/26/2020 09:48 Patient: [...] can talk with you about infertility testing. [phone] [employer]. [address] [place] [address], [place] [address]. All rights reserved. This information is not intended as asubstitute for professional medical care. Always follow your healthcare professional's instructions. 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 BMI: 29.3. --09:56 05/26/20 Denice Montoya,ELIO.MedicationsGabapentin Oral. --10:00 05/26/20 Denice Montoya, RN Zofran Oral. --10:05/26/20 Denice Montoya, RN.AllergiesNo Known Drug Allergy. --10:05/26/20 Denice Montoya RN.PROBLEMS:Carpal Tunnel Syndrome.Depression.Anxiety Reaction.Infertility.Insomnia. --10:05/26/20 Denice Montoya RN.Medication/allergy information source: the patient and patient's previous visit record. --10:05/26/20Denice Montoya RN. 2 Clinical Report - Nurses [facility] Emergency Department [address] [place] [address] Phone #: ext- [phone] 05/26/2020 09:48 Patient: [...] is warm and dry. --10:06 05/26/20 Denice Montoya RN.NURSING PROGRESS NOTESPatient gowned. Reassurance given. Two patient identifiers checked. Call light placed in reach. Bedplaced in lowest position. Brakes of bed on. Patient ready for evaluation. --10:03 05/26/20 Denice Montoya RN 10:27 05/26/2020 Zofran ODT (Ondansetron HCl) PO 8 mg given. Allergies verified and confirmed 5 rights. 3 Clinical Report - Nurses [facility] Emergency Department [address] [place] [address] Phone #: ext- [phone] 05/26/2020 09:48 Patient: [...] Patient transported to sonogram by wheelchair with ip technology transactions attorney. --10:56 05/26/20 Denice Montoya RN Patient returned from sonogram by wheelchair with ip technology transactions attorney. --11:13 05/26/20 Denice Montoya RN 11:13 05/26/20. [...] 100%. Temp: 98.3 F. Pain level now 12/18. --11:56 05/26/20 [facility] Bruno Sparks ER Tech1 4 Clinical Report - Nurses [facility] Emergency Department [address] [place] [address] Phone #: ext- [phone] 05/26/2020 09:48 Patient: ZE NORMAN Sex: F : 1985 Age: 35y Condition at departure: stable. No learning barriers present. Discharge instructions provided and reviewed with the patient. Reviewed medication(s) side effects, precautions, dosing and course information. Prescription(s) sent electronically to pharmacy. Reviewed referral to a concrete products dispatcher. Patient verbalized understanding. Written instructions provided in Ivorian. The patient was discharged by the physician congressional assistant. She was discharged home and accompanied by spouse. She left ambulatory and via private vehicle. Spouse driving. --12:00 05/26/20 Denice Montoya, ELIO 11:55 05/26/2020 Site #1 removed upon discharge. Pressure dressing applied. --12:00 05/26/20 Denice Montoya, ELIO.Locked/Released at 05/26/2020 12:02 by Denice Montoya, ELIO Name Value Range Interpretation Code Description Data Ni rce(s) Supporting Document(s) ID Date Data Source [id number] 05/26/2020 09:51:00 AM EST [facility] 1 Clinical Report - Physicians/Mid Levels [facility] Emergency Department [address] [place] [address] Phone #: ext- [phone] 05/26/2020 09:48 [id number] Sex: F : 1985 Age: 35y Time [...] of 2 Clinical Report - Physicians/Mid Levels [facility] Emergency Department [address] [place] [address] Phone #: ext- [phone] 05/26/2020 09:48 -- [...] 5.0) 3 Clinical Report - Physicians/Mid Levels [facility] Emergency Department [address] [place] [address] Phone #: ext- [phone] 05/26/2020 09:48 Patient: [...] Male GFR Interprentation 20-49 yrs >60 mL/min Lnguff30-95 yrs >56 mL/min Normal 60-69 yrs >49 mL/min Normal 70-79yrs>42 mL/min Normal 80 and above >35 mL/min Normal Female GFRInterpretation 20-39 yrs >60 mL/min Normal 40-49 yrs >58 mL/minNormal 50-59 yrs >51 mL/min Normal 60-69 yrs >45 mL/min Apijlb31- 79 yrs >39 mL/min Normal 80 and above >32 mL/min NormalLipase: (CORBIN: 05/26/2020 10:17) ( [facility] 05/26/2020 11:04) Final results Test Result Flag Units (Reference) LIPASE 68 H U/L (13 - 60)Urinalysis: (CORBIN: 05/26/2020 10:00) ( [facility] 05/26/2020 10:39) Final results Test Result [...] IndicateBeta-HCG, Quant Serum: (CORBIN: 05/26/2020 10:17) ( [facility] 05/26/2020 11:04) Final results Test Result Flag Units (Reference) HCG QUANT <0.5 mIU/mL Interpretation: Less than 5 mU/mL: Negative6-10 mU/mL: Borderline (suggest repeat in 48 hours) >10: PositiveApprox HCG range (mU/mL) Weeks post LMP 5.4-708 mU/mL 3-4 Nxupo438-74136 mU/mL 5-6 Weeks 4059-526206 mU/mL 7-8 Socxn73840- 687470 mU/mL 9-10 Weeks 46994-78390 mU/mL 12-14 Weeks 4 Clinical Report - Physicians/Mid Levels [facility] Emergency Department [address] [place] [address] Phone #: ext- [phone] 05/26/2020 09:48 -- Patient: ZE NORMAN Sex: F : 1985 Age: 35y [address]-56[address] mU/mL 15-16 Weeks 8240-43591 mU/mL 17-18 Weeks US Pelvis: (CORBIN: 05/26/2020 10:08) ( MsgRcvd 05/26/2020 11:18) In Progress US PELVIC Reason(s): Pelvic Pain TRANSPORTATION: IV? O2? Oxygen?(No) Room: ED.PROGRESS AND PROCEDURESCourse of Care: 11:47 May 26 2020. Evaluation after observation. (Discussed US results and pt needs tofollow up with ELECTRONIC PLOTTING SYSTEM OPERATOR. She is agreeable with dx and tx plan.). Patient counseled in person regarding the patient's stable condition, test results, diagnosis and need for follow-up. Patient agrees with plan of care. 11:47 May 26 2020. Disposition: Discharged home in good and improved condition (11:47 May 26 2020).CLINICAL IMPRESSION End ometriosis involving [...] tablet. Refills: 0. Substitution permitted. Pharmacy - [facility] [employer] [id number] [facility] ; [place] [address]. . ondansetron 8 mg disintegrating tablet Take 1 tablet three times a day for 5 days -- Dispense 15 tablet. Refills: 0. Substitution permitted. Pharmacy - [facility] [employer] - [id number] [facility] ; [place] [address]. . 5 Clinical Report - Physicians/Mid Levels [facility] Emergency Department [address] [place] [address] Phone #: ext- [phone] 05/26/2020 09:48 Patient: ZE NORMAN Sex: F : 1985 Age: 35y dicyclomine 10 mg capsule Take 1 capsule four times a day for 10 days -- Dispense 40 capsule. Refills: 0. Substitution permitted. Pharmacy - [facility] - [id number] [facility] ; [place] [address]. . Follow-up: Follow up with your doctor. Reason for referral: evaluation, treatment and refer tpo ELECTRONIC PLOTTING SYSTEM OPERATOR for further evaluation. Summary of care provided to patient. Understanding of the discharge instructions verbalized by patient.(Electronically signed by ANA Horowitz 05/26/2020 21:18) Name Value Range Interpretation Code Description Data Ni rce(s) Supporting Document(s) ID Date Data Source [id number] 05/26/2020 11:03:00 AM EST [facility] Name Value Range Interpretation Code Description Data Ni rce(s) Supporting Document(s) Choriogonadotropin.intact [Units/volume] in Serum or Plasma <0.5 mIU/ mL [facility] Interpr etation: Less than 5 mU/mL: Negative 6-10 mU/mL: Borderline (suggest repeat in 48 hours) >10: Positive Approx HCG range (mU/mL) Weeks post LMP 5.4-708 mU/mL 3-4 Weeks 217-95774 mU/mL 5-6 Weeks 4059-157684 mU/mL 7-8 Weeks 87927-889725 mU/mL 9-10 Weeks 15387-56001 mU/mL 12-14 Weeks 30984-42622 mU/mL 15-16 Weeks 5662- 87204 mU/mL 17-18 Weeks ID Date Data Source [id number] 05/26/2020 11:03:00 AM [facility] Name Value Range Interpretation Code Description Data Ni rce(s) Supporting Document(s) Lipase [Enzymatic activity/volume] in Serum or Plasma 68 U/L 13 - 60 H [facility] ID Date Data Source [id number] 05/26/2020 11:03:00 AM [facility] Name Value Range Interpretation Code Description Data Ni rce(s) Supporting Document(s) COMPREHENSIVE METABOLIC PANEL [facility] COMPREHENSIVE METABOLIC PANEL Sodium [Moles/volume] in Serum or Plasma 139 mEq/L 134 - 153 [facility] Potassium [Moles/volume] in Serum or Plasma 3.8 mEq/L 3.6 - 5.0 [facility] Chloride [Moles/volume] in Serum or Plasma 105 mEq/L 98 - 107 [facility] Carbon dioxide, total [Moles/volume] in Serum or Plasma 26 MEQ/L 22 - 30 [facility] Glucose [Mass/volume] in Serum or Plasma 120 MG/DL 65 - 110 H [facility] BUN 11 MG/DL 7 - 21 [facility] al Creatinine [Mass/volume] in Serum or Plasma 0.7 MG/DL 0.7 - 1.5 [facility] BUN/CREAT 16 8 - 27 [facility] Protein [Mass/volume] in Serum or Plasma 6.4 G/DL 6.3 - 8.2 [facility] Albumin [Mass/volume] in Serum or Plasma 3.8 G/DL 3.9 - 5.0 L [facility] Globulin [Mass/volume] in Serum by calculation 2.6 GM/DL 2.4 - 3.2 [facility] A/G RATIO 1.5 0.8 - 2.0 [facility] Calcium [Mass/volume] in Serum or Plasma 9.0 MG/DL 8.4 - 10.2 [facility] Bilirubin.total [Mass/volume] in Serum or Plasma <0.7 MG/DL 0.2 - 1.3 [facility] Alkaline phosphatase [Enzymatic activity/volume] in Serum or Plasma 88 U/L 38 - 126 [facility] Aspartate aminotransferase [Enzymatic activity/volume] in Serum or Plasma 15 U/L 5 - 40 [facility] Alanine aminotransferase [Enzymatic activity/volume] in Seru m or Plasma 15 U/L 7 - 56 [facility] Anion gap 3 in Serum or Plasma 8.0 mmol/L 8.0 - 16.0 [facility] AGE [address] [facility] al NON-AA GFR >60 mL/min [facility] ital AFR AMER GFR >60 mL/min [facility] Ho spital Male GFR In terprentation 20-49 [...] >32 mL/min Normal ID Date Data Source [id number] 05/26/2020 10:46:00 AM EST [facility] Name Value Range Interpretation Code Description Data Ni rce(s) Supporting Document(s) CBC W/AUTOMATED DIFF [facility] COMPLETE BLOOD COUNT Leukocytes [#/volume] in Blood by Automated count 4.4 10^3/uL 4.2 - 1 1.0 [facility] Erythrocytes [#/volume] in Blood by Automated count 4.72 10^6/uL 4. 20 - 5.40 [facility] Hemoglobin [Mass/volume] in Blood 10.7 g/dL 12.0 - 16.0 L [facility] Hematocrit [Volume Fraction] of Blood by Automated count 34.7 % 3 7.0 - 47.0 L [facility] Erythrocyte mean corpuscular volume [Entitic volume] by Auto mated count 73.5 fL 81.0 - 101 L [facility] Erythrocyte mean corpuscular hemoglobin [Entitic mass] by Automated count 22.7 pg 27.0 - 34.0 L [facility] Erythrocyte mean corpuscular hemoglobin concentration [Mass/volume] by Automated count 30.8 g/dL 31.0 - 36.0 L [facility] Erythrocyte distribution width [Ratio] by Automated count 17.0 % 11.5 - 14.5 H [facility] Platelets [#/volume] in Blood by Automated count 187 10^3/uL 150 - 45 0 [facility] Platelet mean volume [Entitic volume] in Blood by Automated count 0.0 fL 7.4 - 10.4 L [facility] Neutrophils/100 leukocytes in Blood by Automated count 59.3 % 37. 0 - 80.0 [facility] Lymphocytes/100 leukocytes in Blood by Manual count 30.3 % 25.0 - 40.0 [facility] Monocytes/100 leukocytes in Blood by Automated count 5.2 % 3.0 - 8.0 [facility] Eosinophils/100 leukocytes in Blood by Automated count 3.4 % 0.0 - 7.0 [facility] Basophils/100 leukocytes in Blood by Automated count 1.1 % 0.0 - 2.5 [facility] %IG 0.7 % 0.0 - 0.0 H [facility] %NRBC 0.0 % 0.0 - 0.0 [facility] al Neutrophils [#/volume] in Blood by Automated count 2.60 10^3/uL 2.00 - 6.90 [facility] Lymphocytes [#/volume] in Blood by Automated count 1.33 10^3/uL 0.60 - 3.40 [facility] Monocytes [#/volume] in Blood by Automated count 0.23 10^3/uL 0.00 - 0.90 [facility] Eosinophils [#/volume] in Blood by Automated count 0.15 10^3/uL 0.00 - 0.70 [facility] Basophils [#/volume] in Blood by Automated count 0.05 10^3/uL 0.00 - 0.20 [facility] #IG 0.03 10^3/uL 0.00 - 0.10 [facility] H ospital #NRBC 0.00 10^3/uL 0.00 - 0.00 [facility] ospital MANUAL DIFF NOT INDICATED [facility] RBC MORPH SEE BELOW [facility] { SICKLE CELL (NORMAL: NONE SEEN ) Platelet adequacy [Presence] in Blood by Light microscopy NORMAL NORMAL: NORMAL [facility] COMMENT: _[id number]_PLATELETS 05/26/20.1046.CLD. . . ___ ID Date Data Source [id number] 05/26/2020 10:38:00 AM EST [facility] Name Value Range Interpretation Code Description Data Ni rce(s) Supporting Document(s) [facility]IS [facility] SOURCE R [facility] COLOR yellow NORMAL: Yellow [facility] CLARITY clear NORMAL: Clear [facility] Ho spital Specific gravity of Urine by Test strip 1.020 1.001 - 1.030 [facility] pH 6 5 - 9 [facility] al Glucose [Mass/volume] in Urine by Test strip NORM NORMAL: Negat [facility] Bilirubin.total [Presence] in Urine by Test strip NEG NORMAL: Negative [facility] Ketones [Presence] in Urine by Test strip NEG NORMAL: Negative [facility] Protein [Mass/volume] in Urine by Test strip NEG NORMAL: Negat [facility] Nitrite [Presence] in Urine by Test strip NEG NORMAL: Negative [facility] BLOOD NEG NORMAL: Negative [facility] Leukocyte esterase [Presence] in Urine by Test strip NEG LOLI L: Negative [facility] Urobilinogen [Mass/volume] in Urine by Test strip NOR less emi n 1.0 mg/dL [facility] MICROSCOPIC Not Indicate [facility] H ospital ID Date Data Source [id number] 05/23/2020 10:42:00 AM EST [facility] [address] [place] [address] PHONE: [phone] FAX: [phone] Name .................. : МАРИЯ Gonzalez Acct Number.................. : [id number] ROOM. ................. : TR-03 Number ................... : [id number] Stay type ............. : E/R Discharge Date......... ... : 05/20/20 Admit Date ......... : 05/20/20 Admit Phys .................... : KARMA RAMSES Date of ....... : 1985 Family Phys ................... : UNKNOWN Phone .................. : [phone] Age ................................ : 35 Film# .................. .:[id number] Sex ................................. : F Unsigned transcriptions are preliminary reports and do not represent a medical or legal document CT ABD & PELV W/O ORAL W/[place] [id number] COMPLETE:05/20/20 19:24 GRECIA 74349 Reason(s): NO CONTRAST: L flank pain. ? [...] dose: 1140.7 mGycm Page 1 of 2 [facility] [address] [place] [address] PHONE: [phone] FAX: [phone] Name .................. : МАРИЯ Gonzalez Acct Number.................. : [id number] ROOM. ................. : TR-03 MR Number ................... : [id number] Stay type ............. : E/R Discharge Date......... ... : 05/20/20 Admit Date ......... : 05/20/20 Admit Phys .................... : KARMA RAMSES Date of ....... : 1985 Family Phys ................... : UNKNOWN Phone .................. : [phone] Age ................................ : 35 Film# .................. .:[id number] Sex ................................. : F Unsigned transcriptions are preliminary reports and do not represent a medical or legal document CT ABD & PELV W/[place] ORAL W/[place] [id number] COMPLETE:05/20/20 19:24 GRECIA 92185 Reason(s): NO CONTRAST: L flank pain. ? renal stone Electronically Reviewed and Signed By Titus Rocha M.D. , 05/23/20 10:42, [facility] Transcribe Initials: DZ , Transcribe Date: 05/20/20 22:45, Dictation Date: Copy for: ELIZABETH REARDON via fax Copy for: KARMA Quarles via fax Copy for: [place] [facility] [place] city Copy for: 710 MED REC DISCHARGED Page 2 of 2 Name Value Range Interpretation Code Description Data Ni rce(s) Supporting Document(s) ID Date Data Source [id number] 05/20/2020 04:06:00 PM EST [facility] 1 OrderSheet [facility] Emergency Department [address] [place] [address] Phone #: ext- [phone] 05/20/2020 15:54 Patient: [...] Urine Qual STAT 17:52 05/20/2020 18:03 Rajat Cano.N. P.A.-C;DIAGNOSTIC STUDY ORDERSOrder Description Priority Entered Acknowledged InitialedCT ABD PEL W/O STAT 16:36 05/20/2020 Initialed: 17:22 Nancy Cano R.N.Oral W/O IV Rajat Johnson Cancelled: Other 17:45 Leonela P.A.-C; Elizabeth P.A.-C(Oxygen?(No)) 2 OrderSheet [facility] Emergency Department [address] [place] [address] Phone #: ext- [phone] 05/20/2020 15:54 Patient: [...] ABD PEL W/O STAT 18:11 05/20/2020 18:12 Cano,Oral W/O IV Rajat Cruz R.N.Contrast (Oxygen? P.A.-C;(Yes)) [...] Rajat Johnson P.A.-C (21:49 05/20/2020)] 3 OrderSheet [facility] Emergency Department [address] [place] [address] Phone #: ext- [phone] 05/20/2020 15:54 Patient: ZE NORMAN Sex: F : 1985 Age: 35y[Electronically locked by Rowena Jung R.N. (19:31 05/20/2020)] Name Value Range Interpretation Code Description Data Ni rce(s) Supporting Document(s) ID Date Data Source [id number] 05/20/2020 04:06:00 PM EST [facility] 1 Medication Reconciliation Report [facility] Emergency Department [address] [place] [address] Phone #: ext [phone] 05/20/2020 15:54 Patient: ZE NORMAN Sex: F [...] Dispense 12 tablet. Refills: 0.Substitution permitted.Pharmacy - [facility] [phone] ; [place] [address]. .gabapentin 100 mg capsule Take 1 capsule three times a day for 4 days -- Dispense 12 capsule.Refills: 0. Substitution permitted.Pharmacy - [facility] [phone] ; [place] [address]. . -- Rajat Johnson P.A.-C Name Value Range Interpretation Code Description Data Ni rce(s) Supporting Document(s) ID Date Data Source [id number] 05/20/2020 04:06:00 PM EST [facility] 1 Medication Administration Record [facility] Emergency Department [address] [place] [address] Phone #: ext- [phone] 05/20/2020 15:54 Patient: ZE NORMAN Sex: F : 1985 Age: 35yWeight: 99.7 kgHeight/Length: 71 inBMI: 30.7ALLERGIES: No Known Drug Allergy Date/Time Medication Administered Medication OrderedStart NS [IV] NS IV : Bolus 500 mL, then 7517:19 05/20/2020 Dose: IV Fluids mL/hrTyra Nicole REvelina Bolus: 500 mL over 30 minute(s)---- Dispensed: [...] rce(s) Supporting Document(s) ID Date Data Source [id number] 05/20/2020 04:06:00 PM EST [facility] 1 General Instructions [facility] Emergency Department [address] [place] [address] Phone #: beo- [phone] 05/20/2020 15:54 Patient: ZE NORMAN Sex: F [...] Dispense 12 tablet. Refills: 0.Substitution permitted.Pharmacy - [facility] [phone] ; [place] [address]. FaxNumber: .gabapentin 100 mg capsule Take 1 capsule three times a day for 4 days -- Dispense 12 capsule.Refills: 0. Substitution permitted.Pharmacy - [facility] [phone] ; [place] [address]. .Follow-up:Return to the emergency department as needed. Follow up with your healthcare provider in about twodays if not better. Call for an appointment.Understanding of the discharge instructions verbalized by patient. ADDITIONAL INFORMATIONUnknown Causes of Abdominal Pain (Female) 2 General Instructions [facility] Emergency Department [address] [place] [address] Phone #: ext- [phone] 05/20/2020 15:54 Patient: [...] for taking these medicines. 3 General Instructions [facility] Emergency Department [address] [place] [address] Phone #: ext- [phone] 05/20/2020 15:54 Patient: [...] begin to improve in thenext 24 hours.Call [phone] if any of these occur: Trouble breathing Confusion Fainting or loss of consciousness Rapid heart rate 4 General Instructions [facility] Emergency Department [address] [place] [address] Phone #: ext- [phone] 05/20/2020 15:54 Patient: [...] or water and you are getting dehydrated [id number] [employer]. [address] [place] [address], [place] [address]. All rights reserved. This information is not intended as asubstitute for professional medical care. Always follow your healthcare professional's instructions. You have been given the following additional information: Abdominal Pain, Unknown Cause, (Female) Do not work for two days.(Electronically signed by Rajat Johnson P.A.-C 05/20/2020 21:49) Name Value Range Interpretation Code Description Data Ni rce(s) Supporting Document(s) ID Date Data Source [id number] 05/20/2020 04:06:00 PM EST [facility] 1 Clinical Report - Nurses [facility] Emergency Department [address] [place] [address] Phone #: ext- [phone] 05/20/2020 15:54 Patient: [...] nausea. 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 (2 hrs ago).SEPSIS SCREEN: SIRS Screen negative. Sepsis Screen negative. No suspected or confirmed signs ofinfection present. --16:03 05/20/20 Denice Montoya RN15:57 05/20/20. BP: 131/85. MAP: 100. HR: 74. RR: 16. O2 saturation: 100%. Temp: 98.9 F. Pain levelnow: 02/17. --16:03 05/20/20 Denice Montoya RN.Weight: 99.7 kg stated. Height/Length: 71 inches Per Patient. BMI: 30.7. --15:58 05/20/20 Denice Montoya RN.MedicationsNone. --17:21 05/20/20 Nancy Cano R.N.AllergiesNo Known Drug Allergy. --17:21 05/20/20 Nancy Cano R.N.PROBLEMS:Depression.Upper Extremity Pain. --18:07 05/20/20 Denice Montoya RN.Medication/allergy information source: the patient and patient's previous visit record. --16:03 05/20/20Denice Montoya RN.ADDITIONAL SURGERIES:Breast Augmentation.Cholecystectomy.. 2 Clinical Report - Nurses [facility] Emergency Department [address] [place] [address] Phone #: ext- [phone] 05/20/2020 15:54 Patient: [...] 66. RR: 16. O2 saturation: 100%. --17:05/20/20 Arley bull float finisher, [facility] Tech1 3 Clinical Report - Nurses [facility] Emergency Department [address] [place] [address] Phone #: ext- [phone] 05/20/2020 15:54 Patient: [...] RR: 16. O2 saturation: 100%. --18:08 05/20/[address] [facility] Tech, Tamra, Tech1 late entry - 18:17 05/20/20. Patient transported to [place] by wheelchair with tech. --18:32 05/20/20 Nancy Cano R.N. 18:27 05/20/20. Patient returned from [place] by wheelchair with mask and tech. --18:32 [...] Patient verbalized understanding. Written instructions provided in Ivorian. The patient was discharged 4 Clinical Report - Nurses [facility] Emergency Department [address] [place] [address] Phone #: ext- [phone] 05/20/2020 15:54 Patient: [...] rce(s) Supporting Document(s) ID Date Data Source [id number] 05/20/2020 04:06:00 PM EST [facility] 1 Clinical Report - Physicians/Mid Levels [facility] Emergency Department [address] [place] [address] Phone #: ext- [phone] 05/20/2020 15:54 Patient: [...] Medications: 2 Clinical Report - Physicians/Mid Levels [facility] Emergency Department [address] [place] [address] Phone #: ext- [phone] 05/20/2020 15:54 Patient: [...] NEGATIVE (NORMAL: NEGAT { KIT LOT # [id number] ){ KIT EXP DATE 04.15.21 ){ PROCEDURAL CONTROL VALID ) US OB 1ST TRI UP TO 14 WEEKS: (CORBIN: 05/20/2020 17:46) ( MsgRcvd 05/20/2020 18:11) Canceled 3 Clinical Report - Physicians/Mid Levels [facility] Emergency Department [address] [place] [address] Phone #: ext- [phone] 05/20/2020 15:54 Patient: ZE NORMAN Sex: F : 1985 Age: 35yReason(s): L flank/abd painReason(s): L flank/abd painTRANSPORTATION: WC IV? IV?(Yes) O2? Oxygen?(No) Jony Renal: (CORBIN: 05/20/2020 17:46) ( MsgRcvd 05/20/2020 18:11) CanceledReason(s): L flank painReason(s): L flank painTRANSPORTATION: WC IV? O2? Oxygen?(No) Room: [facility]-HCG, Quant Serum: (CORBIN: 05/20/2020 16:40) ( OkgRcvd 05/20/2020 18:01) Final results Test Result Flag Units (Reference) HCG QUANT <0.5 mIU/mL Interpretation: Less than 5 mU/mL: Negative6-10 mU/mL: Borderline (suggest repeat in 48 hours) >10: PositiveApprox HCG range (mU/mL) Weeks post LMP 5.4-708 mU/mL 3-4 Sscen791-77795 mU/mL 5-6 Weeks 4059-351030 mU/mL 7-8 Srlpv98134-336542 mU/mL 9-10 Weeks 44763-60343 mU/mL 12-14 Ilheo30830-13703 mU/mL 15-16 Weeks 8240-14699 mU/mL 17-18 WeeksCBC w Diff: (CORBIN: 05/20/2020 [...] . 4 Clinical Report - Physicians/Mid Levels [facility] Emergency Department [address] [place] [address] Phone #: ext- [phone] 05/20/2020 15:54 Patient: [...] Male GFR Interprentation 20-49 yrs >60 mL/min Kqdwpe64-22 yrs >56 mL/min Normal 60-69 yrs >49 mL/min Normal 70-79yrs>42 mL/min Normal 80 and above >35 mL/min Normal Female GFRInterpretation 20-39 yrs >60 mL/min Normal 40-49 yrs >58 mL/minNormal 50-59 yrs >51 mL/min Normal 60-69 yrs >45 mL/min Snnttv72-23 yrs >39 mL/min Normal 80 and above >32 mL/min NormalLipase: (CORBIN: 05/20/2020 16:40) ( [facility] 05/20/2020 17:36) Final results Test Result Flag Units (Reference) LIPASE 42 U/L (13 - 60)Urinalysis: (CORBIN: 05/20/2020 16:40) ( OkgRcvd 05/20/2020 17:21) Final results Test Result Flag [...] Indicate 5 Clinical Report - Physicians/Mid Levels [facility] Emergency Department [address] [place] [address] Phone #: ext- [phone] 05/20/2020 15:54 Patient: ZE NORMAN Sex: F : 1985 Age: 35y Beta-HCG, Qual Serum: (CORBIN: 05/20/2020 16:40) ( MsgRcvd 05/20/2020 17:39) Final results Test Result Flag Units (Reference) HCG SERUM QUAL POSITIVE (NORMAL: NEGAT HCG SERUM QL REENTER POSITIVE (NORMAL: NEGAT { KIT LOT # [id number] ){ KIT EXP DATE 04.15.21 ){ PROCEDURAL [...] or complaints. Pt agrees. pending resutls. Reviewed PHYSICIAN INTENSIVIST. No open rx. This report was requested by: Rajat Johnson Reference #: [id number] Others' Prescriptions Patient Name: Ze NormanBirth Date: 1985 6 Clinical Report - Physicians/Mid Levels [facility] Emergency Department [address] [place] [address] Phone #: ext- [phone] 05/20/2020 15:54 Patient: ZE NORMAN Sex: F : 1985 Age: 35y Address: [address] [place], [place] [address]Sex: Female Rx Written Rx Dispensed Drug Quantity Days Supply Prescriber Name Payment Method Dispenser 02/19/2020 03/05/2020 alprazolam 0.5 mg tablet 60 30 Kunwar, [facility] [id number] #[id number] 01/24/2020 01/24/2020 alprazolam 0.5 mg tablet 60 30 Kunwar, [facility] [id number] #[id number] 12/27/2019 12/27/2019 alprazolam 0.5 mg tablet 60 30 Kunwar, [facility] [id number] #[id number] Reviewed results. Enter room and patient lying peacefully in bed in [facility]. Patient stable. Denies any new issues, concerns, [...] or 7 Clinical Report - Physicians/Mid Levels [facility] Emergency Department [address] [place] [address] Phone #: ext- [phone] 05/20/2020 15:54 --- Patient: ZE NORMAN Sex: F : 1985 Age: 35y changes unexpectedly, if not improving as expected, or if other problems arise. Prescription Medications: Zofran 4 mg tablet Take 1 tablet three times a day for 4 days -- Dispense 12 tablet. Refills: 0. Substitution permitted. Pharmacy - [facility] [phone] ; [place] [address]. . gabapentin 100 mg capsule Take 1 capsule three times a day for 4 days -- Dispense 12 capsule. Refills: 0. Substitution permitted. [facility] [phone] ; [place] [address]. . Follow-up: Return to the emergency department as needed. Follow up with your healthcare provider in about two days if not better. Call for an appointment. Understanding of the discharge instructions verbalized by patient.(Electronically signed by Rajat Johnson P.A.-C 05/20/2020 21:49) Name Value Range Interpretation Code Description Data Ni rce(s) Supporting Document(s) ID Date Data Source [id number] 05/23/2020 01:03:00 PM [facility] Name Value Range Interpretation Code Description Data Ni rce(s) Supporting Document(s) CULTURE URINE [facility] _CULTURE URINE_$$[id number]$$591528$$742961$$943648$$593664$$140004$$117366$$101531$$155241$$ 755557$$043495$$701597$$229137$$712760$$365749$$020760$$187346$$839117$$255272$$ 249711$$561886$$200662$$037339$$693733$$861615$$570041$$875922 -- Continued on next page --Patient: МАРИЯ Gonzalez Order: [id number] Page 2Culture: CULTURE URINE Status: Final ====$$[id number]$$[id number] DATE/TIME: 05/23/2020 06:06Culture: CULTURE URINE Status: FinalUrine Culture,Comprehensive: Z1Okxld urogenital flora25,000-50,000 colony forming units per mLP1 Test performed by: [facility] #: [id number] [address] [place] [address] [id number] [facility] [id number] Director : Benoit Cash MD NPI #:Size Cutter : 05/23/20.1303.XMT.SENT REF ID Date Data Source [id number] 05/20/2020 06:07:00 PM [facility] Name Value Range Interpretation Code Description Data Ni rce(s) Supporting Document(s) CBC W/AUTOMATED DIFF [facility] COMPLETE BLOOD COUNT Leukocytes [#/volume] in Blood by Automated count 5.9 10^3/uL 4.2 - 1 1.0 [facility] Erythrocytes [#/volume] in Blood by Automated count 4.52 10^6/uL 4. 20 - 5.40 [facility] Hemoglobin [Mass/volume] in Blood 10.4 g/dL 12.0 - 16.0 L [facility] Hematocrit [Volume Fraction] of Blood by Automated count 33.5 % 3 7.0 - 47.0 L [facility] Erythrocyte mean corpuscular volume [Entitic volume] by Auto mated count 74.1 fL 81.0 - 101 L [facility] Erythrocyte mean corpuscular hemoglobin [Entitic mass] by Automated count 23.0 pg 27.0 - 34.0 L [facility] Erythrocyte mean corpuscular hemoglobin concentration [Mass/volume] by Automated count 31.0 g/dL 31.0 - 36.0 [facility] Erythrocyte distribution width [Ratio] by Automated count 16.9 % 11.5 - 14.5 H [facility] Platelets [#/volume] in Blood by Automated count 205 10^3/uL 150 - 45 0 [facility] Neutrophils/100 leukocytes in Blood by Automated count 49.3 % 37. 0 - 80.0 [facility] Lymphocytes/100 leukocytes in Blood by Manual count 38.9 % 25.0 - 40.0 [facility] Monocytes/100 leukocytes in Blood by Automated count 7.0 % 3.0 - 8.0 [facility] Eosinophils/100 leukocytes in Blood by Automated count 3.4 % 0.0 - 7.0 [facility] Basophils/100 leukocytes in Blood by Automated count 1.2 % 0.0 - 2.5 [facility] %IG 0.2 % 0.0 - 0.0 [facility] %NRBC 0.0 % 0.0 - 0.0 [facility] al Neutrophils [#/volume] in Blood by Automated count 2.91 10^3/uL 2.00 - 6.90 [facility] Lymphocytes [#/volume] in Blood by Automated count 2.29 10^3/uL 0.60 - 3.40 [facility] Monocytes [#/volume] in Blood by Automated count 0.41 10^3/uL 0.00 - 0.90 [facility] Eosinophils [#/volume] in Blood by Automated count 0.20 10^3/uL 0.00 - 0.70 [facility] Basophils [#/volume] in Blood by Automated count 0.07 10^3/uL 0.00 - 0.20 [facility] #IG 0.01 10^3/uL 0.00 - 0.10 [facility] #NRBC 0.00 10^3/uL 0.00 - 0.00 [facility] MANUAL DIFF NOT INDICATED [facility] RBC MORPH SEE BELOW [facility] { SICKLE CELL (NORMAL: NONE SEEN ) Platelet adequacy [Presence] in Blood by Light microscopy NORMAL NORMAL: NORMAL [facility] COMMENT: _RARE_LARGE_PLATELET 05/20/20.180.DW . ID Date Data Source [id number] 05/20/2020 06:02:00 PM EST [facility] Name Value Range Interpretation Code Description Data Ni rce(s) Supporting Document(s) HCG URINE QUAL NEGATIVE NORMAL: NEGATIVE [facility] HCG URINE QL REENTER NEGATIVE NORMAL: NEGATIVE [facility] { KIT LOT # [id number] ){ KIT EXP DATE 04.15.21 ){ PROCEDURAL CONTROL VALID ) ID Date Data Source [id number] 05/20/2020 06:00:00 PM [facility] Name Value Range Interpretation Code Description Data Ni rce(s) Supporting Document(s) Choriogonadotropin.intact [Units/volume] in Serum or Plasma <0.5 mIU/ mL [facility] Interpr etation: Less than 5 mU/mL: Negative 6-10 mU/mL: Borderline (suggest repeat in 48 hours) >10: Positive Approx HCG range (mU/mL) Weeks post LMP 5.4-708 mU/mL 3-4 Weeks 217-10735 mU/mL 5-6 Weeks 4059-549044 mU/mL 7-8 Weeks 47460-772036 mU/mL 9-10 Weeks 35789-87331 mU/mL 12-14 Weeks 96434-73422 mU/mL 15-16 Weeks 8240- 43749 mU/mL 17-18 Weeks ID Date Data Source [id number] 05/20/2020 05:38:00 PM [facility] Name Value Range Interpretation Code Description Data Ni rce(s) Supporting Document(s) HCG SERUM QUAL POSITIVE NORMAL: NEGATIVE [facility] HCG SERUM QL REENTER POSITIVE NORMAL: NEGATIVE [facility] { KIT LOT # [id number] ){ KIT EXP DATE 04.15.21 ){ PROCEDURAL CONTROL VALID ) ID Date Data Source [id number] 05/20/2020 05:36:00 PM [facility] Name Value Range Interpretation Code Description Data Ni rce(s) Supporting Document(s) Lipase [Enzymatic activity/volume] in Serum or Plasma 42 U/L 13 - 60 [facility] ID Date Data Source [id number] 05/20/2020 05:36:00 PM [facility] Name Value Range Interpretation Code Description Data Ni rce(s) Supporting Document(s) COMPREHENSIVE METABOLIC PANEL [facility] COMPREHENSIVE METABOLIC PANEL Sodium [Moles/volume] in Serum or Plasma 138 mEq/L 134 - 153 [facility] Potassium [Moles/volume] in Serum or Plasma 3.8 mEq/L 3.6 - 5.0 [facility] Chloride [Moles/volume] in Serum or Plasma 105 mEq/L 98 - 107 [facility] Carbon dioxide, total [Moles/volume] in Serum or Plasma 27 MEQ/L 22 - 30 [facility] Glucose [Mass/volume] in Serum or Plasma 83 MG/DL 65 - 110 [facility] BUN 16 MG/DL 7 - 21 [facility] Creatinine [Mass/volume] in Serum or Plasma 0.8 MG/DL 0.7 - 1.5 [facility] BUN/CREAT 20 8 - 27 [facility] Protein [Mass/volume] in Serum or Plasma 6.6 G/DL 6.3 - 8.2 [facility] Albumin [Mass/volume] in Serum or Plasma 3.9 G/DL 3.9 - 5.0 [facility] Globulin [Mass/volume] in Serum by calculation 2.7 GM/DL 2.4 - 3.2 [facility] A/G RATIO 1.4 0.8 - 2.0 [facility] Calcium [Mass/volume] in Serum or Plasma 9.1 MG/DL 8.4 - 10.2 [facility] Bilirubin.total [Mass/volume] in Serum or Plasma <0.7 MG/DL 0.2 - 1.3 [facility] Alkaline phosphatase [Enzymatic activity/volume] in Serum or Plasma 96 U/L 38 - 126 [facility] Aspartate aminotransferase [Enzymatic activity/volume] in Serum or Plasma 19 U/L 5 - 40 [facility] Alanine aminotransferase [Enzymatic activity/volume] in Seru m or Plasma 16 U/L 7 - 56 [facility] Anion gap 3 in Serum or Plasma 6.0 mmol/L 8.0 - 16.0 L [facility] AGE 35 yrs [facility] NON-AA GFR >60 mL/min [facility] ital AFR AMER GFR >60 mL/min [facility] Male GFR In terprentation 20-49 [...] >32 mL/min Normal ID Date Data Source [id number] 05/20/2020 05:21:00 PM EST [facility] Name Value Range Interpretation Code Description Data [facility] rce(s) Supporting Document(s) URINALYSIS [facility] mono URINALYSIS SOURCE Clean Catch [facility] ital COLOR yellow NORMAL: Yellow [facility] CLARITY clear NORMAL: Clear [facility] Specific gravity of Urine by Test strip 1.010 1.001 - 1.030 [facility] pH 6.5 5 - 9 [facility] Glucose [Mass/volume] in Urine by Test strip NORM NORMAL: Negat [facility] Bilirubin.total [Presence] in Urine by Test strip NEG NORMAL: Negative [facility] Ketones [Presence] in Urine by Test strip NEG NORMAL: Negative [facility] Protein [Mass/volume] in Urine by Test strip NEG NORMAL: Negat [facility] Nitrite [Presence] in Urine by Test strip NEG NORMAL: Negative [facility] BLOOD NEG NORMAL: Negative [facility] Leukocyte esterase [Presence] in Urine by Test strip NEG LOLI L: Negative [facility] Urobilinogen [Mass/volume] in Urine by Test strip NOR less emi n 1.0 mg/dL [facility] MICROSCOPIC Not Indicate [facility] ID Date Data Source [id number] 04/01/2020 12:00:00 PM EDT [facility] Name Value Range Interpretation Code Description Data [facility](s) Supporting Document(s) SARS coronavirus 2 RNA [facility] This lab was ordered by [facility] and reported by [facility]. ID Date Data Source [id number] 02/13/2020 10:17:00 AM EDT [facility] [address] [place] [address] PHONE: [phone] FAX: [phone] Name .................. : МАРИЯ Gonzalez Acct Number.................. : [id number] ROOM. ................. : TR-1A MR Number ................... : [id number] Stay type ............. : E/R Discharge Date......... ... : 02/12/20 Admit Date ......... : 02/12/20 Admit Phys .................... : KARMA RAMSES Date of ....... : 1985 Family Phys ................... : NO PCP Phone .................. : [phone] Age ................................ : 34 Film# .................. .:[id number] Sex ................................. : F Unsigned transcriptions are preliminary reports and do not represent a medical or legal document US EXT-NON VASCULAR LT COMPL [id number] COMPLETE:02/12/20 11:38 [facility] [id number] Reason(s): L wrsit pain; ? ganglion SONOGRAM [...] By MITCH LAWRENCE MD , 02/13/20 10:17, [facility] Transcribe Initials: SSR, Transcribe Date: 02/12/20 14:35, Dictation Date: Copy for: ELIZABETH HAASRENEEYOMAIRA via fax Copy for: KARMA GUSTAVO Willam via fax Copy for: EMERGENCY DEPT via modem Copy for: 710 MED REC DISCHARGED Page 1 of 1 Name Value Range Interpretation Code Description Data Ni rce(s) Supporting Document(s) ID Date Data Source [id number] 02/13/2020 10:17:00 AM EDT [facility] [address] [place] [address] PHONE: [phone] FAX: [phone] Name .................. : МАРИЯ Gonzalez Acct Number.................. : [id number] ROOM. ................. : -1A MR Number ................... : [id number] Stay type ............. : E/R Discharge Date......... ... : 02/12/20 Admit Date ......... : 02/12/20 Admit Phys .................... : KARMA RAMSES Date of ....... : 1985 Family Phys ................... : NO PCP Phone .................. : [phone] Age ................................ : 34 Film# .................. .:[id number] Sex ................................. : F Unsigned transcriptions are preliminary reports and do not represent a medical or legal document SPINE CERV COMP-5 OR MORE VIE [id number] COMPLETE:02/12/20 11:43 KBO 32755 Reason(s): Upper Ext Pain/Numbness CERVICAL SPINE, 02/12/20: [...] By MITCH LAWRENCE MD , 02/13/20 10:17, [facility] Transcribe Initials: SSR, Transcribe Date: 02/12/20 14:34, Dictation Date: Copy for: ELIZABETH REARDON via fax Copy for: KARMA Quarles via fax Copy for: [place] [facility] [place] [place] Copy for: 710 MED REC DISCHARGED Page 1 of 1 Name Value Range Interpretation Code Description Data Ni rce(s) Supporting Document(s) ID Date Data Source [id number] 02/12/2020 10:08:00 AM EDT [facility] 1 OrderSheet [facility] Emergency Department [address] [place] [address] Phone #: ext- [phone] 02/12/2020 09:58 Patient: ZE NORMAN Sex: F [...] rce(s) Supporting Document(s) ID Date Data Source [id number] 02/12/2020 10:08:00 AM EDT [facility] 1 Medication Reconciliation Report [facility] Emergency Department [address] [place] [address] Phone #: ext- [phone] 02/12/2020 09:58 [id number] Sex: F : 1985 Age: 34yWeight: 95.2 [...] Dispense 9 tablet. Refills: 0.Substitution permitted.Pharmacy - [facility] [id number] [place] [address] ; [place] [address]. FaxNu mber: .gabapentin 100 mg capsule Take 1 capsule three times a day for 4 days -- Dispense 12 capsule.Refills: 0. Substitution permitted.Pharmacy - [facility] [email or web address] [facility] ; [place] [address]. .prednisone 50 mg tablet Take 1 tablet once a day with meals for 5 days -- Dispense 5 tablet. Refills: 0.Substitution permitted.Pharmacy - [facility] [employer] - [address] [facility] ; [place] [address]. . -- Rajat Johnson P.A.-C Name Value Range Interpretation Code Description Data Ni rce(s) Supporting Document(s) ID Date Data Source [id number] 02/12/2020 10:08:00 AM EDT [facility] 1 Medication Administration Record [facility] Emergency Department [address] [place] [address] Phone #: ext- [phone] 02/12/2020 09:58 Patient: ZE NORMAN Sex: F [...] rce(s) Supporting Document(s) ID Date Data Source [id number] 02/12/2020 10:08:00 AM EDT [facility] 1 General Instructions [facility] Emergency Department [address] [place] [address] Phone #: ext- [phone] 02/12/2020 09:58 Patient: [...] days -- Dispense 9 tablet. Refills: 0.Substitution permitted.[facility] - [address] ; [place] [address]. .gabapentin 100 mg capsule Take 1 capsule three times a day for 4 days -- Dispense 12 capsule.Refills: 0. Substitution permitted.[facility] - [address] ; [place] [address]. .prednisone 50 mg tablet Take 1 tablet once a day with meals for 5 days -- Dispense 5 tablet. Refills: 0.Substitution permitted.[facility] - [address] ; [place] [address]. .Follow-up:Return to the emergency department as needed. Follow up with your healthcare provider in about twodays if not better. Call for an appointment. 2 General Instructions [facility] Emergency Department [address] [place] [address] Phone #: ext- [phone] 02/12/2020 09:58 Patient: ZE NORMAN Sex: F [...] when you are asleep. 3 General Instructions [facility] Emergency Department [address] [place] [address] Phone #: ext- [phone] 02/12/2020 09: 58 [...] bent back when typing. You may use rall-xjc-zozwkfy pain medicine to treat pain and inflammation, [...] with the above treatment 4 General Instructions [facility] Emergency Department [address] [place] [address] Phone #: ext- [phone] 10/2019 09:58 Patient: ZE NORMAN Sex: F : 1985 Age: 34y Fingers or hand become cold, blue, numb, or tingly Your whole arm becomes swollen or weak [id number] [employer]. [address] [place] [address]. All rights reserved. This information is not intended as asubstitute for professional medical care. Always follow your healthcare professional's instructions. You have been given the following additional information: Carpal Tunnel Syndrome(Electronically signed by Rajat Johnson P.A.-C 02/12/2020 20:56) Name Value Range Interpretation Code Description Data Ni rce(s) Supporting Document(s) ID Date Data Source [id number] 02/12/2020 10:08:00 AM EDT [facility] 1 Clinical Report - Nurses [facility] Emergency Department [address] [place] [address] Phone #: ext- [phone] 02/12/2020 09:58 Patient: [...] had no swelling or redness. 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 --10:04 02/12/20 Tyra Nicole R.N.10:06 02/12/20. [...] SURGERIES:Breast Augmentation.Cholecystectomy.. 2 Clinical Report - Nurses [facility] Emergency Department [address] [place] [address] Phone #: ext- [phone] 02/12/2020 09:58 [id number] Sex: F : 1985 Age: 34y Laparoscopy. [...] Patient transported to radiology by wheelchair with ip technology transactions attorney. --11:20 02/12/20 Denice Montoya RN 11:30 02/12/2020 Tylenol (APAP) PO 1000 mg given. Allergies verified and confirmed 5 rights. Information reviewed with patient including reason for taking this medication. Verbalizes understanding. --:30 3 Clinical Report - Nurses [facility] Emergency Department [address] [place] [address] Phone #: ext- [phone] 02/12/2020 09:58 Patient: ZE NORMAN Sex: F : 1985 Age: 34y 02/12/20 Denice Montoya RN 11:30 02/12/2020 Ativan (LORazepam) PO 1 mg given. Allergies verified and confirmed 5 rights. Information reviewed with patient including reason for taking this medication and sedative warning. Verbalizes understanding. --11:30 02/12/20 Denice Montoya, ELIO Patient walked back from sonogram with ip technology transactions attorney. --11:31 02/12/20 Denice Montoya, ELIO 12:00 02/12/2020 [...] Patient verbalized understanding. Written instructions provided in Ivorian. The patient was discharged by the physician congressional assistant. She was discharged home and accompanied by family. She left ambulatory and via private vehicle. Family member driving. --12:19 02/12/20 Denice Montoya RN 12:19 02/12/20. Pain level now: 12/18. --12:19 02/12/20 Denice Montoya RN.Locked/Released at 02/12/2020 18:48 by Denice Montoya RN Name Value Range Interpretation Code Description Data Ni rce(s) Supporting Document(s) ID Date Data Source [id number] 02/12/2020 10:08:00 AM EDT [facility] 1 Clinical Report - Physicians/Mid Levels [facility] Emergency Department [address] [place] [address] Phone #: ext- [phone] 02/12/2020 09:58 Patient: [...] Augmentation. Cholecystectomy. . 2 Clinical Report - Physicians/[facility] Emergency Department [address] [place] [address] Phone #: ext- [phone] 02/12/2020 09:58 Patient: ZE NORMAN Sex: F [...] swelling, 3 Clinical Report - Physicians/Mid Levels [facility] Emergency Department [address] [place] [address] Phone #: ext- [phone] 02/12/2020 09:58 -------- Patient: ZE NORMAN Sex: [...] judgement normal.LABS, X-RAYS, AND EKGC-Spine X-rays: (Howard spann Michael - 02/12/2020 11:30:06 AMdjd, no fx.). The [...] documentation. 4 Clinical Report - Physicians/Mid Levels [facility] Emergency Department [address] [place] [address] Phone #: ext- [phone] 02/12/2020 09:58 Patient: ZE NORMAN Sex: F [...] or 5 Clinical Report - Physicians/Mid Levels [facility] Emergency Department [address] [place] [address] Phone #: ext- [phone] 02/12/2020 09:58 Patient: ZE NORMAN Sex: F : 1985 Age: 34y changes unexpectedly, if not improving as expected, or if other problems arise. Your Current Medications: . No home medication. No home medication. Prescription Medications: cyclobenzaprine 10 mg tablet Take 1 tablet three times a day for 3 days -- Dispense 9 tablet. Refills: 0. Substitution permitted. Pharmacy - [facility] [employer] [facility] ; [place] [address]. . gabapentin 100 mg capsule Take 1 capsule three times a day for 4 days -- Dispense 12 capsule. Refills: 0. Substitution permitted. [facility] - [facility] [employer] [address] [facility] ; [place] [address]. . prednisone 50 mg tablet Take 1 tablet once a day with meals for 5 days -- Dispense 5 tablet. Refills: 0. Substitution permitted. Pharmacy - [facility] [employer] [facility] ; [place] [address]. . Follow-up: Return to the emergency department as needed. Follow up with your healthcare provider in about two days if not better. Call for an appoi ntment. Understanding of the discharge instructions verbalized by patient.(Electronically signed by Rajat Johnson P.A.-C 02/12/2020 20:56) Name Value Range Interpretation Code Description Data Ni rce(s) Supporting Document(s) ID Date Data Source [id number] 02/11/2020 08:53:00 AM EDT [facility] [address] [place] [address] PHONE: [phone] FAX: [phone] Name .................. : МАРИЯ Gonzalez Acct Number.................. : [id number] ROOM. ................. : [facility] MR Number ................... : [id number] Stay type ............. : E/R Discharge Date......... ... : 02/09/20 Admit Date ......... : 02/09/20 Admit Phys .................... : LOLA KURTZ Date of ....... : 1985 Family Phys ................... : UNKNOWN Phone .................. : [phone] Age ................................ : 34 Film# .................. .:[id number] Sex ................................. : F Unsigned transcriptions are preliminary reports and do not represent a medical or legal document WRIST COMPLETE LT [id number] COMPLETE:02/09/20 02:57 RLB [id number] Farrah son(s): Wrist Pain LEFT WRIST X-RAY: 4-VIEWS [...] rce(s) Supporting Document(s) ID Date Data Source [id number] 02/09/2020 12:09:00 AM EDT [facility] 1 OrderSheet [facility] Emergency Department [address] [place] [address] Phone #: ext- [phone] 02/09/2020 00:03 Patient: ZE NORMAN Sex: F [...] Description Priority Entered Acknowledged InitialedSplint (UE) (Left) 01:02/09/2020 01:39 ZossOctober(Cock-up) Hannah Davila R.N.(Cock-up) Arvind;[Electronically signed by Selvin Santos R.N. (:02/09/2020)][Electronically signed by Hannah Davila M.D. (02:34 02/09/2020)][Electronically locked by Selvin Santos R.N. (:02/09/2020)] Name Value Range Interpretation Code Description Data Ni rce(s) Supporting Document(s) ID Date Data Source [id number] 02/09/2020 12:09:00 AM EDT [facility] 1 Medication Reconciliation Report [facility] Emergency Department [address] [place] [address] Phone #: ext- [phone] 02/09/2020 00:03 Patient: [...] rce(s) Supporting Document(s) ID Date Data Source [id number] 02/09/2020 12:09:00 AM EDT [facility] 1 Medication Administration Record [facility] Emergency Department [address] [place] [address] Phone #: [phone] zjr- [phone] 02/09/2020 00:03 Patient: ZE NORMAN Sex: F : 1985 Age: 34yWeight: 95.2 kgHeight/Length: 71 inBMI: 29.3ALLERGIES: No Known Drug Allergy Date/Time Medication Administered Medication OrderedGiven DILAUDID [IM] (HYDROMORPHONE Dilaudid IM 1 mg (HIGH ALERT01:37 02/09/2020 HCL) MEDICATION)[place] Kathie, R.NJocelin Dose: 1 mg IM Name Value Range Interpretation Code Description Data Ni rce(s) Supporting Document(s) ID Date Data Source [id number] 02/09/2020 12:09:00 AM EDT [facility] 1 General Instructions [facility] Emergency Department [address] [place] [address] Phone #: ext- [phone] 02/09/2020 00:03 Patient: [...] to plan of care.Follow-up with: [facility], , , [address] [place] [address], [facility] Follow up in two days even if well. Call for an appointment. Reason for referral: evaluation and treatment.Summary of care provided to patient via paper. ADDITIONAL INFORMATIONCarpal Tunnel Syndrome 2 General Instructions [facility] Emergency Department [address] [place] [address] Phone #: ext- [phone] 02/09/2020 00:03 [id number] Sex: F : 1985 Age: 34yCarpal tunnel [...] tools with strong vibrations. 3 General Instructions [facility] Emergency Department [address] [place] [address] Phone #: ext- [phone] 02/09/2020 00:03 Patient: [...] bent back when typing. You may use nllq-kwu-rzgcfwi pain medicine to treat pain and inflammation, [...] Your whole arm becomes swollen or weak [phone] [employer]. [address] [place] [address], [place] [address]. All rights reserved. This information is not intended as asubstitute for professional medical care. Always follow your healthcare professional's instructions. You have been given the following additional information: 4 General Instructions [facility] Emergency Department [address] [place] [address] Phone #: ext- [phone] 02/09/2020 00:03 Patient: ZE NORMAN Sex: F : 1985 Age: 34yCarpal Tunnel Syndrome(Electronically signed by Hannah Davila M.D. 02/09/2020 02:34) Name Value Range Interpretation Code Description Data Ni rce(s) Supporting Document(s) ID Date Data Source [id number] 02/09/2020 12:09:00 AM EDT [facility] 1 Clinical Report - Nurses [facility] Department [address] [place] [address] Phone #: ext- [phone] 02/09/2020 00:03 Patient: [...] BMI: 29.3. --00:02 02/09/20 [place] October RJocelinN.MedicationsNone. --00:04 02/09/20 [facility] October RJocelinN.AllergiesNo Known Drug Allergy. --00:02/09/20 Brunilda October RJocelinN.PROBLEMS:no known problems.ADDITIONAL SURGERIES:Breast Augmentation.Cholecystectomy.C- Section.Salpingectomy. --00:02/09/20 [place] October RJocelinN.HistoryPAST MEDICAL HX: Last normal menstrual period- today.SOCIAL HX: Never smoker. No alcohol use or drug use. She was offered HIV testing but declined. Shehas not traveled outside the [place]Infectious disease exposure: No infectious disease exposure. (covid screen neg). Patient is not a knowncarrier of tuberculosis, hepatitis, HIV, MRSA or VRE. Patient is not a known carrier of CRE.SELF HARM ASSESSMENT: Self harm assessment was performed. The patient answered "no" to the 2 Clinical Report - Nurses [facility] Emergency Department [address] [place] [address] Phone #: ext- [phone] 02/09/2020 00:03 [id number] Sex: F : 1985 Age: 34y question(s) [...] completed. No skin integrity risk identified. --00:02/09/20 Ktahie Osborne, R.N. Interventions To treatment room. --00:02/09/20 BrunildaKathie, R.N.PHYSICAL ASSESSMENTGENERAL / NEURO / PSYCH: Alert. [...] and dry. Normal skin turgor. --00:25 02/09/20 BrunildaKathie, R.N.NURSING PROGRESS NOTESPatient gowned. Head of bed elevated. Reassurance given. Two patient identifiers checked. Side railsup x 1. Bed placed in lowest position. Brakes of bed on. P atient ready for evaluation- ED physiciannotified. --00:02/09/20 Kathie Osborne REvelina ( no acute neuro deficits noted. pt c/o left wrist pain with palpation.). --00:09 02/09/20 [place], KathiePat. Patient walked to radiology with ip technology transactions attorney. --01:29 02/09/20 Brunilda OctoberPat. Patient walked back from radiology with ip technology transactions attorney. --01:34 02/09/20 [facility], OctoberAdolph 01:37 02/09/2020 Dilaudid (HYDROmorphone HCl) IM 1 mg given. Given in the right deltoid. Allergies 3 Clinical Report - Nurses [facility] Emergency Department [address] [place] [address] Phone #: ext- [phone] 02/09/2020 00:03 Patient: ZE NORMAN Sex: F : 1985 Age: 34y verified and confirmed 5 rights. Information reviewed with patient including reason for taking this medication and sedative warning. Verbalizes understanding. --01:37 02/09/20 BrunildaOctoberPat. Medium velcro splint applied to left wrist. Distal pulses intact, sensation intact and motor within normal limits. Patient tolerated the procedure well. Splinting applied by me. --01:40 02/09/20 Brunilda OctoberPat.DISPOSITION / DISCHARGE Condition at departure: improved. No learning barriers present. Discharge instructions provided and reviewed with the patient. Reviewed warnings. Reviewed medication(s). Treatments reviewed. Reviewed referrals. Patient verbalized understanding. Written instructions provided in Ivorian. The patient was discharged by the physician. [...] rce(s) Supporting Document(s) ID Date Data Source [id number] 02/09/2020 12:09:00 AM EDT [facility] 1 Clinical Report - Physicians/Mid Levels [facility] Emergency Department [address] [place] [address] Phone #: ext- [phone] 02/09/2020 00:03 Patient: [...] use. 2 Clinical Report - Physicians/Mid Levels [facility] Emergency Department [address] [place] [address] Phone #: ext- [phone] 02/09/2020 00:03 Patient: ZE NORMAN Sex: F [...] was requested by: Hannah Davila Reference #: [id number] Others' Prescriptions Patient Name: eZ NormanBirth Date: 1985 Address: [address] [place], [place] [address]Sex: Female Rx Written Rx Dispensed Drug Quantity Days Supply Prescriber Name Payment Method Dispenser 01/24/2020 01/24/2020 alprazolam 0.5 mg tablet [address] [facility] 3 Clinical Report - Physicians/Mid Levels [facility] Emergency Department [address] [place] [address] Phone #: ext- [phone] 02/09/2020 00:03 Patient: ZE NORMAN Sex: F : 1985 Age: 34y 9 #[id number] 12/27/2019 12/27/2019 alprazolam 0.5 mg tablet 60 30 [employer] [id number] * - Drugs marked with an asterisk [...] stable. Discharge decision based on the following: ricardo renteriant's condition is stable; patient's condition is improved; [...] Follow-up: 4 Clinical Report - Physicians/Mid Levels [facility] Emergency Department [address] [place] [address] Phone #: ext- [phone] 02/09/2020 00:03 Patient: ZE NORMAN Sex: F [...] plan of care. Follow-up with: [facility], , , [address] [address], , [place], [address] Follow up in two days even if well. Call for an appointment. Reason for referral: evaluation and treatment. Summary of care pro vided to patient via paper.(Electronically signed by Hannah Davila M.D. 02/09/2020 02:34) Name Value Range Interpretation Code Description Data Ni rce(s) Supporting Document(s) ID Date Data Source [id number] 10/11/2019 07:45:00 AM EDT [facility] Name Value Range Interpretation Code Description Data Ni rce(s) Supporting Document(s) SARS CORONAVIRUS 2 RNA [facility] This lab was ordered by [facility] and reported by [facility]. Procedure Vital Signs ID Date Data Source UNK Name Value Range Interpretation Code Description Data Source(s) Body surface area Derived from formula 2.23 m2 2.23 m2 [facility] ([facility]) Body weight 103.421 kg 103.421 kg [facility] ([facility]) [place] body weight 155 [lb_av] 155 [lb_av] [facility] Body mass index (BMI) [Ratio] 31.8 kg/m2 31.8 k g/m2 [facility] ([facility]) Body weight 228.00 [lb_av] 228.00 [lb_av] [facility] Body height 71 [in_i] 71 [in_i] [facility] ([facility]) 5'11" Body temperature 98.1 [degF] 98.1 [degF] [facility] ([facility]) Body temperature 98.2 [degF] 98.2 [degF] [facility] ([facility]) Body weight 102.967 kg 102.967 kg [facility] ([facility]) [place] body weight 155 [lb_av] 155 [lb_av] [facility] ([facility]) Body mass index (BMI) [Ratio] 31.7 kg/m2 31.7 k g/m2 [facility] ([facility]) Body weight 227.00 [lb_av] 227.00 [lb_av] [facility] ([facility]) Body height 71 [in_i] 71 [in_i] [facility] ([facility]) 5'11" Body temperature 98.1 [degF] 98.1 [degF] [facility] ([facility]) Respiratory rate 16 /min 16 /min [facility] ( [facility]) Heart rate 80 /min 80 /min [facility] ([facility]) Diastolic blood pressure 84 mm[Hg] 84 mm[Hg] [facility] ([facility]) Systolic blood pressure 138 mm[Hg] 138 mm[Hg] [facility] ([facility]) Heart rate 72 /min 72 /min [facility] ([facility]) Diastolic blood pressure 80 mm[Hg] 80 mm[Hg] [facility] ([facility]) Systolic blood pressure 120 mm[Hg] 120 mm[Hg] [facility] Body mass index (BMI) [Ratio] 30.7 kg/m2 30.7 k g/m2 [facility] ([facility]) Body weight 220.00 [lb_av] 220.00 [lb_av] [facility] ([facility]) Body height 71 [in_i] 71 [in_i] [facility] ([facility]) 5'11"
[2020-08-29] MEDS ORDERED: NS 1,000 ML IV ONE (23:30)
--- OUTSIDE RECORDS SUMMARY | 2020-08-29 23:42 | CCD ---
Author Author [facility] Organization [facility] Address Unknown Phone Unavailable Care Team Providers Care Field Consultant Name Role Phone NISHA, E CALEB DO [...] is protected by Article 27-F of the [facility] Public Health law. If you continue you may have access to information: Regarding HIV / AIDS; Provided by facilities licensed or operated by the [facility] Office of Mental Health; or Provided by the [facility] Office for People With Developmental Disabilities. If such information is present, then the following [facility] mandated warning applies: This information has been [...] law may result in a fine or halfway sentence or both. A general authorization for the release of medical or other information is NOT sufficient authorization for further disc losure. Allergies and Adverse Reactions Type Description Substance Reaction Status Data Source(s ) No Known Drug Allergies No Known Drug Allergies [facility] Family History Family Member Name Family Member Gender Family Member Status Date o f Status Description Data Source(s) Unknown Male Problem [facility] ([facility] Unknown Male Problem [facility] ([facility]) Encounters Encounter Providers Location Date Indications Data Source(s ) Emergency Attender: LOLI FORREST MDConsultant: HAKAN MAY NOWAllan 08/21/2020 10:33:00 PM EST - 08/22/2020 12:29:00 AM [facility] Patient discharged. Emergency Attender: HANNAH DAVILAConsultant: HAKAN MAY NOWAllan 08/11/2020 09:29:00 PM EST - 08/11/2020 10:40:00 PM [facility] Patient discharged. Emergency Attender: HANNAH DAVILA 2019 09:51:00 AM EST - 05/26/2020 12:00:00 PM [facility] Patient discharged. Emergency Attender: Gustavo Parada PA-C 04/2020 04:06:00 PM EST - 05/20/2020 07:31:00 PM [facility] Patient discharged. Outpatient Attender: CALEB Doherty/Agnes/Theron/Royer gonzalez 05/05/2020 09:15:00 AM EDT [facility] ([facility]) Emergency Attender: Gustavo Dolanant: PCP NO 02/12/2020 10:08:00 AM EDT - 02/12/2020 12:20:00 PM EDT [facility] Patient discharged. Emergency Attender: HANNAH DAVILA 2019 12:09:00 AM EDT - 02/09/2020 02:06:00 AM EDT [facility] Patient discharged. Outpatient 10/29/2019 05:30:00 AM EDT [facility] Outpatient 08/07/2019 01:55:00 PM EST [facility] Out[facility] 08/07/2019 01:53:00 PM EST [facility] Medications Medication Brand Name Start Date Product Form Dose Route Admi nistrative Instructions Pharmacy Instructions Status Indications Reaction Description Data Source(s) 8 HR Acetaminophen 650 MG Extended Release Oral Tablet [Tyle nol] Tylenol 8 Hour 02/27/2020 12:00:00 AM EDT active [facility] ([facility]) Insurance Providers Payer name Policy type / Coverage type Policy ID Covered alliance party ID Covered alliance party's relationship to martinez Policy Martinez Plan Information EAST HUMANA [id number] HU2 [id number] [facility] HUMANA [id number] HU2 [id number] EAST HUMANA - O/P [id number] 01 [id number] SELF PAY ONLY [id number] SP [id number] HUMANA EAST REG O [id number] S [id number] SELF PAY O [id number] S [id number] U [id number] Self [id number] ANSI-Not a Secondary Insurance [id number] EAST HUMANA [id number] HU2 [id number] [facility] Commercial [id number] Family Dependent [id number] U [id number] Self [id number] FOR LIFE U [id number] Self [id number] PGBA [facility] [id number] HU2 [id number] HUMANA EAST REG O [id number] P [id number] N REGIONAL CLAIMS MITZI -O/P [id number] 19 [id number] PGBA [facility] [id number] [facility] [id number] [facility] [place] [id number] 18 [id number] [facility] Commercial [id number] Self [id number] Problems, Conditions, and Diagnoses Code Display Name Description Problem Type Effective Dates Data Source(s) 09283850 Carpal tunnel syndrome Carpal tunnel syndrome Problem 02/27/2020 12:00:00 AM EDT [facility] ([facility] [id number] Hand pain Hand pain Problem 02/27/2020 12:00:00 AM ED T [facility] ([facility]) [id number] Numbness of hand Numbness of hand Problem 02/27/2020 12 :00:00 AM EDT [facility] ([facility] R519 Headache, unspecified Headache, unspecified Diagnosis 08/21/2020 10:33:00 PM [facility] C71855 Pain in left shoulder Pain in left shoulder Diagnosis 08/11/2020 09:29:00 PM [facility] M7989 Other specified soft tissue disorders Ot her specified soft tissue disorders Diagnosis 08/11/2020 09:29:00 PM [facility] N50661 Unspecified ovarian cyst, left side Unspecified ovarian cyst, left side Diagnosis 05/26/2020 09:51:00 AM [facility] N800 Endometriosis of uterus Endometriosis of uterus Diagno sis 05/26/2020 09:51:00 AM [facility] R102 Pelvic and perineal pain Pelvic and perineal pain Diag nosis 05/26/2020 09:51:00 AM [facility] R1032 Left lower quadrant pain Left lower quadrant pain Diag nosis 05/20/2020 04:06:00 PM [facility] G5602 Carpal tunnel syndrome, left upper limb Carpal tunnel syndrome, left upper limb Diagnosis 02/12/2020 10:08:00 AM [facility] U86134 Pain in left upper arm Pain in left upper arm Diagnosi s 02/12/2020 10:08:00 AM [facility] K07283 Pain in left lower leg Pain in left lower leg Diagnosi s 02/09/2020 12:09:00 AM [facility] Surgeries/Procedures Procedure Description Date Indications Data Source(s) Needle electromyography, each extremity, with related paraspinal areas, when performed, done with nerve conduction, amplitude and latency/velocity study; complete, five or more muscles studied, innervated by three or more nerves or four or more spinal levels (list separately in addition to the code for primary procedure). 02/28/2020 12:00:00 AM EDT [facility] T ([facility]) Needle electromyography, each extremity, with related paraspinal areas, when performed, done with nerve conduction, amplitude and latency/velocity study; complete, five or more muscles studied, innervated by three or more nerves or four or more spinal levels (list separately in addition to the code for primary procedure). 02/28/2020 12:00:00 AM EDT [facility] ([facility]) Needle Electromyography Non Extremity Done With Nerve Conduc tion 02/28/2020 12:00:00 AM EDT [facility] ([facility]) 43604 Nerve conduction studies 13 or more studies NEW 201202/28/2020 12:00:00 AM EDT [facility] ([facility]) Results ID Date Data Source [id number] 08/21/2020 10:33:00 PM EST [facility] 1 OrderSheet [facility] Emergency Department [address] [place] [address] Phone #: ext- [phone] 08/21/2020 22:26 Patient: [...] rce(s) Supporting Document(s) ID Date Data Source [id number] 08/21/2020 10:33:00 PM [facility] 1 Medication Reconciliation Report [facility] Emergency Department [address] [place] [address] Phone #: ext- [phone] 08/21/2020 22:26 Patient: [...] rce(s) Supporting Document(s) ID Date Data Source [id number] 08/21/2020 10:33:00 PM [facility] 1 Medication Administration Record [facility] Emergency Department [address] [place] [address] Phone #: ext- [phone] 08/21/2020 22:26 Patient: [...] rce(s) Supporting Document(s) ID Date Data Source [id number] 08/21/2020 10:33:00 PM [facility] 1 General Instructions [facility] Emergency Department [address] [place] [address] Phone #: ext- [phone] 08/21/2020 22:26 Patient: ZE NORMAN Sex: F [...] or too much sleep. 2 General Instructions [facility] Emergency Department [address] [place] [address] Phone #: ext- [phone] 08/21/2020 22:26 Patient: [...] Avocados Bananas Figs Raisins 3 General Instructions [facility] Emergency Department [address] [place] [address] Phone #: ext- [phone] 08/21/2020 22:26 Patient: ZE NORAMN Sex: F : 1985 Age: 35y Red [...] healthcare provider Stiff neck 4 General Instructions [facility] Emergency Department [address] [place] [address] Phone #: ext- [phone] 08/21/2020 22:26 Patient: ZE NORMAN Sex: F : 1985 Age: 35y Extreme drowsiness, confusion, or fainting Dizziness, or dizziness with spinning sensation (vertigo) Weakness or trouble feeling in an arm or leg, or on one side of your face Trouble talking or seeing [id number] [facility]. [address] [place] [address]. All rights reserved. This information is not intended as asubstitute for professional medical care. Always follow your healthcare professional's instructions. You have been given the following additional information: Headache, Migraine, Classic No strenuous activity. Do not work for four days.(Electronically signed by Loli Forrest MD 08/22/2020 01:08) Name Value Range Interpretation Code Description Data Ni rce(s) Supporting Document(s) ID Date Data Source [id number] 08/21/2020 10:33:00 PM EST [facility] 1 Clinical Report - Nurses [facility] Emergency Department [address] [place] [address] Phone #: ext- [phone] 08/21/2020 22:26 Patient: [...] to both eyes.).She has had a headache.Treatment EYE SPECIALIST:None. Seen within the last 30 days at this facility in the ED; seen for similar symptoms; sonogram done.SEPSIS SCREEN: SIRS SCREEN NEGATIVE. SEPSIS SCREEN NEGATIVE. No suspected or confirmedsigns of infection present.DONOVNA COMA SCORE: 15- eyes open- spontaneous (4); [...] to the 2 Clinical Report - Nurses [facility] Emergency Department [address] [place] [address] Phone #: [phone] ext- [phone] 08/21/2020 22:26 [id number] Sex: F : 1985 Age: 35y question(s) [...] with aseptic 3 Clinical Report - Nurses [facility] Emergency Department [address] [place] [address] Phone #: ext- [phone] 08/21/2020 22:26 Patient: [...] Patient verbalized understanding. Written instructions provided in Djiboutian. The patient was discharged by the physician. She was discharged home and unaccompanied at time of discharge. She left ambulatory and via private vehicle. Spouse driving. --00:27 08/22/20 Bailey Rendon 00:26 08/22/20. BP: 132/62. HR: 80. RR: 15. O2 saturation: 98%. Temp: 98.1 F. Pain level now 08/20. --00:27 08/22/20 Bailey Rendon 4 Clinical Report - Nurses [facility] Emergency Department [address] [place] [address] Phone #: ext- [phone] 08/21/2020 22:26 [facility]: [id number] Sex: F : 1985 Age: 35y Departure time: 00:27 08/22/2020. --00:27 08/22/20 Bailey Rendon.Locked/Released at 08/22/2020 00:29 by Bailey Rendon Name Value Range Interpretation Code Description Data Ni rce(s) Supporting Document(s) ID Date Data Source [id number] 08/21/2020 10:33:00 PM EST [facility] 1 Clinical Report - Physicians/Mid Levels [facility] Emergency Department [address] [place] [address] Phone #: ext- [phone] 08/21/2020 22:26 Patient: [...] Laparoscopy. 2 Clinical Report - Physicians/Mid Levels [facility] Emergency Department [address] [place] [address] Phone #: ext- [phone] 08/21/2020 22:26 Patient: ZE NORMAN Sex: F [...] radiates to her entire left side of [facility]. initially, pt is closing her left [...] Headache. 3 Clinical Report - Physicians/Mid Levels [facility] Emergency Department [address] [place] [address] Phone #: ext- [phone] 08/21/2020 22:26 Patient: ZE NORMAN Sex: F [...] rce(s) Supporting Document(s) ID Date Data Source [id number] 08/12/2020 09:42:00 [place] [address] PHONE: [phone] FAX: [phone] Name .................. : МАРИЯ Gonzalez Acct Number.................. : [id number] ROOM. ................. : TR-03 MR Number ................... : [id number] Stay type ............. : E/R Discharge Date......... ... : Admit Date ......... : 08/11/20 Admit Phys .................... : LOLA KURTZ Date of ....... : 1985 Family Phys ................... : UNKNOWN AMANDEEP Phone .................. : [phone] Age ................................ : 35 Film# .................. .:[id number] Sex ................................. : F Unsigned transcriptions are preliminary reports and do not represent a medical or legal document [place] [id number] COMPLETE:08/11/20 22:21 ADB 7497 Reason(s): DVT LEFT UPPER EXTREMITY VENOUS DOPPLER [...] rce(s) Supporting Document(s) ID Date Data Source [id number] 08/11/2020 09:29:00 PM EST [facility] 1 OrderSheet [facility] Emergency Department [address] [place] [address] Phone #: ext- [phone] 08/11/2020 21:29 Patient: ZE NORMAN Sex: F [...] rce(s) Supporting Document(s) ID Date Data Source [id number] 08/11/2020 09:29:00 PM EST [facility] 1 Medication Reconciliation Report [facility] Emergency Department [address] [place] [address] Phone #: ext- [phone] 08/11/2020 21:29 Patient: ZE NORMAN Sex: F [...] Dispense 45 tablet. Refills: 0.Substitution permitted.Pharmacy - [address] ; [place] [address]. FaxNumber: . -- ANA Horowitz Name Value Range Interpretation Code Description Data Ni rce(s) Supporting Document(s) ID Date Data Source [id number] 08/11/2020 09:29:00 PM [facility] 1 Medication Administration Record [facility] Emergency Department [address] [place] [address] Phone #: ext- [phone] 08/11/2020 21:29 Patient: ZE NORMAN Sex: F : 1985 Age: 35yWeight: 113.3 kgHeight/Length: 71 inBMI: 34.9ALLERGIES: No Known Drug Allergy Date/Time Medication Administered Medication OrderedGiven MOTRIN [PO] (IBUPROFEN) Ibuprofen 800 mg PO X1 dose: 22738:36 08/11/2020 Dose: 800 mg Tablets PO mg (NOW x1)Amita Mota,Given TORADOL [IM] (KETOROLAC Toradol IM 60 mg22:33 08/11/2020 TROMETHAMINE)Bailey Rendon, Dose: 60 mg IM Name Value Range Interpretation Code Description Data Ni rce(s) Supporting Document(s) ID Date Data Source [id number] 08/11/2020 09:29:00 PM EST [facility] 1 General Instructions [facility] Emergency Department [address] [place] [address] Phone #: ext- [phone] 08/11/2020 21:29 Patient: ZE NORMAN Sex: F [...] Dispense 45 tablet. Refills: 0.Substitution permitted.Pharmacy - [facility] - [address] [facility] ; [place] [address]. .Follow-up:Follow up with your doctor tomorrow. Call [...] from moving. You can 2 General Instructions [facility] Emergency Department [address] [place] [address] Phone #: ext- [phone] 08/11/2020 21:29 Patient: [...] shoulder or upper arm 3 General Instructions [facility] Emergency Department [address] [place] [address] Phone #: ext- [phone] 08/11/2020 21:29 Patient: ZE NORMAN Sex: F : 1985 Age: 35y Trouble moving your hand or fingers We akness in your hand or fingers Your shoulder becomes stiff It feels like your shoulder is popping out You are less able to do your daily activities [id number] [employer]. [address] [place] [address], [place] [address]. All rights reserved. This information is not intended as asubstitute for professional medical care. Always follow your healthcare professional's instructions. You have been given the following additional information: Shoulder Pain, Uncertain Cause(Electronically signed by ANA Horowitz 08/11/2020 22:33) Name Value Range Interpretation Code Description Data Ni rce(s) Supporting Document(s) ID Date Data Source [id number] 08/11/2020 09:29:00 PM EST [facility] 1 Clinical Report - Nurses [facility] Emergency Department [address] [place] [address] Phone #: ext- [phone] 08/11/2020 21:29 Patient: ZE NORMAN Sex: F : 1985 Age: 35yTRIAGEArrived by private vehicle. Historian: patient.Triage time: 21:30 08/11/2020. Acuity: LEVEL 4.Chief Complaint: LEFT UPPER EXTREMITY PAIN and NUMBNESS.No injury occurred. Onset was gradual. Symptoms are constant and still present (off and on about 1week). She has had constant numbness of the left arm.Treatment EYE SPECIALIST:Took Tylenol and ibuprofen.SEPSIS SCREEN: SIRS SCREEN NEGATIVE. SEPSIS SCREEN NEGATIVE. No suspected or confirmedsigns of infection present. --21:36 08/11/20 Sean Bunch RN21:30 08/11/20. BP: 157/106 (regular adult cuff) taken on the right arm, via an automated monitor, whilesitting. MAP: 123. HR: 76 (regular, normal rate and strong). RR: 18 (regular, unlabored and normal). N6yhytowepli: 100% on room air. Temp: 98.6 F [...] Bunch RN. 2 Clinical Report - Nurses [facility] Emergency Department [address] [place] [address] Phone #: ext- [phone] 08/11/2020 21:29 [facility]: [id number] Sex: F : 1985 Age: 35y History [...] states feels the same. --:36 08/11/20 Sean [place], RN.PHYSICAL KRAMCMNCRR46:40 08/11/20.GENERAL / NEURO / PSYCH: Oriented X [...] Patient transported by wheelchair with mask and auto technician mechanic. (Ultra sound). --21:47 08/11/20 Amita Mota late entry - 21:40 08/11/20. Patient gowned. Reassurance given. Two patient identifiers checked. Call light placed in reach. Side rails up x 2. Bed placed in lowest position. Brakes of bed on. --22:40 08/11/20 Bailey Rendon 22:33 08/11/2020 Toradol (Ketorolac Tromethamine) IM 60 mg given. Given in the right deltoid. Allergies 3 Clinical Report - Nurses [facility] Emergency Department [address] [place] [address] Phone #: ext- [phone] 08/11/2020 21:29 Patient: [...] Patient verbalized understanding. Written instructions provided in Djiboutian. The patient was discharged by the physician fire assistant. She was discharged home and unaccompanied [...] rce(s) Supporting Document(s) ID Date Data Source [id number] 08/11/2020 09:29:00 PM EST [facility] 1 Clinical Report - Physicians/Mid Levels [facility] Emergency Department [address] [place] [address] Phone #: ext- [phone] 08/11/2020 21:29 Patient: [...] use. 2 Clinical Report - Physicians/Mid Levels [facility] Emergency Department [address] [place] [address] Phone #: ext- [phone] 08/11/2020 21:29 Patient: ZE NORMAN Sex: F [...] DVT. The exam was pe rformed bya petroleum laboratory technician. The study was interpreted by the [...] or 3 Clinical Report - Physicians/Mid Levels [facility] Emergency Department [address] [place] [address] Phone #: ext- [phone] 08/11/2020 21:29 [facility]: [facility]MAN [id number] Sex: F : 1985 Age: 35y changes unexpectedly, if not improving as expected, or if other problems arise. Specifically return if pain worsens. Your Current Medications: . No home medication. Prescription Medications: IBU 800 mg tablet Take 1 tablet three times a day for 15 days -- Dispense 45 tablet. Refills: 0. Substitution permitted. Pharmacy - [facility] - [address] [facility] ; [place] [address]. . Follow-up: Follow up with your doctor tomorrow. Call for the next available appointment. Reason for referral: evaluation and treatment. Summary of care provided to patient. Understanding of the discharge instructions verbalized by patient.(Electronically signed by ANA Horowitz 08/11/2020 22:33) Name Value Range Interpretation Code Description Data Ni rce(s) Supporting Document(s) ID Date Data Source [id number] 06/23/2020 12:00:00 AM [facility] Name Value Range Interpretation Code Description Data Ni rce(s) Supporting Document(s) SARS-CoV-2 (COVID-19) RNA [Presence] in Respiratory specimen by JOEL with probe detection [facility] This lab was ordered by [facility] and reported by [facility]. ID Date Data Source [id number] 05/27/2020 03:35:00 PM [facility] [address] [place] [address] PHONE: [phone] FAX: [phone] Name .................. : МАРИЯ RENTERIASHENA Gonzalez Acct Number.................. : [id number] ROOM. ................. : TR-02 MR Number ................... : [id number] Stay type ............. : E/R Discharge Date......... ... : 05/26/20 Admit Date ......... : 05/26/20 Admit Phys .................... : LOLA KURTZ Date of ....... : 1985 Family Phys ................... : UNKNOWN Phone .................. : [phone] Age ................................ : 35 Film# .................. .:[id number] Sex ................................. : F Unsigned transcriptions are preliminary reports and do not represent a medical or legal document PELVIC [id number] COMPLETE:05/26/20 11:18 KNB 68068 Reason(s): Pelvic Pain US TRANSVAGINAL(NON OB) 23720 COMPLETE:05/26/20 11:18 KNB 15314 (REASON FOR OBS: pelvic pain TRANSABDOMINAL AND [...] rce(s) Supporting Document(s) ID Date Data Source [id number] 05/27/2020 03:35:00 PM EST [facility] [address] [place] [address] PHONE: [phone] FAX: [phone] Name .................. : МАРИЯ Gonzalez Acct Number.................. : [id number] ROOM. ................. : TR-02 MR Number ................... : [id number] Stay type ............. : E/R Discharge Date......... ... : 05/26/20 Admit Date ......... : 05/26/20 Admit Phys .................... : LOLA KURTZ Date of ....... : 1985 Family Phys ................... : UNKNOWN Phone .................. : [phone] Age ................................ : 35 Film# .................. .:[id number] Sex ................................. : F Unsigned transcriptions are preliminary reports and do not represent a medical or legal document PELVIC [id number] COMPLETE:05/26/20 11:18 KNB 57053 Reason(s): Pelvic Pain US TRANSVAGINAL(NON OB) 49455 COMPLETE:05/26/20 11:18 KNB 03839 (REASON FOR OBS: pelvic pain TRANSABDOMINAL AND [...] ANA Reese. Examination was reviewed with Jeremy Iglesais MD, radiologist at the time of this [...] rce(s) Supporting Document(s) ID Date Data Source [id number] 05/26/2020 09:51:00 AM EST [facility] 1 OrderSheet [facility] Emergency Department [address] [place] [address] Phone #: [phone] 05/26/2020 09:48 Patient: ZE NORMAN Sex: F : 1985 Age: 35yWEIGHT:95.2 kg (S) HEIGHT:71 inches (S) BMI:29.3ALLERGIES: No Known Drug AllergyCHIEF COMPLAINT: abdominal painDIAGNOSIS: Cyst of ovary, Endometriosis (clinical)LAB ORDERSOrder Description Priority Entered Acknowledged InitialedCBC w Diff STAT 10:08 05/26/2020 10:08 [facility] Tech, Bruno BURNETTE PA; [id number] STAT 10:08 05/26/2020 10:08 [facility] Tech, Bruno ER PA; [id number] STAT 10:08 05/26/2020 10:08 [facility] Tech, Bruno ER PA; Jbir1Hc inalysis (Clean STAT 10:08 05/26/2020 10:08 [facility]) [facility] Tech, Bruno ER PA; [id number], Quant STAT 10:08 05/26/2020 10:08 [facility], Bruno ER [place]; [id number] STUDY ORDERSOrder Description Priority Entered Acknowledged InitialedUS Pelvis STAT 10:08 05/26/2020 10:19 Denice Montoya(Oxygen?(No)) Roland Bae RN PA; Reason for Study: Pelvic PainMEDICATION/IV/DRIP/FLUID ORDERSOrder Description Priority Entered Acknowledged InitialedNS IV : Bolus 1000 10:08 05/26/2020 10:32 Dejah Montoya, then 150 mL/hr Roland Bae RN PA;Toradol IVP 30 mg 10:08 05/26/2020 10:32 Denice Montoya RN PA; 2 OrderSheet [facility] Emergency Department [address] [place] [address] Phone #: ext- [phone] 05/26/2020 09:48 Patient: ZE NORMAN Sex: F : 1985 Age: 35yZofran ODT PO 8 10:08 05/26/2020 10:32 Jarocho Montoya RN PA;Morphine IVP 2 mg 11:21 05/26/2020 11:21 Denice Montoya(NOW, HIGH ALERT Denice Montoya RN; RNMEDICATION) Verbal order per; Roland Bae PAGENERAL ORDERSOrder Description Priority Entered Acknowledged InitialedNPO 10:08 05/26/2020 10:09 Daja Bae fountain pen nibs inspectorBruno Sparks; [id number] Lock 10:08 05/26/2020 10:29 Denice Montoya RN PA;[Electronically signed by Denice Montoya RN (12:02 05/26/2020)][Electronically signed by Roland Bae (21:18 05/26/2020)][Electronically locked by Denice Montoya RN (12:02 05/26/2020)] Name Value Range Interpretation Code Description Data Ni rce(s) Supporting Document(s) ID Date Data Source [id number] 05/26/2020 09:51:00 AM EST [facility] 1 Medication Reconciliation Report [facility] Emergency Department [address] [place] [address] Phone #: ext- [phone] 05/26/2020 09:48 Patient: [...] Dispense 45 tablet. Refills: 0.Substitution permitted.Pharmacy - [facility] - [id number] [place] [address] ; [place] [address]. .ondansetron 8 mg disintegrating tablet Take 1 tablet three times a day for 5 days -- Dispense 15 tablet.Refills: 0. Substitution permitted.Pharmacy - [facility] - [id number] [place] [address] ; [place] [address]. . 2 Medication Reconciliation Report [facility] Emergency Department [address] [place] [address] Phone #: ext- [phone] 05/26/2020 09:48 Patient: ZE NORMAN Sex: F : 1985 Age: 35ydicyclomine 10 mg capsule Take 1 capsule four times a day for 10 days -- Dispense 40 capsule.Refills: 0. Substitution permitted.Pharmacy - [facility] [address] [facility] ; [place] [address]. . -- ANA Horowitz Name Value Range Interpretation Code Description Data Ni rce(s) Supporting Document(s) ID Date Data Source [id number] 05/26/2020 09:51:00 AM [facility] 1 Medication Administration Record [facility] Emergency Department [address] [place] [address] Phone #: [phone]- [phone] 05/26/2020 09:48 [id number] Sex: F : 1985 Age: 35yWeight: 95.2 kgHeight/Length: 71 inBMI: 29.3ALLERGIES: No Known Drug Allergy Date/Time Medication Administered Medication OrderedStart NS [IV] NS IV : Bolus 1000 mL, then 98175:32 05/26/2020 Dose: IV Fluids mL/hrDenice Montoya RN [...] rce(s) Supporting Document(s) ID Date Data Source [id number] 05/26/2020 09:51:00 AM EST [facility] 1 General Instructions [facility] Emergency Department [address] [place] [address] Phone #: ext- [phone] 05/26/2020 09:48 Patient: ZE NORMAN Sex: Gustavo : 1985 Age: 35yEndometriosis involving the uterus.Single follicular left ovarian cyst.INSTRUCTIONSWarnings: Further evaluation is necessary.Your Current Medications: Your current home medications have been reviewed.CONTINUE TAKING THE FOLLOWING MEDICATIONS:Gabapentin Oral.Zofran Oral.Prescription Medications:IBU 800 mg tablet Take 1 tablet three times a day for 15 days -- Dispense 45 tablet. Refills: 0.Substitution permitted.Pharmacy - [facility] [address] [place] [address] ; [place] [address]. .ondansetron 8 mg disintegrating tablet Take 1 tablet three times a day for 5 days -- Dispense 15 tablet.Refills: 0. Substitution permitted.[facility] - [facility] Chairish [employer] [facility] ; [place] [address]. .dicyclomine 10 mg capsule Take 1 capsule four times a day for 10 days -- Dispense 40 capsule.Refills: 0. Substitution permitted.[facility] Chairish [employer] [facility] ; [place] [address]. .Follow-up:Follow up with your doctor. Reason for referral: evaluation, treatment and refer tpo [facility] POUNCER for furtherevaluation. Summary of care provided to patient.Understanding of the discharge instructions verbalized by patient. ADDITIONAL INFORMATIONOvarian Cysts 2 General Instructions [facility] Emergency Department [address] [place] [address] Phone #: ext- [phone] 05/26/2020 09:48 Patient: ZE NORMAN Sex: F [...] pain, your healthcare provider may recommend using [id number] pain medicine. If needed, your provide may [...] grows in size.Follow-up care 3 General Instructions [facility] Emergency Department [address] [place] [address] Phone #: ext- [phone] 05/26/2020 09:48 Patient: [...] Weakness, dizziness, or fainting Abnormal vaginal bleeding [id number] [employer]. [address] [place] [address], [place] [address]. All rights reserved. This information is not [...] have pain during bowel 4 General Instructions [facility] Emergency Department [address] [place] [address] Phone #: ext- [phone] 05/26/2020 09:48 Patient: [...] directed by your provider 5 General Instructions [facility] Emergency Department [address] [place] [address] Phone #: ext- [phone] 05/26/2020 09:48 Patient: [...] can talk with you about infertility testing. [id number] [employer]. [address] [place] [address], [place] [address]. All rights reserved. This information is not intended as asubstitute for professional medical care. Always follow your healthcare professional's instructions. You have been given the following additional information: Ovarian Cyst Endometriosis(Electronically signed by ANA Horowitz 05/26/2020 21:18) Name Value Range Interpretation Code Description Data Ni rce(s) Supporting Document(s) ID Date Data Source [id number] 05/26/2020 09:51:00 AM EST [facility] 1 Clinical Report - Nurses [facility] Emergency Department [address] [place] [address] Phone #: ext- [phone] 05/26/2020 09:48 Patient: [...] She has had moderate left-sided flank pain.Treatment EYE SPECIALIST:Seen within the last 30 days at this [...] Montoya RN. 2 Clinical Report - Nurses [facility] Emergency Department [address] [place] [address] Phone #: ext- [phone] 05/26/2020 09:48 Patient: [...] 5 rights. 3 Clinical Report - Nurses [facility] Emergency Department [address] [place] [address] Phone #: ext- [phone] 05/26/2020 09:48 Patient: [...] Patient transported to sonogram by wheelchair with auto technician mechanic. --10:56 05/26/20 Denice Montoya RN Patient returned from sonogram by wheelchair with auto technician mechanic. --11:13 05/26/20 Denice Montoya RN 11:13 05/26/20. [...] F. Pain level now 12/18. --11:56 05/26/20 [facility], [facility]–1983 Bruno Sparks ER Tech1 4 Clinical Report - Nurses [facility] Emergency Department [address] [place] [address] Phone #: ext- [phone] 05/26/2020 09:48 Patient: ZE NORMAN Sex: F : 1985 Age: 35y Condition at departure: stable. No learning barriers present. Discharge instructions provided and reviewed with the patient. Reviewed medication(s) side effects, precautions, dosing and course information. Prescription(s) sent electronically to pharmacy. Reviewed referral to a rpg programmer analyst. Patient verbalized understanding. Written instructions provided in Djib[place]ian. The patient was discharged by the physician fire assistant. She was discharged home and accompanied by spouse. She left ambulatory and via private vehicle. Spouse driving. --12:00 05/26/20 Denice Montoya, ELIO 11:55 05/26/2020 Site #1 removed upon discharge. Pressure dressing applied. --12:00 05/26/20 Denice Montoya, ELIO.Locked/Released at 05/26/2020 12:02 by Denice Montoya, ELIO Name Value Range Interpretation Code Description Data Ni rce(s) Supporting Document(s) ID Date Data Source [id number] 05/26/2020 09:51:00 AM EST [facility] 1 Clinical Report - Physicians/Mid Levels [facility] Emergency Department [address] [place] [address] Phone #: ext- [phone] 05/26/2020 09:48 Patient: [facility]E NORMAN [id number] Sex: F : 1985 Age: 35y Time [...] of 2 Clinical Report - Physicians/Mid Levels [facility] Emergency Department [address] [place] [address] Phone #: ext- [phone] 05/26/2020 09:48 -- [...] 5.0) 3 Clinical Report - Physicians/Mid Levels [facility] Emergency Department [address] [place] [address] Phone #: ext- [phone] 05/26/2020 09:48 Patient: [...] Male GFR Interprentation 20-49 yrs >60 mL/min Ejfjky41-15 yrs >56 mL/min Normal 60-69 yrs >49 mL/min Normal 70-79yrs>42 mL/min Normal 80 and above >35 mL/min Normal Female GFRInterpretation 20-39 yrs >60 mL/min Normal 40-49 yrs >58 mL/minNormal 50-59 yrs >51 mL/min Normal 60-69 yrs >45 mL/min Aijlxx75- 79 yrs >39 mL/min Normal 80 and above >32 mL/min NormalLipase: (CORBIN: 05/26/2020 10:17) ( [facility] 05/26/2020 11:04) Final results Test Result Flag Units (Reference) LIPASE 68 H U/L (13 - 60)Urinalysis: (CORBIN: 05/26/2020 10:00) ( [facility] 05/26/2020 10:39) Final results Test Result [...] IndicateBeta-HCG, Quant Serum: (CORBIN: 05/26/2020 10:17) ( [facility] 05/26/2020 11:04) Final results Test Result Flag Units (Reference) HCG QUANT <0.5 mIU/mL Interpretation: Less than 5 mU/mL: Negative6-10 mU/mL: Borderline (suggest repeat in 48 hours) >10: PositiveApprox HCG range (mU/mL) Weeks post LMP 5.4-708 mU/mL 3-4 Htwsb505-67762 mU/mL 5-6 Weeks 4059-515038 mU/mL 7-8 Mefat95364- 871066 mU/mL 9-10 Weeks 17661-51410 mU/mL 12-14 Weeks 4 Clinical Report - Physicians/Mid Levels [facility] Emergency Department [address] [place] [address] Phone #: ext- [phone] 05/26/2020 09:48 -- Patient: ZE NORMAN Sex: F : 1985 Age: 35y [address]67[address] mU/mL 15-16 Weeks 8240-11127 mU/mL 17-18 Weeks US Pelvis: (CORBIN: 05/26/2020 10:08) ( MsgRcvd 05/26/2020 11:18) In Progress US PELVIC Reason(s): Pelvic Pain TRANSPORTATION: IV? O2? Oxygen?(No) Room: ED.PROGRESS AND PROCEDURESCourse of Care: 11:47 May 26 2020. Evaluation after observation. (Discussed US results and pt needs tofollow up with FA[facility] POUNCER. She is agreeable with dx and tx [...] tablet. Refills: 0. Substitution permitted. Pharmacy - [facility] [employer] [address] [facility] ; [place] [address]. . ondansetron 8 mg disintegrating tablet Take 1 tablet three times a day for 5 days -- Dispense 15 tablet. Refills: 0. Substitution permitted. Pharmacy - [facility] Chair[facility] - [address] [facility] ; [place] [address]. . 5 Clinical Report - Physicians/Mid Levels [facility] Emergency Department [address] [place] [address] Phone #: ext- [phone] 05/26/2020 09:48 Patient: ZE NORMAN Sex: F : 1985 Age: 35y dicyclomine 10 mg capsule Take 1 capsule four times a day for 10 days -- Dispense 40 capsule. Refills: 0. Substitution permitted. Pharmacy - [facility] - [address] [facility] ; [place] [address]. . Follow-up: Follow up with your doctor. Reason for referral: evaluation, treatment and refer tpo [facility] POUNCER for further evaluation. Summary of care provided to patient. Understanding of the discharge instructions verbalized by patient.(Electronically signed by ANA Horowitz 05/26/2020 21:18) Name Value Range Interpretation Code Description Data Ni rce(s) Supporting Document(s) ID Date Data Source [id number] 05/26/2020 11:03:00 AM EST [facility] Name Value Range Interpretation Code Description Data Ni rce(s) Supporting Document(s) Choriogonadotropin.intact [Units/volume] in Serum or Plasma <0.5 mIU/ mL [facility] Interpr etation: Less than 5 mU/mL: Negative 6-10 mU/mL: Borderline (suggest repeat in 48 hours) >10: Positive Approx HCG range (mU/mL) Weeks post LMP 5.4-708 mU/mL 3-4 Weeks 217-43494 mU/mL 5-6 Weeks 4059-191029 mU/mL 7-8 Weeks 16148-335877 mU/mL 9-10 Weeks 70226-48679 mU/mL 12-14 Weeks 62785-95728 mU/mL 15-16 Weeks 1791- 70065 mU/mL 17-18 Weeks ID Date Data Source [id number] 05/26/2020 11:03:00 AM [facility] Name Value Range Interpretation Code Description Data Ni rce(s) Supporting Document(s) Lipase [Enzymatic activity/volume] in Serum or Plasma 68 U/L 13 - 60 H [facility] ID Date Data Source [id number] 05/26/2020 11:03:00 AM [facility] Name Value Range Interpretation Code Description Data Ni rce(s) Supporting Document(s) COMPREHENSIVE METABOLIC PANEL [facility] COMPREHENSIVE METABOLIC PANEL Sodium [Moles/volume] in Serum or Plasma 139 mEq/L 134 - 153 [facility] Potassium [Moles/volume] in Serum or Plasma 3.8 mEq/L 3.6 - 5.0 [facility] Chloride [Moles/volume] in Serum or Plasma 105 mEq/L 98 - 107 [facility] Carbon dioxide, total [Moles/volume] in Serum or Plasma 26 MEQ/L 22 - 30 [facility] Glucose [Mass/volume] in Serum or Plasma 120 MG/DL 65 - 110 H [facility] BUN 11 MG/DL 7 - 21 [facility] al Creatinine [Mass/volume] in Serum or Plasma 0.7 MG/DL 0.7 - 1.5 [facility] BUN/CREAT 16 8 - 27 [facility] Protein [Mass/volume] in Serum or Plasma 6.4 G/DL 6.3 - 8.2 [facility] Albumin [Mass/volume] in Serum or Plasma 3.8 G/DL 3.9 - 5.0 L [facility] Globulin [Mass/volume] in Serum by calculation 2.6 GM/DL 2.4 - 3.2 [facility] A/G RATIO 1.5 0.8 - 2.0 [facility] Calcium [Mass/volume] in Serum or Plasma 9.0 MG/DL 8.4 - 10.2 [facility] Bilirubin.total [Mass/volume] in Serum or Plasma <0.7 MG/DL 0.2 - 1.3 [facility] Alkaline phosphatase [Enzymatic activity/volume] in Serum or Plasma 88 U/L 38 - 126 [facility] Aspartate aminotransferase [Enzymatic activity/volume] in Serum or Plasma 15 U/L 5 - 40 [facility] Alanine aminotransferase [Enzymatic activity/volume] in Seru m or Plasma 15 U/L 7 - 56 [facility] Anion gap 3 in Serum or Plasma 8.0 mmol/L 8.0 - 16.0 [facility] AGE 35 yrs [facility] al NON-AA GFR >60 mL/min [facility] ital AFR AMER GFR >60 mL/min [facility] Ho spital Male GFR In terprentation [...] >32 mL/min Normal ID Date Data Source [id number] 05/26/2020 10:46:00 AM EST [facility] Name Value Range Interpretation Code Description Data Ni rce(s) Supporting Document(s) CBC W/AUTOMATED DIFF [facility] COMPLETE BLOOD COUNT Leukocytes [#/volume] in Blood by Automated count 4.4 10^3/uL 4.2 - 1 1.0 [facility] Erythrocytes [#/volume] in Blood by Automated count 4.72 10^6/uL 4. 20 - 5.40 [facility] Hemoglobin [Mass/volume] in Blood 10.7 g/dL 12.0 - 16.0 L [facility] Hematocrit [Volume Fraction] of Blood by Automated count 34.7 % 3 7.0 - 47.0 L [facility] Erythrocyte mean corpuscular volume [Entitic volume] by Auto mated count 73.5 fL 81.0 - 101 L [facility] Erythrocyte mean corpuscular hemoglobin [Entitic mass] by Automated count 22.7 pg 27.0 - 34.0 L [facility] Erythrocyte mean corpuscular hemoglobin concentration [Mass/volume] by Automated count 30.8 g/dL 31.0 - 36.0 L [facility] Erythrocyte distribution width [Ratio] by Automated count 17.0 % 11.5 - 14.5 H [facility] Platelets [#/volume] in Blood by Automated count 187 10^3/uL 150 - 45 0 [facility] Platelet mean volume [Entitic volume] in Blood by Automated count 0.0 fL 7.4 - 10.4 L [facility] Neutrophils/100 leukocytes in Blood by Automated count 59.3 % 37. 0 - 80.0 [facility] Lymphocytes/100 leukocytes in Blood by Manual count 30.3 % 25.0 - 40.0 [facility] Monocytes/100 leukocytes in Blood by Automated count 5.2 % 3.0 - 8.0 [facility] Eosinophils/100 leukocytes in Blood by Automated count 3.4 % 0.0 - 7.0 [facility] Basophils/100 leukocytes in Blood by Automated count 1.1 % 0.0 - 2.5 [facility] %IG 0.7 % 0.0 - 0.0 [facility] %NRBC 0.0 % 0.0 - 0.0 [facility] al Neutrophils [#/volume] in Blood by Automated count 2.60 10^3/uL 2.00 - 6.90 [facility] Lymphocytes [#/volume] in Blood by Automated count 1.33 10^3/uL 0.60 - 3.40 [facility] Monocytes [#/volume] in Blood by Automated count 0.23 10^3/uL 0.00 - 0.90 [facility] Eosinophils [#/volume] in Blood by Automated count 0.15 10^3/uL 0.00 - 0.70 [facility] Basophils [#/volume] in Blood by Automated count 0.05 10^3/uL 0.00 - 0.20 [facility] #IG 0.03 10^3/uL 0.00 - 0.10 [facility] ospital #NRBC 0.00 10^3/uL 0.00 - 0.00 [facility] ospital MANUAL DIFF NOT INDICATED [facility] RBC MORPH SEE BELOW [facility] { SICKLE CELL (NORMAL: NONE SEEN ) Platelet adequacy [Presence] in Blood by Light microscopy NORMAL NORMAL: NORMAL [facility] COMMENT: _[id number]_PLATELETS 05/26/20.1046.CLD. . . ___ ID Date Data Source [id number] 05/26/2020 10:38:00 AM EST [facility] Name Value Range Interpretation Code Description Data Ni rce(s) Supporting Document(s) [facility]IS [facility] URINALYSIS SOURCE R [facility] COLOR yellow NORMAL: Yellow [facility] CLARITY clear NORMAL: Clear [facility] Ho spital Specific gravity of Urine by Test strip 1.020 1.001 - 1.030 [facility] pH 6 5 - 9 [facility] al Glucose [Mass/volume] in Urine by Test strip NORM NORMAL: Negat [facility] Bilirubin.total [Presence] in Urine by Test strip NEG NORMAL: Negative [facility] Ketones [Presence] in Urine by Test strip NEG NORMAL: Negative [facility] Protein [Mass/volume] in Urine by Test strip NEG NORMAL: Negat [facility] Nitrite [Presence] in Urine by Test strip NEG NORMAL: Negative [facility] BLOOD NEG NORMAL: Negative [facility] Leukocyte esterase [Presence] in Urine by Test strip NEG LOLI L: Negative [facility] Urobilinogen [Mass/volume] in Urine by Test strip NOR less emi n 1.0 mg/dL [facility] MICROSCOPIC Not Indicate [facility] ID Date Data Source [id number] 05/23/2020 10:42:00 AM EST [facility] [address] [place] [address] PHONE: [phone] FAX: [phone] Name .................. : МАРИЯ Gonzalez Acct Number.................. : [id number] ROOM. ................. : TR-03 Number ................... : [id number] Stay type ............. : E/R Discharge Date......... ... : 05/20/20 Admit Date ......... : 05/20/20 Admit Phys .................... : KARMA RAMSES Date of ....... : 1985 Family Phys ................... : UNKNOWN Phone .................. : [phone] Age ................................ : 35 Film# .................. .:[id number] Sex ................................. : F Unsigned transcriptions are preliminary reports and do not represent a medical or legal document CT ABD & PELV W/[place] W/[place] [id number] COMPLETE:05/20/20 19:24 GRECIA 47752 Reason(s): NO CONTRAST: L flank pain. ? [...] dose: 1140.7 mGycm Page 1 of 2 [facility] [address] [place] [address] PHONE: [phone] FAX: [phone] Name .................. : МАРИЯ Gonzalez Acct Number.................. : [id number] ROOM. ................. : TR-03 MR Number ................... : [id number] Stay type ............. : E/R Discharge Date......... ... : 05/20/20 Admit Date ......... : 05/20/20 Admit Phys .................... : KARMA RAMSES Date of ....... : 1985 Family Phys ................... : UNKNOWN Phone .................. : [phone] Age ................................ : 35 Film# .................. .:[id number] Sex ................................. : F Unsigned transcriptions are preliminary reports and do not represent a medical or legal document CT ABD & PELV W/[place] ORAL W/[place] [id number] COMPLETE:05/20/20 19:24 GRECIA 57806 Reason(s): NO CONTRAST: L flank pain. ? renal stone Electronically Reviewed and Signed By Titus Rocha M.D. , 05/23/20 10:42, [facility] Transcribe Initials: DZ , Transcribe Date: 05/20/20 22:45, Dictation Date: Copy for: ELIZABETH REARDON via fax Copy for: KARMA Quarles via fax Copy for: EMERGENCY DEPT via [facility] Copy for: 710 MED REC DISCHARGED Page 2 of 2 Name Value Range Interpretation Code Description Data Ni rce(s) Supporting Document(s) ID Date Data Source [id number] 05/20/2020 04:06:00 PM EST [facility] 1 OrderSheet [facility] Emergency Department [address] [place] [address] Phone #: ext- [phone] 05/20/2020 15:54 Patient: [...] 17:45 Leonela P.A.-C; Elizabeth P.A.-C(Oxygen?(No)) 2 OrderSheet [facility] Emergency Department [address] [place] [address] Phone #: ext- [phone] 05/20/2020 15:54 Patient: [...] Rajat Johnson P.A.-C (21:49 05/20/2020)] 3 OrderSheet [facility] Emergency Department [address] [place] [address] Phone #: ext- [phone] 05/20/2020 15:54 Patient: ZE NORMAN Sex: F : 1985 Age: 35y[Electronically locked by Rowena Jung R.N. (19:31 05/20/2020)] Name Value Range Interpretation Code Description Data Ni rce(s) Supporting Document(s) ID Date Data Source [id number] 05/20/2020 04:06:00 PM EST [facility] 1 Medication Reconciliation Report [facility] Emergency Department [address] [place] [address] Phone #: ext [phone] 05/20/2020 15:54 Patient: ZE NORMAN Sex: F [...] Dispense 12 tablet. Refills: 0.Substitution permitted.Pharmacy - [facility] [id number] ; [place] [address]. .gabapentin 100 mg capsule Take 1 capsule three times a day for 4 days -- Dispense 12 capsule.Refills: 0. Substitution permitted.Pharmacy - [facility] [phone] ; [place] [address]. . -- Rajat Johnson P.A.-C Name Value Range Interpretation Code Description Data Ni rce(s) Supporting Document(s) ID Date Data Source [id number] 05/20/2020 04:06:00 PM EST [facility] 1 Medication Administration Record [facility] Emergency Department [address] [place] [address] Phone #: ext- [phone] 05/20/2020 15:54 Patient: ZE NORMAN Sex: F [...] rce(s) Supporting Document(s) ID Date Data Source [id number] 05/20/2020 04:06:00 PM EST [facility] 1 General Instructions [facility] Emergency Department [address] [place] [address] Phone #: [phone]- [phone] 05/20/2020 15:54 Patient: ZE NORMAN Sex: F [...] Dispense 12 tablet. Refills: 0.Substitution permitted.Pharmacy - [facility] [phone] ; [place] [address]. FaxNumber: .gabapentin 100 mg capsule Take 1 capsule three times a day for 4 days -- Dispense 12 capsule.Refills: 0. Substitution permitted.Pharmacy - [facility] [address] ; [place] [address]. .Follow-up:Return to the emergency department as needed. Follow up with your healthcare provider in about twodays if not better. Call for an appointment.Understanding of the discharge instructions verbalized by patient. ADDITIONAL INFORMATIONUnknown Causes of Abdominal Pain (Female) 2 General Instructions [facility] Emergency Department [address] [place] [address] Phone #: ext- [phone] 05/20/2020 15:54 Patient: [...] for taking these medicines. 3 General Instructions [facility] Emergency Department [address] [place] [address] Phone #: ext- [phone] 05/20/2020 15:54 Patient: [...] begin to improve in thenext 24 hours.Call [phone] [phone] if any of these occur: Trouble breathing Confusion Fainting or loss of consciousness Rapid heart rate 4 General Instructions [facility] Emergency Department [address] [place] [address] Phone #: ext- [phone] 05/20/2020 15:54 Patient: [...] or water and you are getting dehydrated [phone] [employer]. [address] [place] [address], [place] [address]. All rights reserved. This information is not intended as asubstitute for professional medical care. Always follow your healthcare professional's instructions. You have been given the following additional information: Abdominal Pain, Unknown Cause, (Female) Do not work for two days.(Electronically signed by Rajat Johnson P.A.-C 05/20/2020 21:49) Name Value Range Interpretation Code Description Data Ni rce(s) Supporting Document(s) ID Date Data Source [id number] 05/20/2020 04:06:00 PM EST [facility] 1 Clinical Report - Nurses [facility] Emergency Department [address] [place] [address] Phone #: ext- [phone] 05/20/2020 15:54 Patient: [...] nausea. Last oral intake by patient was(1230).Treatment EYE SPECIALIST:Took ibuprofen. (2 hrs ago).SEPSIS SCREEN: SIRS Screen [...] SURGERIES:Breast Augmentation.Cholecystectomy.. 2 Clinical Report - Nurses [facility] Emergency Department [address] [place] [address] Phone #: ext- [phone] 05/20/2020 15:54 Patient: [...] 66. RR: 16. O2 saturation: 100%. --17:05/20/20 [place] fountain pen nibs inspector, [facility] [address] Tech1 3 Clinical Report - Nurses [facility] Emergency Department [address] [place] [address] Phone #: ext- [phone] 05/20/2020 15:54 Patient: [...] Patient verbalized understanding. Written instructions provided in Djiboutian. The patient was discharged 4 Clinical Report - Nurses [facility] Emergency Department [address] [place] [address] Phone #: ext- [phone] 05/20/2020 15:54 Patient: [...] rce(s) Supporting Document(s) ID Date Data Source [id number] 05/20/2020 04:06:00 PM EST [facility] 1 Clinical Report - Physicians/Mid Levels [facility] Emergency Department [address] [place] [address] Phone #: ext- [phone] 05/20/2020 15:54 Patient: [...] Medications: 2 Clinical Report - Physicians/Mid Levels [facility] Emergency Department [address] [place] [address] Phone #: ext- [phone] 05/20/2020 15:54 Patient: [...] NEGATIVE (NORMAL: NEGAT { KIT LOT # [id number] ){ KIT EXP DATE 04.15.21 ){ PROCEDURAL CONTROL VALID ) US OB 1ST TRI UP TO 14 WEEKS: (CORBIN: 05/20/2020 17:46) ( MsgRcvd 05/20/2020 18:11) Canceled 3 Clinical Report - Physicians/Mid Levels [facility] Emergency Department [address] [place] [address] Phone #: ext- [phone] 05/20/2020 15:54 Patient: ZE NORMAN Sex: F : 1985 Age: 35yReason(s): L flank/abd painReason(s): L flank/abd painTRANSPORTATION: WC IV? IV?(Yes) O2? Oxygen?(No) Jony Renal: (CORBIN: 05/20/2020 17:46) ( MsgRcvd 05/20/2020 18:11) CanceledReason(s): L flank painReason(s): L flank painTRANSPORTATION: WC IV? O2? Oxygen?(No) Room: [facility]-HCG, Quant Serum: (CORBIN: 05/20/2020 16:40) ( GagRcvd 05/20/2020 18:01) Final results Test Result Flag Units (Reference) HCG QUANT <0.5 mIU/mL Interpretation: Less than 5 mU/mL: Negative6-10 mU/mL: Borderline (suggest repeat in 48 hours) >10: PositiveApprox HCG range (mU/mL) Weeks post LMP 5.4-708 mU/mL 3-4 Hzugv424-51418 mU/mL 5-6 Weeks 4059-402834 mU/mL 7-8 Snunv37412-793080 mU/mL 9-10 Weeks 99310-24771 mU/mL 12-14 Fgrmi44938-06423 mU/mL 15-16 Weeks 8240-44761 mU/mL 17-18 WeeksCBC w Diff: (CORBIN: 05/20/2020 [...] . 4 Clinical Report - Physicians/Mid Levels [facility] Emergency Department [address] [place] [address] Phone #: ext- [phone] 05/20/2020 15:54 Patient: [...] Male GFR Interprentation 20-49 yrs >60 mL/min Vekewu98-64 yrs >56 mL/min Normal 60-69 yrs >49 mL/min Normal 70-79yrs>42 mL/min Normal 80 and above >35 mL/min Normal Female GFRInterpretation 20-39 yrs >60 mL/min Normal 40-49 yrs >58 mL/minNormal 50-59 yrs >51 mL/min Normal 60-69 yrs >45 mL/min Kyfzxq55-58 yrs >39 mL/min Normal 80 and above >32 mL/min NormalLipase: (CORBIN: 05/20/2020 16:40) ( [facility] [place] 05/20/2020 17:36) Final results Test Result Flag Units (Reference) LIPASE 42 U/L (13 - 60)Urinalysis: (CORBIN: 05/20/2020 16:40) ( GagRcvd 05/20/2020 17:21) Final results Test Result Flag [...] Indicate 5 Clinical Report - Physicians/Mid Levels [facility] Emergency Department [address] [place] [address] Phone #: ext- [phone] 05/20/2020 15:54 Patient: ZE NORMAN Sex: F : 1985 Age: 35y Beta-HCG, Qual Serum: (CORBIN: 05/20/2020 16:40) ( MsgRcvd 05/20/2020 17:39) Final results Test Result Flag Units (Reference) HCG SERUM QUAL POSITIVE (NORMAL: NEGAT HCG SERUM QL REENTER POSITIVE (NORMAL: NEGAT { KIT LOT # [id number] ){ KIT EXP DATE 04.15.21 ){ PROCEDURAL [...] or complaints. Pt agrees. pending resutls. Reviewed FLOOR TECHNICIAN. No open rx. This report was requested by: Rajat Johnson Reference #: [id number] Others' Prescriptions Patient Name: Ze NormanBirth Date: 1985 6 Clinical Report - Physicians/Mid Levels [facility] Emergency Department [address] [place] [address] Phone #: ext- [phone] 05/20/2020 15:54 Patient: ZE NORMAN Sex: F : 1985 Age: 35y Address: [address] [place], [place] [address]Sex: Female Rx Written Rx Dispensed Drug Quantity Days Supply Prescriber Name Payment Method Dispenser 02/19/2020 03/05/2020 alprazolam 0.5 mg tablet 60 30 Kunwar, [facility] [id number] #[id number] 01/24/2020 01/24/2020 alprazolam 0.5 mg tablet 60 30 Kunwar, [facility] [id number] #[id number] 12/27/2019 12/27/2019 alprazolam 0.5 mg tablet 60 30 Kunwar, [facility] [id number] #[id number] Reviewed results. Enter room and patient lying peacefully in bed in [facility]. Patient stable. Denies any new issues, concerns, [...] or 7 Clinical Report - Physicians/Mid Levels [facility] Emergency Department [address] [place] [address] Phone #: ext- [phone] 05/20/2020 15:54 --- Patient: ZE NORMAN Sex: F : 1985 Age: 35y changes unexpectedly, if not improving as expected, or if other problems arise. Prescription Medications: Zofran 4 mg tablet Take 1 tablet three times a day for 4 days -- Dispense 12 tablet. Refills: 0. Substitution permitted. Pharmacy - [facility] [phone] ; [place] [address]. . gabapentin 100 mg capsule Take 1 capsule three times a day for 4 days -- Dispense 12 capsule. Refills: 0. Substitution permitted. [facility] [address] ; [place] [address]. . Follow-up: Return to the emergency department as needed. Follow up with your healthcare provider in about two days if not better. Call for an appointment. Understanding of the discharge instructions verbalized by patient.(Electronically signed by Rajat Johnson P.A.-C 05/20/2020 21:49) Name Value Range Interpretation Code Description Data Ni rce(s) Supporting Document(s) ID Date Data Source [id number] 05/23/2020 01:03:00 PM [facility] Name Value Range Interpretation Code Description Data Ni rce(s) Supporting Document(s) CULTURE URINE [facility] _CULTURE URINE_$$[id number]$$[id number]$$697815$$890489$$003985$$028961$$594845$$069374$$616236$$ 471146$$877817$$649300$$696138$$247583$$741185$$904666$$401652$$960526$$861543$$ 298892$$587680$$880735$$559164$$979663$$368991$$233294$$558092 -- Continued on next page --Patient: МАРИЯ Gonzalez Order: [id number] Page 2Culture: CULTURE URINE Status: Final ====$$[id number]$$[id number] DATE/TIME: 05/23/2020 06:06Culture: CULTURE URINE Status: FinalUrine Culture,Comprehensive: F5Wgnzm urogenital flora25,000-50,000 colony forming units per mLP1 Test performed [facility] #: [id number] [address] [place] [address] [id number] [facility] [id number] Director : Benoit Cash MD NPI #:Insurance Salesperson : 05/23/20.1303.XMT.SENT REF ID Date Data Source [id number] 05/20/2020 06:07:00 PM [facility] Name Value Range Interpretation Code Description Data Ni rce(s) Supporting Document(s) CBC W/AUTOMATED DIFF [facility] COMPLETE BLOOD COUNT Leukocytes [#/volume] in Blood by Automated count 5.9 10^3/uL 4.2 - 1 1.0 [facility] Erythrocytes [#/volume] in Blood by Automated count 4.52 10^6/uL 4. 20 - 5.40 [facility] Hemoglobin [Mass/volume] in Blood 10.4 g/dL 12.0 - 16.0 L [facility] Hematocrit [Volume Fraction] of Blood by Automated count 33.5 % 3 7.0 - 47.0 L [facility] Erythrocyte mean corpuscular volume [Entitic volume] by Auto mated count 74.1 fL 81.0 - 101 L [facility] Erythrocyte mean corpuscular hemoglobin [Entitic mass] by Automated count 23.0 pg 27.0 - 34.0 L [facility] Erythrocyte mean corpuscular hemoglobin concentration [Mass/volume] by Automated count 31.0 g/dL 31.0 - 36.0 [facility] Erythrocyte distribution width [Ratio] by Automated count 16.9 % 11.5 - 14.5 H [facility] Platelets [#/volume] in Blood by Automated count 205 10^3/uL 150 - 45 0 [facility] Neutrophils/100 leukocytes in Blood by Automated count 49.3 % 37. 0 - 80.0 [facility] Lymphocytes/100 leukocytes in Blood by Manual count 38.9 % 25.0 - 40.0 [facility] Monocytes/100 leukocytes in Blood by Automated count 7.0 % 3.0 - 8.0 [facility] Eosinophils/100 leukocytes in Blood by Automated count 3.4 % 0.0 - 7.0 [facility] Basophils/100 leukocytes in Blood by Automated count 1.2 % 0.0 - 2.5 [facility] %IG 0.2 % 0.0 - 0.0 [facility] %NRBC 0.0 % 0.0 - 0.0 [facility] al Neutrophils [#/volume] in Blood by Automated count 2.91 10^3/uL 2.00 - 6.90 [facility] Lymphocytes [#/volume] in Blood by Automated count 2.29 10^3/uL 0.60 - 3.40 [facility] Monocytes [#/volume] in Blood by Automated count 0.41 10^3/uL 0.00 - 0.90 [facility] Eosinophils [#/volume] in Blood by Automated count 0.20 10^3/uL 0.00 - 0.70 [facility] Basophils [#/volume] in Blood by Automated count 0.07 10^3/uL 0.00 - 0.20 [facility] #IG 0.01 10^3/uL 0.00 - 0.10 [facility] #NRBC 0.00 10^3/uL 0.00 - 0.00 [facility] MANUAL DIFF NOT INDICATED [facility] RBC MORPH SEE BELOW [facility] { SICKLE CELL (NORMAL: NONE SEEN ) Platelet adequacy [Presence] in Blood by Light microscopy NORMAL NORMAL: NORMAL [facility] COMMENT: _RARE_LARGE_PLATELET 05/20/20.180.DW . ID Date Data Source [id number] 05/20/2020 06:02:00 PM EST [facility] Name Value Range Interpretation Code Description Data Ni rce(s) Supporting Document(s) HCG URINE QUAL NEGATIVE NORMAL: NEGATIVE [facility] HCG URINE QL REENTER NEGATIVE NORMAL: NEGATIVE [facility] { KIT LOT # [id number] ){ KIT EXP DATE 04.15.21 ){ PROCEDURAL CONTROL VALID ) ID Date Data Source [id number] 05/20/2020 06:00:00 PM [facility] Name Value Range Interpretation Code Description Data Ni rce(s) Supporting Document(s) Choriogonadotropin.intact [Units/volume] in Serum or Plasma <0.5 mIU/ mL [facility] Interpr etation: Less than 5 mU/mL: Negative 6-10 mU/mL: Borderline (suggest repeat in 48 hours) >10: Positive Approx HCG range (mU/mL) Weeks post LMP 5.4-708 mU/mL 3-4 Weeks 217-95377 mU/mL 5-6 Weeks 4059-220929 mU/mL 7-8 Weeks 66620-825138 mU/mL 9-10 Weeks 93632-50573 mU/mL 12-14 Weeks 79878-04841 mU/mL 15-16 Weeks 8240- 86880 mU/mL 17-18 Weeks ID Date Data Source [id number] 05/20/2020 05:38:00 PM [facility] Name Value Range Interpretation Code Description Data Ni rce(s) Supporting Document(s) HCG SERUM QUAL POSITIVE NORMAL: NEGATIVE [facility] HCG SERUM QL REENTER POSITIVE NORMAL: NEGATIVE [facility] { KIT LOT # [id number] ){ KIT EXP DATE 04.15.21 ){ PROCEDURAL CONTROL VALID ) ID Date Data Source [id number] 05/20/2020 05:36:00 PM [facility] Name Value Range Interpretation Code Description Data Ni rce(s) Supporting Document(s) Lipase [Enzymatic activity/volume] in Serum or Plasma 42 U/L 13 - 60 [facility] ID Date Data Source [id number] 05/20/2020 05:36:00 PM [facility] Name Value Range Interpretation Code Description Data Ni rce(s) Supporting Document(s) COMPREHENSIVE METABOLIC PANEL [facility] COMPREHENSIVE METABOLIC PANEL Sodium [Moles/volume] in Serum or Plasma 138 mEq/L 134 - 153 [facility] Potassium [Moles/volume] in Serum or Plasma 3.8 mEq/L 3.6 - 5.0 [facility] Chloride [Moles/volume] in Serum or Plasma 105 mEq/L 98 - 107 [facility] Carbon dioxide, total [Moles/volume] in Serum or Plasma 27 MEQ/L 22 - 30 [facility] Glucose [Mass/volume] in Serum or Plasma 83 MG/DL 65 - 110 [facility] BUN 16 MG/DL 7 - 21 [facility] Creatinine [Mass/volume] in Serum or Plasma 0.8 MG/DL 0.7 - 1.5 [facility] BUN/CREAT 20 8 - 27 [facility] Protein [Mass/volume] in Serum or Plasma 6.6 G/DL 6.3 - 8.2 [facility] Albumin [Mass/volume] in Serum or Plasma 3.9 G/DL 3.9 - 5.0 [facility] Globulin [Mass/volume] in Serum by calculation 2.7 GM/DL 2.4 - 3.2 [facility] A/G RATIO 1.4 0.8 - 2.0 [facility] Calcium [Mass/volume] in Serum or Plasma 9.1 MG/DL 8.4 - 10.2 [facility] Bilirubin.total [Mass/volume] in Serum or Plasma <0.7 MG/DL 0.2 - 1.3 [facility] Alkaline phosphatase [Enzymatic activity/volume] in Serum or Plasma 96 U/L 38 - 126 [facility] Aspartate aminotransferase [Enzymatic activity/volume] in Serum or Plasma 19 U/L 5 - 40 [facility] Alanine aminotransferase [Enzymatic activity/volume] in Seru m or Plasma 16 U/L 7 - 56 [facility] Anion gap 3 in Serum or Plasma 6.0 mmol/L 8.0 - 16.0 L [facility] AGE 35 yrs [facility] NON-AA GFR >60 mL/min [facility] ital AFR AMER GFR >60 mL/min [facility] Male GFR In terprentation [...] >32 mL/min Normal ID Date Data Source [id number] 05/20/2020 05:21:00 PM EST [facility] Name Value Range Interpretation Code Description Data [facility] rce(s) Supporting Document(s) URINALYSIS [facility] mono URINALYSIS SOURCE Clean Catch [facility] COLOR yellow NORMAL: Yellow [facility] CLARITY clear NORMAL: Clear [facility] Specific gravity of Urine by Test strip 1.010 1.001 - 1.030 [facility] pH 6.5 5 - 9 [facility] Glucose [Mass/volume] in Urine by Test strip NORM NORMAL: Negat [facility] Bilirubin.total [Presence] in Urine by Test strip NEG NORMAL: Negative [facility] Ketones [Presence] in Urine by Test strip NEG NORMAL: Negative [facility] Protein [Mass/volume] in Urine by Test strip NEG NORMAL: Negat [facility] Nitrite [Presence] in Urine by Test strip NEG NORMAL: Negative [facility] BLOOD NEG NORMAL: Negative [facility] Leukocyte esterase [Presence] in Urine by Test strip NEG LOLI L: Negative [facility] Urobilinogen [Mass/volume] in Urine by Test strip NOR less emi n 1.0 mg/dL [facility] MICROSCOPIC Not Indicate [facility] ID Date Data Source [id number] 04/01/2020 12:00:00 PM EDT [facility] Name Value Range Interpretation Code Description Data [facility](s) Supporting Document(s) SARS coronavirus 2 RNA [facility] This lab was ordered by [facility] and reported by [facility]. ID Date Data Source [id number] 02/13/2020 10:17:00 AM EDT [facility] [address] [place] [address] PHONE: [phone] FAX: [phone] Name .................. : МАРИЯ Gonzalez Acct Number.................. : [id number] ROOM. ................. : TR-1A MR Number ................... : [id number] Stay type ............. : E/R Discharge Date......... ... : 02/12/20 Admit Date ......... : 02/12/20 Admit Phys .................... : KARMA RAMSES Date of ....... : 1985 Family Phys ................... : NO PCP Phone .................. : [phone] Age ................................ : 34 Film# .................. .:[id number] Sex ................................. : F Unsigned transcriptions are preliminary reports and do not represent a medical or legal document US EXT-NON VASCULAR LT COMPL [id number] COMPLETE:02/12/20 11:38 [facility] [id number] Reason(s): L wrsit pain; ? ganglion SONOGRAM [...] By MITCH LAWRENCE MD , 02/13/20 10:17, [facility] Transcribe Initials: SSR, Transcribe Date: 02/12/20 14:35, Dictation Date: Copy for: ELIZABETH HAASRENEEYOMAIRA via fax Copy for: KARMA GUSTAVO Willam via fax Copy for: EMERGENCY DEPT via modem Copy for: 710 MED REC DISCHARGED Page 1 of 1 Name Value Range Interpretation Code Description Data Ni rce(s) Supporting Document(s) ID Date Data Source [id number] 02/13/2020 10:17:00 AM EDT [facility] [address] [place] [address] PHONE: [phone] FAX: [phone] Name .................. : МАРИЯ Gonzalez Acct Number.................. : [id number] ROOM. ................. : -1A MR Number ................... : [id number] Stay type ............. : E/R Discharge Date......... ... : 02/12/20 Admit Date ......... : 02/12/20 Admit Phys .................... : KARMA RAMSES Date of ....... : 1985 Family Phys ................... : NO PCP Phone .................. : [phone] Age ................................ : 34 Film# .................. .:[id number] Sex ................................. : F Unsigned transcriptions are preliminary reports and do not represent a medical or legal document SPINE CERV COMP-5 OR MORE VIE 43472 COMPLETE:02/12/20 11:43 KBO 88893 Reason(s): Upper Ext Pain/Numbness CERVICAL SPINE, 02/12/20: [...] By MITCH LAWRENCE MD , 02/13/20 10:17, [facility] Transcribe Initials: SSR, Transcribe Date: 02/12/20 14:34, Dictation Date: Copy for: ELIZABETH REARDON via fax Copy for: KARMA Quarles via fax Copy for: EMERGENCY DEPT via [facility] Copy for: 710 MED REC DISCHARGED Page 1 of 1 Name Value Range Interpretation Code Description Data Ni rce(s) Supporting Document(s) ID Date Data Source [id number] 02/12/2020 10:08:00 AM EDT [facility] 1 OrderSheet [facility] Emergency Department [address] [place] [address] Phone #: ext- [phone] 02/12/2020 09:58 Patient: ZE NORMAN Sex: F [...] rce(s) Supporting Document(s) ID Date Data Source [id number] 02/12/2020 10:08:00 AM EDT [facility] 1 Medication Reconciliation Report [facility] Emergency Department [address] [place] [address] Phone #: ext- [phone] 02/12/2020 09:58 [id number] Sex: F : 1985 Age: 34yWeight: 95.2 [...] Dispense 9 tablet. Refills: 0.Substitution permitted.Pharmacy - COUNT INCLUDES THE [facility] [id number] [place] [address] ; [place] [address]. FaxNu mber: .gabapentin 100 mg capsule Take 1 capsule three times a day for 4 days -- Dispense 12 capsule.Refills: 0. Substitution permitted.Pharmacy - [facility] [employer] [facility] ; [place] [address]. .prednisone 50 mg tablet Take 1 tablet once a day with meals for 5 days -- Dispense 5 tablet. Refills: 0.Substitution permitted.Pharmacy - [facility] - [id number] [facility] ; [place] [address]. . -- Rajat Johnson P.A.-C Name Value Range Interpretation Code Description Data Ni rce(s) Supporting Document(s) ID Date Data Source [id number] 02/12/2020 10:08:00 AM EDT [facility] 1 Medication Administration Record [facility] Emergency Department [address] [place] [address] Phone #: ext- [phone] 02/12/2020 09:58 Patient: ZE NORMAN Sex: F [...] rce(s) Supporting Document(s) ID Date Data Source [id number] 02/12/2020 10:08:00 AM EDT [facility] 1 General Instructions [facility] Emergency Department [address] [place] [address] Phone #: ext- [phone] 02/12/2020 09:58 Patient: [...] -- Dispense 9 tablet. Refills: 0.Substitution permitted.[facility] - [address] ; [place] [address]. .gabapentin 100 mg capsule Take 1 capsule three times a day for 4 days -- Dispense 12 capsule.Refills: 0. Substitution permitted.[facility] - [address] ; [place] [address]. .prednisone 50 mg tablet Take 1 tablet once a day with meals for 5 days -- Dispense 5 tablet. Refills: 0.Substitution permitted.[facility] - [address] ; [place] [address]. .Follow-up:Return to the emergency department as needed. Follow up with your healthcare provider in about twodays if not better. Call for an appointment. 2 General Instructions [facility] Emergency Department [address] [place] [address] Phone #: ext- [phone] 02/12/2020 09:58 Patient: ZE NORMAN Sex: F [...] when you are asleep. 3 General Instructions [facility] Emergency Department [address] [place] [address] Phone #: ext- [phone] 02/12/2020 09: 58 [...] bent back when typing. You may use akbc-vsk-ymhlvnt pain medicine to treat pain and inflammation, [...] with the above treatment 4 General Instructions [facility] Emergency Department [address] [place] [address] Phone #: ext- [phone] 10/2019 09:58 Patient: ZE NORMAN Sex: F : 1985 Age: 34y Fingers or hand become cold, blue, numb, or tingly Your whole arm becomes swollen or weak [id number] [facility]. [address] [place] [address]. All rights reserved. This information is not intended as asubstitute for professional medical care. Always follow your healthcare professional's instructions. You have been given the following additional information: Carpal Tunnel Syndrome(Electronically signed by Rajat Johnson P.A.-C 02/12/2020 20:56) Name Value Range Interpretation Code Description Data Ni rce(s) Supporting Document(s) ID Date Data Source [id number] 02/12/2020 10:08:00 AM EDT [facility] 1 Clinical Report - Nurses [facility] Emergency Department [address] [place] [address] Phone #: ext- [phone] 02/12/2020 09:58 Patient: [...] had no swelling or redness. No fever.Treatment EYE SPECIALIST:Took ibuprofen. --10:04 02/12/20 Tyra Nicole R.N.10:06 02/12/20. [...] SURGERIES:Breast Augmentation.Cholecystectomy.. 2 Clinical Report - Nurses [facility] Emergency Department [address] [place] [address] Phone #: ext- [phone] 02/12/2020 09:58 [facility]: [id number] Sex: F : 1985 Age: 34y Laparoscopy. [...] Patient transported to radiology by wheelchair with auto technician mechanic. --11:20 02/12/20 Denice Montoya RN 11:30 02/12/2020 Tylenol (APAP) PO 1000 mg given. Allergies verified and confirmed 5 rights. Information reviewed with patient including reason for taking this medication. Verbalizes understanding. --:30 3 Clinical Report - Nurses [facility] Emergency Department [address] [place] [address] Phone #: ext- [phone] 02/12/2020 09:58 Patient: ZE NORMAN Sex: F : 1985 Age: 34y 02/12/20 Denice Montoya RN 11:30 02/12/2020 Ativan (LORazepam) PO 1 mg given. Allergies verified and confirmed 5 rights. Information reviewed with patient including reason for taking this medication and sedative warning. Verbalizes understanding. --11:30 02/12/20 Denice Montoya, ELIO Patient walked back from sonogram with auto technician mechanic. --11:31 02/12/20 Denice Montoya, ELIO 12:00 02/12/2020 [...] Patient verbalized understanding. Written instructions provided in Djib[place]ian. The patient was discharged by the physician fire assistant. She was discharged home and accompanied by family. She left ambulatory and via private vehicle. Family member driving. --12:19 02/12/20 Denice Montoya RN 12:19 02/12/20. Pain level now: 12/18. --12:19 02/12/20 Denice Montoya RN.Locked/Released at 02/12/2020 18:48 by Denice Montoya RN Name Value Range Interpretation Code Description Data Ni rce(s) Supporting Document(s) ID Date Data Source [id number] 02/12/2020 10:08:00 AM EDT [facility] 1 Clinical Report - Physicians/Mid Levels [facility] Emergency Department [address] [place] [address] Phone #: ext- [phone] 02/12/2020 09:58 Patient: [...] Augmentation. Cholecystectomy. . 2 Clinical Report - Physicians/[facility] Emergency Department [address] [place] [address] Phone #: ext- [phone] 02/12/2020 09:58 Patient: ZE NORMAN Sex: F [...] swelling, 3 Clinical Report - Physicians/Mid Levels [facility] Emergency Department [address] [place] [address] Phone #: ext- [phone] 02/12/2020 09:58 -------- Patient: ZE NORMAN Sex: [...] documentation. 4 Clinical Report - Physicians/Mid Levels [facility] Emergency Department [address] [place] [address] Phone #: ext- [phone] 02/12/2020 09:58 Patient: ZE NORMAN Sex: F [...] or 5 Clinical Report - Physicians/Mid Levels [facility] Emergency Department [address] [place] [address] Phone #: ext- [phone] 02/12/2020 09:58 Patient: ZE NORMAN Sex: F : 1985 Age: 34y changes unexpectedly, if not improving as expected, or if other problems arise. Your Current Medications: . No home medication. No home medication. Prescription Medications: cyclobenzaprine 10 mg tablet Take 1 tablet three times a day for 3 days -- Dispense 9 tablet. Refills: 0. Substitution permitted. Pharmacy - [facility] [address] [facility] ; [place] [address]. . gabapentin 100 mg capsule Take 1 capsule three times a day for 4 days -- Dispense 12 capsule. Refills: 0. Substitution permitted. [facility] - [facility] [employer] [address] [facility] ; [place] [address]. . prednisone 50 mg tablet Take 1 tablet once a day with meals for 5 days -- Dispense 5 tablet. Refills: 0. Substitution permitted. Pharmacy - [facility] [address] [facility] ; [place] [address]. . Follow-up: Return to the emergency department as needed. Follow up with your healthcare provider in about two days if not better. Call for an appoi ntment. Understanding of the discharge instructions verbalized by patient.(Electronically signed by Rajat Johnson P.A.-C 02/12/2020 20:56) Name Value Range Interpretation Code Description Data Ni rce(s) Supporting Document(s) ID Date Data Source [id number] 02/11/2020 08:53:00 AM EDT [facility] [address] [place] [address] PHONE: [phone] FAX: [phone] Name .................. : МАРИЯ Gonzalez Acct Number.................. : [id number] ROOM. ................. : [facility] MR Number ................... : [id number] Stay type ............. : E/R Discharge Date......... ... : 02/09/20 Admit Date ......... : 02/09/20 Admit Phys .................... : LOLA KURTZ Date of ....... : 1985 Family Phys ................... : UNKNOWN Phone .................. : [phone] Age ................................ : 34 Film# .................. .:[id number] Sex ................................. : F Unsigned transcriptions are preliminary reports and do not represent a medical or legal [place] [id number] COMPLETE:02/09/20 02:57 RLB [id number] Farrah son(s): Wrist Pain LEFT WRIST X-RAY: 4-VIEWS INDICATION: Wrist pain. FINDINGS: No evidence for fractures, subluxation or adjacent soft tissue swelling is noted. IMPRESSION: Unremarkable left wrist. Electronically Reviewed and Signed By Philippe Cartagena MD , 02/11/20 08:53, RANDA Transcribe Initials: OLVE , Transcribe Date: 02/09/20 08:45, Dictation Date: Copy for: 710 MED REC DISCHARGED Page 1 of 1 Name Value Range Interpretation Code Description Data Ni rce(s) Supporting Document(s) ID Date Data Source [id number] 02/09/2020 12:09:00 AM EDT [facility] 1 OrderSheet [facility] Emergency Department [address] [place] [address] Phone #: ext- [phone] 02/09/2020 00:03 Patient: ZE NORMAN Sex: F [...] rce(s) Supporting Document(s) ID Date Data Source [id number] 02/09/2020 12:09:00 AM EDT [facility] 1 Medication Reconciliation Report [facility] Emergency Department [address] [place] [address] Phone #: ext- [phone] 02/09/2020 00:03 Patient: [...] rce(s) Supporting Document(s) ID Date Data Source [id number] 02/09/2020 12:09:00 AM EDT [facility] 1 Medication Administration Record [facility] Emergency Department [address] [place] [address] Phone #: ngf- [phone] 02/09/2020 00:03 Patient: ZE NORMAN Sex: F : 1985 Age: 34yWeight: 95.2 kgHeight/Length: 71 inBMI: 29.3ALLERGIES: No Known Drug Allergy Date/Time Medication Administered Medication OrderedGiven DILAUDID [IM] (HYDROMORPHONE Dilaudid IM 1 mg (HIGH ALERT01:37 02/09/2020 HCL) MEDICATION)[place] Kathie, R.NJocelin Dose: 1 mg IM Name Value Range Interpretation Code Description Data Ni rce(s) Supporting Document(s) ID Date Data Source [id number] 02/09/2020 12:09:00 AM EDT [facility] 1 General Instructions [facility] Emergency Department [address] [place] [address] Phone #: ext- [phone] 02/09/2020 00:03 Patient: [...] to plan of care.Follow-up with: [facility], , , [address] [place] [address], [facility] Follow up in two days even if well. Call for an appointment. Reason for referral: evaluation and treatment.Summary of care provided to patient via paper. ADDITIONAL INFORMATIONCarpal Tunnel Syndrome 2 General Instructions [facility] Emergency Department [address] [place] [address] Phone #: ext- [phone] 02/09/2020 00:03 [id number] Sex: F : 1985 Age: 34yCarpal tunnel [...] tools with strong vibrations. 3 General Instructions [facility] Emergency Department [address] [place] [address] Phone #: ext- [phone] 02/09/2020 00:03 Patient: EZ NORMAN Sex: F : 1985 Age: 34y [...] bent back when typing. You may use [id number] pain medicine to treat pain and inflammation, [...] Your whole arm becomes swollen or weak [phone] [employer]. [address] [place] [address], [place] [address]. All rights reserved. This information is not intended as asubstitute for professional medical care. Always follow your healthcare professional's instructions. You have been given the following additional information: 4 General Instructions [facility] Emergency Department [address] [place] [address] Phone #: ext- [phone] 02/09/2020 00:03 Patient: ZE NORMAN Sex: F : 1985 Age: 34yCarpal Tunnel Syndrome(Electronically signed by Hannah Davila M.D. 02/09/2020 02:34) Name Value Range Interpretation Code Description Data Ni rce(s) Supporting Document(s) ID Date Data Source [id number] 02/09/2020 12:09:00 AM EDT [facility] 1 Clinical Report - Nurses [facility] Emergency Department [address] [place] [address] Phone #: ext- [phone] 02/09/2020 00:03 Patient: [...] --00:02 02/09/20 [place] October RJocelinN.MedicationsNone. --00:04 02/09/20 [facility] [address] October RJocelinN.AllergiesNo Known Drug Allergy. --00:02/09/20 Brunilda [...] to the 2 Clinical Report - Nurses [facility] Emergency Department [address] [place] [address] Phone #: ext- [phone] 02/09/2020 00:03 [facility]: [id number] Sex: F : 1985 Age: 34y question(s) [...] No skin integrity risk identified. --00:02/09/20 Kathie Osborne, R.N. Interventions To treatment room. --00:02/09/20 [...] [place], KathiePat. Patient walked to radiology with auto technician mechanic. --01:29 02/09/20 Brunilda OctoberPat. 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 --01:34 02/09/20 [facility] [address], OctoberAdolph 01:37 02/09/2020 Dilaudid (HYDROmorphone HCl) IM 1 mg given. Given in the right deltoid. Allergies 3 Clinical Report - Nurses [facility] Emergency Department [address] [place] [address] Phone #: ext- [phone] 02/09/2020 00:03 Patient: [...] Patient verbalized understanding. Written instructions provided in Djib[place]ian. The patient was discharged by the physician. [...] rce(s) Supporting Document(s) ID Date Data Source [id number] 02/09/2020 12:09:00 AM EDT [facility] 1 Clinical Report - Physicians/Mid Levels [facility] Emergency Department [address] [place] [address] Phone #: ext- [phone] 02/09/2020 00:03 Patient: [...] use. 2 Clinical Report - Physicians/Mid Levels [facility] Emergency Department [address] [place] [address] Phone #: ext- [phone] 02/09/2020 00:03 Patient: ZE NORMAN Sex: F [...] was requested by: Hannah Davila Reference #: [id number] Others' Prescriptions Patient Name: Ze NormanBirth Date: 1985 Address: [address] [place], [place] [address]Sex: Female Rx Written Rx Dispensed Drug Quantity Days Supply Prescriber Name Payment Method Dispenser 01/24/2020 01/24/2020 alprazolam 0.5 mg tablet 60 30 [facility] 3 Clinical Report - Physicians/Mid Levels [facility] Emergency Department [address] [place] [address] Phone #: ext- [phone] 02/09/2020 00:03 Patient: ZE NORMAN Sex: F : 1985 Age: 34y 4 #[id number] 12/27/2019 12/27/2019 alprazolam 0.5 mg tablet 60 30 [place] 9 #[id number] * - Drugs marked with an asterisk [...] Follow-up: 4 Clinical Report - Physicians/Mid Levels [facility] Emergency Department [address] [place] [address] Phone #: ext- [phone] 02/09/2020 00:03 Patient: ZE NORMAN Sex: F [...] plan of care. Follow-up with: [facility], , , [address] [address], , [place], [address] Follow up in two days even if well. Call for an appointment. Reason for referral: evaluation and treatment. Summary of care pro vided to patient via paper.(Electronically signed by Hannah Davila M.D. 02/09/2020 02:34) Name Value Range Interpretation Code Description Data Ni rce(s) Supporting Document(s) ID Date Data Source [id number] 10/11/2019 07:45:00 AM EDT [facility] Name Value Range Interpretation Code Description Data Ni rce(s) Supporting Document(s) SARS CORONAVIRUS 2 RNA [facility] This lab was ordered by [facility] and reported by [facility]. Procedure Vital Signs ID Date Data Source UNK Name Value Range Interpretation Code Description Data Source(s) Body surface area Derived from formula 2.23 m2 2.[address] [facility] ([facility]) Body weight 103.421 kg 103.[address] [facility] ([facility]) [place] body weight 155 [lb_av] 155 [lb_av] [facility] Body mass index (BMI) [Ratio] 31.8 kg/m2 31.8 k g/m2 [facility] ([facility]) Body weight 228.00 [lb_av] 228.00 [lb_av] [facility] Body height 71 [in_i] 71 [in_i] [facility] ([facility]) 5'11" Body temperature 98.1 [degF] 98.1 [degF] [facility] ([facility]) Body temperature 98.2 [degF] 98.2 [degF] [facility] ([facility]) Body weight 102.967 kg 102.[address] [facility] ([facility]) [place] body weight 155 [lb_av] 155 [lb_av] [facility] ([facility]) Body mass index (BMI) [Ratio] 31.7 kg/m2 31.7 k g/m2 [facility] ([facility]) Body weight 227.00 [lb_av] 227.00 [lb_av] [facility] ([facility]) Body height 71 [in_i] 71 [in_i] [facility] ([facility]) 5'11" Body temperature 98.1 [degF] 98.1 [degF] [facility] ([facility]) Respiratory rate 16 /min 16 /min [facility] ( [facility]) Heart rate 80 /min 80 /min [facility] ([facility]) Diastolic blood pressure 84 mm[Hg] 84 mm[Hg] [facility] ([facility]) Systolic blood pressure 138 mm[Hg] 138 mm[Hg] [facility] ([facility]) Heart rate 72 /min 72 /min [facility] ([facility]) Diastolic blood pressure 80 mm[Hg] 80 mm[Hg] [facility] ([facility]) Systolic blood pressure 120 mm[Hg] 120 mm[Hg] [facility] Body mass index (BMI) [Ratio] 30.7 kg/m2 30.7 k g/m2 [facility] ([facility]) Body weight 220.00 [lb_av] 220.00 [lb_av] [facility] ([facility]) Body height 71 [in_i] 71 [in_i] [facility] ([facility]) 5'11"
[2020-08-30 00:08] LABS: INR 0.96
[2020-08-30 00:09] LABS: PARTIAL THROMBOPLASTIN TIME 28.6 SECONDS (24.2-38.5)
[2020-08-30 00:10] LABS: BASO % 0.3 % (0.0-1.0); EOS # 0.3 10^3/uL (0.0-0.5); EOS % 4.2 % (0.0-3.0); HEMATOCRIT 35.2 % (36.0-47.0); HEMOGLOBIN 10.3 g/dl (12.0-15.5); LYMPH % 31.7 % (24.0-44.0); MEAN CORPUSCULAR HEMOGLOBIN 23.1 pg (27.0-33.0); MEAN CORPUSCULAR HGB CONC 29.3 g/dl (32.0-36.5); MEAN CORPUSCULAR VOLUME 78.9 fl (80.0-96.0); MONO # 0.4 10^3/uL (0.0-0.8); MONO % 5.6 % (2.0-8.0); NEUTROPHILS # 3.6 10^3/uL (1.5-8.5); NEUTROPHILS % 57.9 % (36.0-66.0); PLATELET COUNT, AUTOMATED 186 10^3/uL (150-450); RED BLOOD COUNT 4.46 10^6/uL (4.00-5.40); WHITE BLOOD COUNT 6.2 10^3/uL (4.0-10.0)
[2020-08-30 00:11] LABS: D-DIMER QUANT 1239.18 ng/ml (<500)
[2020-08-30 00:26] LABS: AMPHETAMINES LEVEL URINE NEGATIVE (NEGATIVE); BARBITURATES URINE NEGATIVE (NEGATIVE); BENZODIAZEPINES URINE NEGATIVE (NEGATIVE); CANNABINOIDS URINE NEGATIVE (NEGATIVE); COCAINE METABOLITE URINE NEGATIVE (NEGATIVE); METHADONE URINE NEGATIVE (NEGATIVE); OPIATES URINE POSITIVE (NEGATIVE); PHENCYCLIDINE URINE NEGATIVE (NEGATIVE)
[2020-08-30 00:27] LABS: ERYTHROCYTE SEDIMENTATION RATE 47 mm/hr (0-20)
--- NOTE | 2020-08-30 00:32 | REPVR ---
PROCEDURE INFORMATION: Exam: CT Head Without Contrast Exam date and time: 08/29/2020 11:26 PM Age: 35 years old Clinical indication: Pain; Headache not specified; Additional info: Headache/left sided numbness TECHNIQUE: Imaging protocol: Computed tomography of the head without contrast. Radiation optimization: All CT scans at this facility use at least one of these dose optimization techniques: automated exposure control; mA and/or kV adjustment per patient size (includes targeted exams where dose is matched to clinical indication); or iterative reconstruction. COMPARISON: No relevant prior studies available. FINDINGS: Brain: No intracranial mass, mass effect or midline shift. No acute intracranial hemorrhage. No CT evidence of acute cortical infarct. Ventricles, cisterns, and sulci are normal in size for age. Bones/joints: No calvarial fracture or destructive process. Paranasal sinuses: Mild pansinus mucosal thickening is present. Mastoid air cells: Mastoid air cells and middle ear structures are normally aerated. Orbital cavity: Imaged orbits are unremarkable. Soft tissues: No focal extracranial soft tissue swelling. IMPRESSION: No acute or concerning focal intracranial abnormality. Electronically signed by: Nelson Dunn On 08/30/2020 00:33:16 AM
[2020-08-30 00:36] LABS: ALBUMIN 3.2 GM/DL (3.2-5.2); ALT/SGPT 51 U/L (12-78); BILIRUBIN,DIRECT 0.1 MG/DL (0.0-0.2); BILIRUBIN,TOTAL 0.6 MG/DL (0.2-1.0); BLOOD UREA NITROGEN 18 MG/DL (7-18); C REACTIVE PROTEIN QUANTITATIV 3.26 MG/DL (0.00-0.30); CARBON DIOXIDE LEVEL 29 MEQ/L (21-32); CHLORIDE LEVEL 105 MEQ/L (98-107); CK-MB VALUE MASS < 1.0 NG/ML (<3.6); CPK CREATINE PHOSPHOKINASE 50 U/L (26-192); CREATININE FOR GFR 0.87 MG/DL (0.55-1.30); FREE T4 1.21 NG/DL (0.76-1.46); GLOMERULAR FILTRATION RATE > 60.0 (>60); GLUCOSE, FASTING 102 MG/DL (70-100); SODIUM LEVEL 140 MEQ/L (136-145); THYROID STIMULATING HORMONE 0.834 uIU/ML (0.358-3.740); TOTAL PROTEIN 6.9 GM/DL (6.4-8.2); TROPONIN I < 0.02 NG/ML (< 0.10)
[2020-08-30] MEDS ORDERED: ONDANSETRON 4MG/2ML VIAL IV ONE (01:00)
[2020-08-30] MEDS ORDERED: KETOROLAC 30 MG/ML 1ML VIAL IV ONE (01:00)
[2020-08-30] MEDS ORDERED: ISOVUE-370 76% 100ML VIAL As Ordered ONE (01:17)
--- NOTE | 2020-08-30 01:50 | REPVR ---
PROCEDURE INFORMATION: Exam: CT Angiography Chest With Contrast Exam date and time: 08/30/2020 12:57 AM Age: 35 years old Clinical indication: Other: Dimer elevated; Prior surgery; Surgery date: 3-7 days post-operative; Surgery type: Tummy tuck; Additional info: Left arm numbness/ inc d-dimer TECHNIQUE: Imaging protocol: Computed tomographic angiography of the chest with contrast. 3D rendering (Not supervised by radiologist): MIP and/or 3D reconstructed images were created by the technologist. Radiation optimization: All CT scans at this facility use at least one of these dose optimization techniques: automated exposure control; mA and/or kV adjustment per patient size (includes targeted exams where dose is matched to clinical indication); or iterative reconstruction. Contrast material: ISO; Contrast volume: 75 ml; Contrast route: INTRAVENOUS (IV); COMPARISON: [facility] PORTABLE CHEST X-RAY 10/11/2019 9:44 AM FINDINGS: Pulmonary arteries: No focal pulmonary artery filling defect to suggest acute pulmonary embolus. Aorta: No thoracic aortic aneurysm or dissection. Lungs: Pulmonary vascular/interstitial pattern does not suggest active pulmonary edema. No central endobronchial lesion. Pleural spaces: No pleural effusion or pneumothorax. Heart: No overt cardiac enlargement or abnormal volume of pericardial fluid. Mediastinal space: Residual thymic tissue is present in the anterior mediastinum. Lymph nodes: No enlarged mediastinal lymph nodes. Bones/joints: Bony structures show no acute fracture or destructive process. Soft tissues: Bilateral breast implants are present. IMPRESSION: 1. No evidence of acute pulmonary embolus. 2. No other acute or concerning focal intrathoracic abnormality. Electronically signed by: Nelson Dunn On 08/30/2020 01:50:17 AM
[2020-08-30 02:38] VITALS: BP 127/65
== END 2020-08-30 02:41 | disposition home or self-care (01) ==
LOC: M ED 22:46
DX: R51.9 Headache, unspecified (principal); K21.9 Gastro-esophageal reflux disease without esophagitis; Z86.32 Personal history of gestational diabetes; Z79.899 Other long term (current) drug therapy; Z88.5 Allergy status to narcotic agent
CPT/HCPCS: 36415; 70450; 71275; 80048; 80076; 80307; 82550; 82553; 83735; 84439; 84443; 84484; 84702; 85025; 85379; 85610; 85652; 85730; 86140; 96361; 96374; 96375; 99284; J1885; J2405; Q9967

== ENCOUNTER 2020-09-03 01:23 | Emergency (ER) | payer OTHER ==
[~2020-09-03] VITALS: Ht 180.3 cm; Wt 100.1 kg
--- OUTSIDE RECORDS SUMMARY | 2020-09-03 01:30 | CCD | Continuity of Care Document ---
Author Author Ze CAMERON DO Organization Unknown Address [address] [place] [address] Phone [phone] Care Team Providers Care Knifer Up Name Role Phone Dylan Canseco M.D. AUTM [phone] Diane Hopson M.D. AUTM Unavailable Don Painting [...] lb BMI (Body Mass Index) 31.8 kg/m2 [place] Body Weight 155 lb Weight 103.421 kg BSA (Body Surface Area) 2.23 m2 05/21/2020 9:01am Body Temperature 98.2 F Results Description No Information Available Procedures Date Code Description Status 08/26/2020 89785 Excision Excessive Skin Subcutan eous Tissue Abdominoplasty Completed 08/26/2020 27140 Excision Excessive Skin And Subc utaneous Tissue Abdomen Completed Medical Devices Description No Information Available Encounters Type Date Location Provider Dx Diagnosis Office Visit 05/05/2020 9:15a [facility] Plastic Surgery Belen Cameron DO K42.9 Umbilical hernia without obstruction or gangrene M79.3 Panniculitis, unspecified M62.08 Separation of muscle (nontra umatic), other site Assessments Date Code Description Provider 08/26/2020 M79.3 Panniculitis, unspecified Belen Theresa, DO 08/26/2020 M62.08 Separation of muscle (nontraumat ic), other site Belen Theresa, DO 07/16/2020 Z01.818 Encounter for other preprocedura l examination Belen Theresa, DO 07/16/2020 M79.3 Panniculitis, unspecified Belen Theresa, DO 07/16/2020 M62.08 Separation of muscle (nontraumat ic), other site Belen Theresa, DO 05/21/2020 M79.3 Panniculitis, unspecified Belen Theresa, DO 05/21/2020 M62.08 Separation of muscle (nontraumat ic), other site Belen Theresa, DO 05/05/2020 K42.9 Umbilical hernia without obstruc tion or gangrene Belen Theresa, DO 05/05/2020 M79.3 Panniculitis, unspecified Belen Theresa, DO 05/05/2020 M62.08 Separation of muscle (nontraumat ic), other site Belen Theresa, DO Plan of Treatment No Information Available Functional Status Description No Information Available Mental Status Description No Information Available Referrals Refer to Dr Reason for Referral Status Appt Date Bennett Logan M.D. CHRONIC MAXILLARY SINUSITIS OFFICE CONSULT NEW OR ESTAB PT (1)05/20/2020-11/16/2020 OFFICE / OUTPATIENT VISIT ESTAB (3) 05/20/2020- 05/20/2021 Created 06/16/2021 [facility] [address] [place] [address] [phone] Belen Cameron D.O. Panniculectomy CONSULT 1 04/09/2020 - 10/06/2020 OFFICE VISITS 3 04/09/3030 - 04/09/2021 Scheduled 05/05/2020 [facility] [address] [place] [address] [phone]
--- OUTSIDE RECORDS SUMMARY | 2020-09-03 01:30 | CCD ---
Author Author [facility] Organization [facility] Address Unknown Phone Unavailable Care Team Providers Care Rag Sorter Name Role Phone NISHA, E CALEB DO [...] Willam Parada PA-C Unavailable Unavailable Karma, J Horacio PA-C Unavailable Unavailable Karma, Willam Leonard PA-C Unavailable Unavailable Karma, Willam Leonard PA-C Unavailable Unavailable Karma, Willam Leonard PA-C Unavailable Unavailable Karma, Willam Leonard PA-C Unavailable Unavailable Karma, Willam Leonard PA-C Unavailable Unavailable Karma, J Horacio PA-C Unavailable Unavailable TURRIN, HANNAH Unavailable Unavailable [...] is protected by Article 27-F of the [facility] Public Health law. If you continue you may have access to information: Regarding HIV / AIDS; Provided by facilities licensed or operated by the [facility] Office of Mental Health; or Provided by the [facility] Office for People With Developmental Disabilities. If such information is present, then the following [facility] mandated warning applies: This information has [...] law may result in a fine or nursing home sentence or both. A general authorization for the release of medical or other information is NOT sufficient authorization for further disc losure. Allergies and Adverse Reactions Type Description Substance Reaction Status Data Source(s ) No Known Drug Allergies No Known Drug Allergies [facility] Family History Family Member Name Family Member Gender Family Member Status Date o f Status Description Data Source(s) Unknown Male Problem [facility] ([facility] Unknown Male Problem [facility] ([facility]) Encounters Encounter Providers Location Date Indications Data Source(s ) Emergency Attender: LOLI FORREST MDConsultant: HAKAN MAY NOWAllan 08/21/2020 10:33:00 PM EST - 08/22/2020 12:29:00 AM [facility] Patient discharged. Emergency Attender: HANNAH DAVILAConsultant: HAKAN MAY NOWAllan 08/11/2020 09:29:00 PM EST - 08/11/2020 10:40:00 PM [facility] Patient discharged. Unknown [address] [facility] [address] 08/07/2020 12:00:00 AM EST eCW1 ([facility]) Emergency Attender: HANNAH DAVILA 2019 09:51:00 AM EST - 05/26/2020 12:00:00 PM [facility] Patient discharged. Emergency Attender: Horacio Parada PA-C 04/2020 04:06:00 PM EST - 05/20/2020 07:31:00 PM [facility] Patient discharged. Outpatient Attender: CALEB Doherty/Agnes/Theron/Royer l 05/05/2020 09:15:00 AM EDT [facility] ([facility]) Emergency Attender: Horacio MEADOWSCConsultant: PCP NO 02/12/2020 10:08:00 AM EDT - 02/12/2020 12:20:00 PM EDT [facility] Patient discharged. Emergency Attender: HANNAH DAVILA 2019 12:09:00 AM EDT - 02/09/2020 02:06:00 AM EDT [facility] Patient discharged. Outpatient 10/29/2019 05:30:00 AM EDT [facility] Outpatient 08/07/2019 01:55:00 PM EST [facility] Outpatient 08/07/2019 01:53:00 PM EST [facility] Medications Medication Brand Name Start Date Product Form Dose Route Admi nistrative Instructions Pharmacy Instructions Status Indications Reaction Description Data Source(s) 8 HR Acetaminophen 650 MG Extended Release Oral Tablet [Tyle nol] Tylenol 8 Hour 02/27/2020 12:00:00 AM EDT active [facility] ([facility]) Insurance Providers Payer name Policy type / Coverage type Policy ID Covered republican ID Covered republican's relationship to martinez Policy Martinez Plan Information [facility] [id number] 2 [id number] [facility] [id number] 2 [id number] [facility] - O/P [id number] 01 [id number] SELF PAY ONLY [id number] SP [id number] [facility] REG O [id number] S [id number] SELF PAY O [id number] S [id number] U [id number] Self [id number] ANSI-Not a Secondary Insurance [id number] [facility] [id number] 2 [id number] [place] [id number] Commercial [id number] Family Dependent [id number] U [id number] Self [id number] FOR LIFE U [id number] Self [id number] [facility] [id number] HU2 [id number] [facility] O [id number] P [id number] [facility] MITZI -O/P [id number] 19 [id number] [facility] [id number] 2 [id number] [facility] [place] [id number] 18 [id number] [facility] Commercial [id number] Self [id number] Problems, Conditions, and Diagnoses Code Display Name Description Problem Type Effective Dates Data Source(s) 61413120 Carpal tunnel syndrome Carpal tunnel syndrome Problem 02/27/2020 12:00:00 AM EDT [facility] ([facility] ) 18864302 Hand pain Hand pain Problem 02/27/2020 12:00:00 AM ED T [facility] ([facility] ) [id number] Numbness of hand Numbness of hand Problem 02/27/2020 12 :00:00 AM EDT [facility] ([facility] ) R519 Headache, unspecified Headache, unspecified Diagnosis 08/21/2020 10:33:00 PM [facility] P90790 Pain in left shoulder Pain in left shoulder Diagnosis 08/11/2020 09:29:00 PM [facility] M7989 Other specified soft tissue disorders Ot her specified soft tissue disorders Diagnosis 08/11/2020 09:29:00 PM [facility] C61011 Unspecified ovarian cyst, left side Unspecified ovarian cyst, left side Diagnosis 05/26/2020 09:51:00 AM [facility] N800 Endometriosis of uterus Endometriosis of uterus Diagno sis 05/26/2020 09:51:00 AM [facility] R102 Pelvic and perineal pain Pelvic and perineal pain Diag nosis 05/26/2020 09:51:00 AM [facility] R1032 Left lower quadrant pain Left lower quadrant pain Diag nosis 05/20/2020 04:06:00 PM [facility] G5602 Carpal tunnel syndrome, left upper limb Carpal tunnel syndrome, left upper limb Diagnosis 02/12/2020 10:08:00 AM EDT [facility] V80866 Pain in left upper arm Pain in left upper arm Diagnosi s 02/12/2020 10:08:00 AM EDT [facility] N45938 Pain in left lower leg Pain in left lower leg Diagnosi s 02/09/2020 12:09:[address] [facility] Surgeries/Procedures Procedure Description Date Indications Data Source(s) Excision Excessive Skin And Subcutaneous Tissue Abdomen 08/26/2020 12:00:00 AM EST [facility] ([facility] ) EXCISION EXCESSIVE SKIN & SUBQ TISSUE ABDOMEN 08/26/19 12:00:00 AM EST [facility] ([facility], ) Needle electromyography, each extremity, with related paraspinal areas, when performed, done with nerve conduction, amplitude and latency/velocity study; complete, five or more muscles studied, innervated by three or more nerves or four or more spinal levels (list separately in addition to the code for primary procedure). 02/28/2020 12:00:00 AM EDT MEDEN T ([facility], ) Needle electromyography, each extremity, with related paraspinal areas, when performed, done with nerve conduction, amplitude and latency/velocity study; complete, five or more muscles studied, innervated by three or more nerves or four or more spinal levels (list separately in addition to the code for primary procedure). 02/28/2020 12:00:00 AM EDT MEDEN T ([facility], ) Needle Electromyography Non Extremity Done With Nerve Conduc tion 02/28/2020 12:00:00 AM EDT [facility] ([facility], ) 19932 Nerve conduction studies 13 or more studies NEW 201202/28/2020 12:00:00 AM EDT [facility] ([facility] Zelda haas, ) Results ID Date Data Source [id number] 08/21/2020 10:33:00 PM [facility] 1 OrderSheet [facility] Emergency Department [address] [place] [address] Phone #: ext- [phone] 08/21/2020 22:26 [id number] Sex: F : 1985 Age: 35yWEIGHT:98.8 kg [...] rce(s) Supporting Document(s) ID Date Data Source [id number] 08/21/2020 10:33:00 PM EST [facility] 1 Medication Reconciliation Report [facility] Emergency Department [address] [place] [address] Phone #: ext- [phone] 08/21/2020 22:26 Patient: [...] rce(s) Supporting Document(s) ID Date Data Source [id number] 08/21/2020 10:33:00 PM [facility] 1 Medication Administration Record [facility] Emergency Department [address] [place] [address] Phone #: ext- [phone] 08/21/2020 22:26 Patient: ZE NORMAN Sex: F : 1985 Age: 35yWeight: 98.8 kgHeight/Length: 71 inBMI: 30.4ALLERGIES: No Known Drug Allergy Date/Time Medication Administered Medication OrderedGiven REGLAN [IVP] (METOCLOPRAMIDE Reglan 10 mg IVP X1 dose: 10 mg23:38 08/21/2020 HCL) (NOW x1)Sean Bunch RN Dose: 10 mg IVP Site: #1 right ACGiven BENADRYL [IVP] (DIPHENHYDRAMINE Benadryl IVP 25 mg23:39 08/21/2020 HCL)eSan Bunch RN Dose: 25 mg IVP Site: #1 right ACGiven TORADOL [IVP] (KETOROLAC Toradol IVP 30 mg (NOW x1)23:39 08/21/2020 TROMETHAMINE)Sean Bunch RN Dose: 30 mg IVP Site: #1 right AC Name Value Range Interpretation Code Description Data Ni rce(s) Supporting Document(s) ID Date Data Source [id number] 08/21/2020 10:33:00 PM EST [facility] 1 General Instructions [facility] Emergency Department [address] [place] [address] Phone #: ext- [phone] 08/21/2020 22:26 Patient: [...] or too much sleep. 2 General Instructions [facility] Emergency Department [address] [place] [address] Phone #: ext- [phone] 08/21/2020 22:26 Patient: [...] Avocados Bananas Figs Raisins 3 General Instructions [facility] Emergency Department [address] [place] [address] Phone #: ext- [phone] 08/21/2020 22:26 Patient: ZE NORMAN Sex: F [...] healthcare provider Stiff neck 4 General Instructions [facility] Emergency Department [address] [place] [address] Phone #: ext- [phone] 08/21/2020 22:26 Patient: ZE NORMAN Sex: F : 1985 Age: 35y Extreme drowsiness, confusion, or fainting Dizziness, or dizziness with spinning sensation (vertigo) Weakness or trouble feeling in an arm or leg, or on one side of your face Trouble talking or seeing [phone] [employer]. [address] [place] [address]. All rights reserved. This information is not intended as asubstitute for professional medical care. Always follow your healthcare professional's instructions. You have been given the following additional information: Headache, Migraine, Classic No strenuous activity. Do not work for four days.(Electronically signed by Loli Forrest MD 08/22/2020 01:08) Name Value Range Interpretation Code Description Data Ni rce(s) Supporting Document(s) ID Date Data Source [id number] 08/21/2020 10:33:00 PM EST [facility] 1 Clinical Report - Nurses [facility] Emergency Department [address] [place] [address] Phone #: ext- [phone] 08/21/2020 22:26 Patient: [...] to both eyes.).She has had a headache.Treatment ARMORER TECHNICIAN:None. Seen within the last 30 days at [...] to the 2 Clinical Report - Nurses [facility] Emergency Department [address] [place] [address] Phone #: frf- [phone] 08/21/2020 22:26 Patient: ZE NORMAN Sex: F : 1985 Age: 35y question(s) [...] with aseptic 3 Clinical Report - Nurses [facility] Emergency Department [address] [place] [address] Phone #: ext- [phone] 08/21/2020 22:26 Patient: ZE NORMAN Sex: F [...] 16. O2 saturation: 100%. Pain level now: 5/10. --00:28 08/22/20 Bailey Rendon 00:00 08/22/20. BP: [...] Patient verbalized understanding. Written instructions provided in Georgian. The patient was discharged by the physician. She was discharged home and unaccompanied at time of discharge. She left ambulatory and via private vehicle. Spouse driving. --00:27 08/22/20 Bailey Rendon 00:26 08/22/20. BP: 132/62. HR: 80. RR: 15. O2 saturation: 98%. Temp: 98.1 F. Pain level now 08/20. --00:27 08/22/20 Bailey Rendon 4 Clinical Report - Nurses [facility] Emergency Department [address] [place] [address] Phone #: ext- [phone] 08/21/2020 22:26 [id number] Sex[facility] F : 1985 Age: 35y Departure time: 00:27 08/22/2020. --00:27 08/22/20 Bailey Rendon.Locked/Released at 08/22/2020 00:29 by Bailey Rendon Name Value Range Interpretation Code Description Data Ni rce(s) Supporting Document(s) ID Date Data Source [id number] 08/21/2020 10:33:00 PM [facility] 1 Clinical Report - Physicians/Mid Levels [facility] Emergency Department [address] [place] [address] Phone #: ext- [phone] 08/21/2020 22:26 Patient: [...] Laparoscopy. 2 Clinical Report - Physicians/Mid Levels [facility] Emergency Department [address] [place] [address] Phone #: ext- [phone] 08/21/2020 22:26 Patient: ZE NORMAN Sex: F : 1985 Age: 35y Salpingectomy. Medications: None. Allergies: No Known Drug Allerg y.SOCIAL HISTORYNo drug use.ADDITIONAL NOTESThe nursing notes have been reviewed.PHYSICAL EXAMVital Signs: 08/21/2020 22:27 BP: 122/83. MAP: 96. HR: 78. RR: 18. O2 saturation: 100%. Temp: 99 F.Pain level now: 8/10. Have been reviewed and appear to be [...] radiates to her entire left side of herbody. initially, pt is closing her left eye. [...] Headache. 3 Clinical Report - Physicians/Mid Levels [facility] Emergency Department [address] [place] [address] Phone #: ext- [phone] 08/21/2020 22:26 Patient: [...] rce(s) Supporting Document(s) ID Date Data Source [id number] 08/12/2020 09:42:00 [place] [address] PHONE: [phone] FAX: [phone] Name .................. : МАРИЯ Chinchilla Acct Number.................. : [id number] ROOM. ................. : TR-03 MR Number ................... : [id number] Stay type ............. : E/R Discharge Date......... ... : Admit Date ......... : 08/11/20 Admit Phys .................... : TURRIN TESSIE Date of ....... : 1985 Family Phys ................... : UNKNOWN Phone .................. : [phone] Age ................................ : 35 Film# .................. .:[id number] Sex ................................. : F Unsigned transcriptions are preliminary reports and do not represent a medical or legal document [place] [address] COMPLETE:08/11/20 22:21 ADB 3449 Reason(s): DVT LEFT [...] rce(s) Supporting Document(s) ID Date Data Source [id number] 08/11/2020 09:29:00 PM EST [facility] 1 OrderSheet [facility] Emergency Department [address] [place] [address] Phone #: ext- [phone] 08/11/2020 21:29 Patient: ZE NORMAN Sex: F [...] IM 60 mg 22:31 08/11/2020 22:33 Roland Rendon;GENERAL ORDERSOrder Description Priority Entered Acknowledged Initialed[Electronically signed by Roland Bae (22:33 08/11/2020)][Electronically signed by Bailey Rendon (22:40 08/11/2020)][Electronically locked by Bailey Rendon (22:40 08/11/2020)] Name Value Range Interpretation Code Description Data Ni rce(s) Supporting Document(s) ID Date Data Source [id number] 08/11/2020 09:29:00 PM [facility] 1 Medication Reconciliation Report [facility] Emergency Department [address] [place] [address] Phone #: ext- [phone] 08/11/2020 21:29 Patient: [...] Dispense 45 tablet. Refills: 0.Substitution permitted.Pharmacy - [address] ; [place] [address]. FaxNumber: . -- ANA Horowitz Name Value Range Interpretation Code Description Data Ni rce(s) Supporting Document(s) ID Date Data Source [id number] 08/11/2020 09:29:00 PM [facility] 1 Medication Administration Record [facility] Emergency Department [address] [place] [address] Phone #: [phone] ext- [phone] 08/11/2020 21:29 Patient: EZ NORMAN Sex: F : 1985 Age: 35yWeight: 113.3 kgHeight/Length: 71 inBMI: 34.9ALLERGIES: No Known Drug Allergy Date/Time Medication Administered Medication OrderedGiven MOTRIN [PO] (IBUPROFEN) Ibuprofen 800 mg PO X1 dose: 75307:36 08/11/2020 Dose: 800 mg Tablets PO mg (NOW x1)Amita Mota,Given TORADOL [IM] (KETOROLAC Toradol IM 60 mg22:33 08/11/2020 TROMETHAMINE)Bailey Rendno, Dose: 60 mg IM Name Value Range Interpretation Code Description Data Ni rce(s) Supporting Document(s) ID Date Data Source [id number] 08/11/2020 09:29:00 PM EST [facility] 1 General Instructions [facility] Emergency Department [address] [place] [address] Phone #: ext- [phone] 08/11/2020 21:29 Patient: [...] Dispense 45 tablet. Refills: 0.Substitution permitted.Ph[facility]acy - [facility] [address] [facility] ; [place] [address]. .Follow-up:Follow up with your doctor tomorrow. Call for the next available appointment. Reason for referral:evaluation and treatment. Summary of care provided to ricardo kline.Understanding of the discharge instructions verbalized by patient. [...] from moving. You can 2 General Instructions [facility] Emergency Department [address] [place] [address] Phone #: ext- [phone] 08/11/2020 21:29 [id number] Sex: F : 1985 Age: 35yta ke [...] shoulder or upper arm 3 General Instructions [facility] Emergency Department [address] [place] [address] Phone #: ext- [phone] 08/11/2020 21:29 Patient: ZE NORMAN Sex: F : 1985 Age: 35y Trouble moving your hand or fingers We akness in your hand or fingers Your shoulder becomes stiff It feels like your shoulder is popping out You are less able to do your daily activities [phone] [employer]. [address], [place] [address]. All rights reserved. This information is not intended as asubstitute for professional medical care. Always follow your healthcare professional's instructions. You have been given the following additional information: Shoulder Pain, Uncertain Cause(Electronically signed by ANA Horowitz 08/11/2020 22:33) Name Value Range Interpretation Code Description Data Ni rce(s) Supporting Document(s) ID Date Data Source [id number] 08/11/2020 09:29:00 PM EST [facility] 1 Clinical Report - Nurses [facility] Emergency Department [address] [place] [address] Phone #: ext- [phone] 08/11/2020 21:29 Patient: ZE NORMAN Sex: F : 1985 Age: 35yTRIAGEArrived by private vehicle. Historian: patient.Triage time: 21:30 08/11/2020. Acuity: LEVEL 4.Chief Complaint: LEFT UPPER EXTREMITY PAIN and NUMBNESS.No injury occurred. Onset was gradual. Symptoms are constant and still present (off and on about 1week). She has had constant numbness of the left arm.Treatment ARMORER TECHNICIAN:Took Tylenol and ibuprofen.SEPSIS SCREEN: SIRS SCREEN NEGATIVE. SEPSIS SCREEN NEGATIVE. No suspected or confirmedsigns of infection present. --21:36 08/11/20 Sean Bunch RN21:30 08/11/20. BP: 157/106 (regular adult cuff) taken on the right arm, via an automated monitor, whilesitting. MAP: 123. HR: 76 (regular, normal rate and strong). RR: 18 (regular, unlabored and normal). [id number]: 100% on room air. Temp: 98.6 F (oral). Pain level now: 8/10. --21:36 08/11/20 Sean Bunch RN.Weight: 113.3 kg stated. Height/Length: 71 inches Per Patient. BMI: 34.9. --21:29 08/11/20 Sean Bunch RN.MedicationsNone. --21:33 08/11/20 Sean Bunch RN.AllergiesNo Known Drug Allergy. --21:32 08/11/20 Sean Bunch RN.PROBLEMS:Depression.Endometriosis.Carpal Tunnel Syndrome.Anxiety Reaction.Upper Extremity Pain.Ovarian Cyst.Infertility.Insomnia. --21:33 08/11/20 Sean Bunch RN.Medication/allergy information source: the patient. --21:36 08/11/20 Sean Bunch RN. 2 Clinical Report - Nurses [facility] Emergency Department [address] [place] [address] Phone #: ext- [phone] 08/11/2020 21:29 Patient: ZE NORMAN Sex: F : 1985 Age: 35y History [...] the same. --21:36 08/11/20 Sean Bunch RN.PHYSICAL PZAXOLKVWY61:40 08/11/20.GENERAL / NEURO / PSYCH: Oriented X [...] Patient transported by wheelchair with mask and fuel technician. (Ultra sound). --21:47 08/11/20 Amita Mota late entry - 21:40 08/11/20. Patient gowned. Reassurance given. Two patient identifiers checked. Call light placed in reach. Side rails up x 2. Bed placed in lowest position. Brakes of bed on. --22:40 08/11/20 Bailey Rendon 22:33 08/11/2020 Toradol (Ketorolac Tromethamine) IM 60 mg given. Given in the right deltoid. Allergies 3 Clinical Report - Nurses [facility] Emergency Department [address] [place] [address], [place] [address] Phone #: ext- [phone] 08/11/2020 21:29 Patient: ZE NORMAN Sex: F [...] Patient verbalized understanding. Written instructions provided in Georgian. The patient was discharged by the physician executive administrative assistant. She was discharged home and unaccompanied at time of discharge. She left ambulatory and via private vehicle. Spouse driving. --22:39 08/11/20 Bailey Rendon 22:39 08/11/20. BP: 118/69. HR: 64. RR: 18. O2 saturation: 100%. Temp: 97.9 F. Pain level now 410. --22:39 08/11/20 Bailey Rendon Departure time: late entry - 22:39 08/11/2020. --22:39 08/11/20 Bailey Rendon.Locked/Released at 08/11/2020 22:40 by Bailey Rendon Name Value Range Interpretation Code Description Data Ni rce(s) Supporting Document(s) ID Date Data Source [id number] 08/11/2020 09:29:00 PM [facility] 1 Clinical Report - Physicians/Mid Levels [facility] Emergency Department [address] [place] [address] Phone #: ext- [phone] 08/11/2020 21:29 Patient: [...] use. 2 Clinical Report - Physicians/Mid Levels [facility] Emergency Department [address] [place] [address] Phone #: ext- [phone] 08/11/2020 21:29 Patient: ZE NORMAN Sex: F : 1985 Age: 35yPHYSICAL EXAMVital Signs: 08/11/2020 21:30 BP: sitting 157/106. MAP: 123. HR: 76. RR: 18. O2 saturation: 100% onroom air. Temp: 98.6 F. Pain level now: 810. Have been reviewed as abnormal. Hypertensive. Oxygensaturation [...] DVT. The exam was pe rformed bya social service technician. The study was interpreted by the radiologist and contemporaneously by me. Interpretationtime: 22:08/11/2020.PROGRESS AND PROCEDURESCourse of Care: 22:Aug 11 2020. Evaluation after observation. (Discussed exam and x-ray findingsand pt is agreeable with dx and t xplan.). Patient counseled in person regarding the patient's stable condition, test results, diagnosis and need for follow-up. Patient agrees with plan of care. 22:Aug 11 2020. Disposition: Discharged home in good and improved condition (22:Aug 11 2020).CLINICAL IMPRESSION Acute upper extremity pain involving the left shoulder and left upper arm.INSTRUCTIONS Warnings: Further evaluation is necessary. It is very important to follow up with a healthcare provider. GENERAL WARNINGS: Return or contact your physician immediately if your condition worsens or 3 Clinical Report - Physicians/Mid Levels [facility] Emergency Department [address] [place] [address] Phone #: ext- [phone] 08/11/2020 21:29 Patient: ZE NORMAN Sex: F : 1985 Age: 35y changes unexpectedly, if not improving as expected, or if other problems arise. Specifically return if pain worsens. Your Current Medications: . No home medication. Prescription Medications: IBU 800 mg tablet Take 1 tablet three times a day for 15 days -- Dispense 45 tablet. Refills: 0. Substitution permitted. Pharmacy - [facility] - [address] [facility] ; [place] [address]. . Follow-up: Follow up with your doctor tomorrow. Call for the next available appointment. Reason for referral: evaluation and treatment. Summary of care provided to patient. Understanding of the discharge instructions verbalized by patient.(Electronically signed by ANA Horowitz 08/11/2020 22:33) Name Value Range Interpretation Code Description Data Ni rce(s) Supporting Document(s) ID Date Data Source [id number] 06/23/2020 12:00:00 AM EST [facility] Name Value Range Interpretation Code Description Data Ni rce(s) Supporting Document(s) SARS-CoV-2 (COVID-19) RNA [Presence] in Respiratory specimen by JOEL with probe detection [facility] This lab was ordered by [facility] and reported by [facility]. ID Date Data Source [id number] 05/27/2020 03:35:00 PM [facility] [address] [place] [address] PHONE: [phone] FAX: [phone] Name .................. : МАРИЯ Chinchilla Acct Number.................. : [id number] ROOM. ................. : TR MR Number ................... : [id number] Stay type ............. : E/R Discharge Date......... ... : 05/26/20 Admit Date ......... : 05/26/20 Admit Phys .................... : LOLA KURTZ Date of ....... : 1985 Family Phys ................... : UNKNOWN Phone .................. : [phone] Age ................................ : 35 Film# .................. .:[id number] Sex ................................. : F Unsigned transcriptions are preliminary reports and do not represent a medical or legal document PELVIC 07094 COMPLETE:05/26/20 11:18 KN 50606 Reason(s): Pelvic Pain US TRANSVAGINAL(NON OB) 22323 COMPLETE:05/26/20 11:18 KNB 95497 (REASON FOR OBS: pelvic pain TRANSABDOMINAL AND [...] rce(s) Supporting Document(s) ID Date Data Source [id number] 05/27/2020 03:35:00 [place] [address] PHONE: [phone] FAX: [phone] Name .................. : NORMAN EZ Chinchilla Acct Number.................. : [id number] ROOM. ................. : TR-02 MR Number ................... : [id number] Stay type ............. : E/R Discharge Date......... ... : 05/26/20 Admit Date ......... : 05/26/20 Admit Phys .................... : LOLA KURTZ Date of ....... : 1985 Family Phys ................... : UNKNOWN Phone .................. : [phone] Age ................................ : 35 Film# .................. .:[id number] Sex ................................. : F Unsigned transcriptions are preliminary reports and do not represent a medical or legal document PELVIC 73681 COMPLETE:05/26/20 11:18 KNB 90392 Reason(s): Pelvic Pain US TRANSVAGINAL(NON OB) 74037 COMPLETE:05/26/20 11:18 KNB 33515 (REASON FOR OBS: pelvic pain TRANSABDOMINAL AND [...] rce(s) Supporting Document(s) ID Date Data Source [id number] 05/26/2020 09:51:00 AM EST [facility] 1 OrderSheet [facility] Emergency Department [address] [place] [address] Phone #: vsq- [phone] 05/26/2020 09:48 Patient: ZE NORMAN Sex: F : 1985 Age: 35yWEIGHT:95.2 kg (S) HEIGHT:71 inches (S) BMI:29.3ALLERGIES: No Known Drug AllergyCHIEF COMPLAINT: abdominal painDIAGNOSIS: Cyst of ovary, Endometriosis (clinical)LAB ORDERSOrder Description Priority Entered Acknowledged InitialedCBC w Diff STAT 10:08 05/26/2020 10:08 [facility], Bruno PEREZ; [id number] STAT 10:08 05/26/2020 10:08 [facility] 9Flava, Bruno BURNETTE PA; [id number] STAT 10:08 05/26/2020 10:08 [facility] 9FlavaBruno PA; Ncnw0Cw inalysis (Clean STAT 10:08 05/26/2020 10:08 [facility] [place] [facility] 9Flava, Bruno BURNETTE PA; [id number], Quant STAT 10:08 05/26/2020 10:08 [facility] [place] 9FlavaBruno PA; [id number] STUDY ORDERSOrder Description Priority Entered Acknowledged InitialedUS Pelvis STAT 10:08 05/26/2020 10:19 Denice Montoya(Oxygen?(No)) Roland Bae RN PA; Reason for Study: Pelvic PainMEDICATION/IV/DRIP/FLUID ORDERSOrder Description Priority Entered Acknowledged InitialedNS IV : Bolus 1000 10:08 05/26/2020 10:32 Dejah Montoya, then 150 mL/hr Roland Bae RN PA;Toradol IVP 30 mg 10:08 05/26/2020 10:32 Denice Montoya RN PA; 2 OrderSheet [facility] Emergency Department [address] [place] [address] Phone #: ext- [phone] 05/26/2020 09:48 Patient: ZE NORMAN Sex: F : 1985 Age: 35yZofran ODT PO 8 10:08 05/26/2020 10:32 Jarocho Montoya RN PA;Morphine IVP 2 mg 11:21 05/26/2020 11:21 Denice Montoya(NOW, HIGH ALERT Denice Montoya RN; RNMEDICATION) Verbal order per; Roland Bae PAGENERAL ORDERSOrder Description Priority Entered Acknowledged InitialedNPO 10:08 05/26/2020 10:09 Daja Bae development professionalBruno Sparks PA; [id number] Lock 10:08 05/26/2020 10:29 Denice Montoya RN PA;[Electronically signed by Denice Montoya RN (12:02 05/26/2020)][Electronically signed by Roland Bae (21:18 05/26/2020)][Electronically locked by Denice Montoya RN (12:02 05/26/2020)] Name Value Range Interpretation Code Description Data Ni rce(s) Supporting Document(s) ID Date Data Source [id number] 05/26/2020 09:51:00 AM EST [facility] 1 Medication Reconciliation Report [facility] Emergency Department [address] [place] [address] Phone #: ext- [phone] 05/26/2020 09:48 Patient: [...] Dispense 45 tablet. Refills: 0.Substitution permitted.Pharmacy - [facility] ; [place] [address]. .ondansetron 8 mg disintegrating tablet Take 1 tablet three times a day for 5 days -- Dispense 15 tablet.Refills: 0. Substitution permitted.Pharmacy - [facility] [employer] [facility] ; [place] [id number]. . 2 Medication Reconciliation Report [facility] Emergency Department [address] [place] [address] Phone #: ext- [phone] 05/26/2020 09:48 [id number] Sex: F : 1985 Age: 35ydicyclomine 10 mg capsule Take 1 capsule four times a day for 10 days -- Dispense 40 capsule.Refills: 0. Substitution permitted.Pharmacy - [facility] [facility] ; [place] [id number]. . -- ANA Horowitz Name Value Range Interpretation Code Description Data Ni rce(s) Supporting Document(s) ID Date Data Source [id number] 05/26/2020 09:51:00 AM EST [facility] 1 Medication Administration Record [facility] Emergency Department [address] [place] [address] Phone #: ext- [phone] 05/26/2020 09:48 Patient: ZE NORMAN Sex: F : 1985 Age: 35yWeight: 95.2 kgHeight/Length: 71 inBMI: 29.3ALLERGIES: No Known Drug Allergy Date/Time Medication Administered Medication OrderedStart NS [IV] NS IV : Bolus 1000 mL, then 41648:32 05/26/2020 Dose: IV Fluids mL/hrDenice Montoya RN [...] rce(s) Supporting Document(s) ID Date Data Source [id number] 05/26/2020 09:51:00 AM EST [facility] 1 General Instructions [facility] Emergency Department [address] [place] [address] Phone #: ext- [phone] 05/26/2020 09:48 Patient: ZE NORMAN Sex: F : 1985 Age: 35yEndometriosis involving the uterus.Single follicular left ovarian cyst.INSTRUCTIONSWarnings: Further evaluation is necessary.Your Current Medications: Your current home medications have been reviewed.CONTINUE TAKING THE FOLLOWING MEDICATIONS:Gabapentin Oral.Zofran Oral.Prescription Medications:IBU 800 mg tablet Take 1 tablet three times a day for 15 days -- Dispense 45 tablet. Refills: 0.Substitution permitted.Pharmacy - [facility] [employer] - [address] [facility] ; [place] [address]. .ondansetron 8 mg disintegrating tablet Take 1 tablet three times a day for 5 days -- Dispense 15 tablet.Refills: 0. Substitution permitted.Pharmacy - [facility] [facility] ; [place] [address]. .dicyclomine 10 mg capsule Take 1 capsule four times a day for 10 days -- Dispense 40 capsule.Refills: 0. Substitution permitted.Pharmacy - [facility] [employer] - [address] [facility] ; [place] [address]. .Follow-up:Follow up with your doctor. Reason for referral: evaluation, treatment and refer tpo ELECTRIC MULE OPERATOR for furtherevaluation. Summary of care provided to patient.Understanding of the discharge instructions verbalized by patient. ADDITIONAL INFORMATIONOvarian Cysts 2 General Instructions [facility] Emergency Department [address] [place] [address] Phone #: ext- [phone] 05/26/2020 09:48 Patient: ZE NORMAN Sex: F [...] pain, your healthcare provider may recommend using [id number] pain medicine. If needed, your provide may [...] grows in size.Follow-up care 3 General Instructions [facility] Emergency Department [address] [place] [address] Phone #: ext- [phone] 05/26/2020 09:48 Patient: ZE NORMAN Sex: F [...] Weakness, dizziness, or fainting Abnormal vaginal bleeding [phone] [employer] [address] [place] [address], [place] [address]. All rights reserved. This information is not [...] have pain during bowel 4 General Instructions [facility] Emergency Department [address] [place] [address] Phone #: ext- [phone] 05/26/2020 09:48 Patient: [...] directed by your provider 5 General Instructions [facility] Emergency Department [address] [place] [address] Phone #: ext- [phone] 05/26/2020 09:48 Patient: [...] can talk with you about infertility testing. [id number] [employer] [address] [place] [address], [place] [address]. All rights reserved. This information is not intended as asubstitute for professional medical care. Always follow your healthcare professional's instructions. 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 (gabapentin/zofran).SEPSIS SCREEN: SIRS Screen negative. Sepsis Screen negative. No suspected or confirmed signs ofinfection present. --10:03 05/26/20 Denice Montoya, RN09:59 05/26/20. BP: 142/84. MAP: 103. HR: 80. RR: 18. O2 saturation: 100%. Temp: 98.3 F. Pain levelnow: 02/17. --10:03 05/26/20 Denice Motnoya RN.Weight: 95.2 kg stated. Height/Length: 71 inches Per Patient. BMI: 29.3. --09:56 05/26/20 Denice Montoya RN.MedicationsGabapentin Oral. --10:00 05/26/20 Denice Montoya RN Zofran Oral. --10:00 05/26/20 Denice Montoya RN.AllergiesNo Known Drug Allergy. --10:00 05/26/20 Denice Montoya RN.PROBLEMS:Carpal Tunnel Syndrome.Depression.Anxiety Reaction.Infertility.Insomnia. --10:05/26/20 Denice Montoya RN.Medication/allergy information source: the patient and patient's previous visit record. --10:03 05/26/20Denice Montoya RN. 2 Clinical Report - Nurses [facility] Emergency Department [address] [place] [address] Phone #: ext- [phone] 05/26/2020 09:48 Patient: [...] assessment completed. No skin integrity risk identified. --10:03 05/26/20 Denice Montoya, RN.PHYSICAL ASSESSMENTAmbulatory to room.GENERAL / NEURO / [...] 5 rights. 3 Clinical Report - Nurses [facility] Emergency Department [address] [place] [address] Phone #: ext- [phone] 05/26/2020 09:48 Patient: [...] Patient transported to sonogram by wheelchair with fuel technician. --10:56 05/26/20 Denice Montoya RN Patient returned from sonogram by wheelchair with fuel technician. --11:13 05/26/20 Denice Montoya RN 11:13 [...] reaction pain is improving. Symptoms have improved. --12:01 05/26/20 Denice Montoya, ELIO 11:56 05/26/2020 IV Fluids NS via IV site #1 Discontinued: completed. Total amount infused: 1000 mL. --12:05/26/20 Denice Montoya RN.DISPOSITION / DISCHARGE 11:55 05/26/20. BP: 119/68. HR: 73. RR: 17. O2 saturation: 100%. Temp: 98.3 F. Pain level now 12/18. --11:56 05/26/20 [place] development professional, Bruno YOMAIRA Tech1 4 Clinical Report - Nurses [facility] Emergency Department [address] [place] [address] Phone #: ext- [phone] 05/26/2020 09:48 [id number] Sex[facility] F : 1985 Age: 35y Condition at departure: stable. No learning barriers present. Discharge instructions provided and reviewed with the patient. Reviewed medication(s) side effects, precautions, dosing and course information. Prescription(s) sent electronically to pharmacy. Reviewed referral to a slubber hand. Patient verbalized understanding. Written instructions provided in Georgian. The patient was discharged by the physician executive administrative assistant. She was discharged home and accompanied by spouse. She left ambulatory and via private vehicle. Spouse driving. --12:00 05/26/20 Denice Montoya RN 11:55 05/26/2020 Site #1 removed upon discharge. Pressure dressing applied. --12:00 05/26/20 Denice Montoya RN.Locked/Released at 05/26/2020 12:02 by Denice Montoya RN Name Value Range Interpretation Code Description Data Ni rce(s) Supporting Document(s) ID Date Data Source [id number] 05/26/2020 09:51:00 AM EST [facility] 1 Clinical Report - Physicians/Mid Levels [facility] Emergency Department [address] [place] [address] Phone #: ext- [phone] 05/26/2020 09:48 Patient: [...] saturation: 100%. Temp: 98.3F. Pain level now: 8/10. Have been reviewed as abnormal. Hypertensive. Oxygen [...] of 2 Clinical Report - Physicians/Mid Levels [facility] Emergency Department [address] [place] [address] Phone #: ext- [phone] 05/26/2020 09:48 -- [...] N O2? NPREGNANCY STATUS: SIGNED [facility] w Diff: (CORBIN: 05/26/2020 10:17) ( MsgRcvd [...] 5.0) 3 Clinical Report - Physicians/Mid Levels [facility] Emergency Department [address] [place] [address] Phone #: ext- [phone] 05/26/2020 09:48 Patient: [...] Male GFR Interprentation 20-49 yrs >60 mL/min Dlypgp00-20 yrs >56 mL/min Normal 60-69 yrs >49 mL/min Normal 70-79yrs>42 mL/min Normal 80 and above >35 mL/min Normal Female GFRInterpretation 20-39 yrs >60 mL/min Normal 40-49 yrs >58 mL/minNormal 50-59 yrs >51 mL/min Normal 60-69 yrs >45 mL/min Mlgdcl66- 79 yrs >39 mL/min Normal 80 and above >32 mL/min NormalLipase: (CORBIN: 05/26/2020 10:17) ( [facility] 05/26/2020 11:04) Final results Test Result Flag Units (Reference) LIPASE 68 H U/L (13 - 60)Urinalysis: (CORBIN: 05/26/2020 10:00) ( [facility] 05/26/2020 10:39) Final results Test Result Flag [...] IndicateBeta-HCG, Quant Serum: (CORBIN: 05/26/2020 10:17) ( [facility] 05/26/2020 11:04) Final results Test Result Flag Units (Reference) HCG QUANT <0.5 mIU/mL Interpretation: Less than 5 mU/mL: Negative6-10 mU/mL: Borderline (suggest repeat in 48 hours) >10: PositiveApprox HCG range (mU/mL) Weeks post LMP 5.4-708 mU/mL 3-4 Wncti704-18251 mU/mL 5-6 Weeks 4059-465930 mU/mL 7-8 Jxytx68027- 435579 mU/mL 9-10 Weeks 06603-22725 mU/mL 12-14 Weeks 4 Clinical Report - Physicians/Mid Levels [facility] Emergency Department [address] [place] [address] Phone #: ext- [phone] 05/26/2020 09:48 -- Patient: ZE NORMAN Sex: F : 1985 Age: 35y [address] mU/mL 15-16 Weeks 8240-12179 mU/mL 17-18 Weeks US Pelvis: (CORBIN: 05/26/2020 10:08) ( MsgRcvd 05/26/2020 11:18) In Progress US PELVIC Reason(s): Pelvic Pain TRANSPORTATION: IV? O2? Oxygen?(No) Room: ED.PROGRESS AND PROCEDURESCourse of Care: :47 May 26 2020. Evaluation after observation. (Discussed US results and pt needs tofollow up with ELECTRIC MULE OPERATOR. She is agreeable with dx and [...] tablet. Refills: 0. Substitution permitted. Pharmacy - [facility] - [id number] [facility] ; [place] [address]. . ondansetron 8 mg disintegrating tablet Take 1 tablet three times a day for 5 days -- Dispense 15 tablet. Refills: 0. Substitution permitted. Pharmacy - [facility] - [address] [facility] ; [place] [address]. . 5 Clinical Report - Physicians/Mid Levels [facility] Emergency Department [address] [place] [address] Phone #: ext- [phone] 05/26/2020 09:48 Patient: ZE NORMAN Sex: F : 1985 Age: 35y dicyclomine 10 mg capsule Take 1 capsule four times a day for 10 days -- Dispense 40 capsule. Refills: 0. Substitution permitted. Pharmacy - [facility] - [address] [facility] ; [place] [address]. . Follow-up: Follow up with your doctor. Reason for referral: evaluation, treatment and refer tpo ELECTRIC MULE OPERATOR for further evaluation. Summary of care provided to patient. Understanding of the discharge instructions verbalized by patient.(Electronically signed by ANA Horowitz 05/26/2020 21:18) Name Value Range Interpretation Code Description Data Ni rce(s) Supporting Document(s) ID Date Data Source [id number] 05/26/2020 11:03:00 AM [facility] Name Value Range Interpretation Code Description Data Ni rce(s) Supporting Document(s) Choriogonadotropin.intact [Units/volume] in Serum or Plasma <0.5 mIU/ mL [facility] Interpr etation: Less than 5 mU/mL: Negative 6-10 mU/mL: Borderline (suggest repeat in 48 hours) >10: Positive Approx HCG range (mU/mL) Weeks post LMP 5.4-708 mU/mL 3-4 Weeks 217-68483 mU/mL 5-6 Weeks 4059-017857 mU/mL 7-8 Weeks 82865-386174 mU/mL 9-10 Weeks 88660-97346 mU/mL 12-14 Weeks 10648-13799 mU/mL 15-16 Weeks 8240- 64208 mU/mL 17-18 Weeks ID Date Data Source [id number] 05/26/2020 11:03:00 AM [facility] Name Value Range Interpretation Code Description Data Ni rce(s) Supporting Document(s) Lipase [Enzymatic activity/volume] in Serum or Plasma 68 U/L 13 - 60 H [facility] ID Date Data Source [id number] 05/26/2020 11:03:00 AM [facility] Name Value Range Interpretation Code Description Data Ni rce(s) Supporting Document(s) COMPREHENSIVE METABOLIC PANEL [facility] COMPREHENSIVE METABOLIC PANEL Sodium [Moles/volume] in Serum or Plasma 139 mEq/L 134 - 153 [facility] Potassium [Moles/volume] in Serum or Plasma 3.8 mEq/L 3.6 - 5.0 [facility] Chloride [Moles/volume] in Serum or Plasma 105 mEq/L 98 - 107 [facility] Carbon dioxide, total [Moles/volume] in Serum or Plasma 26 MEQ/L 22 - 30 [facility] Glucose [Mass/volume] in Serum or Plasma 120 MG/DL 65 - 110 H [facility] BUN 11 MG/DL 7 - 21 [facility] Creatinine [Mass/volume] in Serum or Plasma 0.7 MG/DL 0.7 - 1.5 [facility] BUN/CREAT 16 8 - 27 [facility] Protein [Mass/volume] in Serum or Plasma 6.4 G/DL 6.3 - 8.2 [facility] Albumin [Mass/volume] in Serum or Plasma 3.8 G/DL 3.9 - 5.0 L [facility] Globulin [Mass/volume] in Serum by calculation 2.6 GM/DL 2.4 - 3.2 [facility] A/G RATIO 1.5 0.8 - 2.0 [facility] Calcium [Mass/volume] in Serum or Plasma 9.0 MG/DL 8.4 - 10.2 [facility] Bilirubin.total [Mass/volume] in Serum or Plasma <0.7 MG/DL 0.2 - 1.3 [facility] Alkaline phosphatase [Enzymatic activity/volume] in Serum or Plasma 88 U/L 38 - 126 [facility] Aspartate aminotransferase [Enzymatic activity/volume] in Serum or Plasma 15 U/L 5 - 40 [facility] Alanine aminotransferase [Enzymatic activity/volume] in Seru m or Plasma 15 U/L 7 - 56 [facility] Anion gap 3 in Serum or Plasma 8.0 mmol/L 8.0 - 16.0 [facility] AGE 35 yrs [facility] al NON-AA GFR >60 mL/min [facility] ital AFR AMER GFR >60 mL/min [facility] Male GFR In [...] >32 mL/min Normal ID Date Data Source [id number] 05/26/2020 10:46:00 AM EST [facility] Name Value Range Interpretation Code Description Data Ni rce(s) Supporting Document(s) CBC W/AUTOMATED DIFF [facility] COMPLETE BLOOD COUNT Leukocytes [#/volume] in Blood by Automated count 4.4 10^3/uL 4.2 - 1 1.0 [facility] Erythrocytes [#/volume] in Blood by Automated count 4.72 10^6/uL 4. 20 - 5.40 [facility] Hemoglobin [Mass/volume] in Blood 10.7 g/dL 12.0 - 16.0 L [facility] Hematocrit [Volume Fraction] of Blood by Automated count 34.7 % 3 7.0 - 47.0 L [facility] Erythrocyte mean corpuscular volume [Entitic volume] by Auto mated count 73.5 fL 81.0 - 101 L [facility] Erythrocyte mean corpuscular hemoglobin [Entitic mass] by Automated count 22.7 pg 27.0 - 34.0 L [facility] Erythrocyte mean corpuscular hemoglobin concentration [Mass/volume] by Automated count 30.8 g/dL 31.0 - 36.0 L [facility] Erythrocyte distribution width [Ratio] by Automated count 17.0 % 11.5 - 14.5 H [facility] Platelets [#/volume] in Blood by Automated count 187 10^3/uL 150 - 45 0 [facility] Platelet mean volume [Entitic volume] in Blood by Automated count 0.0 fL 7.4 - 10.4 L [facility] Neutrophils/100 leukocytes in Blood by Automated count 59.3 % 37. 0 - 80.0 [facility] Lymphocytes/100 leukocytes in Blood by Manual count 30.3 % 25.0 - 40.0 [facility] Monocytes/100 leukocytes in Blood by Automated count 5.2 % 3.0 - 8.0 [facility] Eosinophils/100 leukocytes in Blood by Automated count 3.4 % 0.0 - 7.0 [facility] Basophils/100 leukocytes in Blood by Automated count 1.1 % 0.0 - 2.5 [facility] %IG 0.7 % 0.0 - 0.0 H [facility] %NRBC 0.0 % 0.0 - 0.0 [facility] al Neutrophils [#/volume] in Blood by Automated count 2.60 10^3/uL 2.00 - 6.90 [facility] Lymphocytes [#/volume] in Blood by Automated count 1.33 10^3/uL 0.60 - 3.40 [facility] Monocytes [#/volume] in Blood by Automated count 0.23 10^3/uL 0.00 - 0.90 [facility] Eosinophils [#/volume] in Blood by Automated count 0.15 10^3/uL 0.00 - 0.70 [facility] Basophils [#/volume] in Blood by Automated count 0.05 10^3/uL 0.00 - 0.20 [facility] #IG 0.03 10^3/uL 0.00 - 0.10 [facility] #NRBC 0.00 10^3/uL 0.00 - 0.00 [facility] MANUAL DIFF NOT INDICATED [facility] RBC MORPH SEE BELOW [facility] { SICKLE CELL (NORMAL: NONE SEEN ) Platelet adequacy [Presence] in Blood by Light microscopy NORMAL NORMAL: NORMAL [facility] COMMENT: [email or web address] 05/26/20.1046.CLD. . . ___ ID Date Data Source [id number] 05/26/2020 10:38:00 AM EST [facility] Name Value Range Interpretation Code Description Data Ni rce(s) Supporting Document(s) URINALYSIS [facility] mono URINALYSIS SOURCE R [facility] COLOR yellow NORMAL: Yellow [facility] CLARITY clear NORMAL: Clear [facility] Specific gravity of Urine by Test strip 1.020 1.001 - 1.030 [facility] pH 6 5 - 9 [facility] Glucose [Mass/volume] in Urine by Test strip NORM NORMAL: Negat amanda [facility] Bilirubin.total [Presence] in Urine by Test strip NEG NORMAL: Negative [facility] Ketones [Presence] in Urine by Test strip NEG NORMAL: Negative [facility] Protein [Mass/volume] in Urine by Test strip NEG NORMAL: Negat [facility] Nitrite [Presence] in Urine by Test strip NEG NORMAL: Negative [facility] BLOOD NEG NORMAL: Negative [facility] Leukocyte esterase [Presence] in Urine by Test strip NEG LOLI L: Negative [facility] Urobilinogen [Mass/volume] in Urine by Test strip NOR less emi n 1.0 mg/dL [facility] MICROSCOPIC Not Indicate [facility] ID Date Data Source [id number] 05/23/2020 10:42:00 AM EST [facility] [address] [place] [address] PHONE: [phone] FAX: [phone] Name .................. : МАРИЯ GARVEY Renée Acct Number.................. : [id number] ROOM. ................. : TR-03 Number ................... : [id number] Stay type ............. : E/R Discharge Date......... ... : 05/20/20 Admit Date ......... : 05/20/20 Admit Phys .................... : KARMA RAMSES Date of ....... : 1985 Family Phys ................... : UNKNOWN Phone .................. : [phone] Age ................................ : 35 Film# .................. .:[id number] Sex ................................. : F Unsigned transcriptions are preliminary reports and do not represent a medical or legal document CT ABD & PELV W/[place] [address] COMPLETE:05/20/20 19:24 GRECIA 11075 Reason(s): NO CONTRAST: L flank pain. ? [...] dose: 1140.7 mGycm Page 1 of 2 [place] [address] PHONE: [phone] FAX: [phone] Name .................. : МАРИЯ Chinchilla Acct Number.................. : [id number] ROOM. ................. : TR-03 MR Number ................... : [id number] Stay type ............. : E/R Discharge Date......... ... : 05/20/20 Admit Date ......... : 05/20/20 Admit Phys .................... : KARMA RAMSES Date of ....... : 1985 Family Phys ................... : UNKNOWN Phone .................. : [phone] Age ................................ : 35 Film# .................. .:[id number] Sex ................................. : F Unsigned transcriptions are preliminary reports and do not represent a medical or legal document CT ABD & PELV W/[place] OR[place] W/[place] [address] COMPLETE:05/20/20 19:24 GRECIA 92422 Reason(s): NO CONTRAST: L flank pain. ? renal stone Electronically Reviewed and Signed By Titus Rocha M.D. , 05/23/20 10:42, [facility] Transcribe Initials: LOVE , Transcribe Date: 05/20/20 22:45, Dictation Date: Copy for: ELIZABETH REARDON via fax Copy for: KARMA Quarles via fax Copy for: EMERGENCY DEPT via [facility] Copy for: 710 MED REC DISCHARGED Page 2 of 2 Name Value Range Interpretation Code Description Data Ni rce(s) Supporting Document(s) ID Date Data Source [id number] 05/20/2020 04:06:00 PM EST [facility] 1 OrderSheet [facility] Emergency Department [address] [place] [address] Phone #: ext- [phone] 05/20/2020 15:54 Patient: ZE NORMAN Sex: F : 1985 Age: 35yWEIGHT:99.7 kg (S) HEIGHT:71 inches (S) BMI:30.7ALLERGIES: No Known Drug AllergyCHIEF COMPLAINT: flank painDIAGNOSIS: Abdominal painLAB ORDERSOrder Description Priority Entered Acknowledged InitialedCBC w Diff STAT 16:36 05/20/2020 16:51 Rajat CanoN. P.A.- C;CMP STAT 16:36 05/20/2020 16:51 Rajat CanoN. P.A.-C;Lipase STAT 16:36 05/20/2020 16:51 Rajat Cano R.N. P.A.-C;Urinalysis (Clean STAT 16:36 05/20/2020 16:51 Jerome,Catch) Rajat FayeN. P.A.-C;Beta-HCG, Qual STAT 16:36 05/20/2020 16:51 Jerome,Serum Rajat Garvey.N. P.A.-C;Culture, Urine STAT 16:36 05/20/2020 16:51 Jerome,(Urine, Clean Rajat FayeN.Catch) P.A.-C;HCG Serum Quant STAT 17:44 05/20/2020 17:48 Rajat Cano.N. P.A.-C;HCG Urine Qual STAT 17:52 05/20/2020 18:03 Rajat CanoN. P.A.-C;DIAGNOSTIC STUDY ORDERSOrder Description Priority Entered Acknowledged InitialedCT ABD PEL W/O STAT 16:36 05/20/2020 Initialed: 17:22 Nancy Cano R.N.Oral W/O IV Rajat Johnson Cancelled: Other 17:45 ChristophTayorast P.A.-C; Elizabeth P.A.-C(Oxygen?(No)) 2 OrderSheet [facility] Emergency Department [address] [place] [address] Phone #: ext- [phone] 05/20/2020 15:54 Patient: ZE NORMAN Sex: F : 1985 Age: 35y(IV?(Yes)) Reason for Study: NO CONTRAST. L flank pain; ? renal stoneUS OB 1ST TRI UP STAT 17:46 05/20/2020 Initialed: 17:48 Nancy Cano R.N.TO 14 WEEKS Rajat Johnson Cancelled: Other 18:11 Rajat(Oxygen?(No)) Shreyas.A.-C; Elizabeth P.A.-C(IV?(Yes)) Reason for Study: L flank/abd painUS Renal STAT 17:46 05/20/2020 Initialed: 17:48 Nancy Cano R.N.(Oxygen?(No)) Rajat Johnson Cancelled: Other 18:11 Rajat MooreA.-C; Elizabeth P.A.-C Reason for Study: L flank painCT ABD PEL W/O STAT 18:11 05/20/2020 18:12 Jerome,Oral W/O IV Rajat Cruz R.N.Contrast (Oxygen? P.A.-C;(Yes)) (IV?(Yes)) Reason for Study: NO CONTRAST: L flank pain. ? renal stoneMEDICATION/IV/DRIP/FLUID ORDERSOrder Description Priority Entered Acknowledged InitialedNS IV : Bolus 500 16:36 05/20/2020 17:19 Bonnie,mL, then 75 mL/hr Rajat FayeN. P.A.-C;Zofran IVP 4 mg 16:36 05/20/2020 17:19 Rajat Nicole.N. P.A.-C;Morphine IVP 4 mg 16:36 05/20/2020 17:18 Bonnie,(HIGH ALERT Rajat Mary R.N.MEDICATION) P.A.-C;Tylenol 1 g PO X1 16:36 05/20/2020 17:20 Jerome,dose: 1000 mg Rajat Cruz R.N.(NOW x1) P.A.-C;GENERAL ORDERSOrder Description Priority Entered Acknowledged InitialedNPO 16:36 05/20/2020 16:51 Rajat Cano R.N. P.A.-C;Saline Lock 16:36 05/20/2020 16:51 Rajat Cano R.N. P.AJocelin-C;[Electronically signed by Rowena Jung R.N. (19:31 05/20/2020)][Electronically signed by Rajat Johnson P.A.-C (21:49 05/20/2020)] 3 OrderSheet [facility] Emergency Department [address] [place] [address] Phone #: ext- [phone] 05/20/2020 15:54 Patient: ZE NORMAN Sex: F : 1985 Age: 35y[Electronically locked by Rowena Jung R.N. (19:31 05/20/2020)] Name Value Range Interpretation Code Description Data Ni rce(s) Supporting Document(s) ID Date Data Source [id number] 05/20/2020 04:06:00 PM EST [facility] 1 Medication Reconciliation Report [facility] Emergency Department [address] [place] [address] Phone #: ext- [phone] 05/20/2020 15:54 [id number] Sex[facility] F : 1985 Age: 35yWeight: 99.7 [...] Dispense 12 tablet. Refills: 0.Substitution permitted.Pharmacy - [facility] [phone] ; [place] [address]. .gabapentin 100 mg capsule Take 1 capsule three times a day for 4 days -- Dispense 12 capsule.Refills: 0. Substitution permitted.[facility] [phone] ; [place] [address]. . -- Rajat Johnson P.A.-C Name Value Range Interpretation Code Description Data Ni rce(s) Supporting Document(s) ID Date Data Source [id number] 05/20/2020 04:06:00 PM EST [facility] 1 Medication Administration Record [facility] Emergency Department [address] [place] [address] Phone #: ext- [phone] 05/20/2020 15:54 Patient: ZE NORMAN Sex: F : 1985 Age: 35yWeight: 99.7 kgHeight/Length: 71 inBMI: 30.7ALLERGIES: No Known Drug Allergy Date/Time Medication Administered Medication OrderedStart NS [IV] NS IV : Bolus 500 mL, then 7517:19 05/20/2020 Dose: IV Fluids mL/hrTyra Nicole RJocelinNJocelin Bolus: 500 mL over 30 minute(s)---- Dispensed: 500 mL bagStop Site: #1 right AC19:30 05/20/2020Rowena Jung REvelinaGiven ZOFRAN [IVP] (ONDANSETRON HCL) Zofran IVP 4 mg17:19 05/20/2020 Dose: 4 mg IVPTyra Nicole RJocelinNJocelin Site: #1 right ACGiven MORPHINE [IVP] Morphine IVP 4 mg (HIGH ALERT17:18 05/20/2020 Dose: 4 mg IVP MEDICATION)Tyra Nicole R.NJocelin Site: #1 right ACGiven ACETAMINOPHEN [PO] Tylenol 1 g PO X1 dose: 1000 mg17:20 05/20/2020 Dose: 1000 mg Tablets PO (NOW x1)Nancy Cano REvelina Name Value Range Interpretation Code Description Data Ni rce(s) Supporting Document(s) ID Date Data Source [id number] 05/20/2020 04:06:00 PM EST [facility] 1 General Instructions [facility] Emergency Department [address] [place] [address] Phone #: hlm- [phone] 05/20/2020 15:54 Patient: ZE NORMAN Sex: F [...] Dispense 12 tablet. Refills: 0.Substitution permitted.Pharmacy - [facility] [phone] ; [place] [address]. FaxNumber: [phone].gabapentin 100 mg capsule Take 1 capsule three times a day for 4 days -- Dispense 12 capsule.Refills: 0. Substitution permitted.Pharmacy - [facility] [phone] ; [place] [address]. .Follow-up:Return to the emergency department as needed. Follow up with your healthcare provider in about twodays if not better. Call for an appointment.Understanding of the discharge instructions verbalized by patient. ADDITIONAL INFORMATIONUnknown Causes of Abdominal Pain (Female) 2 General Instructions [facility] Emergency Department [address] [place] [address] Phone #: ext- [phone] 05/20/2020 15:54 Patient: ZE NORMAN Sex: F [...] for taking these medicines. 3 General Instructions [facility] Emergency Department [address] [place] [address] Phone #: ext- [phone] 05/20/2020 15:54 Patient: [...] begin to improve in thenext 24 hours.Call [phone] if any of these occur: Trouble breathing Confusion Fainting or loss of consciousness Rapid heart rate 4 General Instructions [facility] Emergency Department [address] [place] [address] Phone #: ext- [phone] 05/20/2020 15:54 Patient: [...] or water and you are getting dehydrated [id number] [employer] [address] [place] [address], [place] [address]. All rights reserved. This information is not intended as asubstitute for professional medical care. Always follow your healthcare professional's instructions. You have been given the following additional information: Abdominal Pain, Unknown Cause, (Female) Do not work for two days.(Electronically signed by Rajat Johnson P.A.-C 05/20/2020 21:49) Name Value Range Interpretation Code Description Data Ni rce(s) Supporting Document(s) ID Date Data Source [id number] 05/20/2020 04:06:00 PM EST [facility] 1 Clinical Report - Nurses [facility] Emergency Department [address] [place] [address] Phone #: ext- [phone] 05/20/2020 15:54 Patient: [...] nausea. 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 (2 hrs ago).SEPSIS SCREEN: SIRS Screen negative. Sepsis Screen negative. No suspected or confirmed signs ofinfection present. --16:03 05/20/20 Denice Montoya, RN15:57 05/20/20. BP: 131/85. MAP: 100. HR: [...] SURGERIES:Breast Augmentation.Cholecystectomy.. 2 Clinical Report - Nurses [facility] Emergency Department [address] [place] [address] Phone #: ext- [phone] 05/20/2020 15:54 Patient: [...] skin integrity risk identified. --16:03 05/20/20 Denice Montoya, ELIO.PHYSICAL ASSESSMENTAmbulatory to room.GENERAL / NEURO / PSYCH: [...] HR: 66. RR: 16. O2 saturation: 100%. --17:10 05/20/20 [place]othian development professional, Tamra, ER Tech1 3 Clinical Report - Nurses [facility] Emergency Department [address] [place] [address] Phone #: ext- [phone] 05/20/2020 15:54 Patient: ZE NORMAN Sex: F [...] administration. Information reviewed with patient. Verbalizes understanding. --17:05/20/20 Tyra Nicole R.N. 17:19 05/20/2020 Zofran (Ondansetron HCl) IVP 4 mg given over 2 minute(s) via site #1. Allergies verified and confirmed 5 rights. IV patency established. IV site checked: no pain, redness, or swelling. IV flushed thoroughly pre- and post-medication administration. IVP given by RN. Information reviewed with patient. Verbalizes understanding. --17:05/20/20 Tyra Nicole R.N. 17:05/20/2020 Acetaminophen PO Tablets 1000 mg given. Allergies verified and confirmed 5 rights. Information reviewed with patient including reason for taking this medication. Verbalizes understanding. --17:05/20/20 Nancy Cano R.N. 18:08 05/20/20. BP: 138/83. MAP: 101. HR: 75. RR: 16. O2 saturation: 100%. --18:08 05/20/20 Tamra Finnegan ED, ER Tech1 late entry - 18:17 05/20/20. Patient transported to [place] by wheelchair with tech. --18:32 05/20/20 Nancy Cano R.N. 18:27 05/20/20. Patient returned from CT by wheelchair with mask and tech. --18:32 [...] Patient verbalized understanding. Written instructions provided in Georgian. The patient was discharged 4 Clinical Report - Nurses [facility] Emergency Department [address] [place] [address] Phone #: ext- [phone] 05/20/2020 15:54 Patient: [...] rce(s) Supporting Document(s) ID Date Data Source [id number] 05/20/2020 04:06:00 PM EST [facility] 1 Clinical Report - Physicians/Mid Levels [facility] Emergency Department [address] [place] [address] Phone #: ext- [phone] 05/20/2020 15:54 Patient: [...] Medications: 2 Clinical Report - Physicians/Mid Levels [facility] Emergency Department [address] [place] [address] Phone #: ext- [phone] 05/20/2020 15:54 Patient: [...] NEGATIVE (NORMAL: NEGAT { KIT LOT # [id number] ){ KIT EXP DATE 04.15.21 ){ PROCEDURAL CONTROL VALID ) US OB 1ST TRI UP TO 14 WEEKS: (CORBIN: 05/20/2020 17:46) ( MsgRcvd 05/20/2020 18:11) Canceled 3 Clinical Report - Physicians/Mid Levels [facility] Emergency Department [address] [place] [address] Phone #: ext- [phone] 05/20/2020 15:54 Patient: ZE NORMAN Sex: F : 1985 Age: 35yReason(s): L flank/abd painReason(s): L flank/abd painTRANSPORTATION: WC IV? IV?(Yes) O2? Oxygen?(No) Jony Renal: (CORBIN: 05/20/2020 17:46) ( MsgRcvd 05/20/2020 18:11) CanceledReason(s): L flank painReason(s): L flank painTRANSPORTATION: WC IV? O2? Oxygen?(No) Room: EDBeta-HCG, Quant Serum: (CORBIN: 05/20/2020 16:40) ( MsgRcvd 05/20/2020 18:01) Final results Test Result Flag Units (Reference) HCG QUANT <0.5 mIU/mL Interpretation: Less than 5 mU/mL: Negative6-10 mU/mL: Borderline (suggest repeat in 48 hours) >10: PositiveApprox HCG range (mU/mL) Weeks post LMP 5.4-708 mU/mL 3-4 Tjdwv608-86847 mU/mL 5-6 Weeks 4059-178499 mU/mL 7-8 Bqrot56550-323191 mU/mL 9-10 Weeks 99750-87632 mU/mL 12-14 Uzgee90431-79674 mU/mL 15-16 Weeks 8240-71225 mU/mL 17-18 WeeksCBC w Diff: (CORBIN: 05/20/2020 [...] _RARE_LARGE_PLATELET 05/20/20.1807.DW . 4 Clinical Report - Physicians/[facility] Emergency Department [address] [place] [address] Phone #: ext- [phone] 05/20/2020 15:54 Patient: [...] Male GFR Interprentation 20-49 yrs >60 mL/min Rgbhwc60-58 yrs >56 mL/min Normal 60-69 yrs >49 mL/min Normal 70-79yrs>42 mL/min Normal 80 and above >35 mL/min Normal Female GFRInterpretation 20-39 yrs >60 mL/min Normal 40-49 yrs >58 mL/minNormal 50-59 yrs >51 mL/min Normal 60-69 yrs >45 mL/min Pocjzp24-78 yrs >39 mL/min Normal 80 and above >32 mL/min NormalLipase: (CORBIN: 05/20/2020 16:40) ( MsgRcvd 05/20/2020 17:36) Final results Test Result Flag Units (Reference) LIPASE 42 U/L (13 - 60)Urinalysis: (CORBIN: 05/20/2020 16:40) ( MsgRcvd 05/20/2020 17:21) Final results Test Result Flag [...] Indicate 5 Clinical Report - Physicians/Mid Levels [facility] Emergency Department [address] [place] [address] Phone #: ext- [phone] 05/20/2020 15:54 Patient: ZE NORMAN Sex: F : 1985 Age: 35y Beta-HCG, Qual Serum: (CORBIN: 05/20/2020 16:40) ( MsgRcvd 05/20/2020 17:39) Final results Test Result Flag Units (Reference) HCG SERUM QUAL POSITIVE (NORMAL: NEGAT HCG SERUM QL REENTER POSITIVE (NORMAL: NEGAT { KIT LOT # [id number] ){ KIT EXP DATE 04.15.21 ){ PROCEDURAL [...] overies. Will order labs for further eval. Adrianna led CT and requested US for furhter eval. Pending results. Reviewd labs and noted neg HCG. contacted OBGYN to consult and indicates due to neg HCG quant, pt is neg. Will continue with CT. Enter room and patient lying peacefully in bed in NAD. Patient stable. Denies any new issues, concerns, or complaints. Pt agrees. pending resutls. Reviewed MARIONETTE PERFORMER. No open rx. This report was requested by: Rajat Johnson Reference #: [id number] Others' Prescriptions Patient Name: Ze NormanBirth Date: 1985 6 Clinical Report - Physicians/Mid Levels [facility] Emergency Department [address] [place] [address] Phone #: ext- [phone] 05/20/2020 15:54 [id number] Sex: F : 1985 Age: 35y Address: [address] [place], [place] [address]Sex: Female Rx Written Rx Dispensed Drug Quantity Days Supply Prescriber Name Payment Method Dispenser 02/19/2020 03/05/2020 alprazolam 0.5 mg tablet 60 30 [place], [facility] [id number] #1054 01/24/2020 01/24/2020 alprazolam 0.5 mg tablet 60 30 Kunwar, Alejandro [employer] [facility] [id number] #[id number] 12/27/2019 12/27/2019 alprazolam 0.5 mg tablet 60 30 [place], Alejandro [facility] [id number] #[id number] Reviewed results. [...] or 7 Clinical Report - Physicians/Mid Levels [facility] Emergency Department [address] [place] [address] Phone #: ext- [phone] 05/20/2020 15:54 --- Patient: ZE NORMAN Sex: F : 1985 Age: 35y changes unexpectedly, if not improving as expected, or if other problems arise. Prescription Medications: Zofran 4 mg tablet Take 1 tablet three times a day for 4 days -- Dispense 12 tablet. Refills: 0. Substitution permitted. Pharmacy - [facility] [phone] ; [place] [address]. . gabapentin 100 mg capsule Take 1 capsule three times a day for 4 days -- Dispense 12 capsule. Refills: 0. Substitution permitted. Pharmacy - [facility] [phone] ; [place] [address]. . Follow-up: Return to the emergency department as needed. Follow up with your healthcare provider in about two days if not better. Call for an appointment. Understanding of the discharge instructions verbalized by patient.(Electronically signed by Rajat Johnson P.A.-C 05/20/2020 21:49) Name Value Range Interpretation Code Description Data Ni rce(s) Supporting Document(s) ID Date Data Source [id number] 05/23/2020 01:03:00 PM EST [facility] Name Value Range Interpretation Code Description Data Ni rce(s) Supporting Document(s) CULTURE URINE [facility] _CULTURE URINE_$$025268$$738444$$185594$$132025$$134201$$944302$$947511$$149937$$052806$$ 418710$$687617$$637551$$361874$$927866$$202667$$055655$$565335$$456628$$897120$$ 540140$$318941$$759214$$605426$$701809$$773428$$190066$$535173 -- Continued on next page --Patient: МАРИЯ Chinchilla Order: [id number] Page 2Culture: CULTURE URINE Status: Final ====$$[id number]$$[id number] DATE/TIME: 05/23/2020 06:06Culture: CULTURE URINE Status: FinalUrine Culture,Comprehensive: Z1Evkgc urogenital flora25,000-50,000 colony forming units per mLP1 Test performed by: [facility] CLIA #: [id number] [address] [id number] [facility] [address]Kkspdll Director : Benoit Cash MD NPI #:Furnace Room Supervisor : 05/23/20.1303.XMT.SENT REF ID Date Data Source [id number] 05/20/2020 06:07:00 PM EST [facility] Name Value Range Interpretation Code Description Data Ni rce(s) Supporting Document(s) CBC W/AUTOMATED DIFF [facility] COMPLETE BLOOD COUNT Leukocytes [#/volume] in Blood by Automated count 5.9 10^3/uL 4.2 - 1 1.0 [facility] Erythrocytes [#/volume] in Blood by Automated count 4.52 10^6/uL 4. 20 - 5.40 [facility] Hemoglobin [Mass/volume] in Blood 10.4 g/dL 12.0 - 16.0 L [facility] Hematocrit [Volume Fraction] of Blood by Automated count 33.5 % 3 7.0 - 47.0 L [facility] Erythrocyte mean corpuscular volume [Entitic volume] by Auto mated count 74.1 fL 81.0 - 101 L [facility] Erythrocyte mean corpuscular hemoglobin [Entitic mass] by Automated count 23.0 pg 27.0 - 34.0 L [facility] Erythrocyte mean corpuscular hemoglobin concentration [Mass/volume] by Automated count 31.0 g/dL 31.0 - 36.0 [facility] Erythrocyte distribution width [Ratio] by Automated count 16.9 % 11.5 - 14.5 H [facility] Platelets [#/volume] in Blood by Automated count 205 10^3/uL 150 - 45 0 [facility] Neutrophils/100 leukocytes in Blood by Automated count 49.3 % 37. 0 - 80.0 [facility] Lymphocytes/100 leukocytes in Blood by Manual count 38.9 % 25.0 - 40.0 [facility] Monocytes/100 leukocytes in Blood by Automated count 7.0 % 3.0 - 8.0 [facility] Eosinophils/100 leukocytes in Blood by Automated count 3.4 % 0.0 - 7.0 [facility] Basophils/100 leukocytes in Blood by Automated count 1.2 % 0.0 - 2.5 [facility] %IG 0.2 % 0.0 - 0.0 [facility] %NRBC 0.0 % 0.0 - 0.0 [facility] al Neutrophils [#/volume] in Blood by Automated count 2.91 10^3/uL 2.00 - 6.90 [facility] Lymphocytes [#/volume] in Blood by Automated count 2.29 10^3/uL 0.60 - 3.40 [facility] Monocytes [#/volume] in Blood by Automated count 0.41 10^3/uL 0.00 - 0.90 [facility] Eosinophils [#/volume] in Blood by Automated count 0.20 10^3/uL 0.00 - 0.70 [facility] Basophils [#/volume] in Blood by Automated count 0.07 10^3/uL 0.00 - 0.20 [facility] #IG 0.01 10^3/uL 0.00 - 0.10 [facility] #NRBC 0.00 10^3/uL 0.00 - 0.00 [facility] MANUAL DIFF NOT INDICATED [facility] RBC MORPH SEE BELOW [facility] al { SICKLE CELL (NORMAL: NONE SEEN ) Platelet adequacy [Presence] in Blood by Light microscopy NORMAL NORMAL: NORMAL [facility] COMMENT: _RARE_LARGE_PLATELET 05/20/20.DW . ID Date Data Source [id number] 05/20/2020 06:02:00 PM [facility] Name Value Range Interpretation Code Description Data Ni rce(s) Supporting Document(s) HCG URINE QUAL NEGATIVE NORMAL: NEGATIVE [facility] HCG URINE QL REENTER NEGATIVE NORMAL: NEGATIVE [facility] { KIT LOT # [id number] ){ KIT EXP DATE 04.15.21 ){ PROCEDURAL CONTROL VALID ) ID Date Data Source [id number] 05/20/2020 06:00:00 PM [facility] Value Range Interpretation Code Description Data Ni rce(s) Supporting Document(s) Choriogonadotropin.intact [Units/volume] in Serum or Plasma <0.5 mIU/ mL [facility] Interpr etation: Less than 5 mU/mL: Negative 6-10 mU/mL: Borderline (suggest repeat in 48 hours) >10: Positive Approx HCG range (mU/mL) Weeks post LMP 5.4-708 mU/mL 3-4 Weeks 217-10856 mU/mL 5-6 Weeks 4059-901567 mU/mL 7-8 Weeks 02530-928199 mU/mL 9-10 Weeks 35080-69771 mU/mL 12-14 Weeks 67989-69033 mU/mL 15-16 Weeks 8240- 46839 mU/mL 17-18 Weeks ID Date Data Source [id number] 05/20/2020 05:38:00 PM [facility] Value Range Interpretation Code Description Data Ni rce(s) Supporting Document(s) HCG SERUM QUAL POSITIVE NORMAL: NEGATIVE [facility] HCG SERUM QL REENTER POSITIVE NORMAL: NEGATIVE [facility] { KIT LOT # [id number] ){ KIT EXP DATE 04.15.21 ){ PROCEDURAL CONTROL VALID ) ID Date Data Source [id number] 05/20/2020 05:36:00 PM [facility] Value Range Interpretation Code Description Data Ni rce(s) Supporting Document(s) Lipase [Enzymatic activity/volume] in Serum or Plasma 42 U/L 13 - 60 [facility] ID Date Data Source [id number] 05/20/2020 05:36:00 PM EST [facility] Name Value Range Interpretation Code Description Data Ni rce(s) Supporting Document(s) COMPREHENSIVE METABOLIC PANEL [facility] COMPREHENSIVE METABOLIC PANEL Sodium [Moles/volume] in Serum or Plasma 138 mEq/L 134 - 153 [facility] Potassium [Moles/volume] in Serum or Plasma 3.8 mEq/L 3.6 - 5.0 [facility] Chloride [Moles/volume] in Serum or Plasma 105 mEq/L 98 - 107 [facility] Carbon dioxide, total [Moles/volume] in Serum or Plasma 27 MEQ/L 22 - 30 [facility] Glucose [Mass/volume] in Serum or Plasma 83 MG/DL 65 - 110 [facility] BUN 16 MG/DL 7 - 21 [facility] al Creatinine [Mass/volume] in Serum or Plasma 0.8 MG/DL 0.7 - 1.5 [facility] BUN/CREAT 20 8 - 27 [facility] Protein [Mass/volume] in Serum or Plasma 6.6 G/DL 6.3 - 8.2 [facility] Albumin [Mass/volume] in Serum or Plasma 3.9 G/DL 3.9 - 5.0 [facility] Globulin [Mass/volume] in Serum by calculation 2.7 GM/DL 2.4 - 3.2 [facility] A/G RATIO 1.4 0.8 - 2.0 [facility] Calcium [Mass/volume] in Serum or Plasma 9.1 MG/DL 8.4 - 10.2 [facility] Bilirubin.total [Mass/volume] in Serum or Plasma <0.7 MG/DL 0.2 - 1.3 [facility] Alkaline phosphatase [Enzymatic activity/volume] in Serum or Plasma 96 U/L 38 - 126 [facility] Aspartate aminotransferase [Enzymatic activity/volume] in Serum or Plasma 19 U/L 5 - 40 [facility] Alanine aminotransferase [Enzymatic activity/volume] in Seru m or Plasma 16 U/L 7 - 56 [facility] Anion gap 3 in Serum or Plasma 6.0 mmol/L 8.0 - 16.0 L [facility] 35 [facility]60 mL/min [facility] AFR AMER GFR >60 mL/min [facility] spital Male GFR In [...] >32 mL/min Normal ID Date Data Source [id number] 05/20/2020 05:21:00 PM EST [facility] Name Value Range Interpretation Code Description Data Ni rce(s) Supporting Document(s) URINALYSIS [facility] mono URINALYSIS SOURCE Clean Catch [facility] ital COLOR yellow NORMAL: Yellow [facility] CLARITY clear NORMAL: Clear [facility] Specific gravity of Urine by Test strip 1.010 1.001 - 1.030 [facility] pH 6.5 5 - 9 [facility] Glucose [Mass/volume] in Urine by Test strip NORM NORMAL: Negat [facility] Bilirubin.total [Presence] in Urine by Test strip NEG NORMAL: Negative [facility] Ketones [Presence] in Urine by Test strip NEG NORMAL: Negative [facility] Protein [Mass/volume] in Urine by Test strip NEG NORMAL: Negat [facility] Nitrite [Presence] in Urine by Test strip NEG NORMAL: Negative [facility] BLOOD NEG NORMAL: Negative [facility] Leukocyte esterase [Presence] in Urine by Test strip NEG LOLI L: Negative [facility] Urobilinogen [Mass/volume] in Urine by Test strip NOR less emi n 1.0 mg/dL [facility] MICROSCOPIC Not Indicate [facility] ID Date Data Source [id number] 04/01/2020 12:00:00 PM EDT [facility] Name Value Range Interpretation Code Description Data Ni rce(s) Supporting Document(s) SARS coronavirus 2 RNA [facility] This lab was ordered by [facility] and reported by [facility]. ID Date Data Source [id number] 02/13/2020 10:17:00 AM EDT [facility] [address] [place] [address] PHONE: [phone] FAX: [phone] Name .................. : МАРИЯ Chinchilla Acct Number.................. : [id number] ROOM. ................. : TR-1A MR Number ................... : [id number] Stay type ............. : E/R Discharge Date......... ... : 02/12/20 Admit Date ......... : 02/12/20 Admit Phys .................... : KARMA RAMSES Date of ....... : 1985 Family Phys ................... : NO PCP Phone .................. : [phone] Age ................................ : 34 Film# .................. .:[id number] Sex ................................. : F Unsigned transcriptions are preliminary reports and do not represent a medical or legal document US EXT-NON VASCULAR LT COMPL [id number] COMPLETE:02/12/20 11:38 KNB 07784 Reason(s): L wrsit pain; ? ganglion SONOGRAM [...] By MITCH LAWRENCE MD , 02/13/20 10:17, [facility] Transcribe Initials: SSR, Transcribe Date: 02/12/20 14:35, Dictation Date: Copy for: [place] REARDON via fax Copy for: KARMA Quarles via fax Copy for: EMERGENCY DEPT via chilim Copy for: 710 MED REC DISCHARGED Page 1 of 1 Name Value Range Interpretation Code Description Data Ni rce(s) Supporting Document(s) ID Date Data Source [id number] 02/13/2020 10:17:00 [place] [address] PHONE: [phone] FAX: [phone] Name .................. : МАРИЯ RENTERIASHENA Chinchilla Acct Number.................. : [id number] ROOM. ................. : TR-1A MR Number ................... : [id number] Stay type ............. : E/R Discharge Date......... ... : 02/12/20 Admit Date ......... : 02/12/20 Admit Phys .................... : KARMA RAMSES Date of ....... : 1985 Family Phys ................... : NO PCP Phone .................. : [phone] Age ................................ : 34 Film# .................. .:[id number] Sex ................................. : F Unsigned transcriptions are preliminary reports and do not represent a medical or legal document SPINE CERV COMP-5 OR MORE VIE 77924 COMPLETE:02/12/20 11:43 KBO 97601 Reason(s): Upper Ext Pain/Numbness CERVICAL SPINE, 02/12/20: [...] By MITCH LAWRENCE MD , 02/13/20 10:17, [facility] Transcribe Initials: SSR, Transcribe Date: 02/12/20 14:34, Dictation Date: Copy for: [place] REARDON via fax Copy for: KARMA Quarles via fax Copy for: EMERGENCY DEPT via chilim Copy for: 710 MED REC DISCHARGED Page 1 of 1 Name Value Range Interpretation Code Description Data Ni rce(s) Supporting Document(s) ID Date Data Source [id number] 02/12/2020 10:08:00 AM EDT [facility] 1 OrderSheet [facility] Emergency Department [address] [place] [address] Phone #: ext- [phone] 02/12/2020 09:58 Patient: ZE NORMAN Sex: F : 1985 Age: 34yWEIGHT:95.2 kg (S) HEIGHT:71 inches (S) BMI:29.3ALLERGIES: No Known Drug AllergyCHIEF COMPLAINT: painDIAGNOSIS: Pain in limb, Carpal tunnel syndromeLAB ORDERSOrder Description Priority Entered Acknowledged InitialedDIAGNOSTIC STUDY ORDERSOrder Description Priority Entered Acknowledged InitialedSpine Cervical STAT 11:02/12/2020 11:07 Ade Montoyalete Rajat Johnson RN(Oxygen?(No)) P.A.-C; Reason for Study: Upper Ext Pain/NumbnessUS Ext STAT 11:05 02/12/2020 11:07 Cecille Montoyavascular Left Rajat Johnson RN(Oxygen?(No)) [...] Montoya RN (18:48 02/12/2020)][Electronically signed by Rajat JohnsonA.-Brenda (20:56 02/12/2020)][Electronically locked by Denice Montoya RN (18:48 02/12/2020)] Name Value Range Interpretation Code Description Data Ni rce(s) Supporting Document(s) ID Date Data Source [id number] 02/12/2020 10:08:00 AM EDT [facility] 1 Medication Reconciliation Report [facility] Emergency Department [address] [place] [address] Phone #: ext- [phone] 02/12/2020 09:58 Patient: [...] Dispense 9 tablet. Refills: 0.Substitution permitted.[facility] ; [place] [address]. FaxNu mber: .gabapentin 100 mg capsule Take 1 capsule three times a day for 4 days -- Dispense 12 capsule.Refills: 0. Substitution permitted.Pharmacy - [facility] [employer] - [address] [facility] ; [place] [address]. .prednisone 50 mg tablet Take 1 tablet once a day with meals for 5 days -- Dispense 5 tablet. Refills: 0.Substitution permitted.[facility] - [facility] [employer] - [address] [facility] ; [place] [address]. . -- Rajat Johnson P.A.-C Name Value Range Interpretation Code Description Data Ni rce(s) Supporting Document(s) ID Date Data Source [id number] 02/12/2020 10:08:00 AM EDT [facility] 1 Medication Administration Record [facility] Emergency Department [address] [place] [address] Phone #: ext [phone] 02/12/2020 09:58 Patient: ZE NORMAN Sex: F [...] rce(s) Supporting Document(s) ID Date Data Source [id number] 02/12/2020 10:08:00 AM EDT [facility] 1 General Instructions [facility] Emergency Department [address] [place] [address] Phone #: ext- [phone] 02/12/2020 09:58 Patient: [...] Dispense 9 tablet. Refills: 0.Substitution permitted.Pharmacy - [address] ; [place] [address]. .gabapentin 100 mg capsule Take 1 capsule three times a day for 4 days -- Dispense 12 capsule.Refills: 0. Substitution permitted.Pharmacy - [facility] [id number] [place] [address] ; [place] [address]. .prednisone 50 mg tablet Take 1 tablet once a day with meals for 5 days -- Dispense 5 tablet. Refills: 0.Substitution permitted.[facility] - [address] ; [place] [address]. .Follow-up:Return to the emergency department as needed. Follow up with your healthcare provider in about twodays if not better. Call for an appointment. 2 General Instructions [facility] Emergency Department [address] [place] [address] Phone #: ext- [phone] 02/12/2020 09:58 Patient: ZE NORMAN Sex: F [...] when you are asleep. 3 General Instructions [facility] Emergency Department [address] [place] [address] Phone #: ext- [phone] 02/12/2020 09: 58 [...] bent back when typing. You may use pjzy-jyd-oqrtowm pain medicine to treat pain and inflammation, [...] with the above treatment 4 General Instructions [facility] Emergency Department [address] [place] [address] Phone #: ext- [phone] 10/2019 09:58 Patient: ZE NORMAN Sex: F : 1985 Age: 34y Fingers or hand become cold, blue, numb, or tingly Your whole arm becomes swollen or weak [id number] [employer] [place] [address]. All rights reserved. This information is not intended as asubstitute for professional medical care. Always follow your healthcare professional's instructions. You have been given the following additional information: Carpal Tunnel Syndrome(Electronically signed by Rajat Jonhson P.A.-C 02/12/2020 20:56) Name Value Range Interpretation Code Description Data Ni rce(s) Supporting Document(s) ID Date Data Source [id number] 02/12/2020 10:08:00 AM EDT [facility] 1 Clinical Report - Nurses [facility] Emergency Department [address] [place] [address] Phone #: ext- [phone] 02/12/2020 09:58 Patient: [...] had no swelling or redness. 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 --10:04 02/12/20 Tyra Nicole R.N.10:06 02/12/20. [...] RN.Medication/allergy information source: the patient. --10:04 02/12/20 Bonnie, Tyra, R.N.Medication/allergy information source: the patient. --10:09 02/12/20 Tyra Nicole R.N.ADDITIONAL SURGERIES:Breast Augmentation.Cholecystectomy.. 2 Clinical Report - Nurses [facility] Emergency Department [address] [place] [address] Phone #: ext- [phone] 02/12/2020 09:58 Patient: ZE NORMAN Sex: F : 1985 Age: 34y Laparoscopy. [...] No skin integrity risk identified. --10:04 02/12/20 Bonnie, Tyra, R.N.PHYSICAL ASSESSMENTAmbulatory to room.GENERAL / NEURO / PSYCH: Oriented X 4. Alert. Appears in no acute distress.EXTREMITIES: Neuro-vascular status intact to the extremity. Left wrist: tenderness. Limited ROMsecondary to pain (is wearing brace).SKIN: Skin intact. Skin is warm and dry. --10:41 02/12/20 Denice Montoya, ELIO.NURSING PROGRESS NOTESReassurance given. Call light placed in reach. Bed placed in lowest position. Brakes of bed on.Patient ready for evaluation. --10:09 02/12/20 Tyra Nicole R.N. 11:15 02/12/20. Patient transported to radiology by wheelchair with fuel technician. --11:02/12/20 Denice Montoya RN 11:30 02/12/2020 Tylenol (APAP) PO 1000 mg given. Allergies verified and confirmed 5 rights. Information reviewed with patient including reason for taking this medication. Verbalizes understanding. --11:30 3 Clinical Report - Nurses [facility] Emergency Department [address] [place] [address] Phone #: ext- [phone] 02/12/2020 09:58 Patient: ZE NORMAN Sex: F : 1985 Age: 34y 02/12/20 Denice Montoya RN 11:30 02/12/2020 Ativan (LORazepam) PO 1 mg given. Allergies verified and confirmed 5 rights. Information reviewed with patient including reason for taking this medication and sedative warning. Verbalizes understanding. --11:30 02/12/20 Denice Montoya, RN Patient walked back from sonogram with fuel technician. --11:31 02/12/20 Denice Montoya, ELIO 12:00 02/12/2020 Ativan PO Response: no adverse reaction pain is improving. --18:48 02/12/20 Denice Montoya, RN.DISPOSITION / DISCHARGE Departure time: 12:18 02/12/2020. --12:18 8/4/20 Denice Montoya RN Condition at departure: improved. No learning barriers present. Discharge instructions provided and reviewed with the patient. Reviewed medication(s) side effects, precautions, dosing and course information. Prescription(s) sent electronically to pharmacy. Reviewed referral to an orthopedic surgeon. Patient verbalized understanding. Written instructions provided in Georgian. The patient was discharged by the physician executive administrative assistant. She was discharged home and accompanied by family. She left ambulatory and via private vehicle. Family member driving. --12:19 02/12/20 Denice Montoya RN 12:19 02/12/20. Pain level now: 12/18. --12:19 02/12/20 Denice Montoya RN.Locked/Released at 02/12/2020 18:48 by Denice Montoya RN Name Value Range Interpretation Code Description Data Ni rce(s) Supporting Document(s) ID Date Data Source [id number] 02/12/2020 10:08:00 AM EDT [facility] 1 Clinical Report - Physicians/Mid Levels [facility] Emergency Department [address] [place] [address] Phone #: ext- [phone] 02/12/2020 09:58 Patient: [...] Cholecystectomy. . 2 Clinical Report - Physicians/Mid Levels [facility] Emergency Department [address] [place] [address] Phone #: ext- [phone] 02/12/2020 09:58 Patient: [...] swelling, 3 Clinical Report - Physicians/Mid Levels [facility] Emergency Department [address] [place] [address] Phone #: ext- [phone] 02/12/2020 09:58 -------- Patient: ZE NORMAN [facility]#: [id number] Sex: F : 1985 Age: 34y laceration, [...] documentation. 4 Clinical Report - Physicians/Mid Levels [facility] Emergency Department [address] [place] [address] Phone #: ext- [phone] 02/12/2020 09:58 Patient: ZE NORMAN Sex: F [...] worsens or 5 Clinical Report - Physicians/Mid [facility] Emergency Department [address] [place] [address] Phone #: ext- [phone] 02/12/2020 09:58 Patient: ZE NORMAN Sex: F : 1985 Age: 34y changes unexpectedly, if not improving as expected, or if other problems arise. Your Current Medications: . No home medication. No home medication. Prescription Medications: cyclobenzaprine 10 mg tablet Take 1 tablet three times a day for 3 days -- Dispense 9 tablet. Refills: 0. Substitution permitted. Pharmacy - [facility] - [address] [facility] ; [place] [address]. . gabapentin 100 mg capsule Take 1 capsule three times a day for 4 days -- Dispense 12 capsule. Refills: 0. Substitution permitted. Pharmacy - [facility] - [address] [facility] ; [place] [address]. . prednisone 50 mg tablet Take 1 tablet once a day with meals for 5 days -- Dispense 5 tablet. Refills: 0. Substitution permitted. Pharmacy - [facility] - [address] [facility] ; [place] [address]. . Follow-up: Return to the emergency department as needed. Follow up with your healthcare provider in about two days if not better. Call for an appoi ntment. Understanding of the discharge instructions verbalized by patient.(Electronically signed by Rajat Johnson P.A.-C 02/12/2020 20:56) Name Value Range Interpretation Code Description Data Ni rce(s) Supporting Document(s) ID Date Data Source [id number] 02/11/2020 08:53:00 AM EDT [facility] [address] [place] [address] PHONE: [phone] FAX: [phone] Name .................. : МАРИЯ GARVEY Renée Acct Number.................. : [id number] ROOM. ................. : TR-1B Number ................... : [id number] Stay type ............. : E/R Discharge Date......... ... : 02/09/20 Admit Date ......... : 02/09/20 Admit Phys .................... : LOLA KURTZ Date of ....... : 1985 Family Phys ................... : UNKNOWN Phone .................. : [phone] Age ................................ : 34 Film# .................. .:[id number] Sex ................................. : F Unsigned transcriptions are preliminary reports and do not represent a medical or legal document [place]ST COMPLETE LT [id number] COMPLETE:02/09/20 02:57 RLB 23727 Farrah son(s): Wrist Pain LEFT WRIST X-RAY: [...] rce(s) Supporting Document(s) ID Date Data Source [id number] 02/09/2020 12:09:00 AM EDT [facility] 1 OrderSheet [facility] Emergency Department [address] [place] [address] Phone #: ext- [phone] 02/09/2020 00:03 Patient: ZE NORMAN Sex: F : 1985 Age: 34yWEIGHT:95.2 kg (S) HEIGHT:71 inches (S) BMI:29.3ALLERGIES: No Known Drug AllergyCHIEF COMPLAINT: painDIAGNOSIS: Carpal tunnel syndromeLAB ORDERSOrder Description Priority Entered Acknowledged InitialedDIAGNOSTIC STUDY ORDERSOrder Description Priority Entered Acknowledged InitialedWrist Complete Left STAT 02/09/2020 01:29 October(Oxygen?(No)) Hannah Davila R.N., M.D.; Reason for Study: Wrist PainMEDICATION/IV/DRIP/FLUID ORDERSOrder Description Priority Ent ered Acknowledged InitialedDilaudid IM 1 mg :02/09/2020 01:37 Zooctober(HIGH ALERT Hannah Davila R.N.MEDICATION) Arvind;GENERAL ORDERSOrder Description Priority Entered Acknowledged InitialedSplint (UE) (Left) :02/09/2020 01:39 October(Cock-up) Hannah Davila R.N.(Cock-up) Arvind;[Electronically signed by Selvin Santos R.N. (02:02/09/2020)][Electronically signed by Hannah Davila M.D. (02:34 02/09/2020)][Electronically locked by Selvin Santos R.N. (:02/09/2020)] Name Value Range Interpretation Code Description Data Ni rce(s) Supporting Document(s) ID Date Data Source [id number] 02/09/2020 12:09:00 AM EDT [facility] 1 Medication Reconciliation Report [facility] Emergency Department [address] [place] [address] Phone #: ext- [phone] 02/09/2020 00:03 Patient: [...] Value Range Interpretation Code Description Data [facility]) Supporting Document(s) ID Date Data Source [id number] 02/09/2020 12:09:00 AM EDT [facility] 1 Medication Administration Record [facility] Emergency Department [address] [place] [address] Phone #: [phone]- [phone] 02/09/2020 00:03 Patient: ZE NORMAN Sex: F : 1985 Age: 34yWeight: 95.2 kgHeight/Length: 71 inBMI: 29.3ALLERGIES: No Known Drug Allergy Date/Time Medication Administered Medication OrderedGiven DILAUDID [IM] (HYDROMORPHONE Dilaudid IM 1 mg (HIGH ALERT01:37 02/09/2020 HCL) MEDICATION)Kathie Osborne, R.N. Dose: 1 mg IM Name Value Range Interpretation Code Description Data [facility]) Supporting Document(s) ID Date Data Source [id number] 02/09/2020 12:09:00 AM EDT [facility] 1 General Instructions [facility] Emergency Department [address] [place] [address] Phone #: ext- [phone] 02/09/2020 00:03 Patient: [...] to plan of care.Follow-up with: [facility], , , [address] [place] [address], [address] Follow up in two days even if well. Call for an appointment. Reason for referral: evaluation and treatment.Summary of care provided to patient via paper. ADDITIONAL INFORMATIONCarpal Tunnel Syndrome 2 General Instructions [facility] Emergency Department [address] [place] [address] Phone #: ext- [phone] 02/09/2020 00:03 Patient: [...] tools with strong vibrations. 3 General Instructions [facility] Emergency Department [address] [place] [address] Phone #: ext- [phone] 02/09/2020 00:03 Patient: [...] bent back when typing. You may use qpsa-qcf-jlkpjxm pain medicine to treat pain and inflammation, [...] Your whole arm becomes swollen or weak [phone] [employer]. [address] [place] [address]. All rights reserved. This information is not intended as asubstitute for professional medical care. Always follow your healthcare professional's instructions. You have been given the following additional information: 4 General Instructions [facility] Emergency Department [address] [place] [address] Phone #: ext- [phone] 02/09/2020 00:03 Patient: ZE NORMAN Sex: F : 1985 Age: 34yCarpal Tunnel Syndrome(Electronically signed by Hannah Davila M.D. 02/09/2020 02:34) Name Value Range Interpretation Code Description Data Ni rce(s) Supporting Document(s) ID Date Data Source [id number] 02/09/2020 12:09:00 AM EDT [facility] 1 Clinical Report - Nurses [facility] Emergency Department [address] [place] [address] Phone #: ext- [phone] 02/09/2020 00:03 Patient: [...] confirmed signs of infection present. --00: [place] Kathie RJocelinN.00:03 02/09/20. BP: 128/77. MAP: 94. HR: 73. RR: 18. O2 saturation: 100%. Temp: 98.7 F. Pain levelnow: 6/10. --00:08 02/09/20 Kathie Osborne RJocelinN.Weight: 95.2 kg stated. Height/Length: 71 inches Per Patient. BMI: 29.3. --00:02 02/09/20 India Kathie RJocelinN.MedicationsNone. --00:04 02/09/20 Brunilda Kathie RChristine.AllergiesNo Known Drug Allergy. --00:02/09/20 Brunilda Kathie RJocelinN.PROBLEMS:no known problems.ADDITIONAL SURGERIES:Breast Augmentation.Cholecystectomy.C- Section.Salpingectomy. --00:02/09/20 Kathie Osborne RChristine.HistoryPAST MEDICAL HX: Last normal menstrual period- today.SOCIAL [...] to the 2 Clinical Report - Nurses [facility] Emergency Department [address] [place] [address] Phone #: sxy- [phone] 02/09/2020 00:03 Patient: ZE NORMAN Sex: F : 1985 Age: 34y question(s) [...] assessment completed. No skin integrity risk identified. --00:08 02/09/20 Kathie Osborne, R.N. Interventions To treatment room. --00:02/09/20 Kathie Osborne, RJocelinN.PHYSICAL ASSESSMENTGENERAL / NEURO / PSYCH: Alert. Oriented [...] and dry. Normal skin turgor. --00:25 02/09/20 India OctoberPat.NURSING PROGRESS NOTESPatient gowned. Head of bed elevated. Reassurance given. Two patient identifiers checked. Side railsup x 1. Bed placed in lowest position. Brakes of bed on. P atient ready for evaluation- ED physiciannotified. --00:02/09/20 Brunilda KathieAdolph ( no acute neuro deficits noted. pt c/o left wrist pain with palpation.). --00:02/09/20, October, Pat. Patient walked to radiology with fuel technician. --01:02/09/20 Brunilda OctoberPat. Patient walked back from radiology with fuel technician. --01:34 02/09/20 Brunilda OctoberAdolph 01:37 02/09/2020 Dilaudid (HYDROmorphone HCl) IM 1 mg given. Given in the right deltoid. Allergies 3 Clinical Report - Nurses [facility] Emergency Department [address] [place] [address] Phone #: ext- [phone] 02/09/2020 00:03 Patient: ZE NORMAN Sex: F : 1985 Age: 34y verified and confirmed 5 rights. Information reviewed with patient including reason for taking this medication and sedative warning. Verbalizes understanding. --01:37 02/09/20 BrunildaoctoberPat. Medium velcro splint applied to left wrist. Distal pulses intact, sensation intact and motor within normal limits. Patient tolerated the procedure well. Splinting applied by me. --01:40 02/09/20 [place] OctoberAdolphDISPOSITION / DISCHARGE Condition at departure: improved. No learning barriers present. Discharge instructions provided and reviewed with the patient. Reviewed warnings. Reviewed medication(s). Treatments reviewed. Reviewed referrals. Patient verbalized understanding. Written instructions provided in Georgian. The patient was discharged by the physician. She was discharged home and accompanied by spouse. She left ambulatory and via private vehicle. Spouse driving. Patient has no belongings. --02:06 02/09/20 Selvin Santos R.N. 02:04 02/09/20. BP: 121/88. MAP: 99. HR: 70. RR: 16. O2 saturation: 100%. Temp: 97.7 F. Pain level now: 09/17. --02:06 02/09/20 Selvin Santos R.N. Departure time: 02:06 02/09/2020. --02:02/09/20 Selvin Santos R.N.Locked/Released at 02/09/2020 02:06 by Selvin Santos R.N. Name Value Range Interpretation Code Description Data Ni rce(s) Supporting Document(s) ID Date Data Source [id number] 02/09/2020 12:09:00 AM EDT [facility] 1 Clinical Report - Physicians/Mid Levels [facility] Emergency Department [address] [place] [address] Phone #: ext- [phone] 02/09/2020 00:03 Patient: [...] use. 2 Clinical Report - Physicians/Mid Levels [facility] Emergency Department [address] [place] [address] Phone #: ext- [phone] 02/09/2020 00:03 [id number] Sex[facility] F : 1985 Age: 34yADDITIONAL NOTESThe nursing notes have been reviewed with agreement regarding the chief complaint, HPI, ROS, PMH andpatient medications and allergies.PHYSICAL EXAMVital Signs: 02/09/2020 00:03 BP: 128/77. MAP: 94. HR: 73. RR: 18. O2 saturation: 100%. Temp: 98.7 F.Pain level now: 12/18. Have been reviewed. Oxygen saturation normal.Appearance: Alert. [...] were interpreted contemporaneously by me. Interpretation time: :.PROGRESS AND PROCEDURESCourse of Care: 01:18 02/09/20. Data [...] was requested by: Hannah Davila Reference #: [id number] Others' Prescriptions Patient Name: Ze NormanBirth Date: 1985 Address: [id number] [place], [place] [address]Sex: Female Rx Written Rx Dispensed Drug Quantity Days Supply Prescriber Name Payment Method Dispenser 01/24/2020 01/24/2020 alprazolam 0.5 mg tablet 60 30 Alejandro Ko [facility] 3 Clinical Report - Physicians/Mid Levels [facility] Emergency Department [address] [place] [address] Phone #: [phone] 02/09/2020 00:03 Patient: ZE NORMAN [facility]#: [id number] Sex: F : 1985 Age: 34y [id number] 12/27/2019 12/27/2019 alprazolam 0.5 mg tablet 60 30 [facility] [id number] #[id number] * - Drugs marked with an asterisk [...] Discharge decision based on the following: pat ient's condition is stable; patient's condition is improved; [...] home medication. Follow-up: 4 Clinical Report - Physicians/[facility] Emergency Department [address] [place] [address] Phone #: [phone] 02/09/2020 00:03 [id number] Sex[facility] F : 1985 Age: 34y Return [...] plan of care. Follow-up with: [facility], , , [address] [place] [address], [facility] Follow up in two days even if well. Call for an appointment. Reason for referral: evaluation and treatment. Summary of care pro vided to patient via paper.(Electronically signed by Hannah Davila M.D. 02/09/2020 02:34) Name Value Range Interpretation Code Description Data Ni rce(s) Supporting Document(s) ID Date Data Source [id number] 10/11/2019 07:45:00 AM EDT [facility] Name Value Range Interpretation Code Description Data Ni rce(s) Supporting Document(s) SARS CORONAVIRUS 2 RNA [facility] This lab was ordered by [facility] and reported by [facility]. Procedure Vital Signs ID Date Data Source UNK Name Value Range Interpretation Code Description Data Source(s) Body surface area Derived from formula 2.23 m2 2.23 m2 [facility] ([facility], ) Body weight 103.421 kg 103.421 kg [facility] ([facility], ) [place] body weight 155 [lb_av] 155 [lb_av] MEDEN T ([facility], ) Body mass index (BMI) [Ratio] 31.8 kg/m2 31.8 k g/m2 [facility] ([facility]) Body weight 228.00 [lb_av] 228.00 [lb_av] [facility] T ([facility]) Body height 71 [in_i] 71 [in_i] [facility] ([facility]) 5'11" Body temperature 98.1 [degF] 98.1 [degF] [facility] ([facility]) Body temperature 98.2 [degF] 98.2 [degF] [facility] ([facility]) Body weight 102.967 kg 102.967 [facility] [place] body weight 155 [lb_av] 155 [lb_av] [facility] T ([facility]) Body mass index (BMI) [Ratio] 31.7 kg/m2 31.7 k g/m2 [facility] Body weight 227.00 [lb_av] 227.00 [lb_av] [facility] T ([facility]) Body height 71 [in_i] 71 [in_i] [facility] ([facility]) 5'11" Body temperature 98.1 [degF] 98.1 [degF] [facility] ([facility]) Respiratory rate 16 /min 16 /min [facility] ( [facility]) Heart rate 80 /min 80 /min [facility] ([facility]) Diastolic blood pressure 84 mm[Hg] 84 mm[Hg] [facility] ([facility]) Systolic blood pressure 138 mm[Hg] 138 mm[Hg] [facility] Heart rate 72 /min 72 /min [facility] ([facility]) Diastolic blood pressure 80 mm[Hg] 80 mm[Hg] [facility] ([facility]) Systolic blood pressure 120 mm[Hg] 120 mm[Hg] [facility] Body mass index (BMI) [Ratio] 30.7 kg/m2 30.7 k g/m2 [facility] Body weight 220.00 [lb_av] 220.00 [lb_av] NATY Syed ([facility]) Body height 71 [in_i] 71 [in_i] ADRY ([facility]) 5'11"
--- OUTSIDE RECORDS SUMMARY | 2020-09-03 01:30 | CCD ---
Author Author [employer] Organization [employer] Address Unknown Phone Unavailable Care Team Providers Care User Experience Architect Name Role Phone Aspen Lee Unavailable PROBLEMS No Information ALLERGIES No Known Allergies ENCOUNTERS from 1985 to 2020-08-31 Encounter Location Date Provider Diagnosis [facility] [address] [place] [id number] Jul, Aspen Lee IMMUNIZATIONS No Information SOCIAL HISTORY Tobacco Use: Social History Observation Description Date Details (start date - stop date) Never Smoker Sex Assigned At : Social History Observation Description Sex Assigned At Unknown Tobacco Use: Question Answer Notes Are you a: never smoker REASON FOR REFERRAL No Information VITAL SIGNS No information MEDICATIONS Medication SIG (Take, Route, Frequency, Duration) Notes Start Da te End Date Status Alprazolam 0.5 MG 1 tablet Orally before bedtime prn Active Ciprofloxacin HCl 500 MG 1 tablet Orally every 12 hrs for 5 day( s) Jan, Active PROCEDURES No Information RESULTS No Results REASON FOR VISIT referral question - breast Goals Section No Information Health Concerns No Information MEDICAL EQUIPMENT No Information MENTAL STATUS No Information FUNCTIONAL STATUS No Information ASSESSMENTS No Information PLAN OF TREATMENT Medication Medication Name Sig Start Date Stop Date Ciprofloxacin HCl 500 MG 1 tablet Orally every 12 hrs for 5 day( s) Jan, Insurance Providers Payer Name Payer Address Payer Phone Insured Name Patient Relati onship to Insured Coverage Start Date Coverage End Date [facility] [id number] [facility] [id number] [place]
--- OUTSIDE RECORDS SUMMARY | 2020-09-03 03:15 | CCD ---
Author Author [facility] Organization [facility] Address Unknown Phone Unavailable Care Team Providers Care Ortho Assistant Name Role Phone NISHA, E CALEB DO [...] Unavailable LON, L LOLI MD Unavailable Unavailable OLN, L LOLI MD Unavailable Unavailable LON, L [...] is protected by Article 27-F of the [facility] Public Health law. If you continue you may have access to information: Regarding HIV / AIDS; Provided by facilities licensed or operated by the [facility] Office of Mental Health; or Provided by the [facility] Office for People With Developmental Disabilities. If such information is present, then the following [facility] mandated warning applies: This information [...] law may result in a fine or senior living sentence or both. A general authorization for the release of medical or other information is NOT sufficient authorization for further disc losure. Allergies and Adverse Reactions Type Description Substance Reaction Status Data Source(s ) No Known Drug Allergies No Known Drug Allergies [facility] Family History Family Member Name Family Member Gender Family Member Status Date o f Status Description Data Source(s) Unknown Male Problem [facility] ([facility] Unknown Male Problem [facility] ([facility]) Encounters Encounter Providers Location Date Indications Data Source(s ) Emergency Attender: LOLI FORREST MDConsultant: HAKAN MAY NOWAllan 08/21/2020 10:33:00 PM EST - 08/22/2020 12:29:00 AM [facility] Patient discharged. Emergency Attender: HANNAH DAVILAConsultant: HAKAN MAY NOWAllan 08/11/2020 09:29:00 PM EST - 08/11/2020 10:40:00 PM [facility] Patient discharged. Unknown [address] [facility] [address] 08/07/2020 12:00:00 AM EST eCW1 ([facility]) Emergency Attender: HANNAH DAVILA 2019 09:51:00 AM EST - 05/26/2020 12:00:00 PM [facility] Patient discharged. Emergency Attender: Horacio Parada PA-C 04/2020 04:06:00 PM EST - 05/20/2020 07:31:00 PM [facility] Patient discharged. Outpatient Attender: CALEB Doherty/Agnes/Theron/Royer l 05/05/2020 09:15:00 AM EDT [facility] ([facility]) Emergency Attender: Horacio MEADOWSCConsultant: PCP NO 02/12/2020 10:08:00 AM EDT - 02/12/2020 12:20:00 PM EDT [facility] Patient discharged. Emergency Attender: HANNAH DAVILA 2019 12:09:00 AM EDT - 02/09/2020 02:06:00 AM EDT [facility] Patient discharged. Outpatient 10/29/2019 05:30:00 AM EDT [facility] Outpatient 08/07/2019 01:55:00 PM EST [facility] 08/07/2019 01:53:00 PM EST [facility] Medications Medication Brand Name Start Date Product Form Dose Route Admi nistrative Instructions Pharmacy Instructions Status Indications Reaction Description Data Source(s) 8 HR Acetaminophen 650 MG Extended Release Oral Tablet [Tyle nol] Tylenol 8 Hour 02/27/2020 12:00:00 AM EDT active MED[facility] ([facility]) Insurance Providers Payer name Policy type / Coverage type Policy ID Covered democrat ID Covered democrat's relationship to martinez Policy Martinez Plan Information [facility] [id number] 2 [id number] [facility] [id number] 2 [id number] [facility] - O/P [id number] 01 [id number] SELF PAY ONLY [id number] SP [id number] HUMAN [facility] REG O [id number] S [id number] SELF PAY O [id number] S [id number] U [id number] Self [id number] ANSI-Not a Secondary Insurance [id number] [facility] [id number] 2 [id number] [place] [id number] Commercial [id number] Family Dependent [id number] U [id number] Self [id number] FOR LIFE U [id number] Self [id number] [facility] [id number] HU2 [id number] HUMAN [facility] O [id number] P [id number] [facility] MITZI -O/P [id number] 19 [id number] [facility] [id number] 2 [id number] [facility] [id number] 18 [id number] [facility] Commercial [id number] Self [id number] Problems, Conditions, and Diagnoses Code Display Name Description Problem Type Effective Dates Data Source(s) 14112795 Carpal tunnel syndrome Carpal tunnel syndrome Problem 02/27/2020 12:00:00 AM EDT [facility] ([facility] ) 69718758 Hand pain Hand pain Problem 02/27/2020 12:00:00 AM ED T [facility] ([facility] ) 499936641 Numbness of hand Numbness of hand Problem 02/27/2020 12 :00:00 AM EDT [facility] ([facility] ) R519 Headache, unspecified Headache, unspecified Diagnosis 08/21/2020 10:33:00 PM [facility] T65311 Pain in left shoulder Pain in left shoulder Diagnosis 08/11/2020 09:29:00 PM [facility] M7989 Other specified soft tissue disorders Ot her specified soft tissue disorders Diagnosis 08/11/2020 09:29:00 PM [facility] P69627 Unspecified ovarian cyst, left side Unspecified ovarian cyst, left side Diagnosis 05/26/2020 09:51:00 AM [facility] N800 Endometriosis of uterus Endometriosis of uterus Diagno sis 05/26/2020 09:51:00 AM [facility] R102 Pelvic and perineal pain Pelvic and perineal pain Diag nosis 05/26/2020 09:51:00 AM [facility] R1032 Left lower quadrant pain Left lower quadrant pain Diag nosis 05/20/2020 04:06:00 PM [facility] G5602 Carpal tunnel syndrome, left upper limb Carpal tunnel syndrome, left upper limb Diagnosis 02/12/2020 10:08:00 AM EDT [facility] X93771 Pain in left upper arm Pain in left upper arm Diagnosi s 02/12/2020 10:08:00 AM EDT [facility] D78303 Pain in left lower leg Pain in left lower leg Diagnosi s 02/09/2020 12:09:00 AM [facility] Surgeries/Procedures Procedure Description Date Indications Data Source(s) Excision Excessive Skin And Subcutaneous Tissue Abdomen 08/26/2020 12:00:00 AM EST [facility] ([facility] EXCISION EXCESSIVE SKIN & SUBQ TISSUE ABDOMEN 08/26/19 12:00:00 AM EST [facility] ([facility], ) Needle electromyography, each extremity, with related paraspinal areas, when performed, done with nerve conduction, amplitude and latency/velocity study; complete, five or more muscles studied, innervated by three or more nerves or four or more spinal levels (list separately in addition to the code for primary procedure). 02/28/2020 12:00:00 AM EDT MEDEN T ([facility], ) Needle electromyography, each extremity, with related paraspinal areas, when performed, done with nerve conduction, amplitude and latency/velocity study; complete, five or more muscles studied, innervated by three or more nerves or four or more spinal levels (list separately in addition to the code for primary procedure). 02/28/2020 12:00:00 AM EDT MEDEN T ([facility], ) Needle Electromyography Non Extremity Done With Nerve Conduc tion 02/28/2020 12:00:00 AM EDT [facility] ([facility], ) 67834 Nerve conduction studies 13 or more studies NEW 201202/28/2020 12:00:00 AM EDT [facility] ([facility] Zelda haas, ) Results ID Date Data Source [id number] 08/21/2020 10:33:00 PM [facility] 1 OrderSheet [facility] Emergency Department [address] [place] [address] Phone #: ext- [phone] 08/21/2020 22:26 [id number] Sex: F : 1985 Age: 35yWEIGHT:98.8 kg [...] rce(s) Supporting Document(s) ID Date Data Source [id number] 08/21/2020 10:33:00 PM EST [facility] 1 Medication Reconciliation Report [facility] Emergency Department [address] [place] [address] Phone #: ext- [phone] 08/21/2020 22:26 Patient: [...] rce(s) Supporting Document(s) ID Date Data Source [id number] 08/21/2020 10:33:00 PM [facility] 1 Medication Administration Record [facility] Emergency Department [address] [place] [address] Phone #: ext- [phone] 08/21/2020 22:26 Patient: [...] rce(s) Supporting Document(s) ID Date Data Source [id number] 08/21/2020 10:33:00 PM EST [facility] 1 General Instructions [facility] Emergency Department [address] [place] [address] Phone #: ext- [phone] 08/21/2020 22:26 Patient: [...] or too much sleep. 2 General Instructions [facility] Emergency Department [address] [place] [address] Phone #: ext- [phone] 08/21/2020 22:26 Patient: [...] Avocados Bananas Figs Raisins 3 General Instructions [facility] Emergency Department [address] [place] [address] Phone #: ext- [phone] 08/21/2020 22:26 Patient: ZE NORMAN Sex: F [...] healthcare provider Stiff neck 4 General Instructions [facility] Emergency Department [address] [place] [address] Phone #: ext- [phone] 08/21/2020 22:26 Patient: ZE NORMAN Sex: F : 1985 Age: 35y Extreme drowsiness, confusion, or fainting Dizziness, or dizziness with spinning sensation (vertigo) Weakness or trouble feeling in an arm or leg, or on one side of your face Trouble talking or seeing [id number] [employer] [place] [address]. All rights reserved. This information is not intended as asubstitute for professional medical care. Always follow your healthcare professional's instructions. You have been given the following additional information: Headache, Migraine, Classic No strenuous activity. Do not work for four days.(Electronically signed by Loli Forrest MD 08/22/2020 01:08) Name Value Range Interpretation Code Description Data Ni rce(s) Supporting Document(s) ID Date Data Source [id number] 08/21/2020 10:33:00 PM EST [facility] 1 Clinical Report - Nurses [facility] Emergency Department [address] [place] [address] Phone #: ext- [phone] 08/21/2020 22:26 Patient: [...] to both eyes.).She has had a headache.Treatment DIGITAL TRAFFIC COORDINATOR:None. Seen within the last 30 days at [...] to the 2 Clinical Report - Nurses [facility] Emergency Department [address] [place] [address] Phone #: pli- [phone] 08/21/2020 22:26 Patient: ZE NORMAN Sex: F [...] with aseptic 3 Clinical Report - Nurses [facility] Emergency Department [address] [place] [address] Phone #: ext- [phone] 08/21/2020 22:26 Patient: ZE NORMAN Sex: F [...] Patient verbalized understanding. Written instructions provided in Portuguese. The patient was discharged by the physician. She was discharged home and unaccompanied at time of discharge. She left ambulatory and via private vehicle. Spouse driving. --00:27 08/22/20 Bailey Rendon 00:26 08/22/20. BP: 132/62. HR: 80. RR: 15. O2 saturation: 98%. Temp: 98.1 F. Pain level now 08/20. --00:27 08/22/20 Bailey Rendon 4 Clinical Report - Nurses [facility] Emergency Department [address] [place] [address] Phone #: ext- [phone] 08/21/2020 22:26 [id number] Sex[facility] F : 1985 Age: 35y Departure time: 00:27 08/22/2020. --00:27 08/22/20 Bailey Rendon.Locked/Released at 08/22/2020 00:29 by Bailey Rendon Name Value Range Interpretation Code Description Data Ni rce(s) Supporting Document(s) ID Date Data Source [id number] 08/21/2020 10:33:00 PM [facility] 1 Clinical Report - Physicians/Mid Levels [facility] Emergency Department [address] [place] [address] Phone #: ext- [phone] 08/21/2020 22:26 Patient: [...] Laparoscopy. 2 Clinical Report - Physicians/Mid Levels [facility] Emergency Department [address] [place] [address] Phone #: ext- [phone] 08/21/2020 22:26 Patient: ZE NORMAN Sex: F [...] Headache. 3 Clinical Report - Physicians/Mid Levels [facility] Emergency Department [address] [place] [address] Phone #: ext- [phone] 08/21/2020 22:26 Patient: [...] rce(s) Supporting Document(s) ID Date Data Source [id number] 08/12/2020 09:42:00 [place] [address] PHONE: [phone] FAX: [phone] Name .................. : МАРИЯ Chinchilla Acct Number.................. : [id number] ROOM. ................. : TR-03 MR Number ................... : [id number] Stay type ............. : E/R Discharge Date......... ... : Admit Date ......... : 08/11/20 Admit Phys .................... : TURRIN TESSIE Date of ....... : 1985 Family Phys ................... : UNKNOWN Phone .................. : [phone] Age ................................ : 35 Film# .................. .:[id number] Sex ................................. : F Unsigned transcriptions are preliminary reports and do not represent a medical or legal document [place] [address] COMPLETE:08/11/20 22:21 ADB 3449 Reason(s): DVT LEFT [...] 08/11/20 22:34, Dictation Date: Copy for: ILEANA APUL via fax Copy for: EMERGENCY DEPT via modem Copy for: 710 MED REC DISCHARGED Page 1 of 1 Name Value Range Interpretation Code Description Data Ni rce(s) Supporting Document(s) ID Date Data Source [id number] 08/11/2020 09:29:00 PM EST [facility] 1 OrderSheet [facility] Emergency Department [address] [place] [address] Phone #: ext- [phone] 08/11/2020 21:29 Patient: ZE NORMAN Sex: F [...] rce(s) Supporting Document(s) ID Date Data Source [id number] 08/11/2020 09:29:00 PM [facility] 1 Medication Reconciliation Report [facility] Emergency Department [address] [place] [address] Phone #: ext- [phone] 08/11/2020 21:29 Patient: [...] Dispense 45 tablet. Refills: 0.Substitution permitted.Pharmacy - [address] ; [place] [address]. FaxNumber: [phone]. -- ANA Horowitz Name Value Range Interpretation Code Description Data Ni rce(s) Supporting Document(s) ID Date Data Source [id number] 08/11/2020 09:29:00 PM [facility] 1 Medication Administration Record [facility] Emergency Department [address] [place] [address] Phone #: ext- [phone] 08/11/2020 21:29 Patient: ZE NORMAN Sex: F : 1985 Age: 35yWeight: 113.3 kgHeight/Length: 71 inBMI: 34.9ALLERGIES: No Known Drug Allergy Date/Time Medication Administered Medication OrderedGiven MOTRIN [PO] (IBUPROFEN) Ibuprofen 800 mg PO X1 dose: 73336:36 08/11/2020 Dose: 800 mg Tablets PO mg (NOW x1)Amita Mota,Given TORADOL [IM] (KETOROLAC Toradol IM 60 mg22:33 08/11/2020 TROMETHAMINE)Bailey Rendon, Dose: 60 mg IM Name Value Range Interpretation Code Description Data Ni rce(s) Supporting Document(s) ID Date Data Source [id number] 08/11/2020 09:29:00 PM EST [facility] 1 General Instructions [facility] Emergency Department [address] [place] [address] Phone #: ext- [phone] 08/11/2020 21:29 Patient: [...] Dispense 45 tablet. Refills: 0.Substitution permitted.Pharmacy - [facility] [address] [facility] ; [place] [address]. .Follow-up:Follow up with your doctor tomorrow. Call [...] from moving. You can 2 General Instructions [facility] Emergency Department [address] [place] [address] Phone #: ext- [phone] 08/11/2020 21:29 [id number] Sex: F : 1985 Age: 35yta ke [...] shoulder or upper arm 3 General Instructions [facility] Emergency Department [address] [place] [address] Phone #: ext- [phone] 08/11/2020 21:29 Patient: ZE NORMAN Sex: F : 1985 Age: 35y Trouble moving your hand or fingers We akness in your hand or fingers Your shoulder becomes stiff It feels like your shoulder is popping out You are less able to do your daily activities [phone] [employer]. [address] [facility], [place] [address]. All rights reserved. This information is not intended as asubstitute for professional medical care. Always follow your healthcare professional's instructions. You have been given the following additional information: Shoulder Pain, Uncertain Cause(Electronically signed by ANA Horowitz 08/11/2020 22:33) Name Value Range Interpretation Code Description Data Ni rce(s) Supporting Document(s) ID Date Data Source [id number] 08/11/2020 09:29:00 PM EST [facility] 1 Clinical Report - Nurses [facility] Emergency Department [address] [place] [address] Phone #: ext- [phone] 08/11/2020 21:29 Patient: ZE NORMAN Sex: F : 1985 Age: 35yTRIAGEArrived by private vehicle. Historian: patient.Triage time: 21:30 08/11/2020. Acuity: LEVEL 4.Chief Complaint: LEFT UPPER EXTREMITY PAIN and NUMBNESS.No injury occurred. Onset was gradual. Symptoms are constant and still present (off and on about 1week). She has had constant numbness of the left arm.Treatment DIGITAL TRAFFIC COORDINATOR:Took Tylenol and ibuprofen.SEPSIS SCREEN: SIRS SCREEN NEGATIVE. SEPSIS SCREEN NEGATIVE. No suspected or confirmedsigns of infection present. --21:36 08/11/20 Sean Bunch RN21:30 08/11/20. BP: 157/106 (regular adult cuff) taken on the right arm, via an automated monitor, whilesitting. MAP: 123. HR: 76 (regular, normal rate and strong). RR: 18 (regular, unlabored and normal). C1uzwjolscks: 100% on room air. Temp: 98.6 F [...] Bunch RN. 2 Clinical Report - Nurses [facility] Emergency Department [address] [place] [address] Phone #: ext- [phone] 08/11/2020 21:29 Patient: [...] the same. --21:36 08/11/20 Sean Bunch RN.PHYSICAL [id number]:40 08/11/20.GENERAL / NEURO / PSYCH: Oriented X [...] Patient transported by wheelchair with mask and biological science technician. (Ultra sound). --21:47 08/11/20 Amita Mota late entry - 21:40 08/11/20. Patient gowned. Reassurance given. Two patient identifiers checked. Call light placed in reach. Side rails up x 2. Bed placed in lowest position. Brakes of bed on. --22:40 08/11/20 Bailey Rendon 22:33 08/11/2020 Toradol (Ketorolac Tromethamine) IM 60 mg given. Given in the right deltoid. Allergies 3 Clinical Report - Nurses [facility] Emergency Department [address] [place] [address], [place] [address] Phone #: ext- [phone] 08/11/2020 21:29 Patient: ZE NORMAN Sex: F [...] Patient verbalized understanding. Written instructions provided in Portuguese. The patient was discharged by the physician social work assistant. She was discharged home and unaccompanied [...] rce(s) Supporting Document(s) ID Date Data Source [id number] 08/11/2020 09:29:00 PM [facility] 1 Clinical Report - Physicians/Mid Levels [facility] Emergency Department [address] [place] [address] Phone #: ext- [phone] 08/11/2020 21:29 Patient: [...] use. 2 Clinical Report - Physicians/Mid Levels [facility] Emergency Department [address] [place] [address] Phone #: ext- [phone] 08/11/2020 21:29 Patient: ZE NORMAN Sex: F [...] DVT. The exam was pe rformed bya detail technician. The study was interpreted by the [...] or 3 Clinical Report - Physicians/Mid Levels [facility] Emergency Department [address] [place] [address] Phone #: ext- [phone] 08/11/2020 21:29 Patient: ZE NORMAN Sex: F : 1985 Age: 35y changes unexpectedly, if not improving as expected, or if other problems arise. Specifically return if pain worsens. Your Current Medications: . No home medication. Prescription Medications: IBU 800 mg tablet Take 1 tablet three times a day for 15 days -- Dispense 45 tablet. Refills: 0. Substitution permitted. Pharmacy - [facility] [address] [id number] - [address] [facility] ; [place] [address]. . Follow-up: Follow up with your doctor tomorrow. Call for the next available appointment. Reason for referral: evaluation and treatment. Summary of care provided to patient. Understanding of the discharge instructions verbalized by patient.(Electronically signed by ANA Horowitz 08/11/2020 22:33) Name Value Range Interpretation Code Description Data Ni rce(s) Supporting Document(s) ID Date Data Source [id number] 06/23/2020 12:00:00 AM EST [facility] Name Value Range Interpretation Code Description Data Ni rce(s) Supporting Document(s) SARS-CoV-2 (COVID-19) RNA [Presence] in Respiratory specimen by JOEL with probe detection [facility] This lab was ordered by [facility] and reported by [employer]. ID Date Data Source [id number] 05/27/2020 03:35:00 PM [facility] [address] [place] [address] PHONE: [phone] FAX: [phone] Name .................. : МАРИЯ Chinchilla Acct Number.................. : [id number] ROOM. ................. : TR MR Number ................... : [id number] Stay type ............. : E/R Discharge Date......... ... : 05/26/20 Admit Date ......... : 05/26/20 Admit Phys .................... : OLLA KURTZ Date of ....... : 1985 Family Phys ................... : UNKNOWN Phone .................. : [phone] Age ................................ : 35 Film# .................. .:[id number] Sex ................................. : F Unsigned transcriptions are preliminary reports and do not represent a medical or legal document PELVIC [id number] COMPLETE:05/26/20 11:18 KN [address] Reason(s): Pelvic Pain US TRANSVAGINAL(NON OB) 30003 COMPLETE:05/26/20 11:18 KNB 35254 (REASON FOR OBS: pelvic pain TRANSABDOMINAL AND [...] rce(s) Supporting Document(s) ID Date Data Source [id number] 05/27/2020 03:35:00 [place] [address] PHONE: [phone] FAX: [phone] Name .................. : NORMAN ZE Chinchilla Acct Number.................. : [id number] ROOM. ................. : TR-02 MR Number ................... : [id number] Stay type ............. : E/R Discharge Date......... ... : 05/26/20 Admit Date ......... : 05/26/20 Admit Phys .................... : LOLA KURTZ Date of ....... : 1985 Family Phys ................... : UNKNOWN Phone .................. : [phone] Age ................................ : 35 Film# .................. .:[id number] Sex ................................. : F Unsigned transcriptions are preliminary reports and do not represent a medical or legal document PELVIC [id number] COMPLETE:05/26/20 11:18 KNB 01618 Reason(s): Pelvic Pain US TRANSVAGINAL(NON OB) 96937 COMPLETE:05/26/20 11:18 KNB 18419 (REASON FOR OBS: pelvic pain TRANSABDOMINAL AND [...] rce(s) Supporting Document(s) ID Date Data Source [id number] 05/26/2020 09:51:00 AM EST [facility] 1 OrderSheet [facility] Emergency Department [address] [place] [address] Phone #: [phone]- [phone] 05/26/2020 09:48 Patient: ZE NORMAN Sex: F : 1985 Age: 35yWEIGHT:95.2 kg (S) HEIGHT:71 inches (S) BMI:29.3ALLERGIES: No Known Drug AllergyCHIEF COMPLAINT: abdominal painDIAGNOSIS: Cyst of ovary, Endometriosis (clinical)LAB ORDERSOrder Description Priority Entered Acknowledged InitialedCBC w Diff STAT 10:08 05/26/2020 10:08 [facility], Bruno PEREZ; [id number] STAT 10:08 05/26/2020 10:08 [facility] [employer], Bruno BURNETTE PA; [id number] STAT 10:08 05/26/2020 10:08 [facility] Resource HoldingsBruno PA; [id number] inalysis (Clean STAT 10:08 05/26/2020 10:08 [facility]) [facility] [employer], Bruno BURNETTE PA; [id number], Quant STAT 10:08 05/26/2020 10:08 [facility] Cardi[facility] Provider Resource HoldingsBruno PA; [id number] STUDY ORDERSOrder Description Priority Entered Acknowledged InitialedUS Pelvis STAT 10:08 05/26/2020 10:19 Denice Montoya(Oxygen?(No)) Roland Bae RN PA; Reason for Study: Pelvic PainMEDICATION/IV/DRIP/FLUID ORDERSOrder Description Priority Entered Acknowledged InitialedNS IV : Bolus 1000 10:08 05/26/2020 10:32 Dejah Montoya, then 150 mL/hr Roland Bae RN PA;Toradol IVP 30 mg 10:08 05/26/2020 10:32 Denice Montoya RN PA; 2 OrderSheet [facility] Emergency Department [address] [place] [address] Phone #: ext- [phone] 05/26/2020 09:48 Patient: ZE NORMAN Sex: F : 1985 Age: 35yZofran ODT PO 8 10:08 05/26/2020 10:32 Jarocho Montoya RN PA;Morphine IVP 2 mg 11:21 05/26/2020 11:21 Denice Montoya(NOW, HIGH ALERT Denice Montoya RN; RNMEDICATION) Verbal order per; Roland Bae PAGENERAL ORDERSOrder Description Priority Entered Acknowledged InitialedNPO 10:08 05/26/2020 10:09 Daja Bae contractor general engineeringBruno Sparks PA; [id number] Lock 10:08 05/26/2020 10:29 Denice Montoya RN PA;[Electronically signed by Denice Montoya RN (12:02 05/26/2020)][Electronically signed by Roland Bae (21:18 05/26/2020)][Electronically locked by Denice Montoya RN (12:02 05/26/2020)] Name Value Range Interpretation Code Description Data Ni rce(s) Supporting Document(s) ID Date Data Source [id number] 05/26/2020 09:51:00 AM EST [facility] 1 Medication Reconciliation Report [facility] Emergency Department [address] [place] [address] Phone #: ext- [phone] 05/26/2020 09:48 Patient: [...] Dispense 45 tablet. Refills: 0.Substitution permitted.Pharmacy - [facility] [employer] [facility] ; [place] [address]. .ondansetron 8 mg disintegrating tablet Take 1 tablet three times a day for 5 days -- Dispense 15 tablet.Refills: 0. Substitution permitted.Pharmacy - [facility] [employer] [facility] ; [place] [id number]. . 2 Medication Reconciliation Report [facility] Emergency Department [address] [place] [address] Phone #: ext- [phone] 05/26/2020 09:48 [id number] Sex: F : 1985 Age: 35ydicyclomine 10 mg capsule Take 1 capsule four times a day for 10 days -- Dispense 40 capsule.Refills: 0. Substitution permitted.Pharmacy - [facility] [employer] [facility] ; [place] [id number]. . -- ANA Horowitz Name Value Range Interpretation Code Description Data Ni rce(s) Supporting Document(s) ID Date Data Source [id number] 05/26/2020 09:51:00 AM EST [facility] 1 Medication Administration Record [facility] Emergency Department [address] [place] [address] Phone #: ext- [phone] 05/26/2020 09:48 Patient: ZE NORMAN Sex: F : 1985 Age: 35yWeight: 95.2 kgHeight/Length: 71 inBMI: 29.3ALLERGIES: No Known Drug Allergy Date/Time Medication Administered Medication OrderedStart NS [IV] NS IV : Bolus 1000 mL, then 41409:32 05/26/2020 Dose: IV Fluids mL/hrDenice Montoya RN [...] rce(s) Supporting Document(s) ID Date Data Source [id number] 05/26/2020 09:51:00 AM EST [facility] 1 General Instructions [facility] Emergency Department [address] [place] [address] Phone #: ext- [phone] 05/26/2020 09:48 Patient: ZE NORMAN Sex: F : 1985 Age: 35yEndometriosis involving the uterus.Single follicular left ovarian cyst.INSTRUCTIONSWarnings: Further evaluation is necessary.Your Current Medications: Your current home medications have been reviewed.CONTINUE TAKING THE FOLLOWING MEDICATIONS:Gabapentin Oral.Zofran Oral.Prescription Medications:IBU 800 mg tablet Take 1 tablet three times a day for 15 days -- Dispense 45 tablet. Refills: 0.Substitution permitted.Pharmacy - [facility] - [address] [facility] ; [place] [address]. .ondansetron 8 mg disintegrating tablet Take 1 tablet three times a day for 5 days -- Dispense 15 tablet.Refills: 0. Substitution permitted.Pharmacy - [facility] [employer] [facility] ; [place] [address]. .dicyclomine 10 mg capsule Take 1 capsule four times a day for 10 days -- Dispense 40 capsule.Refills: 0. Substitution permitted.Pharmacy - [facility] - [address] [facility] ; [place] [address]. .Follow-up:Follow up with your doctor. Reason for referral: evaluation, treatment and refer tpo AUTOMATIC ENGRAVER for furtherevaluation. Summary of care provided to patient.Understanding of the discharge instructions verbalized by patient. ADDITIONAL INFORMATIONOvarian Cysts 2 General Instructions [facility] Emergency Department [address] [place] [address] Phone #: ext- [phone] 05/26/2020 09:48 Patient: ZE NORMAN Sex: F [...] pain, your healthcare provider may recommend using asnj-qon-vcrltjq pain medicine. If needed, your provide may [...] grows in size.Follow-up care 3 General Instructions [facility] Emergency Department [address] [place] [address] Phone #: ext- [phone] 05/26/2020 09:48 Patient: ZE NORMAN Sex: F [...] Weakness, dizziness, or fainting Abnormal vaginal bleeding [id number] [employer]. [address] [place] [address], [place] [address]. All rights reserved. This information is not [...] have pain during bowel 4 General Instructions [facility] Emergency Department [address] [place] [address] Phone #: ext- [phone] 05/26/2020 09:48 Patient: [...] directed by your provider 5 General Instructions [facility] Emergency Department [address] [place] [address] Phone #: ext- [phone] 05/26/2020 09:48 Patient: [...] can talk with you about infertility testing. [id number] [employer]. [address] [place] [address], [place] [address]. All rights reserved. This information is not intended as asubstitute for professional medical care. Always follow your healthcare professional's instructions. You have been given the following additional information: Ovarian Cyst Endometriosis(Electronically signed by ANA Horowitz 05/26/2020 21:18) Name Value Range Interpretation Code Description Data Ni rce(s) Supporting Document(s) ID Date Data Source [id number] 05/26/2020 09:51:00 AM EST [facility] 1 Clinical Report - Nurses [facility] Emergency Department [address] [place] [address] Phone #: ext- [phone] 05/26/2020 09:48 Patient: [...] She has had moderate left-sided flank pain.Treatment DIGITAL TRAFFIC COORDINATOR:Seen within the last 30 days at this facility in the ED; seen for similar symptoms; treatment- prescriptiongiven. (gabapentin/zofran).SEPSIS SCREEN: SIRS Screen negative. Sepsis Screen negative. No suspected or confirmed signs ofinfection present. --10:03 05/26/20 Denice Montoya, RN09:59 05/26/20. BP: 142/84. MAP: 103. HR: 80. RR: 18. O2 saturation: 100%. Temp: 98.3 F. Pain levelnow: 02/17. --10:03 05/26/20 Denice Montoya RN.Weight: 95.2 kg stated. Height/Length: 71 inches Per Patient. BMI: 29.3. --09:56 05/26/20 Denice Montoya RN.MedicationsGabapentin Oral. --10:00 05/26/20 Denice Montoya RN Zofran Oral. --10:00 05/26/20 Denice Montoya RN.AllergiesNo Known Drug Allergy. --10:00 05/26/20 Denice Montoya RN.PROBLEMS:Carpal Tunnel Syndrome.Depression.Anxiety Reaction.Infertility.Insomnia. --10:05/26/20 Denice Montoya RN.Medication/allergy information source: the patient and patient's previous visit record. --10:03 05/26/20Denice Montoya RN. 2 Clinical Report - Nurses [facility] Emergency Department [address] [place] [address] Phone #: ext- [phone] 05/26/2020 09:48 Patient: [...] 5 rights. 3 Clinical Report - Nurses [facility] Emergency Department [address] [place] [address] Phone #: ext- [phone] 05/26/2020 09:48 Patient: [...] Patient transported to sonogram by wheelchair with biological science technician. --10:56 05/26/20 Denice Montoya RN Patient returned from sonogram by wheelchair with biological science technician. --11:13 05/26/20 Denice Montoya RN 11:13 [...] F. Pain level now 12/18. --11:56 05/26/20 [employer] contractor general engineering, Bruno YOMAIRA Tech1 4 Clinical Report - Nurses [facility] Emergency Department [address] [place] [address] Phone #: ext- [phone] 05/26/2020 09:48 [id number] Sex[facility] F : 1985 Age: 35y Condition at departure: stable. No learning barriers present. Discharge instructions provided and reviewed with the patient. Reviewed medication(s) side effects, precautions, dosing and course information. Prescription(s) sent electronically to pharmacy. Reviewed referral to a director appointment. Patient verbalized understanding. Written instructions provided in Portuguese. The patient was discharged by the physician social work assistant. She was discharged home and accompanied by spouse. She left ambulatory and via private vehicle. Spouse driving. --12:00 05/26/20 Denice Montoya RN 11:55 05/26/2020 Site #1 removed upon discharge. Pressure dressing applied. --12:00 05/26/20 Denice Montoya RN.Locked/Released at 05/26/2020 12:02 by Denice Montoya RN Name Value Range Interpretation Code Description Data Ni rce(s) Supporting Document(s) ID Date Data Source [id number] 05/26/2020 09:51:00 AM EST [facility] 1 Clinical Report - Physicians/Mid Levels [facility] Emergency Department [address] [place] [address] Phone #: ext- [phone] 05/26/2020 09:48 Patient: [...] of 2 Clinical Report - Physicians/Mid Levels [facility] Emergency Department [address] [place] [address] Phone #: ext- [phone] 05/26/2020 09:48 -- [...] N O2? NPREGNANCY STATUS: SIGNED [facility] w Diff: (CORBIN: 05/26/2020 10:17) ( [...] 5.0) 3 Clinical Report - Physicians/Mid Levels [facility] Emergency Department [address] [place] [address] Phone #: ext- [phone] 05/26/2020 09:48 Patient: [...] Male GFR Interprentation 20-49 yrs >60 mL/min Ocroas07-35 yrs >56 mL/min Normal 60-69 yrs >49 mL/min Normal 70-79yrs>42 mL/min Normal 80 and above >35 mL/min Normal Female GFRInterpretation 20-39 yrs >60 mL/min Normal 40-49 yrs >58 mL/minNormal 50-59 yrs >51 mL/min Normal 60-69 yrs >45 mL/min Vsoylw47- 79 yrs >39 mL/min Normal 80 and above >32 mL/min NormalLipase: (CORBIN: 05/26/2020 10:17) ( [facility] 05/26/2020 11:04) Final results Test Result Flag [...] IndicateBeta-HCG, Quant Serum: (CORBIN: 05/26/2020 10:17) ( [facility] 05/26/2020 11:04) Final results Test Result Flag Units (Reference) HCG QUANT <0.5 mIU/mL Interpretation: Less than 5 mU/mL: Negative6-10 mU/mL: Borderline (suggest repeat in 48 hours) >10: PositiveApprox HCG range (mU/mL) Weeks post LMP 5.4-708 mU/mL 3-4 Vdlzt062-12004 mU/mL 5-6 Weeks 4059-112667 mU/mL 7-8 Cqgan09321- 762392 mU/mL 9-10 Weeks 27518-44819 mU/mL 12-14 Weeks 4 Clinical Report - Physicians/Mid Levels [facility] Emergency Department [address] [place] [address] Phone #: ext- [phone] 05/26/2020 09:48 -- Patient: ZE NORMAN Sex: F : 1985 Age: 35y [address]-91732 mU/mL 15-16 Weeks 8240-45139 mU/mL 17-18 Weeks US Pelvis: (CORBIN: 05/26/2020 10:08) ( MsgRcvd 05/26/2020 11:18) In Progress US PELVIC Reason(s): Pelvic Pain TRANSPORTATION: IV? O2? Oxygen?(No) Room: ED.PROGRESS AND PROCEDURESCourse of Care: :47 May 26 2020. Evaluation after observation. (Discussed US results and pt needs tofollow up with AUTOMATIC ENGRAVER. She is agreeable with dx and tx [...] tablet. Refills: 0. Substitution permitted. Pharmacy - [facility] - [id number] [facility] ; [place] [address]. . ondansetron 8 mg disintegrating tablet Take 1 tablet three times a day for 5 days -- Dispense 15 tablet. Refills: 0. Substitution permitted. Pharmacy - [facility] - [address] [facility] ; [place] [address]. . 5 Clinical Report - Physicians/Mid Levels [facility] Emergency Department [address] [place] [address] Phone #: ext- [phone] 05/26/2020 09:48 Patient: ZE NORMAN Sex: F : 1985 Age: 35y dicyclomine 10 mg capsule Take 1 capsule four times a day for 10 days -- Dispense 40 capsule. Refills: 0. Substitution permitted. Pharmacy - [facility] - [address] [facility] ; [place] [address]. . Follow-up: Follow up with your doctor. Reason for referral: evaluation, treatment and refer tpo AUTOMATIC ENGRAVER for further evaluation. Summary of care provided to patient. Understanding of the discharge instructions verbalized by patient.(Electronically signed by ANA Horowitz 05/26/2020 21:18) Name Value Range Interpretation Code Description Data Ni rce(s) Supporting Document(s) ID Date Data Source [id number] 05/26/2020 11:03:00 AM [facility] Name Value Range Interpretation Code Description Data Ni rce(s) Supporting Document(s) Choriogonadotropin.intact [Units/volume] in Serum or Plasma <0.5 mIU/ mL [facility] Interpr etation: Less than 5 mU/mL: Negative 6-10 mU/mL: Borderline (suggest repeat in 48 hours) >10: Positive Approx HCG range (mU/mL) Weeks post LMP 5.4-708 mU/mL 3-4 Weeks 217-85115 mU/mL 5-6 Weeks 4059-579021 mU/mL 7-8 Weeks 20508-458541 mU/mL 9-10 Weeks 23244-75808 mU/mL 12-14 Weeks 71511-64939 mU/mL 15-16 Weeks 8240- 70987 mU/mL 17-18 Weeks ID Date Data Source [id number] 05/26/2020 11:03:00 AM [facility] Name Value Range Interpretation Code Description Data Ni rce(s) Supporting Document(s) Lipase [Enzymatic activity/volume] in Serum or Plasma 68 U/L 13 - 60 H [facility] ID Date Data Source [id number] 05/26/2020 11:03:00 AM [facility] Name Value Range Interpretation Code Description Data Ni rce(s) Supporting Document(s) COMPREHENSIVE METABOLIC PANEL [facility] COMPREHENSIVE METABOLIC PANEL Sodium [Moles/volume] in Serum or Plasma 139 mEq/L 134 - 153 [facility] Potassium [Moles/volume] in Serum or Plasma 3.8 mEq/L 3.6 - 5.0 [facility] Chloride [Moles/volume] in Serum or Plasma 105 mEq/L 98 - 107 [facility] Carbon dioxide, total [Moles/volume] in Serum or Plasma 26 MEQ/L 22 - 30 [facility] Glucose [Mass/volume] in Serum or Plasma 120 MG/DL 65 - 110 H [facility] BUN 11 MG/DL 7 - 21 [facility] Creatinine [Mass/volume] in Serum or Plasma 0.7 MG/DL 0.7 - 1.5 [facility] BUN/CREAT 16 8 - 27 [facility] Protein [Mass/volume] in Serum or Plasma 6.4 G/DL 6.3 - 8.2 [facility] Albumin [Mass/volume] in Serum or Plasma 3.8 G/DL 3.9 - 5.0 L [facility] Globulin [Mass/volume] in Serum by calculation 2.6 GM/DL 2.4 - 3.2 [facility] A/G RATIO 1.5 0.8 - 2.0 [facility] Calcium [Mass/volume] in Serum or Plasma 9.0 MG/DL 8.4 - 10.2 [facility] Bilirubin.total [Mass/volume] in Serum or Plasma <0.7 MG/DL 0.2 - 1.3 [facility] Alkaline phosphatase [Enzymatic activity/volume] in Serum or Plasma 88 U/L 38 - 126 [facility] Aspartate aminotransferase [Enzymatic activity/volume] in Serum or Plasma 15 U/L 5 - 40 [facility] Alanine aminotransferase [Enzymatic activity/volume] in Seru m or Plasma 15 U/L 7 - 56 [facility] Anion gap 3 in Serum or Plasma 8.0 mmol/L 8.0 - 16.0 [facility] AGE 35 [address] [facility] al NON-AA GFR >60 mL/min [facility] ital AFR AMER GFR >60 mL/min [facility] Male GFR In terprentation [...] >32 mL/min Normal ID Date Data Source [id number] 05/26/2020 10:46:00 AM EST [facility] Name Value Range Interpretation Code Description Data Ni rce(s) Supporting Document(s) CBC W/AUTOMATED DIFF [facility] COMPLETE BLOOD COUNT Leukocytes [#/volume] in Blood by Automated count 4.4 10^3/uL 4.2 - 1 1.0 [facility] Erythrocytes [#/volume] in Blood by Automated count 4.72 10^6/uL 4. 20 - 5.40 [facility] Hemoglobin [Mass/volume] in Blood 10.7 g/dL 12.0 - 16.0 L [facility] Hematocrit [Volume Fraction] of Blood by Automated count 34.7 % 3 7.0 - 47.0 L [facility] Erythrocyte mean corpuscular volume [Entitic volume] by Auto mated count 73.5 fL 81.0 - 101 L [facility] Erythrocyte mean corpuscular hemoglobin [Entitic mass] by Automated count 22.7 pg 27.0 - 34.0 L [facility] Erythrocyte mean corpuscular hemoglobin concentration [Mass/volume] by Automated count 30.8 g/dL 31.0 - 36.0 L [facility] Erythrocyte distribution width [Ratio] by Automated count 17.0 % 11.5 - 14.5 H [facility] Platelets [#/volume] in Blood by Automated count 187 10^3/uL 150 - 45 0 [facility] Platelet mean volume [Entitic volume] in Blood by Automated count 0.0 fL 7.4 - 10.4 L [facility] Neutrophils/100 leukocytes in Blood by Automated count 59.3 % 37. 0 - 80.0 [facility] Lymphocytes/100 leukocytes in Blood by Manual count 30.3 % 25.0 - 40.0 [facility] Monocytes/100 leukocytes in Blood by Automated count 5.2 % 3.0 - 8.0 [facility] Eosinophils/100 leukocytes in Blood by Automated count 3.4 % 0.0 - 7.0 [facility] Basophils/100 leukocytes in Blood by Automated count 1.1 % 0.0 - 2.5 [facility] %IG 0.7 % 0.0 - 0.0 H [facility] %NRBC 0.0 % 0.0 - 0.[address] [facility] al Neutrophils [#/volume] in Blood by Automated count 2.60 10^3/uL 2.00 - 6.90 [facility] Lymphocytes [#/volume] in Blood by Automated count 1.33 10^3/uL 0.60 - 3.40 [facility] Monocytes [#/volume] in Blood by Automated count 0.23 10^3/uL 0.00 - 0.90 [facility] Eosinophils [#/volume] in Blood by Automated count 0.15 10^3/uL 0.00 - 0.70 [facility] Basophils [#/volume] in Blood by Automated count 0.05 10^3/uL 0.00 - 0.20 [facility] #IG 0.03 10^3/uL 0.00 - 0.10 [facility] #NRBC 0.00 10^3/uL 0.00 - 0.00 [facility] MANUAL DIFF NOT INDICATED [facility] RBC MORPH SEE BELOW [facility] { SICKLE CELL (NORMAL: NONE SEEN ) Platelet adequacy [Presence] in Blood by Light microscopy NORMAL NORMAL: NORMAL [facility] COMMENT: _[id number]_PLATELETS 05/26/20.1046.CLD. . . ___ ID Date Data Source [id number] 05/26/2020 10:38:00 AM EST [facility] Name Value Range Interpretation Code Description Data Ni rce(s) Supporting Document(s) URINALYSIS [facility] mono URINALYSIS SOURCE R [facility] COLOR yellow NORMAL: Yellow [facility] CLARITY clear NORMAL: Clear [facility] Specific gravity of Urine by Test strip 1.020 1.001 - 1.030 [facility] pH 6 5 - 9 [facility] Glucose [Mass/volume] in Urine by Test strip NORM NORMAL: Negat amanda [facility] Bilirubin.total [Presence] in Urine by Test strip NEG NORMAL: Negative [facility] Ketones [Presence] in Urine by Test strip NEG NORMAL: Negative [facility] Protein [Mass/volume] in Urine by Test strip NEG NORMAL: Negat [facility] Nitrite [Presence] in Urine by Test strip NEG NORMAL: Negative [facility] BLOOD NEG NORMAL: Negative [facility] Leukocyte esterase [Presence] in Urine by Test strip NEG LOLI L: Negative [facility] Urobilinogen [Mass/volume] in Urine by Test strip NOR less emi n 1.0 mg/dL [facility] MICROSCOPIC Not Indicate [facility] ID Date Data Source [id number] 05/23/2020 10:42:00 AM EST [facility] [address] [place] [address] PHONE: [phone] FAX: [phone] Name .................. : МАРИЯ GARVEY Renée Acct Number.................. : [id number] ROOM. ................. : TR-03 Number ................... : [id number] Stay type ............. : E/R Discharge Date......... ... : 05/20/20 Admit Date ......... : 05/20/20 Admit Phys .................... : KARMA RAMSES Date of ....... : 1985 Family Phys ................... : UNKNOWN Phone .................. : [phone] Age ................................ : 35 Film# .................. .:[id number] Sex ................................. : F Unsigned transcriptions are preliminary reports and do not represent a medical or legal document CT ABD & PELV W/[place] OR[place] W/[place] [address] COMPLETE:05/20/20 19:24 GRECIA [id number] Reason(s): NO CONTRAST: L flank pain. ? [...] dose: 1140.7 mGycm Page 1 of 2 [place] [address] PHONE: [phone] FAX: [phone] Name .................. : МАРИЯ Chinchilla Acct Number.................. : [id number] ROOM. ................. : TR-03 MR Number ................... : [id number] Stay type ............. : E/R Discharge Date......... ... : 05/20/20 Admit Date ......... : 05/20/20 Admit Phys .................... : KARMA RAMSES Date of ....... : 1985 Family Phys ................... : UNKNOWN Phone .................. : [phone] Age ................................ : 35 Film# .................. .:[id number] Sex ................................. : F Unsigned transcriptions are preliminary reports and do not represent a medical or legal document CT ABD & PELV W/O ORAL W/[place] [id number] COMPLETE:05/20/20 19:24 GRECIA [id number] Reason(s): NO CONTRAST: L flank pain. ? renal stone Electronically Reviewed and Signed By Titus Rocha M.D. , 05/23/20 10:42, [facility] Transcribe Initials: LOVE , Transcribe Date: 05/20/20 22:45, Dictation Date: Copy for: ELIZABETH REARDON via fax Copy for: KARMA Quarles via fax Copy for: EMERGENCY DEPT via [facility] Copy for: 710 MED REC DISCHARGED Page 2 of 2 Name Value Range Interpretation Code Description Data Ni rce(s) Supporting Document(s) ID Date Data Source [id number] 05/20/2020 04:06:00 PM EST [facility] 1 OrderSheet [facility] Emergency Department [address] [place] [address] Phone #: ext- [phone] 05/20/2020 15:54 Patient: [...] 17:45 ChristophTayorast P.A.-C; Elizabeth P.A.-C(Oxygen?(No)) 2 OrderSheet [facility] Emergency Department [address] [place] [address] Phone #: ext- [phone] 05/20/2020 15:54 Patient: [...] Rajat Johnson P.A.-C (21:49 05/20/2020)] 3 OrderSheet [facility] Emergency Department [address] [place] [address] Phone #: ext- [phone] 05/20/2020 15:54 Patient: ZE NORMAN Sex: F : 1985 Age: 35y[Electronically locked by Rowena Jung R.N. (19:31 05/20/2020)] Name Value Range Interpretation Code Description Data Ni rce(s) Supporting Document(s) ID Date Data Source [id number] 05/20/2020 04:06:00 PM EST [facility] 1 Medication Reconciliation Report [facility] Emergency Department [address] [place] [address] Phone #: ext- [phone] 05/20/2020 15:54 [id number] Sex[facility] F : 1985 Age: 35yWeight: 99.7 [...] Dispense 12 tablet. Refills: 0.Substitution permitted.Pharmacy - [facility] [phone] ; [place] [address]. .gabapentin 100 mg capsule Take 1 capsule three times a day for 4 days -- Dispense 12 capsule.Refills: 0. Substitution permitted.[facility] [phone] ; [place] [address]. . -- Rajat Johnson P.A.-C Name Value Range Interpretation Code Description Data Ni rce(s) Supporting Document(s) ID Date Data Source [id number] 05/20/2020 04:06:00 PM EST [facility] 1 Medication Administration Record [facility] Emergency Department [address] [place] [address] Phone #: ext- [phone] 05/20/2020 15:54 Patient: [...] rce(s) Supporting Document(s) ID Date Data Source [id number] 05/20/2020 04:06:00 PM EST [facility] 1 General Instructions [facility] Emergency Department [address] [place] [address] Phone #: [phone]- [phone] 05/20/2020 15:54 Patient: ZE NORMAN Sex: F [...] Dispense 12 tablet. Refills: 0.Substitution permitted.Pharmacy - [facility] [address] ; [place] [address]. FaxNumber: [phone].gabapentin 100 mg capsule Take 1 capsule three times a day for 4 days -- Dispense 12 capsule.Refills: 0. Substitution permitted.Pharmacy - [facility] [address] ; [place] [address]. .Follow-up:Return to the emergency department as needed. Follow up with your healthcare provider in about twodays if not better. Call for an appointment.Understanding of the discharge instructions verbalized by patient. ADDITIONAL INFORMATIONUnknown Causes of Abdominal Pain (Female) 2 General Instructions [facility] Emergency Department [address] [place] [address] Phone #: ext- [phone] 05/20/2020 15:54 Patient: ZE NORMAN Sex: F [...] for taking these medicines. 3 General Instructions [facility] Emergency Department [address] [place] [address] Phone #: ext- [phone] 05/20/2020 15:54 Patient: [...] begin to improve in thenext 24 hours.Call [phone] if any of these occur: Trouble breathing Confusion Fainting or loss of consciousness Rapid heart rate 4 General Instructions [facility] Emergency Department [address] [place] [address] Phone #: ext- [phone] 05/20/2020 15:54 Patient: [...] or water and you are getting dehydrated [id number] [employer]. [address] [place] [address], [place] [address]. All rights reserved. This information is not intended as asubstitute for professional medical care. Always follow your healthcare professional's instructions. You have been given the following additional information: Abdominal Pain, Unknown Cause, (Female) Do not work for two days.(Electronically signed by Rajat Johnson P.A.-C 05/20/2020 21:49) Name Value Range Interpretation Code Description Data Ni rce(s) Supporting Document(s) ID Date Data Source [id number] 05/20/2020 04:06:00 PM EST [facility] 1 Clinical Report - Nurses [facility] Emergency Department [address] [place] [address] Phone #: ext- [phone] 05/20/2020 15:54 Patient: [...] nausea. Last oral intake by patient was(1230).Treatment DIGITAL TRAFFIC COORDINATOR:Took ibuprofen. (2 hrs ago).SEPSIS SCREEN: SIRS Screen [...] SURGERIES:Breast Augmentation.Cholecystectomy.. 2 Clinical Report - Nurses [facility] Emergency Department [address] [place] [address] Phone #: ext- [phone] 05/20/2020 15:54 Patient: [...] RR: 16. O2 saturation: 100%. --17:10 05/20/20 Essie contractor general engineering, Tamra, ER Tech1 3 Clinical Report - Nurses [facility] Emergency Department [address] [place] [address] Phone #: ext- [phone] 05/20/2020 15:54 Patient: ZE NORMAN Sex: F [...] entry - 18:17 05/20/20. Patient transported to [place] by wheelchair with tech. --18:32 05/20/20 Nancy [...] Patient verbalized understanding. Written instructions provided in Portuguese. The patient was discharged 4 Clinical Report - Nurses [facility] Emergency Department [address] [place] [address] Phone #: ext- [phone] 05/20/2020 15:54 Patient: [...] rce(s) Supporting Document(s) ID Date Data Source [id number] 05/20/2020 04:06:00 PM EST [facility] 1 Clinical Report - Physicians/Mid Levels [facility] Emergency Department [address] [place] [address] Phone #: ext- [phone] 05/20/2020 15:54 Patient: [...] Medications: 2 Clinical Report - Physicians/Mid Levels [facility] Emergency Department [address] [place] [address] Phone #: ext- [phone] 05/20/2020 15:54 Patient: [...] NEGATIVE (NORMAL: NEGAT { KIT LOT # [id number] ){ KIT EXP DATE 04.15.21 ){ PROCEDURAL CONTROL VALID ) US OB 1ST TRI UP TO 14 WEEKS: (CORBIN: 05/20/2020 17:46) ( MsgRcvd 05/20/2020 18:11) Canceled 3 Clinical Report - Physicians/Mid Levels [facility] Emergency Department [address] [place] [address] Phone #: ext- [phone] 05/20/2020 15:54 Patient: [...] (mU/mL) Weeks post LMP 5.4-708 mU/mL 3-4 Uahtr421-62212 mU/mL 5-6 Weeks 4059-862092 mU/mL 7-8 Mileu61930-068312 mU/mL 9-10 Weeks 47419-51767 mU/mL 12-14 Wfnsl84442-92166 mU/mL 15-16 Weeks 8240-24006 mU/mL 17-18 WeeksCBC w Diff: (CORBIN: 05/20/2020 [...] _RARE_LARGE_PLATELET 05/20/20.1807.DW . 4 Clinical Report - Physicians/[facility] Emergency Department [address] [place] [address] Phone #: ext- [phone] 05/20/2020 15:54 Patient: [...] Male GFR Interprentation 20-49 yrs >60 mL/min Koyfye80-75 yrs >56 mL/min Normal 60-69 yrs >49 mL/min Normal 70-79yrs>42 mL/min Normal 80 and above >35 mL/min Normal Female GFRInterpretation 20-39 yrs >60 mL/min Normal 40-49 yrs >58 mL/minNormal 50-59 yrs >51 mL/min Normal 60-69 yrs >45 mL/min Fvjvxu44-58 yrs >39 mL/min Normal 80 and above [...] Indicate 5 Clinical Report - Physicians/Mid Levels [facility] Emergency Department [address] [place] [address] Phone #: ext- [phone] 05/20/2020 15:54 Patient: ZE NORMAN Sex: F : 1985 Age: 35y Beta-HCG, Qual Serum: (CORBIN: 05/20/2020 16:40) ( MsgRcvd 05/20/2020 17:39) Final results Test Result Flag Units (Reference) HCG SERUM QUAL POSITIVE (NORMAL: NEGAT HCG SERUM QL REENTER POSITIVE (NORMAL: NEGAT { KIT LOT # [id number] ){ KIT EXP DATE 04.15.21 ){ PROCEDURAL [...] or complaints. Pt agrees. pending resutls. Reviewed CARE CLINICIAN. No open rx. This report was requested by: Rajat Johnson Reference #: [id number] Others' Prescriptions Patient Name: Ze NormanBirth Date: 1985 6 Clinical Report - Physicians/Mid Levels [facility] Emergency Department [address] [place] [address] Phone #: ext- [phone] 05/20/2020 15:54 [id number] Sex: F : 1985 Age: 35y Address: [address] [place], [place] [address]Sex: Female Rx Written Rx Dispensed Drug Quantity Days Supply Prescriber Name Payment Method Dispenser 02/19/2020 03/05/2020 alprazolam 0.5 mg tablet 60 30 T4 [place], [facility] [id number] #[id number] 01/24/2020 01/24/2020 alprazolam 0.5 mg tablet 60 30 Kunwar, Alejandro [employer] [facility] [id number] #[id number] 12/27/2019 12/27/2019 alprazolam 0.5 mg tablet 60 30 T4 [place], Alejandro [facility] [id number] #[id number] Reviewed results. Enter [...] or 7 Clinical Report - Physicians/Mid Levels [facility] Emergency Department [address] [place] [address] Phone #: ext- [phone] 05/20/2020 15:54 --- Patient: ZE NORMAN Sex: F : 1985 Age: 35y changes unexpectedly, if not improving as expected, or if other problems arise. Prescription Medications: Zofran 4 mg tablet Take 1 tablet three times a day for 4 days -- Dispense 12 tablet. Refills: 0. Substitution permitted. Pharmacy - [facility] [address] ; [place] [address]. . gabapentin 100 mg capsule Take 1 capsule three times a day for 4 days -- Dispense 12 capsule. Refills: 0. Substitution permitted. Pharmacy - [facility] [address] ; [place] [address]. . Follow-up: Return to the emergency department as needed. Follow up with your healthcare provider in about two days if not better. Call for an appointment. Understanding of the discharge instructions verbalized by patient.(Electronically signed by Rajat Johnson P.A.-C 05/20/2020 21:49) Name Value Range Interpretation Code Description Data Ni rce(s) Supporting Document(s) ID Date Data Source [id number] 05/23/2020 01:03:00 PM EST [facility] Name Value Range Interpretation Code Description Data In rce(s) Supporting Document(s) CULTURE URINE [facility] _CULTURE URINE_$$[id number]$$[id number]$$187194$$349852$$318275$$559023$$990385$$462169$$527453$$ 967724$$171726$$883345$$955996$$382578$$383534$$564031$$012722$$907589$$325012$$ 455887$$376617$$642903$$107260$$254983$$981270$$016763$$[id number] -- Continued on next page --Patient: МАРИЯ Chinchilla Order: [id number] Page 2Culture: CULTURE URINE Status: Final ====$$[id number]$$[id number] DATE/TIME: 05/23/2020 06:06Culture: CULTURE URINE Status: FinalUrine Culture,Comprehensive: D7Vxqlr urogenital flora25,000-50,000 colony forming units per mLP1 Test performed by: [facility]eric CLIA #: [id number] [address] [facility] [address] [id number] [facility] [id number] Director : Benoit Cash MD NPI #:Civil Engineering Specialist : 05/23/20.1303.XMT.SENT REF ID Date Data Source [id number] 05/20/2020 06:07:00 PM EST [facility] Name Value Range Interpretation Code Description Data Ni rce(s) Supporting Document(s) CBC W/AUTOMATED DIFF [facility] COMPLETE BLOOD COUNT Leukocytes [#/volume] in Blood by Automated count 5.9 10^3/uL 4.2 - 1 1.0 [facility] Erythrocytes [#/volume] in Blood by Automated count 4.52 10^6/uL 4. 20 - 5.40 [facility] Hemoglobin [Mass/volume] in Blood 10.4 g/dL 12.0 - 16.0 L [facility] Hematocrit [Volume Fraction] of Blood by Automated count 33.5 % 3 7.0 - 47.0 L [facility] Erythrocyte mean corpuscular volume [Entitic volume] by Auto mated count 74.1 fL 81.0 - 101 L [facility] Erythrocyte mean corpuscular hemoglobin [Entitic mass] by Automated count 23.0 pg 27.0 - 34.0 L [facility] Erythrocyte mean corpuscular hemoglobin concentration [Mass/volume] by Automated count 31.0 g/dL 31.0 - 36.0 [facility] Erythrocyte distribution width [Ratio] by Automated count 16.9 % 11.5 - 14.5 H [facility] Platelets [#/volume] in Blood by Automated count 205 10^3/uL 150 - 45 0 [facility] Neutrophils/100 leukocytes in Blood by Automated count 49.3 % 37. 0 - 80.0 [facility] Lymphocytes/100 leukocytes in Blood by Manual count 38.9 % 25.0 - 40.0 [facility] Monocytes/100 leukocytes in Blood by Automated count 7.0 % 3.0 - 8.0 [facility] Eosinophils/100 leukocytes in Blood by Automated count 3.4 % 0.0 - 7.0 [facility] Basophils/100 leukocytes in Blood by Automated count 1.2 % 0.0 - 2.5 [facility] %IG 0.2 % 0.0 - 0.0 [facility] %NRBC 0.0 % 0.0 - 0.[address] [facility] al Neutrophils [#/volume] in Blood by Automated count 2.91 10^3/uL 2.00 - 6.90 [facility] Lymphocytes [#/volume] in Blood by Automated count 2.29 10^3/uL 0.60 - 3.40 [facility] Monocytes [#/volume] in Blood by Automated count 0.41 10^3/uL 0.00 - 0.90 [facility] Eosinophils [#/volume] in Blood by Automated count 0.20 10^3/uL 0.00 - 0.70 [facility] Basophils [#/volume] in Blood by Automated count 0.07 10^3/uL 0.00 - 0.20 [facility] #IG 0.01 10^3/uL 0.00 - 0.10 [facility] #NRBC 0.00 10^3/uL 0.00 - 0.00 [facility] MANUAL DIFF NOT INDICATED [facility] RBC MORPH SEE BELOW [facility] al { SICKLE CELL (NORMAL: NONE SEEN ) Platelet adequacy [Presence] in Blood by Light microscopy NORMAL NORMAL: NORMAL [facility] COMMENT: _RARE_LARGE_PLATELET 05/20/20.DW . ID Date Data Source [id number] 05/20/2020 06:02:00 PM [facility] Name Value Range Interpretation Code Description Data Ni rce(s) Supporting Document(s) HCG URINE QUAL NEGATIVE NORMAL: NEGATIVE [facility] HCG URINE QL REENTER NEGATIVE NORMAL: NEGATIVE [facility] { KIT LOT # [id number] ){ KIT EXP DATE 04.15.21 ){ PROCEDURAL CONTROL VALID ) ID Date Data Source [id number] 05/20/2020 06:00:00 PM [facility] Value Range Interpretation Code Description Data Ni rce(s) Supporting Document(s) Choriogonadotropin.intact [Units/volume] in Serum or Plasma <0.5 mIU/ mL [facility] Interpr etation: Less than 5 mU/mL: Negative 6-10 mU/mL: Borderline (suggest repeat in 48 hours) >10: Positive Approx HCG range (mU/mL) Weeks post LMP 5.4-708 mU/mL 3-4 Weeks 217-51790 mU/mL 5-6 Weeks 4059-637023 mU/mL 7-8 Weeks 92887-760800 mU/mL 9-10 Weeks 52018-17762 mU/mL 12-14 Weeks 60517-56934 mU/mL 15-16 Weeks 8240- 14341 mU/mL 17-18 Weeks ID Date Data Source [id number] 05/20/2020 05:38:00 PM [facility] Value Range Interpretation Code Description Data Ni rce(s) Supporting Document(s) HCG SERUM QUAL POSITIVE NORMAL: NEGATIVE [facility] HCG SERUM QL REENTER POSITIVE NORMAL: NEGATIVE [facility] { KIT LOT # [id number] ){ KIT EXP DATE 04.15.21 ){ PROCEDURAL CONTROL VALID ) ID Date Data Source [id number] 05/20/2020 05:36:00 PM [facility] Value Range Interpretation Code Description Data Ni rce(s) Supporting Document(s) Lipase [Enzymatic activity/volume] in Serum or Plasma 42 U/L 13 - 60 [facility] ID Date Data Source [id number] 05/20/2020 05:36:00 PM EST [facility] Name Value Range Interpretation Code Description Data Ni rce(s) Supporting Document(s) COMPREHENSIVE METABOLIC PANEL [facility] COMPREHENSIVE METABOLIC PANEL Sodium [Moles/volume] in Serum or Plasma 138 mEq/L 134 - 153 [facility] Potassium [Moles/volume] in Serum or Plasma 3.8 mEq/L 3.6 - 5.0 [facility] Chloride [Moles/volume] in Serum or Plasma 105 mEq/L 98 - 107 [facility] Carbon dioxide, total [Moles/volume] in Serum or Plasma 27 MEQ/L 22 - 30 [facility] Glucose [Mass/volume] in Serum or Plasma 83 MG/DL 65 - 110 [facility] BUN 16 MG/DL 7 - [address] [facility] Creatinine [Mass/volume] in Serum or Plasma 0.8 MG/DL 0.7 - 1.5 [facility] BUN/CREAT 20 8 - 27 [facility] Protein [Mass/volume] in Serum or Plasma 6.6 G/DL 6.3 - 8.2 [facility] Albumin [Mass/volume] in Serum or Plasma 3.9 G/DL 3.9 - 5.0 [facility] Globulin [Mass/volume] in Serum by calculation 2.7 GM/DL 2.4 - 3.2 [facility] A/G RATIO 1.4 0.8 - 2.0 [facility] Calcium [Mass/volume] in Serum or Plasma 9.1 MG/DL 8.4 - 10.2 [facility] Bilirubin.total [Mass/volume] in Serum or Plasma <0.7 MG/DL 0.2 - 1.3 [facility] Alkaline phosphatase [Enzymatic activity/volume] in Serum or Plasma 96 U/L 38 - 126 [facility] Aspartate aminotransferase [Enzymatic activity/volume] in Serum or Plasma 19 U/L 5 - 40 [facility] Alanine aminotransferase [Enzymatic activity/volume] in Seru m or Plasma 16 U/L 7 - 56 [facility] Anion gap 3 in Serum or Plasma 6.0 mmol/L 8.0 - 16.0 L [facility]GE 35 [facility] G[facility] >60 mL/min [facility] AFR AMER GFR >60 mL/min [facility] Male GFR In terprentation [...] >32 mL/min Normal ID Date Data Source [id number] 05/20/2020 05:21:00 PM EST [facility] Name Value Range Interpretation Code Description Data Ni rce(s) Supporting Document(s) URINALYSIS [facility] URINALYSIS SOURCE Clean Catch [facility] COLOR yellow NORMAL: Yellow [facility] CLARITY clear NORMAL: Clear [facility] Specific gravity of Urine by Test strip 1.010 1.001 - 1.030 [facility] pH 6.5 5 - 9 [facility] Glucose [Mass/volume] in Urine by Test strip NORM NORMAL: Negat [facility] Bilirubin.total [Presence] in Urine by Test strip NEG NORMAL: Negative [facility] Ketones [Presence] in Urine by Test strip NEG NORMAL: Negative [facility] Protein [Mass/volume] in Urine by Test strip NEG NORMAL: Negat [facility] Nitrite [Presence] in Urine by Test strip NEG NORMAL: Negative [facility] BLOOD NEG NORMAL: Negative [facility] Leukocyte esterase [Presence] in Urine by Test strip NEG LOLI L: Negative [facility] Urobilinogen [Mass/volume] in Urine by Test strip NOR less emi n 1.0 mg/dL [facility] MICROSCOPIC Not Indicate [facility] ID Date Data Source [id number] 04/01/2020 12:00:00 PM EDT [facility] Name Value Range Interpretation Code Description Data Ni rce(s) Supporting Document(s) SARS coronavirus 2 RNA [facility] This lab was ordered by [facility] and reported by [facility]. ID Date Data Source [id number] 02/13/2020 10:17:00 AM EDT [facility] [address] [place] [address] PHONE: [phone] FAX: [phone] Name .................. : МАРИЯ Chinchilla Acct Number.................. : [id number] ROOM. ................. : TR-1A MR Number ................... : [id number] Stay type ............. : E/R Discharge Date......... ... : 02/12/20 Admit Date ......... : 02/12/20 Admit Phys .................... : KARMA RAMSES Date of ....... : 1985 Family Phys ................... : NO PCP Phone .................. : [phone] Age ................................ : 34 Film# .................. .:[id number] Sex ................................. : F Unsigned transcriptions are preliminary reports and do not represent a medical or legal document US EXT-NON VASCULAR LT COMPL [id number] COMPLETE:02/12/20 11:38 KNB 04060 Reason(s): L wrsit pain; ? ganglion SONOGRAM [...] By MITCH LAWRENCE MD , 02/13/20 10:17, [facility] Transcribe Initials: SSR, Transcribe Date: 02/12/20 14:35, Dictation Date: Copy for: ELIZABETH REARDON via fax Copy for: KARMA Quarles via fax Copy for: EMERGENCY DEPT via [place] Copy for: 710 MED REC DISCHARGED Page 1 of 1 Name Value Range Interpretation Code Description Data Ni rce(s) Supporting Document(s) ID Date Data Source [id number] 02/13/2020 10:17:00 [place] [address] PHONE: [phone] FAX: [phone] Name .................. : МАРИЯ RENTERIASHENA Chinchilla Acct Number.................. : [id number] ROOM. ................. : TR-1A MR Number ................... : [id number] Stay type ............. : E/R Discharge Date......... ... : 02/12/20 Admit Date ......... : 02/12/20 Admit Phys .................... : KARMA RAMSES Date of ....... : 1985 Family Phys ................... : NO PCP Phone .................. : [phone] Age ................................ : 34 Film# .................. .:[id number] Sex ................................. : F Unsigned transcriptions are preliminary reports and do not represent a medical or legal document SPINE CERV COMP-5 OR MORE VIE 81926 COMPLETE:02/12/20 11:43 KBO 77626 Reason(s): Upper Ext Pain/Numbness CERVICAL SPINE, 02/12/20: [...] By MITCH LAWRENCE MD , 02/13/20 10:17, [facility] Transcribe Initials: SSR, Transcribe Date: 02/12/20 14:34, Dictation Date: Copy for: ELIZABETH REARDON via fax Copy for: KARMA Quarles via fax Copy for: EMERGENCY DEPT via [employer] Copy for: 710 MED REC DISCHARGED Page 1 of 1 Name Value Range Interpretation Code Description Data Ni rce(s) Supporting Document(s) ID Date Data Source [id number] 02/12/2020 10:08:00 AM EDT [facility] 1 OrderSheet [facility] Emergency Department [address] [place] [address] Phone #: ext- [phone] 02/12/2020 09:58 Patient: ZE NORMAN Sex: F [...] rce(s) Supporting Document(s) ID Date Data Source [id number] 02/12/2020 10:08:00 AM EDT [facility] 1 Medication Reconciliation Report [facility] Emergency Department [address] [place] [address] Phone #: ext- [phone] 02/12/2020 09:58 Patient: [...] Dispense 9 tablet. Refills: 0.Substitution permitted.[facility] ; [place] [address]. FaxNu mber: .gabapentin 100 mg capsule Take 1 capsule three times a day for 4 days -- Dispense 12 capsule.Refills: 0. Substitution permitted.Pharmacy - [facility] - [id number] [facility] ; [place] [address]. .prednisone 50 mg tablet Take 1 tablet once a day with meals for 5 days -- Dispense 5 tablet. Refills: 0.Substitution permitted.[facility] - [facility] - [address] [facility] ; [place] [address]. . -- Rajat Johnson P.A.-C Name Value Range Interpretation Code Description Data Ni rce(s) Supporting Document(s) ID Date Data Source [id number] 02/12/2020 10:08:00 AM EDT [facility] 1 Medication Administration Record [facility] Emergency Department [address] [place] [address] Phone #: ext [phone] 02/12/2020 09:58 Patient: ZE NORMAN Sex: F [...] rce(s) Supporting Document(s) ID Date Data Source [id number] 02/12/2020 10:08:00 AM EDT [facility] 1 General Instructions [facility] Emergency Department [address] [place] [address] Phone #: ext- [phone] 02/12/2020 09:58 Patient: [...] Dispense 9 tablet. Refills: 0.Substitution permitted.Pharmacy - [address] ; [place] [address]. .gabapentin 100 mg capsule Take 1 capsule three times a day for 4 days -- Dispense 12 capsule.Refills: 0. Substitution permitted.Pharmacy - [facility] [id number] [place] [address] ; [place] [address]. .prednisone 50 mg tablet Take 1 tablet once a day with meals for 5 days -- Dispense 5 tablet. Refills: 0.Substitution permitted.[facility] - [address] ; [place] [address]. .Follow-up:Return to the emergency department as needed. Follow up with your healthcare provider in about twodays if not better. Call for an appointment. 2 General Instructions [facility] Emergency Department [address] [place] [address] Phone #: ext- [phone] 02/12/2020 09:58 Patient: ZE NORMAN Sex: F [...] when you are asleep. 3 General Instructions [facility] Emergency Department [address] [place] [address] Phone #: ext- [phone] 02/12/2020 09: 58 [...] bent back when typing. You may use ccax-yjr-qkdeaaw pain medicine to treat pain and inflammation, [...] with the above treatment 4 General Instructions [facility] Emergency Department [address] [place] [address] Phone #: ext- [phone] 10/2019 09:58 Patient: ZE NORMAN Sex: F : 1985 Age: 34y Fingers or hand become cold, blue, numb, or tingly Your whole arm becomes swollen or weak [id number] [employer] [place] [address]. All rights reserved. This information is not intended as asubstitute for professional medical care. Always follow your healthcare professional's instructions. You have been given the following additional information: Carpal Tunnel Syndrome(Electronically signed by Rajat Johnson P.A.-C 02/12/2020 20:56) Name Value Range Interpretation Code Description Data Ni rce(s) Supporting Document(s) ID Date Data Source [id number] 02/12/2020 10:08:00 AM EDT [facility] 1 Clinical Report - Nurses [facility] Emergency Department [address] [place] [address] Phone #: ext- [phone] 02/12/2020 09:58 Patient: [...] had no swelling or redness. No fever.Treatment DIGITAL TRAFFIC COORDINATOR:Took ibuprofen. --10:04 02/12/20 Tyra Nicole R.N.10:06 02/12/20. [...] SURGERIES:Breast Augmentation.Cholecystectomy.. 2 Clinical Report - Nurses [facility] Emergency Department [address] [place] [address] Phone #: ext- [phone] 02/12/2020 09:58 Patient: [...] No skin integrity risk identified. --10:04 02/12/20 Bonine, Tyra, R.N.PHYSICAL ASSESSMENTAmbulatory to room.GENERAL / NEURO [...] Patient transported to radiology by wheelchair with biological science technician. --11:02/12/20 Denice Montoya RN 11:30 02/12/2020 Tylenol (APAP) PO 1000 mg given. Allergies verified and confirmed 5 rights. Information reviewed with patient including reason for taking this medication. Verbalizes understanding. --11:30 3 Clinical Report - Nurses [facility] Emergency Department [address] [place] [address] Phone #: ext- [phone] 02/12/2020 09:58 Patient: ZE NORMAN Sex: F : 1985 Age: 34y 02/12/20 Denice Montoya RN 11:30 02/12/2020 Ativan (LORazepam) PO 1 mg given. Allergies verified and confirmed 5 rights. Information reviewed with patient including reason for taking this medication and sedative warning. Verbalizes understanding. --11:30 02/12/20 Denice Montoya, RN Patient walked back from sonogram with biological science technician. --11:31 02/12/20 Denice Montoya, ELIO 12:00 [...] Patient verbalized understanding. Written instructions provided in Portuguese. The patient was discharged by the physician social work assistant. She was discharged home and accompanied by family. She left ambulatory and via private vehicle. Family member driving. --12:19 02/12/20 Denice Montoya RN 12:19 02/12/20. Pain level now: 12/18. --12:19 02/12/20 Denice Montoya RN.Locked/Released at 02/12/2020 18:48 by Denice Montoya RN Name Value Range Interpretation Code Description Data Ni rce(s) Supporting Document(s) ID Date Data Source [id number] 02/12/2020 10:08:00 AM EDT [facility] 1 Clinical Report - Physicians/Mid Levels [facility] Emergency Department [address] [place] [address] Phone #: ext- [phone] 02/12/2020 09:58 Patient: [...] . 2 Clinical Report - Physicians/Mid Levels [facility] Emergency Department [address] [place] [address] Phone #: ext- [phone] 02/12/2020 09:58 Patient: [...] swelling, 3 Clinical Report - Physicians/Mid Levels [facility] Emergency Department [address] [place] [address] Phone #: ext- [phone] 02/12/2020 09:58 -------- Patient: ZE NORMAN [facility]#: [id number] Sex: F : 1985 Age: 34y laceration, [...] documentation. 4 Clinical Report - Physicians/Mid Levels [facility] Emergency Department [address] [place] [address] Phone #: ext- [phone] 02/12/2020 09:58 Patient: ZE NORMAN Sex: F [...] worsens or 5 Clinical Report - Physicians/Mid [facility] Emergency Department [address] [place] [address] Phone #: ext- [phone] 02/12/2020 09:58 Patient: ZE NORMAN Sex: F : 1985 Age: 34y changes unexpectedly, if not improving as expected, or if other problems arise. Your Current Medications: . No home medication. No home medication. Prescription Medications: cyclobenzaprine 10 mg tablet Take 1 tablet three times a day for 3 days -- Dispense 9 tablet. Refills: 0. Substitution permitted. Pharmacy - [facility] - [id number] ; [place] [address]. . gabapentin 100 mg capsule Take 1 capsule three times a day for 4 days -- Dispense 12 capsule. Refills: 0. Substitution permitted. Pharmacy - [facility] - [address] ; [place] [address]. . prednisone 50 mg tablet Take 1 tablet once a day with meals for 5 days -- Dispense 5 tablet. Refills: 0. Substitution permitted. Pharmacy - [facility] - [address] ; [place] [address]. . Follow-up: Return to the emergency department as needed. Follow up with your healthcare provider in about two days if not better. Call for an appoi ntment. Understanding of the discharge instructions verbalized by patient.(Electronically signed by Rajat Johnson P.A.-C 02/12/2020 20:56) Name Value Range Interpretation Code Description Data Ni rce(s) Supporting Document(s) ID Date Data Source [id number] 02/11/2020 08:53:00 AM EDT [facility] [address] [place] [address] PHONE: [phone] FAX: [phone] Name .................. : МАРИЯ GARVEY Renée Acct Number.................. : [id number] ROOM. ................. : TR-1B Number ................... : [id number] Stay type ............. : E/R Discharge Date......... ... : 02/09/20 Admit Date ......... : 02/09/20 Admit Phys .................... : LOLA KURTZ Date of ....... : 1985 Family Phys ................... : UNKNOWN Phone .................. : [phone] Age ................................ : 34 Film# .................. .:[id number] Sex ................................. : F Unsigned transcriptions are preliminary reports and do not represent a medical or legal [place] [id number] COMPLETE:02/09/20 02:57 RLB [id number] Farrah son(s): Wrist Pain LEFT WRIST X-RAY: [...] rce(s) Supporting Document(s) ID Date Data Source [id number] 02/09/2020 12:09:00 AM EDT [facility] 1 OrderSheet [facility] Emergency Department [address] [place] [address] Phone #: ext- [phone] 02/09/2020 00:03 Patient: ZE NORMAN Sex: F [...] rce(s) Supporting Document(s) ID Date Data Source [id number] 02/09/2020 12:09:00 AM EDT [facility] 1 Medication Reconciliation Report [facility] Emergency Department [address] [place] [address] Phone #: ext- [phone] 02/09/2020 00:03 Patient: [...] Value Range Interpretation Code Description Data [facility](s) Supporting Document(s) ID Date Data Source [id number] 02/09/2020 12:09:00 AM EDT [facility] 1 Medication Administration Record [facility] Emergency Department [address] [place] [address] Phone #: [phone] eua- [phone] 02/09/2020 00:03 Patient: ZE NORMAN Sex: F : 1985 Age: 34yWeight: 95.2 kgHeight/Length: 71 inBMI: 29.3ALLERGIES: No Known Drug Allergy Date/Time Medication Administered Medication OrderedGiven DILAUDID [IM] (HYDROMORPHONE Dilaudid IM 1 mg (HIGH ALERT01:37 02/09/2020 HCL) MEDICATION)Kathie Osborne, R.N. Dose: 1 mg IM Name Value Range Interpretation Code Description Data [facility](s) Supporting Document(s) ID Date Data Source [id number] 02/09/2020 12:09:00 AM EDT [facility] 1 General Instructions [facility] Emergency Department [address] [place] [address] Phone #: ext- [phone] 02/09/2020 00:03 Patient: [...] to plan of care.Follow-up with: [facility], , , [address] [place] [address], [id number] Follow up in two days even if well. Call for an appointment. Reason for referral: evaluation and treatment.Summary of care provided to patient via paper. ADDITIONAL INFORMATIONCarpal Tunnel Syndrome 2 General Instructions [facility] Emergency Department [address] [place] [address] Phone #: ext- [phone] 02/09/2020 00:03 Patient: [...] tools with strong vibrations. 3 General Instructions [facility] Emergency Department [address] [place] [address] Phone #: ext- [phone] 02/09/2020 00:03 Patient: [...] bent back when typing. You may use [id number] pain medicine to treat pain and inflammation, [...] Your whole arm becomes swollen or weak [id number] [employer]. [address] [place] [address]. All rights reserved. This information is not intended as asubstitute for professional medical care. Always follow your healthcare professional's instructions. You have been given the following additional information: 4 General Instructions [facility] Emergency Department [address] [place] [address] Phone #: ext- [phone] 02/09/2020 00:03 Patient: ZE NORMAN Sex: F : 1985 Age: 34yCarpal Tunnel Syndrome(Electronically signed by Hannah Davila M.D. 02/09/2020 02:34) Name Value Range Interpretation Code Description Data Ni rce(s) Supporting Document(s) ID Date Data Source [id number] 02/09/2020 12:09:00 AM EDT [facility] 1 Clinical Report - Nurses [facility] Emergency Department [address] [place] [address] Phone #: ext- [phone] 02/09/2020 00:03 Patient: [...] to the 2 Clinical Report - Nurses [facility] Emergency Department [address] [place] [address] Phone #: [phone] lnk- [phone] 02/09/2020 00:03 Patient: ZE NORMAN Sex: F [...] October, Pat. Patient walked to radiology with biological science technician. --01:02/09/20 Brunilda OctoberPat. Patient walked back from radiology with biological science technician. --01:34 02/09/20 Brunilda OctoberAdolph 01:37 02/09/2020 Dilaudid (HYDROmorphone HCl) IM 1 mg given. Given in the right deltoid. Allergies 3 Clinical Report - Nurses [facility] Emergency Department [address] [place] [address] Phone #: ext- [phone] 02/09/2020 00:03 Patient: [...] Patient verbalized understanding. Written instructions provided in Portuguese. The patient was discharged by the physician. [...] rce(s) Supporting Document(s) ID Date Data Source [id number] 02/09/2020 12:09:00 AM EDT [facility] 1 Clinical Report - Physicians/Mid Levels [facility] Emergency Department [address] [place] [address] Phone #: ext- [phone] 02/09/2020 00:03 Patient: [...] use. 2 Clinical Report - Physicians/Mid Levels [facility] Emergency Department [address] [place] [address] Phone #: ext- [phone] 02/09/2020 00:03 [id number] Sex: F : 1985 Age: 34yADDITIONAL NOTESThe [...] was requested by: Hannah Davila Reference #: [id number] Others' Prescriptions Patient Name: Ze NormanBirth Date: 1985 Address: [id number] [place], [place] [address]Sex: Female Rx Written Rx Dispensed Drug Quantity Days Supply Prescriber Name Payment Method Dispenser 01/24/2020 01/24/2020 alprazolam 0.5 mg tablet 60 30 Alejandro Ko [facility] 3 Clinical Report - Physicians/Mid Levels [facility] Emergency Department [address] [place] [address] Phone #: [phone] cei- [phone] 02/09/2020 00:03 Patient: ZE NORMAN [facility]#: [id number] Sex: F : 1985 Age: 34y [id number] 12/27/2019 12/27/2019 alprazolam 0.5 mg tablet 60 30 [facility] [id number] #[id number] * - Drugs marked with an [...] home medication. Follow-up: 4 Clinical Report - Physicians/[facility] Emergency Department [address] [place] [address] Phone #: ext- [phone] 02/09/2020 00:03 [id number] Sex: F : 1985 Age: 34y Return [...] plan of care. Follow-up with: [facility], , , [address] [place] [address], [facility] Follow up in two days even if well. Call for an appointment. Reason for referral: evaluation and treatment. Summary of care pro vided to patient via paper.(Electronically signed by Hannah Davila M.D. 02/09/2020 02:34) Name Value Range Interpretation Code Description Data Ni rce(s) Supporting Document(s) ID Date Data Source [id number] 10/11/2019 07:45:00 AM EDT [facility] Name Value Range Interpretation Code Description Data Ni rce(s) Supporting Document(s) SARS CORONAVIRUS 2 RNA [facility] This lab was ordered by [facility] and reported by [facility]. Procedure Vital Signs ID Date Data Source UNK Name Value Range Interpretation Code Description Data Source(s) Body surface area Derived from formula 2.23 m2 2.23 m2 [facility] ([facility], ) Body weight 103.421 kg 103.421 kg [facility] ([facility], ) [place] body weight 155 [lb_av] 155 [lb_av] MEDEN T ([facility], ) Body mass index (BMI) [Ratio] 31.8 kg/m2 31.8 k g/m2 [facility] ([facility]) Body weight 228.00 [lb_av] 228.00 [lb_av] [facility] T ([facility]) Body height 71 [in_i] 71 [in_i] [facility] ([facility]) 5'11" Body temperature 98.1 [degF] 98.1 [degF] [facility] ([facility]) Body temperature 98.2 [degF] 98.2 [degF] [facility] ([facility]) Body weight 102.967 kg 102.967 [facility] [place] body weight 155 [lb_av] 155 [lb_av] [facility] T ([facility]) Body mass index (BMI) [Ratio] 31.7 kg/m2 31.7 k g/m2 [facility] Body weight 227.00 [lb_av] 227.00 [lb_av] [facility] T ([facility]) Body height 71 [in_i] 71 [in_i] [facility] ([facility]) 5'11" Body temperature 98.1 [degF] 98.1 [degF] [facility] ([facility]) Respiratory rate 16 /min 16 /min [facility] ( [facility]) Heart rate 80 /min 80 /min [facility] ([facility]) Diastolic blood pressure 84 mm[Hg] 84 mm[Hg] [facility] ([facility]) Systolic blood pressure 138 mm[Hg] 138 mm[facility] Heart rate 72 /min 72 /min [facility] ([facility]) Diastolic blood pressure 80 mm[Hg] 80 mm[Hg] [facility] ([facility]) Systolic blood pressure 120 mm[Hg] 120 mm[facility] Body mass index (BMI) [Ratio] 30.7 kg/m2 30.7 k g/m2 [facility] Body weight 220.00 [lb_av] 220.00 [lb_av] NATY Syed ([facility]) Body height 71 [in_i] 71 [in_i] ADRY ([facility]) 5'11"
[2020-09-03 04:18] LABS: BASO # 0.1 10^3/uL (0.0-0.2); BASO % 0.9 % (0.0-1.0); EOS # 0.5 10^3/uL (0.0-0.5); EOS % 6.8 % (0.0-3.0); HEMATOCRIT 34.4 % (36.0-47.0); HEMOGLOBIN 10.1 g/dl (12.0-15.5); LYMPH % 29.3 % (24.0-44.0); MEAN CORPUSCULAR HGB CONC 29.4 g/dl (32.0-36.5); MEAN CORPUSCULAR VOLUME 78.4 fl (80.0-96.0); MONO # 0.3 10^3/uL (0.0-0.8); MONO % 4.9 % (2.0-8.0); NEUTROPHILS # 3.9 10^3/uL (1.5-8.5); NEUTROPHILS % 57.7 % (36.0-66.0); PLATELET COUNT, AUTOMATED 222 10^3/uL (150-450); RED BLOOD COUNT 4.39 10^6/uL (4.00-5.40); WHITE BLOOD COUNT 6.7 10^3/uL (4.0-10.0)
[2020-09-03] MEDS ORDERED: KETOROLAC 30 MG/ML 1ML VIAL IV ONE (04:45)
[2020-09-03] MEDS ORDERED: ACETAMINOPHEN 500 MG TAB PO ONE (04:45)
[2020-09-03] MEDS ORDERED: diphenhydrAMINE 50MG/ML VIAL (J1200) IV ONE (04:45)
[2020-09-03] MEDS ORDERED: METOCLOPRAMIDE INJ 10MG/2ML VIAL (J2765 PER 1) IV ONE (04:45)
[2020-09-03] MEDS ORDERED: NS 1,000 ML IV ONE (04:45)
[2020-09-03] MEDS ORDERED: AZEL1SPR3 NARES (05:53)
[2020-09-03] MEDS ORDERED: EQ S0.65 NARES (05:53)
[2020-09-03] MEDS ORDERED: CETI10TA4 PO (05:53)
[2020-09-03] MEDS ORDERED: KETO10TAB PO (05:53)
[2020-09-03 06:04] VITALS: BP 130/65
== END 2020-09-03 06:06 | disposition home or self-care (01) ==
LOC: M ED 01:23
DX: J32.9 Chronic sinusitis, unspecified (principal); Z48.00 Encounter for change or removal of nonsurgical wound dressing; E11.9 Type 2 diabetes mellitus without complications
CPT/HCPCS: 80047; 84702; 85025; 96361; 96374; 96375; 99284; J1200; J1885; J2765

== ENCOUNTER 2020-09-14 13:41 | Emergency (ER) | payer OTHER ==
[~2020-09-14] VITALS: Ht 180.3 cm; Wt 99.5 kg
[~2020-09-14 13:41] MED LIST changes: +AZEL1SPR3 NARES; +CETI10TA4 PO; +EQ S0.65 NARES; +KETO10TAB PO
[2020-09-14 13:42] VITALS: BP 115/61
== END 2020-09-14 14:44 | disposition home or self-care (01) ==
LOC: M ED 13:41
DX: R23.8 Other skin changes (principal); E11.9 Type 2 diabetes mellitus without complications; K21.9 Gastro-esophageal reflux disease without esophagitis; Z79.899 Other long term (current) drug therapy; Z88.5 Allergy status to narcotic agent

== ENCOUNTER 2020-09-27 11:37 | Emergency (ER) | payer OTHER ==
[~2020-09-27] VITALS: Ht 180.3 cm; Wt 99.9 kg
--- NOTE | 2020-09-27 12:45 | REP ---
INDICATION: left elbow pain; ?injury COMPARISON: None. FINDINGS: There is no fracture or dislocation. Mineralization and joint spaces are normal. There are no calcifications or foreign bodies. IMPRESSION: Negative . <Electronically signed by Stephen Farias > 09/27/20 [id number]
[2020-09-27 13:09] VITALS: BP 129/77
--- NOTE | 2020-09-28 08:14 | ECGEPIP ---
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
== END 2020-09-27 13:14 | disposition home or self-care (01) ==
LOC: M ED 11:37
DX: M54.12 Radiculopathy, cervical region (principal); K21.9 Gastro-esophageal reflux disease without esophagitis; Z79.899 Other long term (current) drug therapy; Z88.5 Allergy status to narcotic agent

== ENCOUNTER 2020-10-04 22:38 | Emergency (ER) | payer OTHER ==
[~2020-10-04] VITALS: Ht 180.3 cm; Wt 101.4 kg
[2020-10-04 22:38] VITALS: BP 135/92
== END 2020-10-05 00:25 | disposition left against medical advice (07) ==
LOC: M ED 22:38
DX: Z53.21 Procedure and treatment not carried out due to patient leaving prior to being seen by health care provider (principal)